=== PATIENT | female | born 1950 | race Caucasian/White ===

== ENCOUNTER 2020-02-06 20:58 | Emergency (ER) | payer MEDICARE, OTHER ==
[~2020-02-06] VITALS: Ht 170.2 cm; Wt 113.6 kg
[~2020-02-06 20:58] MED LIST: ACET500T68 PO; ALPR0.5T6 PO; APIX2.5T PO; ATOR10TA60 PO; BACL10TA PO; CARB1TAB3 PO; DULO30CA2 PO; ENTA200T2 PO; FAMO20TA5 PO; FURO20TA3 PO; GUAI118L3 PO; HYDR28.423 TP; INSU100I27 SQ; INSU100V31 SQ; LEVO125T5 PO; LORA-169 PO; LORA10TA68 PO; MAG30ORA6 PO; MELO15TA23 PO; MENT118G TP; MULT-460 PO; ONDA-84 PO; POLY15DR20 EACHEYE; POLY17PO29 PO; POTA10TA6 PO; PREG50CA91 PO; ROPI0.5T4 PO; SITA100T PO; VENL150C6 PO; VENTOLIN HFA18 GM INH; ZINC220T3 PO; [UNRECOGNIZED DRUG - CODE] PO
--- NOTE | 2020-02-06 21:29 | PHYS DOC ---
Past Medical History Past Medical History: Depression, Diabetes-Type II, GERD, Other Additional Past Medical Histor: PARKINSONS Past Surgical History: Other Additional Past Surgical Histo: UNKNOWN Smoking Status: Never Smoker Alcohol Use: None Adult General HPI HPI Patient is a 70 year old female who presents via EMS for symptomatic COVID-19. [facility], was recently diagnosed with COVID-19 12 days ago and ever since has been on the Covid gallegos. She has been receiving supportive care but has continued to feel generalized malaise, muscle aches, and experienced increased short of breath. Patient had episode of hypoglycemia earlier this morning prompting EMS to come and administer x1 amp dextrose with improvement in patient's blood sugar and symptoms. Patient was subsequently kept at [facility] and monitored throughout the day. Nonetheless, given patient's ongoing shortness of breath with nonproductive cough, [facility] staff did not feel comfortable handling patient and sent her here for arrival. Review of Systems Review of Systems Fourteen body systems of review of systems have been reviewed. See HPI for pertinent positives and negative responses, other lemus all other systems are negative, non-pertinent or non-contributory Current Medications Current Medications Current Medications Medications (Trade) Dose Ordered Sig/Laureen Start Time Stop Time Status Last Admin Dose Admin Dexamethasone Sodium Phosphate (Decadron) 6 mg 1X ONCE 02/06/20 21:15 02/06/20 21:24 DC 02/06/20 21:39 6 MG Allergies Allergies Allergies Coded Allergies Type Severity Reaction Last Updated Verified Influenza Virus Vaccines Allergy Intermediate Unknown 01/31/20 Yes bacitracin Allergy Intermediate Rash 01/31/20 Yes Physical Exam Physical Exam Constitutional: Pt is oriented to person, place, and time. Pt appears well-developed but is unkept with poor hygiene HEENT: Head: Normocephalic and atraumatic. External ears unremarkable, no gatica sign Conjunctivae and EOM are normal. Pupils are equal, round, and reactive to light. Oropharynx is clear and dry No hematomas or lacerations or abrasions to face or scalp OP clear, no blood, no malocclusion, dentition intact Nares clear, no nasal septal hematoma Midface stable Neck: C-spine midline nontender, no step-offs Cardiovascular: Normal rate, regular rhythm and normal heart sounds. Pulmonary/Chest: No overt respiratory distress, wheezing present with auscultation bilaterally, accessory muscle use of abdomen with respirations Abdominal: Soft. Bowel sounds are normal. Pt exhibits no distension. There is no tend erness. Musculoskeletal: No bony tenderness to extremities, no deformities, full ROM extremities Chest wall stable Pelvis stable and non-tender No vertebral TTP and spine without stepoffs Neurological: Pt is alert and oriented to person, place, and time. Moving all extremities willfully, able to wiggle all fingers and toes Alert and oriented x 3 Sensation grossly intact Skin: Skin is warm and dry. No abrasions, no lacerations Psychiatric: Behavior is appropriate for situation Current Patient Data Vital Signs Vital Signs Date Time Temp Pulse Resp B/P (MAP) Pulse Ox O2 Delivery O2 Flow Rate FiO2 02/06/20 21:40 96 22 138/40 (72) 90 Nasal Cannula 2.0 02/06/20 21:05 98.9 98.9 Lab Values Laboratory Tests Test 02/06/20 21:20 White Blood Count 15.1 x10^3/uL (4.0-11.0) H Red Blood Count 5.29 x10^6/uL (3.50-5.40) Hemoglobin 13.3 g/dL (12.0-15.5) Hematocrit 42.5 % (36.0-47.0) Mean Corpuscular Volume 81 fL (79-100) Mean Corpuscular Hemoglobin 25 pg (25-35) Mean Corpuscular Hemoglobin Concent 31 g/dL (31-37) Red Cell Distribution Width 17.6 % (11.5-14.5) H Platelet Count 232 x10^3/uL (140-400) Neutrophils (%) (Auto) 92 % (31-73) H Lymphocytes (%) (Auto) 3 % (24-48) L Monocytes (%) (Auto) 5 % (0-9) Eosinophils (%) (Auto) 0 % (0-3) Basophils (%) (Auto) 1 % (0-3) Neutrophils # (Auto) 13.9 x10^3/uL (1.8-7.7) H Lymphocytes # (Auto) 0.4 x10^3/uL (1.0-4.8) L Monocytes # (Auto) 0.8 x10^3/uL (0.0-1.1) Eosinophils # (Auto) 0.0 x10^3/uL (0.0-0.7) Basophils # (Auto) 0.1 x10^3/uL (0.0-0.2) Segmented Neutrophils % 68 % (35-66) H Band Neutrophils % 22 % (0-9) H Lymphocytes % 4 % (24-48) L Monocytes % 5 % (0-10) Metamyelocytes % 1 % (0-0) H Platelet Estimate Adequate (ADEQUATE) Large Platelets Few Giant Platelets Occ Prothrombin Time 14.0 SEC (11.7-14.0) Prothrombin Time INR 1.1 (0.8-1.1) Activated Partial Thromboplast Time 30 SEC (24-38) D-Dimer (Allyson) 0.63 ug/mlFEU (0.00-0.50) H Sodium Level 143 mmol/L (136-145) Potassium Level 4.0 mmol/L (3.5-5.1) Chloride Level 106 mmol/L (98-107) Carbon Dioxide Level 28 mmol/L (21-32) Anion Gap 9 (6-14) Blood Urea Nitrogen 20 mg/dL (7-20) Creatinine 0.9 mg/dL (0.6-1.0) Estimated GFR (Cockcroft-Gault) 61.5 BUN/Creatinine Ratio 22 (6-20) H Glucose Level 172 mg/dL (70-99) H Lactic Acid Level 1.9 mmol/L (0.4-2.0) Calcium Level 8.3 mg/dL (8.5-10.1) L Total Bilirubin 0.3 mg/dL (0.2-1.0) Aspartate Amino Transferase (AST) 22 U/L (15-37) Alanine Aminotransferase (ALT) 9 U/L (14-59) L Alkaline Phosphatase 100 U/L (46-116) Creatine Kinase 31 U/L (26-192) Troponin I Quantitative < 0.017 ng/mL (0.000-0.055) C-Reactive Protein, Quantitative 40.2 mg/L (0-3.3) H IK-Zjo-U-Type Natriuretic Peptide 276 pg/mL (0-124) H Total Protein 5.9 g/dL (6.4-8.2) L Albumin 2.4 g/dL (3.4-5.0) L Albumin/Globulin Ratio 0.7 (1.0-1.7) L Laboratory Tests 02/06/20 21:20 Laboratory Tests 02/06/20 21:20 EKG EKG EKG ordered and interpreted by myself at 2127 hrs. as sinus rhythm at 97 bpm, unremarkable intervals, no axis deviation, no acute ischemic findings, no STEMI Radiology/Procedures Radiology/Procedures Exam: Chest one view INDICATION: Shortness of breath TECHNIQUE: Frontal view which Comparisons: 01/31/2020 FINDINGS: The cardiomediastinal silhouette and pulmonary vessels are within normal limits. Patchy airspace disease at the lung bases bilaterally. No pleural effusion. IMPRESSION: Patchy bibasilar airspace disease, may relate to edema or atypical infectious process. Electronically signed by: Wendy Mills MD (02/06/2020 10:05 PM) [facility] Course & Med Decision Making Course & Med Decision Making Pertinent Labs and Imaging studies reviewed. (See chart for details) Discussed most likely diagnosis of acute respiratory failure secondary to COVID- 19. Patient hypoxic on room air with readings ranging from 87% to 90%. These improved with supplemental oxygen via nasal cannula at 2 L Dexamethasone administered given recent COVID-19 diagnosis. It is unknown whether she has been taking this or not. Patient reports improvement in her wheezing after administration of this Ultimately patient reassessed numerous times throughout ER visit and stable. I discussed role of admission versus discharge back to [facility]. [facility] which can provide same level of care that we would provide if she were to be admitted such as supplemental oxygen therapy, dexamethasone as indicated in addition to zinc and azithromycin. I have not started these as I am unsure if patient has recently been treated with these. I discussed need to discuss this with her [facility] physician tomorrow after discharge to determine if these medications would benefit her or not. senior care contacted and case discussed, they were amenable for transport back to their facility with ongoing supportive care. Nurse reports they will discuss case with [facility] physician tomorrow and will evaluate need for ongoing zinc, dexamethasone and azithromycin use. I educated patient extensively on strict return precautions at should prompt immediate medical attention and specifically what should prompt her to come back to our ER for intervention All questions and concerns addressed prior to ER departure via EMS back to [facility] in stable condition Dragfritz Disclaimer Dragon Disclaimer This electronic medical record was generated, in whole or in part, using a voice recognition dictation system. Departure Departure Impression: Primary Impression: COVID-19 Additional Impression: Acute respiratory failure due to COVID-19 Disposition: 01 DC HOME SELF CARE/HOMELESS (Back to [facility]) Condition: STABLE Referrals: XAVI ATKINSON MD (PCP) Additional Instructions: As discussed prior to ER departure, please discuss with your [facility] physician role of zinc, dexamethasone, and azithromycin for your recently diagnosed COVID-19 infection As advised there are no emergent and/or surgical findings today. I believe you are continuing to feel symptoms from COVID-19 infection. I feel you are safe to return back to your [facility] as they are able to provide all care that we would provide in a hospitalized setting in your current state such as supplemental oxygen via nasal cannula and treatment methods above. I am unsure if you received any of these treatment methods which is why I am deferring the decision to start these or not to your [facility] physician who knows all about your care. Nonetheless, please return to the Emergency Department if you experience worsening cough, fever, shortness of breath, recurrent vomiting, lethargy, or any other concerning symptoms. Thank you for choosing us for your care. Below you can read more information regarding your diagnosis of COVID-19, alessio atment options and FAQs Home Care Instructions for Patients with Mild Respiratory Infection Most people with respiratory infections like colds, the flu, and Coronavirus Disease (COVID-19) will have mild illness and can get better with appropriate home care and without the need to see a provider. People who are elderly, , or have a weak immune system, or other medical problem are at higher risk of more serious illness or complications. It is recommended that they carefully monitor their symptoms closely and seek medical care early if their symptoms get worse. Treatment There is no specific treatment for most viruses including those that that cause the common cold and those that cause COVID-19. Sometimes there is treatment for the viruses that cause influenza if given early. Antibiotics treat infections caused by bacteria, but they do not work against viruses.Most people recover on their own from these viruses, including COVID-19. Here are steps that you can take to help you get better: Rest Drink plenty of fluids Take ziyq-pec-vainneq cold and flu medications to reduce fever and pain. Follow the instructions on the package, unless your doctor gave you instructions. Note that these medicines do not ``cure the illness and therefore do not stop you from spreading germs. Children should not be given medication that contains aspirin (acetylsalicylic acid) because it can cause a rare but serious illness called Camron syndrome. Medicines without aspirin include acetaminophen (Tylenol) and ibuprofen (Advi l, Motrin). Children younger than age 2 should not be given any dsli-qas-chblxea cold medications without first speaking with a doctor.Seeking Medical Care You should seek medical care if you are not getting better within a week, or if your symptoms get worse. If you are elderly, , have a weak immune system, or other medical problems, call your doctor right away. It is best to call ahead of time to discuss your symptoms, if possible. This may allow you to receive the advice you need by phone. By avoiding a visit to a healthcare facility, you protect yourself from getting a new infection and protect others from catching an infection from you. If you do visit a healthcare facility, put on a mask to protect other patients and staff. It is recommended that you seek medical care for serious symptoms, such as: People with potentially life-threatening symptoms should call 911. If possible, put on a facemask before emergency medical services arrive. PROTECTING OTHERS Follow the steps below to help prevent the disease from spreading to people in your home and community.Stay home when you are sick Stay home - do not go to work, school, or public areas. Stay home for at least 24 hours after your symptoms have gone away without the use of fever-reducing medicines. If you must leave home while you are sick, try to avoid using public transportation, ride-shares, and taxis. Wear a mask if possible. Separate yourself from other people and animals in your home Stay in a specific room and away from other people in your home as much as possible. Use a separate bathroom, if available. Try to stay at least 6 feet from others. Do not handle pets or other animals while you are sick. Cover your coughs and sneezes Cover your mouth and nose with a tissue when you cough or sneeze. Throw used tissues in a lined trash can; immediately wash your hands. Avoid sharing personal household items Do not share dishes, drinking glasses, cups, eating utensils, towels, or bedd ing with other people or pets in your home. Wash them thoroughly with soap and water after use. Clean your hands often Wash your hands often with soap and water for at least 20 seconds. If soap and water are not available, clean your hands with an alcohol-based hand e commerce solution architect that contains at least 60% alcohol, covering all surfaces of your hands and rubbing them together until they feel dry. Use soap and water if your hands are visibly dirty. Clean all ``high-touch surfaces every day High touch surfaces include counters, tabletops, doorknobs, bathroom fixtures, toilets, phones, keyboards, tablets, and bedside tables. Also, clean any surfaces that may have body fluids on them. Use a household cleaning spray or wipe, according to the product label instructions. COVID-19 (Novel Coronavirus) FAQs for Inquiring Patients What do you do if you are worried that you have been exposed to COVID-19 but are without any symptoms? If you develop symptoms that may indicate an infection, contact your physician. These include fever, cough, and shortness of breath. Testing is not available for asymptomatic individuals, regardless of travel history. To reduce the chance of getting sick use general infection prevention measures such as hand washing, covering your mouth and nose when you cough or sneeze and discarding any tissues carefully, and staying home when you are sick.Can exceptions be made for patients who are really worried and want to be tested? Presently testing is available through all local Department of Public Health and Centers for Disease Control and Prevention in addition to numerous Urgent Care facilities and Pharmacies. Only patients who meet the updated COVID-19 PUI definition may be tested. We do not control or set the PUI definition or evaluation criteria. We are unable to provide testing to patients who do not meet the strict criteria. Should patients cancel or postpone an upcoming trip? The decision about travel is personal and should be made in the context of a persons underlying health conditions, reason for travel and necessity of travel. Travel insurance generally does not cover cancellations due to concerns of infectious disease outbreaks. The Center for Disease Control has a section on travel notices. Situations are changing frequently and you should monitor the site for updates. Should situations change rapidly in a foreign country while they are traveling, you could be subject to quarantine or restrictions upon return to the [place]. It is best to have a plan on how to return urgently if needed during a trip abroad. Because of how air circulates and is filtered on airplanes, most viruses do not spread easily on airplanes. CDC does not recommend use of facemasks during air travel.What other general precautions are advised? Patients should be instructed to: Avoid close contact with people who are sick. Avoid touching your eyes, nose and mouth. Stay home from work or school when they are sick. If you have a fever, you should remain home until 24 hours after fever resolves. Clean and disinfect frequently touched objects and surfaces using a regular household cleaning spray or wipe. Sneeze/cough into their elbow, not your hand. Practice frequent hand hygiene with soap and water (at least 20 seconds) or alcohol-based hand rub. Consider avoiding crowded places or mass gatherings, especially if you are immunocompromised or have chronic lung disease. There is no evidence to support transmission of COVID-19 from goods imported from [place]. Are there any special precautions that are recommended if I am ? There is not yet any information available about the susceptibility of women to COVID-19. As a general rule, women may be more susceptible to viral respiratory infections and at risk for more severe illness. The CDC guidance for COVID-19 and has answers to questions about transmission during delivery, as well as other situations. Should food, water, or medications be stockpiled? Should people telecommute? The CDC has excellent information on this. Please visit the CDCs guidance for getting your household ready for COVID-19. What should I do if I start feeling sick at work? And what should the workplace do for anyone exposed? Anyone who is sick with a fever and cough should stay home from work until at least 24 hours after resolution of fever, regardless of concerns for COVID-19. It is still influenza (flu) season and influenza remains far more common. Problem Qualifiers CORNELL BRIZUELA DO Feb 06, 2020 21:28
[2020-02-06 21:36] LABS: BASO # 0.1 x10^3/uL (0.0-0.2); BASO % 1 % (0-3); EOS % 0 % (0-3); HEMATOCRIT 42.5 % (36.0-47.0); HEMOGLOBIN 13.3 g/dL (12.0-15.5); LYMPH # 0.4 x10^3/uL (1.0-4.8); LYMPH % 3 % (24-48); MEAN CORPUSCULAR HEMOGLOBIN 25 pg (25-35); MEAN CORPUSCULAR HGB CONC 31 g/dL (31-37); MEAN CORPUSCULAR VOLUME 81 fL (79-100); MONO # 0.8 x10^3/uL (0.0-1.1); MONO % 5 % (0-9); NEUT # 13.9 x10^3/uL (1.8-7.7); NEUT % 92 % (31-73); PLATELET COUNT 232 x10^3/uL (140-400); RED BLOOD COUNT 5.29 x10^6/uL (3.50-5.40); RED CELL DISTRIBUTION WIDTH 17.6 % (11.5-14.5); WHITE BLOOD COUNT 15.1 x10^3/uL (4.0-11.0)
[2020-02-06] MEDS: DEXAMETHASONE SOD PHOS 4 MG/ML VIAL IVP ONE (21:39)
[2020-02-06 21:54] LABS: CALCIUM 8.3 mg/dL (8.5-10.1); CREATININE 0.9 mg/dL (0.6-1.0); GFR 61.5
[2020-02-06 21:56] LABS: D-DIMER 0.63 ug/mlFEU (0.00-0.50)
[2020-02-06 22:00] LABS: ALBUMIN 2.4 g/dL (3.4-5.0); ALBUMIN/GLOBULIN RATIO 0.7 (1.0-1.7); C-REACTIVE PROTEIN 40.2 mg/L (0-3.3); TOTAL BILIRUBIN 0.3 mg/dL (0.2-1.0); TOTAL PROTEIN 5.9 g/dL (6.4-8.2)
--- NOTE | 2020-02-06 22:08 | RAD ---
Exam: Chest one view INDICATION: Shortness of breath TECHNIQUE: Frontal view which Comparisons: 01/31/2020 FINDINGS: The cardiomediastinal silhouette and pulmonary vessels are within normal limits. Patchy airspace disease at the lung bases bilaterally. No pleural effusion. IMPRESSION: Patchy bibasilar airspace disease, may relate to edema or atypical infectious process. Electronically signed by: Wendy Mills MD (02/06/2020 10:05 PM) [facility]
[2020-02-06 22:14] LABS: % BANDS 22 % (0-9); % LYMPHS 4 % (24-48); % METAS 1 % (0-0); % MONOS 5 % (0-10); % SEGS 68 % (35-66); PLT ESTIMATE ADEQUATE (ADEQUATE)
[2020-02-07 00:36] VITALS: BP 161/85
--- NOTE | 2020-02-07 08:12 | EKG ---
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
== END 2020-02-07 00:50 | disposition home or self-care (01) ==
LOC: ER 20:58
DX: J96.00 Acute respiratory failure, unspecified whether with hypoxia or hypercapnia (principal); U07.1 COVID-19; R53.83 Other fatigue; F32.9 Major depressive disorder, single episode, unspecified; K21.9 Gastro-esophageal reflux disease without esophagitis; E11.649 Type 2 diabetes mellitus with hypoglycemia without coma; Z98.890 Other specified postprocedural states; Z88.7 Allergy status to serum and vaccine; Z88.1 Allergy status to other antibiotic agents
CPT/HCPCS: 36415; 71045; 80053; 82550; 83605; 83880; 84484; 85007; 85025; 85379; 85610; 85730; 86140; 87040; 93005; 96374; 99291; J1100

== ENCOUNTER 2020-02-20 09:36 | Emergency (ER) | payer MEDICARE, OTHER ==
[~2020-02-20] VITALS: Ht 170.2 cm; Wt 113.6 kg
--- NOTE | 2020-02-20 10:13 | EKG ---
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
--- NOTE | 2020-02-20 10:17 | ED.ADGEN ---
Past Medical History Past Medical History: COPD, Depression, Diabetes-Type II, GERD, Other Additional Past Medical Histor: PARKINSONS Past Surgical History: Other Additional Past Surgical Histo: UNKNOWN Smoking Status: Never Smoker Alcohol Use: None General Adult EDM: Chief Complaint: WEAKNESS/GENERALIZED HPI: HPI: Patient is a 70 year old female brought in from nursing facility. Per EMS as staff reports she was acting "altered" this morning and tired. Patient states s he has no complaints, and is complaining about not getting sleep secondary to her roommate waking up in middle the night. Patient states she does not have any shortness of breath, has an occasional lingering cough. Patient was diagnosed with Covid 1 month ago and has since recovered and been out of quarantine and back to general population. Review of Systems: Review of Systems: Constitutional: Denies fever or chills. [] Eyes: Denies change in visual acuity. [] HENT: Denies nasal congestion or sore throat. [] Respiratory: Denies cough or shortness of breath. [] Cardiovascular: Denies chest pain or edema. [] GI: Denies abdominal pain, nausea, vomiting, bloody stools or diarrhea. [] : Denies dysuria. [] Musculoskeletal: Denies back pain or joint pain. [] Integument: Denies rash. [] Neurologic: Denies headache, focal weakness or sensory changes. [] Endocrine: Denies polyuria or polydipsia. [] Lymphatic: Denies swollen glands. [] Psychiatric: Denies depression or anxiety. [] Current Medications: Current Medications Medications (Trade) Dose Ordered Sig/Laureen Start Time Stop Time Status Last Admin Dose Admin Cephalexin HCl (Keflex) 500 mg 1X STAT 02/20/20 12:24 02/20/20 12:26 DC Sodium Chloride 1,000 ml @ 1,000 mls/hr 1X ONCE 02/20/20 11:45 02/20/20 12:44 DC 02/20/20 11:54 1,000 MLS/HR Allergies: Allergies: Allergies Coded Allergies Type Severity Reaction Last Updated Verified Influenza Virus Vaccines Allergy Intermediate Unknown 01/31/20 Yes bacitracin Allergy Intermediate Rash 01/31/20 Yes Physical Exam: PE: Constitutional: Well developed, well nourished, no acute distress, non-toxic appearance. [] HENT: Normocephalic, atraumatic, bilateral external ears normal, oropharynx moist, no oral exudates, nose normal. [] Eyes: PERRLA, EOMI, conjunctiva normal, no discharge. [] Neck: Normal range of motion, no tenderness, supple, no stridor. [] Cardiovascular:Heart rate regular rhythm, no murmur [] Lungs & Thorax: Bilateral breath sounds clear to auscultation [] Abdomen: Bowel sounds normal, soft, no tenderness, no masses, no pulsatile masses. [] Skin: Warm, dry, no erythema, no rash. [] Back: No tenderness, no CVA tenderness. [] Extremities: No tenderness, no cyanosis, no clubbing, ROM intact, no edema. [] Neurologic: Alert and oriented X 3, normal motor function, normal sensory function, no focal deficits noted. [] Psychologic: Affect normal, judgement normal, mood normal. [] Current Patient Data: Labs: Laboratory Tests Test 02/20/20 09:58 02/20/20 10:20 02/20/20 11:10 Glucose (Fingerstick) 114 mg/dL (70-99) H White Blood Count 7.5 x10^3/uL (4.0-11.0) Red Blood Count 4.29 x10^6/uL (3.50-5.40) Hemoglobin 11.2 g/dL (12.0-15.5) L Hematocrit 35.1 % (36.0-47.0) L Mean Corpuscular Volume 82 fL (79-100) Mean Corpuscular Hemoglobin 26 pg (25-35) Mean Corpuscular Hemoglobin Concent 32 g/dL (31-37) Red Cell Distribution Width 18.2 % (11.5-14.5) H Platelet Count 147 x10^3/uL (140-400) Neutrophils (%) (Auto) 82 % (31-73) H Lymphocytes (%) (Auto) 12 % (24-48) L Monocytes (%) (Auto) 5 % (0-9) Eosinophils (%) (Auto) 1 % (0-3) Basophils (%) (Auto) 1 % (0-3) Neutrophils # (Auto) 6.1 x10^3/uL (1.8-7.7) Lymphocytes # (Auto) 0.9 x10^3/uL (1.0-4.8) L Monocytes # (Auto) 0.4 x10^3/uL (0.0-1.1) Eosinophils # (Auto) 0.0 x10^3/uL (0.0-0.7) Basophils # (Auto) 0.0 x10^3/uL (0.0-0.2) Sodium Level 148 mmol/L (136-145) H Potassium Level 3.3 mmol/L (3.5-5.1) L Chloride Level 108 mmol/L (98-107) H Carbon Dioxide Level 32 mmol/L (21-32) Anion Gap 8 (6-14) Blood Urea Nitrogen 19 mg/dL (7-20) Creatinine 1.2 mg/dL (0.6-1.0) H Estimated GFR (Cockcroft-Gault) 44.2 BUN/Creatinine Ratio 16 (6-20) Glucose Level 95 mg/dL (70-99) Calcium Level 8.7 mg/dL (8.5-10.1) Total Bilirubin 0.2 mg/dL (0.2-1.0) Aspartate Amino Transferase (AST) 37 U/L (15-37) Alanine Aminotransferase (ALT) 46 U/L (14-59) Alkaline Phosphatase 103 U/L (46-116) Troponin I Quantitative < 0.017 ng/mL (0.000-0.055) PR-Xgs-Q-Type Natriuretic Peptide 47 pg/mL (0-124) Total Protein 6.3 g/dL (6.4-8.2) L Albumin 2.6 g/dL (3.4-5.0) L Albumin/Globulin Ratio 0.7 (1.0-1.7) L Urine Collection Type U cath Urine Color Yellow Urine Clarity Cloudy Urine pH 5.5 (<5.0-8.0) Urine Specific [place] >=1.030 (1.000-1.030) Urine Protein 30 mg/dL (NEG-TRACE) Urine Glucose (UA) Negative mg/dL (NEG) Urine Ketones (Stick) Negative mg/dL (NEG) Urine Blood Small (NEG) Urine Nitrite Negative (NEG) Urine Bilirubin Small (NEG) Urine Urobilinogen Dipstick 0.2 mg/dL (0.2 mg/dL) Urine Leukocyte Esterase Small (NEG) Urine RBC 6-10 /HPF (0-2) Urine WBC 11-20 /HPF (0-4) Urine Squamous Epithelial Cells Many /LPF Urine Transitional Epithelial Cells Few /LPF Urine Renal Epithelial Cells Few /LPF Urine Bacteria Moderate /HPF (0-FEW) Urine Hyaline Casts Few /HPF Urine Mucus Marked /LPF Laboratory Tests 02/20/20 10:20 Laboratory Tests 02/20/20 10:20 Vital Signs: Vital Signs Date Time Temp Pulse Resp B/P (MAP) Pulse Ox O2 Delivery O2 Flow Rate FiO2 02/20/20 12:10 72 26 122/63 (82) 100 Nasal Cannula 2.0 02/20/20 09:36 96.7 96.7 EKG: EKG: Sinus rhythm, heart rate 83, normal axis, no ectopy, no ST elevation or depression. Normal intervals [] Heart Score: Risk Factors: Risk Factors: DM, Current or recent (<one month) smoker, HTN, HLP, family history of CAD, obesity. Risk Scores: Score 0 - 3: 2.5% MACE over next 6 weeks - Discharge Home Score 4 - 6: 20.3% MACE over next 6 weeks - Admit for Clinical Observation Score 7 - 10: 72.7% MACE over next 6 weeks - Early Invasive Strategies Radiology/Procedures: Radiology/Procedures: XR CHEST 1V 02/20/2020 10:48 AM INDICATION: Dyspnea COMPARISON: 02/06/2020 TECHNIQUE: Portable frontal view of the chest is provided. FINDINGS: The cardiomediastinal silhouette is enlarged, stable. There is a catheter projecting along the right chest consistent the prior examination. Coarse interstitial airspace disease identified in perihilar distribution, not significant changed. Trace right pleural effusion with adjacent compressive atelectasis versus infiltrate. Moderate pulmonary vascular congestion. No pneumothorax. No suspicious osseous abnormality. IMPRESSION: Constellation of findings may be associated with congestive heart failure. Interstitial pneumonitis could have similar appearance. Findings are not significantly changed since the prior examination. [] Course & Med Decision Making: Course & Med Decision Making Pertinent Labs and Imaging studies reviewed. (See chart for details) Patient well-appearing and states she is feeling okay. Does endorse some urinary frequency recently. Labs consistent mild dehydration, given some fluids and antibiotics for urinary tract infection. [] Dragon Disclaimer: Dragon Disclaimer: This electronic medical record was generated, in whole or in part, using a voice recognition dictation system. Departure Departure Impression: Primary Impression: Urinary tract infection Additional Impression: Mild dehydration Disposition: 09 ADMITTED INPT THIS HOSP Condition: STABLE Referrals: XAVI ATKINSON MD (PCP) Patient Instructions: Urinary Tract Infection Scripts Cephalexin (CEPHALEXIN) 500 Mg Capsule 1 CAP PO BID for antiobiotic for 5 Days, #10 CAP Prov: KATHIE HODGE MD 02/20/20 Problem Qualifiers KATHIE HODGE MD Feb 20, 2020 10:17
[2020-02-20 10:42] LABS: BASO % 1 % (0-3); EOS % 1 % (0-3); HEMATOCRIT 35.1 % (36.0-47.0); HEMOGLOBIN 11.2 g/dL (12.0-15.5); LYMPH # 0.9 x10^3/uL (1.0-4.8); LYMPH % 12 % (24-48); MEAN CORPUSCULAR HEMOGLOBIN 26 pg (25-35); MEAN CORPUSCULAR HGB CONC 32 g/dL (31-37); MEAN CORPUSCULAR VOLUME 82 fL (79-100); MONO # 0.4 x10^3/uL (0.0-1.1); MONO % 5 % (0-9); NEUT # 6.1 x10^3/uL (1.8-7.7); NEUT % 82 % (31-73); PLATELET COUNT 147 x10^3/uL (140-400); RED BLOOD COUNT 4.29 x10^6/uL (3.50-5.40); RED CELL DISTRIBUTION WIDTH 18.2 % (11.5-14.5); WHITE BLOOD COUNT 7.5 x10^3/uL (4.0-11.0)
[2020-02-20 10:49] LABS: CALCIUM 8.7 mg/dL (8.5-10.1); CREATININE 1.2 mg/dL (0.6-1.0); GFR 44.2; POTASSIUM 3.3 mmol/L (3.5-5.1)
--- NOTE | 2020-02-20 10:54 | RAD ---
XR CHEST 1V 02/20/2020 10:48 AM INDICATION: Dyspnea COMPARISON: 02/06/2020 TECHNIQUE: Portable frontal view of the chest is provided. FINDINGS: The cardiomediastinal silhouette is enlarged, stable. There is a catheter projecting along the right chest consistent the prior examination. Coarse interstitial airspace disease identified in perihilar distribution, not significant changed. Trace right pleural effusion with adjacent compressive atelectasis versus infiltrate. Moderate pulmon susan vascular congestion. No pneumothorax. No suspicious osseous abnormality. IMPRESSION: Constellation of findings may be associated with congestive heart failure. Interstitial pneumonitis c ould have similar appearance. Findings are not significantly changed since the prior examination. Electronically signed by: Rebeca Emerson MD (02/20/2020 10:52 AM) PREM
[2020-02-20 10:56] LABS: ALBUMIN 2.6 g/dL (3.4-5.0); ALBUMIN/GLOBULIN RATIO 0.7 (1.0-1.7); TOTAL BILIRUBIN 0.2 mg/dL (0.2-1.0); TOTAL PROTEIN 6.3 g/dL (6.4-8.2)
[2020-02-20 11:24] LABS: BILIRUBIN,URINE SMALL (NEG); CLARITY,URINE CLOUDY; NITRITE,URINE NEGATIVE (NEG); PH,URINE 5.5 (<5.0-8.0); PROTEIN,URINE 30 mg/dL (NEG-TRACE); UROBILINOGEN,URINE 0.2 mg/dL (0.2 mg/dL)
[2020-02-20 11:42] LABS: COLOR,URINE YELLOW
[2020-02-20 11:44] LABS: HYALINE CASTS, URINE FEW /HPF
[2020-02-20] MEDS ORDERED: IV NORMAL SALINE 1000ML BAG 1,000 ML IV ONE (11:45)
[2020-02-20 11:47] LABS: BACTERIA,URINE MODERATE /HPF (0-FEW)
[2020-02-20] MEDS ORDERED: CEPHALEXIN 250 MG CAPSULE. PO STA (12:24)
[2020-02-20] MEDS ORDERED: CEPH500C PO (12:47)
[2020-02-20] MEDS ORDERED: ACETAMINOPHEN 500 MG TABLET PO ONE (13:45)
[2020-02-20 15:40] VITALS: BP 122/64
== END 2020-02-20 16:05 | disposition home or self-care (01) ==
LOC: ER 09:36
DX: N39.0 Urinary tract infection, site not specified (principal); E86.0 Dehydration; J44.9 Chronic obstructive pulmonary disease, unspecified; F32.9 Major depressive disorder, single episode, unspecified; E11.9 Type 2 diabetes mellitus without complications; K21.9 Gastro-esophageal reflux disease without esophagitis; Z98.890 Other specified postprocedural states; Z88.1 Allergy status to other antibiotic agents; Z88.8 Allergy status to other drugs, medicaments and biological substances
CPT/HCPCS: 36415; 71045; 80053; 81001; 82962; 83880; 84484; 85025; 87086; 93005; 96360; 96361; 99285; J7030; P9612

== ENCOUNTER 2020-03-30 14:50 | Inpatient (IN) | payer MEDICARE, OTHER ==
[~2020-03-30] VITALS: Ht 167.6 cm; Wt 120.6 kg
[~2020-03-30 14:50] MED LIST changes: +CEPH500C PO
--- NOTE | 2020-03-30 15:20 | PHYS DOC ---
Past Medical History Past Medical History: Anxiety, COPD, Depression, Diabetes-Type II, GERD, Other Additional Past Medical Histor: PARKINSONS Past Surgical History: Other Additional Past Surgical Histo: SHUNT IN BRAIN Smoking Status: Never Smoker Alcohol Use: None General Adult EDM: Chief Complaint: MECHANICAL FALL HPI: HPI: Patient is a 70 year old female with history of diabetes type 2, depression, anxiety, coming from a [facility] for left ankle fracture. Patient states sometime today she was trying to sit on her wheelchair, she states she missed the wheelchair landed on the floor. She states her doctor was in the room during the fall. Patient states they did an outpatient x-ray and she was told she has ankle fracture. Patient states she is primarily wheelchair-bound Review of Systems: Review of Systems: Constitutional: Denies fever or chills. [] Eyes: Denies change in visual acuity. [] HENT: Denies nasal congestion or sore throat. [] Respiratory: Denies cough or shortness of breath. [] Cardiovascular: Denies chest pain or edema. [] GI: Denies abdominal pain, nausea, vomiting, bloody stools or diarrhea. [] : Denies dysuria. [] Musculoskeletal: Reports left ankle pain, denies low back pain Integument: Denies rash. [] Neurologic: Denies headache, focal weakness or sensory changes. [] Psychiatric: Denies depression or anxiety. [] Heart Score: Risk Factors: Risk Factors: DM, Current or recent (<one month) smoker, HTN, HLP, family history of CAD, obesity. Risk Scores: Score 0 - 3: 2.5% MACE over next 6 weeks - Discharge Home Score 4 - 6: 20.3% MACE over next 6 weeks - Admit for Clinical Observation Score 7 - 10: 72.7% MACE over next 6 weeks - Early Invasive Strategies Allergies: Allergies: Allergies Coded Allergies Type Severity Reaction Last Updated Verified Influenza Virus Vaccines Allergy Intermediate Unknown 01/31/20 Yes bacitracin Allergy Intermediate Rash 01/31/20 Yes Physical Exam: PE: Constitutional: Well developed, well nourished, no acute distress, non-toxic appearance. [] HENT: Normocephalic, atraumatic, bilateral external ears normal, oropharynx moist, no oral exudates, nose normal. [] Eyes: PERRLA, EOMI, conjunctiva normal, no discharge. [] Neck: Normal range of motion, no tenderness, supple, no stridor. [] Cardiovascular:Heart rate regular rhythm, no murmur [] Lungs & Thorax: Bilateral breath sounds clear to auscultation [] Abdomen: Bowel sounds normal, soft, no tenderness, no masses, no pulsatile masses. [] Skin: Warm, dry, no erythema, no rash. [] Back: No tenderness, no CVA tenderness. [] Extremities: Left ankle with +2 soft tissue swelling diffusely. Slight bruising noted on the left medial ankle. Tenderness on palpation of the left medial as well as lateral ankle. Limited range of motion to the left ankle. +2 left pedal pulse. Cap refill less than 2 seconds to left toes. Neurologic: Alert and oriented X 3, normal motor function, normal sensory function, no focal deficits noted. [] Psychologic: Affect normal, judgement normal, mood normal. [] Current Patient Data: Vital Signs: Vital Signs Date Time Temp Pulse Resp B/P (MAP) Pulse Ox O2 Delivery O2 Flow Rate FiO2 03/30/20 15:02 98.3 88 20 142/74 (96) 100 Room Air 98.3 EKG: EKG: [] Radiology/Procedures: Radiology/Procedures: []PROCEDURE: TIBIA FIBULA LEFT Exam: Left tibia and fibula 2 views INDICATION: Left ankle pain TECHNIQUE: Frontal and lateral views left tibia and fibula Comparisons: Ankle radiographs same day FINDINGS: Known ankle fracture to better evaluated on contemporary ankle radiographs. No new fractures are seen. Soft tissues are unremarkable. Bone mineralization is normal. Joint spaces are well-maintained. IMPRESSION: No other fracture identified at the left tibia or fibula. Ankle fractures better described on ankle radiographs. Electronically signed by: Wendy Busby MD (03/30/2020 5:04 PM) [facility] DICTATED and SIGNED BY: WENDY BUSBY MD DATE: 03/30/20 [id number] PROCEDURE: ANKLE LEFT 3V EXAM: AP, oblique and lateral views left ankle DATE: 03/30/2020 3:04 PM INDICATION: Reason: fall pain,pt states she fell / Spl. Instructions: / History: COMPARISON: No Prior FINDINGS/ IMPRESSION: 1. Transverse fracture base of medial malleolus with oblique fracture of the distal fibular diametaphysis. Equivocal offset at the posterior malleolus suspicious for nondisplaced fracture. 2. Marked soft tissue swelling about the left ankle 3. Atherosclerotic vascular calcifications are seen. 4. Small plantar calcaneal enthesophyte. Electronically signed by: Shoaib Tolentino MD (03/30/2020 3:49 PM) [id number] DICTATED and SIGNED BY: SHOAIB TOLENTINO MD DATE: 03/30/20 [id number] 0 Course & Med Decision Making: Course & Med Decision Making Pertinent Labs and Imaging studies reviewed. (See chart for details) This is a 70-year-old female patient presented to the ED today complaining of left ankle fracture. Patient states she fell down injuring her left ankle today. She had outpatient x-rays done at the [facility] unfortunately we are not able to download the xrays because she brought a paper copy. X-rays were done in the ED again. Left ankle x-rays interpreted by radiologist noted for -Transverse fracture base of medial malleolus with oblique fracture of the distal fibular diametaphysis. Equivocal offset at the posterior malleolus suspicious for nondisplaced fracture. Marked soft tissue swelling about the left ankle. Atherosclerotic vascular calcifications are seen. Small plantar calcaneal enthesophyte. Spoke with Dr. Jones orthopedic doctor who came to the ED who initially stated patient is a surgical candidate, needs to be admitted under the hospitalist. Spoke to Dr. Alfredo who accepted patient for admission Dr. Jones came back to the ED and realized patient is on Eliquis and has significant swelling to the left lower extremity. He decided to splint patient. Neurovascular exam done by him post splinting is normal. Post plating x-rays were ordered by him and read by him. He requested we discharge patient back to the [facility]. Unfortunately patient had already been transferred to the floor. I spoke to Dr. Alfredo who will work on patient's discharge Dragon Disclaimer: Dragon Disclaimer: This electronic medical record was generated, in whole or in part, using a voice recognition dictation system. Departure Departure Impression: Primary Impression: Trimalleolar fracture of left ankle Qualified Codes: S82.852A - Displaced trimalleolar fracture of left lower leg, initial encounter for closed fracture Disposition: ADMITTED INPT THIS HOSP Condition: STABLE Referrals: XAVI ATKINSON MD (PCP) ELISA GALICIA II, MD Follow-up in 1 week Patient Instructions: Ankle Fracture with [facility] Additional Instructions: You were evaluated in the emergency room and have a trimalleolar fracture to the left ankle. Orthopedic doctor recommended you ensure you elevate your left lower extremity on 5 pillows/above your heart. Recommended you contact the provided orthopedic doctor tomorrow and set up an outpatient follow-up MARZENA PENA APRN Mar 30, 2020 15:20
--- NOTE | 2020-03-30 15:52 | RAD ---
EXAM: AP, oblique and lateral views left ankle DATE: 03/30/2020 3:04 PM INDICATION: Reason: fall pain,pt states she fell / Spl. Instructions: / History: COMPARISON: No Prior FINDINGS/ IMPRESSION: 1. Transverse fracture base of medial malleolus with oblique fracture of the distal fibular diametap hysis. Equivocal offset at the posterior malleolus suspicious for nondisplaced fracture. 2. Marked soft tissue swelling about the left ankle 3. Atherosclerotic vascular calcifications are seen. 4. Small plantar calcaneal enthesophyte. Electronically signed by: Shoaib Dobbs MD (03/30/2020 3:49 PM) [id number]
--- NOTE | 2020-03-30 17:06 | RAD ---
Exam: Left tibia and fibula 2 views INDICATION: Left ankle pain TECHNIQUE: Frontal and lateral views left tibia and fibula Comparisons: Ankle radiographs same day FINDINGS: Known ankle fracture to better evaluated on contemporary ankle radiographs. No new fractures are seen. Soft tissues are unremarkable. Bone mineralization is normal. Joint spaces are well-maintained. IMPRESSION: No other fracture identified at the left tibia or fibula. Ankle fractures better described on ankle r adiographs. Electronically signed by: Wendy Mills MD (03/30/2020 5:04 PM) SOL
--- NOTE | 2020-03-30 17:44 | PDOC2 ---
CONSULT Date of Consult Date of Consult DATE: 03/30/20 TIME: 17:25 Source Source: Chart review, Patient (Poor historian) History of Present Illness Reason for Visit: 70 YOF DM, Parkinson's, wheelchair transfer ambulator who is on anticoagulation for stroke/AFIB who lives in a long-term. She is a poor historian and has not ambulated for at least a year, maybe longer, per her report. She had a physician witnessed fall today when attempting to transfer from the bed to the wheelchair. She was brought to the ED for evaluation after an outside XR showed an ankle fracture. Past Medical History Past Medical History DM, Anxiety, Parkinson's, COPD, GERD, TIA/Stroke, AFIB Past Surgical History Past Surgical History Stent in brain Social History Social History: Other (Wheelchair transfer ambulator only. No ambulation for at least last 1 year. Lives in long-term.) Current Medications Current Medications Active Scripts Active Cephalexin 500 Mg Capsule 1 Cap PO BID 5 Days Reported Zinc Sulfate 220 Mg Tablet 220 Mg PO DAILY Ventolin Hfa Inhaler (Albuterol Sulfate) 18 Gm Hfa.aer.ad 2 Puff INH Q4HRS Venlafaxine Hcl Er (Venlafaxine Hcl) 150 Mg Cap.er.24h 225 Mg PO DAILY Sinemet 25-250 Mg Tablet (Carbidopa/Levodopa) 1 Each Tablet 1 Tab PO QID Ropinirole Hcl 0.5 Mg Tablet 0.5 Mg PO TID Robitussin Cough-Cold Cf Liq (Guaifenesin/D-Methorphan Hb/Pe) 118 Ml Liquid 10 Ml PO PRN Q4HRS PRN Lyrica (Pregabalin) 50 Mg Capsule 50 Mg PO TID Klor-Con 10 (Potassium Chloride) 10 Meq Tablet.er 1 Tab PO DAILY 30 Days Ondansetron Hcl 4 Mg Tablet 1 Tab PO PRN Q8HRS PRN Novolog (Insulin Aspart) 100 Unit/1 Ml Vial 18 Unit SQ TIDAC Multiple Vitamin (Multivitamin With Minerals) 1 Each Tablet 1 Each PO BID Mucinex Fast-Max Dm Max Liquid (Guaifenesin/Dextromethorphan) 180 Ml Liquid 10 Ml PO PRN Q4HRS PRN Miralax (Polyethylene Glycol 3350) 17 Gm Powd.pack 1 Pkt PO PRN Q24HRS PRN Mag-Al Hydrox-Simeth Max Susp (Mag Hydrox/Aluminum Hyd/Simeth) 30 Ml Oral.susp 15 Ml PO PRN Q4HRS PRN Meloxicam 15 Mg Tablet 15 Mg PO DAILY Loratadine 10 Mg Tab.rapdis 1 Tab PO DAILY 30 Days Levothyroxine Sodium 125 Mcg Tablet 250 Mcg PO DAILYAC Levemir Flextouch (Insulin Detemir) 100 Unit/1 Ml Insuln.pen 35 Unit SQ BID Januvia (Sitagliptin Phosphate) 100 Mg Tablet 1 Tab PO DAILY Hydrocortisone Plus 1% Cream (Hydrocortisone/Aloe Vera) 28.4 Gm Cream..g. 28.4 Gm TP PRN Q8HRS PRN Furosemide 20 Mg Tablet 60 Mg PO DAILY Famotidine 20 Mg Tablet 20 Mg PO HS Entacapone 200 Mg Tablet 200 Mg PO DAILY Eliquis (Apixaban) 2.5 Mg Tablet 2.5 Mg PO BID Cymbalta (Duloxetine Hcl) 30 Mg Capsule.dr 90 Mg PO DAILY Claritin (Loratadine) 10 Mg Tablet 1 Tab PO DAILY 30 Days Biofreeze (Menthol) 118 Ml Gel..ml. 1 Blayne TP PRN Q6HRS PRN 7 Days Baclofen 10 Mg Tablet 10 Mg PO BID Atorvastatin Calcium 10 Mg Tablet 10 Mg PO HS Polyvinyl Alcohol 15 Ml Drops 1 Drop EACHEYE TID 30 Days Polyvinyl Alcohol 15 Ml Drops 1 Drop EACHEYE PRN Q4HRS PRN 30 Days Alprazolam 0.5 Mg Tablet 1 Tab PO HS Acetaminophen 500 Mg Tablet 1 Tab PO PRN Q4HRS PRN 15 Days Allergies Allergies: Coded Allergies: Influenza Virus Vaccines (Verified Allergy, Intermediate, Unknown, 01/31/20) bacitracin (Verified Allergy, Intermediate, Rash, 01/31/20) ROS Review of System 10 pt ROS neg unless otherwise stated in HPI General: YES: Appetite (last meal this am) PSYCHOLOGICAL ROS: YES: Concentration difficultie, Memory difficulties Physical Exam General: Alert, Cooperative, No acute distress HEENT: Atraumatic, EOMI, Mucous membr. moist/pink Lungs: Normal air movement Heart: Regular rate Abdomen: Soft, No tenderness Extremities: Other (Pain with L ankle motion) Skin: Other (moderate swelling about the L ankle compared to Right) Neuro: Sensation intact, Cranial nerves 3-12 NL Psych/Mental Status: Other (some confusion) MUSCULOSKELETAL: Abnormal exam of left (L ankle sensation grossly intact about the foot to light touch. Pain with motion. No eccymoses. Moderate swelling about the ankle. Cap refill <2sec. Wiggles toes.) Vitals VITALS Vital Signs Date Time Temp Pulse Resp B/P (MAP) Pulse Ox O2 Delivery O2 Flow Rate FiO2 03/30/20 16:57 90 22 03/30/20 16:27 92 03/30/20 15:02 98.3 142/74 (96) Room Air 98.3 Images Images L ankle 3 view IMPRESSION: 1. Transverse fracture base of medial malleolus with oblique fracture of the distal fibular diametaphysis. Equivocal offset at the posterior malleolus suspicious for nondisplaced fracture. 2. Marked soft tissue swelling about the left ankle 3. Atherosclerotic vascular calcifications are seen. 4. Small plantar calcaneal enthesophyte. L tib/fib IMPRESSION: No other fracture identified at the left tibia or fibula. Ankle fractures better described on ankle radiographs. Assessment/Plan Assessment/Plan Left closed trimal ankle fracture with no posterior lip displacement in a 70 yo DM with parkinson's and on anticoagulation for strokes/AFIB Plan: Too swollen to operate on tonight as well as in the coming days. May consider treating nonop as she is a transfer only wheelchair ambulator. L&U splint by ED with confirmatory XR after application. Recommend aggressive elevation and allow soft tissue swelling to decrease. Recommend follow up in 7-10 days with [facility]. Discussed with ED. ACTE SORIA MD Mar 30, 2020 17:44
[2020-03-30 18:08] VITALS: BP 118/77
[2020-03-30 19:00] VITALS: BP 110/61
[2020-03-30] MEDS ORDERED: ONDANSETRON PF 4 MG/2 ML VIAL. IVP PRN (19:00)
[2020-03-30] MEDS ORDERED: MAG HYDROX/ALUMINUM HYD/SIMETH 30 ML ORAL.SUSP PO PRN (19:00)
[2020-03-30] MEDS ORDERED: MAGNESIUM HYDROXIDE 2,400 MG/30 ML ORAL.SUSP. PO PRN (19:00)
[2020-03-30] MEDS ORDERED: BISACODYL 10 MG SUPP.RECT. PR PRN (19:00)
[2020-03-30] MEDS ORDERED: POLYETHYLENE GLYCOL 3350 17 GM PACKET. PO PRN (19:00)
[2020-03-30] MEDS ORDERED: CALCIUM CARBONATE 500 MG TAB.CHEW PO PRN (19:00)
[2020-03-30] MEDS ORDERED: oxyCODONE/APAP 5/325 1 TAB TABLET PO PRN ×2 (19:00)
[2020-03-30] MEDS ORDERED: ZOLPIDEM 5 MG TABLET. PO PRN (19:00)
[2020-03-30] MEDS ORDERED: ACETAMINOPHEN 325 MG TABLET. PO PRN (19:00)
[2020-03-30] MEDS ORDERED: HYDROcodone/APAP 5/325MG 1 TAB TABLET PO PRN (19:00)
[2020-03-30] MEDS: HYDROcodone/APAP 5/325MG 1 TAB TABLET PO PRN (19:10)
--- NOTE | 2020-03-30 19:14 | PDOC1 ---
History and Physical Date of Admission Date of Admission DATE: 03/30/20 TIME: 19:02 Identification/Chief Complaint Chief Complaint Left ankle fracture Source Source: Patient History of Present Illness History of Present Illness Patient 70-year-old female past medical history DM2 who presents for evaluation after a fall at her [facility] today. She is largely wheelchair-bound and was participating in physical therapy at her fci when apparently she missed her wheelchair landing on the floor. X-ray obtained upon admission showed left ankle fracture. Orthopedic surgery was consulted by ER, however due to largely swollen ankle, her history of blood thinners, and diabetes, she was recommended nonweightbearing, ankle cast, and follow-up in 7 to 10 days. Unfortunately patient was erroneously admitted to the medical floors instead of being discharged to a nursing facility. After discussion with nursing show design supervisor I was informed that from fci will not accept the patient back without a negative COVID-19 test. Will admit patient for further medical management. Past Medical History Past Medical History Anxiety, COPD, depression, DM2, GERD, Parkinson's Past Surgical History Past Surgical History Surgical shunt in her brain Family History Family History Unknown Family History: Other (Wheelchair transfer ambulator only. No ambulation for at least last 1 year. Lives in fci.) Social History Smoke: No ALCOHOL: none Drugs: None Current Problem List Problem List Problems Medical Problems: (1) Trimalleolar fracture of left ankle Status: Acute Current Medications Current Medications Current Medications Ondansetron HCl (Zofran) 4 mg PRN Q6HRS PRN IVP NAUSEA/VOMITING; Start 03/30/20 at 19:00 Al Hydroxide/Mg Hydroxide (Mylanta Plus Xs) 30 ml PRN Q3HRS PRN PO HEARTBURN / GAS; Start 03/30/20 at 19:00 Calcium Carbonate/ Glycine (Tums) 500 mg PRN Q3HRS PRN PO UPSET STOMACH; Start 03/30/20 at 19:00 Zolpidem Tartrate (Ambien) 5 mg PRN QHS PRN PO INSOMNIA, MAY REPEAT IN 1HR; Start 03/30/20 at 19:00 Acetaminophen/ Hydrocodone Bitart (Lortab 5/325) 1 tab PRN Q4HRS PRN PO MILD PAIN 1-3; Start 03/30/20 at 19:00 Acetaminophen/ Hydrocodone Bitart (Lortab 5/325) 2 tab PRN Q4HRS PRN PO MODERATE PAIN, SEVERE PAIN; Start 03/30/20 at 19:00 Oxycodone/ Acetaminophen (Percocet 5/325) 1 tab PRN Q4HRS PRN PO MILD PAIN, 2ND CHOICE; Start 03/30/20 at 19:00 Oxycodone/ Acetaminophen (Percocet 5/325) 2 tab PRN Q4HRS PRN PO MODERATE PAIN, SEVERE PAIN; Start 03/30/20 at 19:00 Acetaminophen (Tylenol) 650 mg PRN Q6HRS PRN PO Headaches, Temp > 101.5F; Start 03/30/20 at 19:00 Senna/Docusate Sodium (Senna Plus) 1 tab BID PO ; Start 03/30/20 at 21:00 Magnesium Hydroxide (Milk Of Magnesia) 2,400 mg PRN Q12HR PRN PO CONSTIPATION; Start 03/30/20 at 19:00 Bisacodyl (Dulcolax Supp) 10 mg PRN DAILY PRN [place] CONSTIPATION; Start 03/30/20 at 19:00 Active Scripts Active Cephalexin 500 Mg Capsule 1 Cap PO BID 5 Days Reported Zinc Sulfate 220 Mg Tablet 220 Mg PO DAILY Ventolin Hfa Inhaler (Albuterol Sulfate) 18 Gm Hfa.aer.ad 2 Puff INH Q4HRS Venlafaxine Hcl Er (Venlafaxine Hcl) 150 Mg Cap.er.24h 225 Mg PO DAILY Sinemet 25-250 Mg Tablet (Carbidopa/Levodopa) 1 Each Tablet 1 Tab PO QID Ropinirole Hcl 0.5 Mg Tablet 0.5 Mg PO TID Robitussin Cough-Cold Cf Liq (Guaifenesin/D-Methorphan Hb/Pe) 118 Ml Liquid 10 Ml PO PRN Q4HRS PRN Lyrica (Pregabalin) 50 Mg Capsule 50 Mg PO TID Klor-Con 10 (Potassium Chloride) 10 Meq Tablet.er 1 Tab PO DAILY 30 Days Ondansetron Hcl 4 Mg Tablet 1 Tab PO PRN Q8HRS PRN Novolog (Insulin Aspart) 100 Unit/1 Ml Vial 18 Unit SQ TIDAC Multiple Vitamin (Multivitamin With Minerals) 1 Each Tablet 1 Each PO BID Mucinex Fast-Max Dm Max Liquid (Guaifenesin/Dextromethorphan) 180 Ml Liquid 10 Ml PO PRN Q4HRS PRN Miralax (Polyethylene Glycol 3350) 17 Gm Powd.pack 1 Pkt PO PRN Q24HRS PRN Mag-Al Hydrox-Simeth Max Susp (Mag Hydrox/Aluminum Hyd/Simeth) 30 Ml Oral.susp 15 Ml PO PRN Q4HRS PRN Meloxicam 15 Mg Tablet 15 Mg PO DAILY Loratadine 10 Mg Tab.rapdis 1 Tab PO DAILY 30 Days Levothyroxine Sodium 125 Mcg Tablet 250 Mcg PO DAILYAC Levemir Flextouch (Insulin Detemir) 100 Unit/1 Ml Insuln.pen 35 Unit SQ BID Januvia (Sitagliptin Phosphate) 100 Mg Tablet 1 Tab PO DAILY Hydrocortisone Plus 1% Cream (Hydrocortisone/Aloe Vera) 28.4 Gm Cream..g. 28.4 Gm TP PRN Q8HRS PRN Furosemide 20 Mg Tablet 60 Mg PO DAILY Famotidine 20 Mg Tablet 20 Mg PO HS Entacapone 200 Mg Tablet 200 Mg PO DAILY Eliquis (Apixaban) 2.5 Mg Tablet 2.5 Mg PO BID Cymbalta (Duloxetine Hcl) 30 Mg Capsule.dr 90 Mg PO DAILY Claritin (Loratadine) 10 Mg Tablet 1 Tab PO DAILY 30 Days Biofreeze (Menthol) 118 Ml Gel..ml. 1 Blayne TP PRN Q6HRS PRN 7 Days Baclofen 10 Mg Tablet 10 Mg PO BID Atorvastatin Calcium 10 Mg Tablet 10 Mg PO HS Polyvinyl Alcohol 15 Ml Drops 1 Drop EACHEYE TID 30 Days Polyvinyl Alcohol 15 Ml Drops 1 Drop EACHEYE PRN Q4HRS PRN 30 Days Alprazolam 0.5 Mg Tablet 1 Tab PO HS Acetaminophen 500 Mg Tablet 1 Tab PO PRN Q4HRS PRN 15 Days Allergies Allergies: Coded Allergies: Influenza Virus Vaccines (Verified Allergy, Intermediate, Unknown, 01/31/20) bacitracin (Verified Allergy, Intermediate, Rash, 01/31/20) ROS Review of System GENERAL: No history of weight change, weakness or fevers. SKIN: No bruising, hair changes or rashes. EYES: No blurred, double or loss of vision. NOSE AND THROAT: No history of nosebleeds, hoarseness or sore throat. HEART: Denies chest pain, denies palpitations. LUNGS: Denies cough, hemoptysis, wheezing or shortness of breath. GASTROINTESTINAL: Denies nausea, vomiting, abdominal pain. GENITOURINARY: Denies dysuria, frequency, urgency, hematuria. NEUROLOGIC: Denies history of numbness, tingling, tremor or weakness. PSYCHIATRIC: Denies anxiety, denies depression. ENDOCRINE: No history of heat or cold intolerance, polyuria or polydipsia. EXTREMITIES: Left ankle pain and swelling. Physical Exam Physical Exam General: Alert, Oriented X3, Cooperative, No acute distress HEENT: PERRLA, EOMI Lungs: Clear to auscultation, Normal air movement Heart: RRR, no murmurs Cardiovascular: S1, S2 Abdomen: Normal bowel sounds, Soft, No tenderness Extremities: Left ankle tenderness with bruising and edema. No clubbing, No cyanosis Skin: No rashes, No significant lesion Neuro: Normal speech, Normal tone, Sensation intact Psych/Mental Status: Mental status NL, Mood NL Vitals Vitals Vital Signs Date Time Temp Pulse Resp B/P (MAP) Pulse Ox O2 Delivery O2 Flow Rate FiO2 03/30/20 18:08 98.3 76 18 118/77 (91) 90 98.3 03/30/20 15:02 Room Air Images Images EXAM: AP, oblique and lateral views left ankle DATE: 03/30/2020 3:04 PM INDICATION: Reason: fall pain,pt states she fell / Spl. Instructions: / History: COMPARISON: No Prior FINDINGS/ IMPRESSION: 1. Transverse fracture base of medial malleolus with oblique fracture of the distal fibular diametaphysis. Equivocal offset at the posterior malleolus suspicious for nondisplaced fracture. 2. Marked soft tissue swelling about the left ankle 3. Atherosclerotic vascular calcifications are seen. 4. Small plantar calcaneal enthesophyte. VTE Prophylaxis Ordered VTE Prophylaxis Devices: No VTE Pharmacological Prophylaxi: Yes Assessment/Plan Assessment/Plan Left trimalleolar fracture DM2 Plan: Discussed with orthopedic surgery and ER provider, no plans for surgical intervention then patient should discharge back to nursing facility to follow-up within 7 to 10 days. Patient somehow erroneously got transferred to the floor from the ER instead of discharging back to her nursing facility After discussion with our nursing show design supervisor, her fci require a negative COVID-19 test prior to excepting patient back Resume home medications; I discussion with RN at [facility], and apparently patient takes Eliquis for history of atherosclerotic heart disease. I asked [facility] to fax over a list of her active diagnoses and medications. COVID-19 pending; Hemoglobin A1c pending FEN - Cardiac diet PPX - Eliquis FULL CODE Dispo - inpatient for above Justifications for Admission Other Justification Trimalleolar fracture SSUAN MCCANN MD Mar 30, 2020 19:14
[2020-03-30] MEDS ORDERED: DEXTROSE 50% 25 GM / 50ML DISP.SYRIN. IV PRN (19:15)
[2020-03-30] MEDS: INSULIN LISPRO 300 UNITS/3 ML VIAL. SQ SCH (19:30)
[2020-03-30] MEDS ORDERED: ATORVASTATIN CALCIUM 10 MG TABLET. PO SCH (21:00)
[2020-03-30] MEDS ORDERED: ALPRAZolam 0.5 MG TABLET PO SCH (21:00)
[2020-03-30] MEDS ORDERED: FAMOTIDINE 20 MG TABLET. PO SCH (21:00)
[2020-03-30] MEDS: BACLOFEN 10 MG TABLET. PO SCH (21:04)
[2020-03-30] MEDS: PREGABALIN 50 MG CAPSULE PO SCH (21:04)
[2020-03-30] MEDS: APIXABAN 2.5 MG TABLET. PO SCH (21:05)
[2020-03-30] MEDS: CARBIDOPA PO SCH (21:05)
[2020-03-30] MEDS: LEVODOPA PO SCH (21:05)
[2020-03-30] MEDS: SENNOSIDES/DOCUSATE 8.6/50MG TABLET. PO SCH (21:05)
[2020-03-30] MEDS: INSULIN GLARGINE SYRINGE. SQ SCH (21:20)
[2020-03-30 23:20] VITALS: BP 107/61
--- NOTE | 2020-03-31 00:26 | RAD ---
Left tibia AP lateral x-rays. Left ankle x-rays 3 views. HISTORY: Post splint placement. Tibia fibula findings: The lower left tibia fibula at the ankle are not included on these x-rays. The upper tibia and fibula from the tibial plateaus to the proximal metaphysis and shaft of the tibia fi bula demonstrate no fracture or dislocation. There is calf soft tissue edema. Ankle findings: Acute traumatic fracture of the medial malleolus. Acute traumatic spiral fracture of the distal fibula metadiaphysis and lateral malleolus. The degree of distraction of the fibula fractu re fragments is stable. There is some reduction of the alignment of the tibial medial malleolus fract ure since the prior study. Ankle soft tissue edema and swelling. Unusual densities associated with th e casting project across the metatarsals of the foot limiting assessment. IMPRESSION: Fractures of the distal tibia and fibula at the ankle as described above. Electronically signed by: Alirio Eisenberg MD (03/31/2020 12:24 AM) IVELISSE
[2020-03-31 03:00] VITALS: BP 132/68
[2020-03-31] MEDS: HYDROcodone/APAP 5/325MG 1 TAB TABLET PO PRN (05:39)
[2020-03-31 07:00] VITALS: BP 132/68
--- NOTE | 2020-03-31 07:06 | PDOC ---
[employer] PROGRESS NOTE Date of Service DOS: DATE: 03/31/20 TIME: 06:53 Chief Complaint Chief Complaint Assessment/Plan Left trimalleolar fracture DM2 Plan: Discussed with orthopedic surgery and ER provider, no plans for surgical intervention then patient should discharge back to nursing facility to follow-up within 7 to 10 days. Patient somehow erroneously got transferred to the floor from the ER instead of discharging back to her nursing facility After discussion with our nursing shore working supervisor, her long-term require a negative COVID-19 test prior to excepting patient back Resume home medications; I discussion with RN at [facility], and apparently patient takes Eliquis for history of atherosclerotic heart disease. I asked [facility] to fax over a list of her active diagnoses and medications. COVID-19 pending; Hemoglobin A1c pending FEN - Cardiac diet PPX - Eliquis FULL CODE Dispo - inpatient for above History of Present Illness History of Present Illness Patient 70-year-old female past medical history DM2 who presents for evaluation after a fall at her long-term today. She is largely wheelchair-bound and was participating in physical therapy at her long-term when apparently she missed her wheelchair landing on the floor. X-ray obtained upon admission showed left ankle fracture. Orthopedic surgery was consulted by ER, however due to largely swollen ankle, her history of blood thinners, and diabetes, she was recommended nonweightbearing, ankle cast, and follow-up in 7 to 10 days. Unfortunately patient was erroneously admitted to the medical floors instead of being discharged to a nursing facility. After discussion with nursing shore working supervisor I was informed that from long-term will not accept the patient back without a negative COVID-19 test. Will admit patient for further medical management. 03/31: Patient seen and evaluated. Still complains of left ankle pain, controlled with medication. Rapid COVID-19 test was negative. Apparently her nursing facility will accept her with negative rapid test. >30 minutes spent managing discharge this patient. Vitals/I&O Vitals/I&O: Vital Signs Date Time Temp Pulse Resp B/P (MAP) Pulse Ox O2 Delivery O2 Flow Rate FiO2 03/31/20 06:42 Nasal Cannula 2.0 03/31/20 03:00 98.9 84 18 132/68 (89) 96 98.9 I & O 03/30/20 03/30/20 03/31/20 15:00 23:00 07:00 Intake Total 800 ml 350 ml Output Total 0 ml Balance 800 ml 350 ml Physical Exam General: Alert, Cooperative, No acute distress Heart: Regular rate Lungs: Other (Decreased breath sounds) Abdomen: Soft, No tenderness Extremities: No clubbing, No cyanosis, Other (Pain with L ankle motion) Skin: No rashes, No breakdown, Other (Left ankle swelling and bruising) Labs Labs: Laboratory Tests Test 03/30/20 19:35 03/30/20 20:34 SARS-CoV-2 Antigen (Rapid) Negative (NEGATIVE) Glucose (Fingerstick) 124 mg/dL (70-99) Assessment and Plan Assessmemt and Plan Problems Medical Problems: (1) Trimalleolar fracture of left ankle Status: Acute Comment Review of Relevant I have reviewed the following items black (where applicable) has been applied. Medications: Current Medications Medications (Trade) Dose Ordered Sig/Laureen Route PRN Reason Start Time Stop Time Status Last Admin Dose Admin Acetaminophen/ Hydrocodone Bitart (Lortab 5/325) 2 tab PRN Q4HRS PRN PO MODERATE PAIN, SEVERE PAIN 03/30/20 19:00 03/31/20 05:39 Senna/Docusate Sodium (Senna Plus) 1 tab BID PO 03/30/20 21:00 03/30/20 21:05 Alprazolam (Xanax) 0.5 mg HS PO 03/30/20 21:00 03/30/20 21:05 Apixaban (Eliquis) 2.5 mg BID PO 03/30/20 21:00 03/30/20 21:05 Atorvastatin Calcium (Lipitor) 10 mg HS PO 03/30/20 21:00 03/30/20 21:05 Baclofen (Lioresal) 10 mg BID PO 03/30/20 21:00 03/30/20 21:04 Carbidopa/Levodopa (Sinemet 25/250) 1 tab QID PO 03/30/20 21:00 03/30/20 21:05 Famotidine (Pepcid) 20 mg HS PO 03/30/20 21:00 03/30/20 21:05 Levothyroxine Sodium (Synthroid) 250 mcg DAILYAC PO 03/31/20 07:30 03/31/20 05:37 Pregabalin (Lyrica) 50 mg TID PO 03/30/20 21:00 03/30/20 21:04 Insulin Glargine (Lantus Syringe) 35 unit BID SQ 03/30/20 21:00 03/30/20 21:20 Justifications for Admission Other Justification Trimalleolar fracture SUSAN MCCANN MD Mar 31, 2020 07:06
[2020-03-31] MEDS ORDERED: LEVOTHYROXINE 125 MCG TABLET PO SCH (07:30)
[2020-03-31] MEDS: INSULIN LISPRO 300 UNITS/3 ML VIAL. SQ SCH ×4 (08:00→12:49)
[2020-03-31 08:47] LABS: BASO % 1 % (0-3); EOS # 0.2 x10^3/uL (0.0-0.7); EOS % 2 % (0-3); HEMATOCRIT 32.3 % (36.0-47.0); HEMOGLOBIN 10.5 g/dL (12.0-15.5); LYMPH % 15 % (24-48); MEAN CORPUSCULAR HEMOGLOBIN 27 pg (25-35); MEAN CORPUSCULAR HGB CONC 32 g/dL (31-37); MEAN CORPUSCULAR VOLUME 82 fL (79-100); MONO # 0.5 x10^3/uL (0.0-1.1); MONO % 7 % (0-9); NEUT # 5.1 x10^3/uL (1.8-7.7); NEUT % 75 % (31-73); PLATELET COUNT 184 x10^3/uL (140-400); RED BLOOD COUNT 3.95 x10^6/uL (3.50-5.40); WHITE BLOOD COUNT 6.9 x10^3/uL (4.0-11.0)
[2020-03-31] MEDS ORDERED: ENTACAPONE 200 MG TABLET PO SCH (09:00)
[2020-03-31] MEDS ORDERED: DULoxetine HCL 30 MG CAPSULE.DR PO SCH (09:00)
[2020-03-31 09:01] LABS: CALCIUM 8.6 mg/dL (8.5-10.1); CREATININE 1.2 mg/dL (0.6-1.0); GFR 44.2
[2020-03-31 09:08] LABS: POTASSIUM 2.9 mmol/L (3.5-5.1)
[2020-03-31] MEDS ORDERED: POTASSIUM CHLORIDE 20 MEQ TABLET.ER. PO ONE (09:15)
[2020-03-31] MEDS: SENNOSIDES/DOCUSATE 8.6/50MG TABLET. PO SCH (09:21)
[2020-03-31] MEDS: APIXABAN 2.5 MG TABLET. PO SCH (09:22)
[2020-03-31] MEDS: CARBIDOPA PO SCH ×2 (09:22→12:46)
[2020-03-31] MEDS: LEVODOPA PO SCH ×2 (09:22→12:46)
[2020-03-31] MEDS: BACLOFEN 10 MG TABLET. PO SCH (09:22)
[2020-03-31] MEDS: PREGABALIN 50 MG CAPSULE PO SCH ×2 (09:22→13:49)
[2020-03-31] MEDS: INSULIN GLARGINE SYRINGE. SQ SCH (09:26)
[2020-03-31 11:00] VITALS: BP 128/66
--- NOTE | 2020-03-31 11:35 | SNU/HH DC ---
DISCHARGE ORDERS DISCHARGE INFORMATION: DISCHARGE DATE: Mar 31, 2020 FINAL DIAGNOSIS Problems Medical Problems: (1) Trimalleolar fracture of left ankle Status: Acute CONDITION ON DISCHARGE: Stable CODE STATUS: Code Status: Full SENIOR LIVING: SNF STAY <30 DAYS: Yes POST DISCHARGE ORDERS: ACTIVITY ORDERS: Activity as tolerated WEIGHT BEARING STATUS: Non weight bearing (Left ankle) DIET AFTER DISCHARGE: Cardiac WOUND/INCISION CARE: No wound care needed CHECKS AFTER DISCHARGE: CHECKS AFTER DISCHARGE: Check blood press - daily, Check blood sugar, ac/hs TREATMENT/EQUIPMENT ORDERS: ADAPTIVE EQUIPMENT NEEDED: None DISCHARGE MEDICATIONS: Home Meds Active Scripts Cephalexin (CEPHALEXIN) 500 Mg Capsule, 1 CAP PO BID for antiobiotic for 5 Days, #10 CAP Prov:KATHIE HODGE MD 02/20/20 Reported Medications Zinc Sulfate (ZINC SULFATE) 220 Mg Tablet, 220 MG PO DAILY for zinc deficiency, TAB 02/01/20 Albuterol Sulfate (VENTOLIN HFA INHALER) 18 Gm Hfa.aer.ad, 2 PUFF INH Q4HRS for FOR ASTHMA, INHALER 0 Refills 02/01/20 Venlafaxine Hcl (VENLAFAXINE HCL ER) 150 Mg Cap.er.24h, 225 MG PO DAILY for depression, CAP.SR 02/01/20 Carbidopa/Levodopa (SINEMET 25-250 MG TABLET) 1 Each Tablet, 1 TAB PO QID for parkinsons, TAB 02/01/20 Ropinirole Hcl (ROPINIROLE HCL) 0.5 Mg Tablet, 0.5 MG PO TID for restless legs, TAB 02/01/20 Guaifenesin/D-Methorphan Hb/Pe (ROBITUSSIN COUGH-COLD CF LIQ) 118 Ml Liquid, 10 ML PO PRN Q4HRS PRN for cough and congestion, LIQUID 02/01/20 Pregabalin (LYRICA) 50 Mg Capsule, 50 MG PO TID for gammaherpes viral mononucleosi, CAP 02/01/20 Potassium Chloride (Klor-Con 10) 10 Meq Tablet.er, 1 TAB PO DAILY for hypokalemia for 30 Days, #30 TAB 0 Refills 02/01/20 Ondansetron Hcl (ONDANSETRON HCL) 4 Mg Tablet, 1 TAB PO PRN Q8HRS PRN for NAUSEA, #10 TAB 1 Refill 12/5/20 Insulin Aspart (NOVOLOG) 100 Unit/1 Ml Vial, 18 UNIT SQ TIDAC for diabetes, VIAL 02/01/20 Multivitamin With Minerals (MULTIPLE VITAMIN) 1 Each Tablet, 1 EACH PO BID for dyspepsia, TAB 02/01/20 Guaifenesin/Dextromethorphan (Mucinex Fast-Max Dm Max Liquid) 180 Ml Liquid, 10 ML PO PRN Q4HRS PRN for nasal congestion, ML 0 Refills 02/01/20 Polyethylene Glycol 3350 (MIRALAX) 17 Gm Powd.pack, 1 PKT PO PRN Q24HRS PRN for CONSTIPATION, PKT 02/01/20 Mag Hydrox/Aluminum Hyd/Simeth (Mag-Al Hydrox-Simeth Max Susp) 30 Ml Oral.susp, 15 ML PO PRN Q4HRS PRN for DYSPEPSIA, MISC 02/01/20 Meloxicam (MELOXICAM) 15 Mg Tablet, 15 MG PO DAILY for pain, TAB 02/01/20 Loratadine (LORATADINE) 10 Mg Tab.rapdis, 1 TAB PO DAILY for allergy symptoms for 30 Days, #30 TAB 0 Refills 02/01/20 Levothyroxine Sodium (LEVOTHYROXINE SODIUM) 125 Mcg Tablet, 250 MCG PO DAILYAC for THYROID SUPPLEMENT, #30 TAB 0 Refills 02/01/20 Insulin Detemir (Levemir Flextouch) 100 Unit/1 Ml Insuln.pen, 35 UNIT SQ BID for diabetes, SYR 02/01/20 Sitagliptin Phosphate (JANUVIA) 100 Mg Tablet, 1 TAB PO DAILY for diabetes, #30 TAB 5 Refills 02/01/20 Hydrocortisone/Aloe Vera (HYDROCORTISONE PLUS 1% CREAM) 28.4 Gm Cream..g., 28.4 GM TP PRN Q8HRS PRN for ITCHING, EACH 02/01/20 Furosemide (FUROSEMIDE) 20 Mg Tablet, 60 MG PO DAILY for acute pulmonary edema, TAB 02/01/20 Famotidine (FAMOTIDINE) 20 Mg Tablet, 20 MG PO HS for GERD, TAB 02/01/20 Entacapone (ENTACAPONE) 200 Mg Tablet, 200 MG PO DAILY for parkinsons, TAB 02/01/20 Apixaban (ELIQUIS) 2.5 Mg Tablet, 2.5 MG PO BID for heart disease, TAB 02/01/20 Duloxetine Hcl (CYMBALTA) 30 Mg Capsule.dr, 90 MG PO DAILY for major depressive disorder, CAP 02/01/20 Loratadine (CLARITIN) 10 Mg Tablet, 1 TAB PO DAILY for allergy symptoms for 30 Days, #30 TAB 0 Refills 02/01/20 Menthol (BIOFREEZE) 118 Ml Gel..ml., 1 SHIRLEY TP PRN Q6HRS PRN for PAIN for 7 Days, #118 ML 0 Refills 02/01/20 Baclofen (BACLOFEN) 10 Mg Tablet, 10 MG PO BID for MUSCLE RELAXER, #30 TAB 0 Refills 02/01/20 Atorvastatin Calcium (ATORVASTATIN CALCIUM) 10 Mg Tablet, 10 MG PO HS for FOR CHOLESTEROL, #30 TAB 0 Refills 02/01/20 Polyvinyl Alcohol (POLYVINYL ALCOHOL) 15 Ml Drops, 1 DROP EACHEYE TID for dry eye for 30 Days, #15 ML 0 Refills 02/01/20 Polyvinyl Alcohol (POLYVINYL ALCOHOL) 15 Ml Drops, 1 DROP EACHEYE PRN Q4HRS PRN for DRY EYE for 30 Days, #15 ML 0 Refills 02/01/20 Alprazolam (ALPRAZOLAM) 0.5 Mg Tablet, 1 TAB PO HS for anxiety, #30 TAB 02/01/20 Acetaminophen (ACETAMINOPHEN) 500 Mg Tablet, 1 TAB PO PRN Q4HRS PRN for pain or fever for 15 Days, #60 TAB 0 Refills 02/01/20 SUSAN MCCANN MD Mar 31, 2020 11:35
--- NOTE | 2020-03-31 12:03 | PDOC3 ---
Discharge Summary Visit Information Date of Admission: Mar 30, 2020 Date of Discharge: Mar 31, 2020 Final Diagnosis Problems Medical Problems: (1) Trimalleolar fracture of left ankle Status: Acute Brief Hospital Course Allergies Allergies Coded Allergies Type Severity Reaction Last Updated Verified Influenza Virus Vaccines Allergy Intermediate 03/31/20 Yes bacitracin Allergy Intermediate Rash 01/31/20 Yes Vital Signs Vital Signs Date Time Temp Pulse Resp B/P (MAP) Pulse Ox O2 Delivery O2 Flow Rate FiO2 03/31/20 11:00 97.9 90 18 128/66 (86) 94 Nasal Cannula 2.0 97.9 Lab Results Laboratory Tests Test 03/30/20 19:35 03/30/20 20:34 03/31/20 07:25 03/31/20 07:29 SARS-CoV-2 Antigen (Rapid) Negative (NEGATIVE) Glucose (Fingerstick) 124 mg/dL (70-99) 191 mg/dL (70-99) White Blood Count 6.9 x10^3/uL (4.0-11.0) Red Blood Count 3.95 x10^6/uL (3.50-5.40) Hemoglobin 10.5 g/dL (12.0-15.5) Hematocrit 32.3 % (36.0-47.0) Mean Corpuscular Volume 82 fL (79-100) Mean Corpuscular Hemoglobin 27 pg (25-35) Mean Corpuscular Hemoglobin Concent 32 g/dL (31-37) Red Cell Distribution Width 18.0 % (11.5-14.5) Platelet Count 184 x10^3/uL (140-400) Neutrophils (%) (Auto) 75 % (31-73) Lymphocytes (%) (Auto) 15 % (24-48) Monocytes (%) (Auto) 7 % (0-9) Eosinophils (%) (Auto) 2 % (0-3) Basophils (%) (Auto) 1 % (0-3) Neutrophils # (Auto) 5.1 x10^3/uL (1.8-7.7) Lymphocytes # (Auto) 1.0 x10^3/uL (1.0-4.8) Monocytes # (Auto) 0.5 x10^3/uL (0.0-1.1) Eosinophils # (Auto) 0.2 x10^3/uL (0.0-0.7) Basophils # (Auto) 0.0 x10^3/uL (0.0-0.2) Sodium Level 142 mmol/L (136-145) Potassium Level 2.9 mmol/L (3.5-5.1) Chloride Level 100 mmol/L (98-107) Carbon Dioxide Level 34 mmol/L (21-32) Anion Gap 8 (6-14) Blood Urea Nitrogen 17 mg/dL (7-20) Creatinine 1.2 mg/dL (0.6-1.0) Estimated GFR (Cockcroft-Gault) 44.2 Glucose Level 171 mg/dL (70-99) Calcium Level 8.6 mg/dL (8.5-10.1) Laboratory Tests Test 03/30/20 19:35 03/30/20 20:34 03/31/20 07:25 03/31/20 07:29 SARS-CoV-2 Antigen (Rapid) Negative (NEGATIVE) Glucose (Fingerstick) 124 mg/dL (70-99) 191 mg/dL (70-99) White Blood Count 6.9 x10^3/uL (4.0-11.0) Red Blood Count 3.95 x10^6/uL (3.50-5.40) Hemoglobin 10.5 g/dL (12.0-15.5) Hematocrit 32.3 % (36.0-47.0) Mean Corpuscular Volume 82 fL (79-100) Mean Corpuscular Hemoglobin 27 pg (25-35) Mean Corpuscular Hemoglobin Concent 32 g/dL (31-37) Red Cell Distribution Width 18.0 % (11.5-14.5) Platelet Count 184 x10^3/uL (140-400) Neutrophils (%) (Auto) 75 % (31-73) Lymphocytes (%) (Auto) 15 % (24-48) Monocytes (%) (Auto) 7 % (0-9) Eosinophils (%) (Auto) 2 % (0-3) Basophils (%) (Auto) 1 % (0-3) Neutrophils # (Auto) 5.1 x10^3/uL (1.8-7.7) Lymphocytes # (Auto) 1.0 x10^3/uL (1.0-4.8) Monocytes # (Auto) 0.5 x10^3/uL (0.0-1.1) Eosinophils # (Auto) 0.2 x10^3/uL (0.0-0.7) Basophils # (Auto) 0.0 x10^3/uL (0.0-0.2) Sodium Level 142 mmol/L (136-145) Potassium Level 2.9 mmol/L (3.5-5.1) Chloride Level 100 mmol/L (98-107) Carbon Dioxide Level 34 mmol/L (21-32) Anion Gap 8 (6-14) Blood Urea Nitrogen 17 mg/dL (7-20) Creatinine 1.2 mg/dL (0.6-1.0) Estimated GFR (Cockcroft-Gault) 44.2 Glucose Level 171 mg/dL (70-99) Calcium Level 8.6 mg/dL (8.5-10.1) Brief Hospital Course Ms. Velazquez is a 70 old female who presented with left closed trimalleolar fracture. Consultations placed to orthopedic surgery. It was deemed that her left ankle was too swollen for operation currently, especially considering she is on Eliquis. She was recommended L&U splint, which was placed in the ED, and follow-up in 7-10 days with [facility] [facility]. Unfortunately around the time this disposition was made by myself and orthopedic surgery patient was already admitted to the medical floors, and her usp would not accept her back until she had a negative COVID-19 test. She was discharged the next day with short course of pain medication and orthopedic surgery follow-up. Discharge Information Condition at Discharge: Stable Follow Up: Weeks Disposition/Orders: D/C to Another Facility Scheduled Albuterol Sulfate (Ventolin Hfa Inhaler) 18 Gm Hfa.aer.ad, 2 PUFF INH Q4HRS for FOR ASTHMA, Ref 0 (Reported) Entered as Reported by: SANTA LUGO on 02/01/20820 Last Action: HELD on 03/30/201900 by SUSAN MCCANN MD Alprazolam (Alprazolam) 0.5 Mg Tablet, 1 TAB PO HS for anxiety, #30 (Reported) Entered as Reported by: SANTA LUGO on 02/01/20 0738 Last Action: Continued on 03/30/201900 by SUSAN MCCANN MD Apixaban (Eliquis) 2.5 Mg Tablet, 2.5 MG PO BID for heart disease, (Reported) Entered as Reported by: SANTA LUGO on 02/01/20750 Last Action: Continued on 03/30/201900 by SUSAN MCCANN MD Atorvastatin Calcium (Atorvastatin Calcium) 10 Mg Tablet, 10 MG PO HS for FOR CHOLESTEROL, #30 Ref 0 (Reported) Entered as Reported by: SANTA LUGO on 02/01/20744 Last Action: Continued on 03/30/201900 by SUSAN MCCANN MD Carbidopa/Levodopa (Sinemet 25-250 Mg Tablet) 1 Each Tablet, 1 TAB PO QID for parkinsons, (Reported) Entered as Reported by: SANTA LUGO on 02/01/20817 Last Action: Continued on 03/30/201900 by SUSAN MCCANN MD Duloxetine Hcl (Cymbalta) 30 Mg Capsule.dr, 90 MG PO DAILY for major depressive disorder, (Reported) Entered as Reported by: SANTA LUGO on 02/01/20744 Last Action: Continued on 03/30/201900 by SUSAN MCCANN MD Entacapone (Entacapone) 200 Mg Tablet, 200 MG PO DAILY for parkinsons, (Reported) Entered as Reported by: SANTA LUGO on 02/01/20750 Last Action: Continued on 03/30/201900 by SUSAN MCCANN MD Famotidine (Famotidine) 20 Mg Tablet, 20 MG PO HS for GERD, (Reported) Entered as Reported by: SANTA LUGO on 02/01/20750 Last Action: Continued on 03/30/201900 by SUSAN MCCANN MD Insulin Aspart (Novolog) 100 Unit/1 Ml Vial, 18 UNIT SQ TIDAC for diabetes, (Reported) Entered as Reported by: SANTA LUGO on 02/01/20817 Last Action: Converted on 03/30/201900 by SUSAN MCCANN MD Insulin Detemir (Levemir Flextouch) 100 Unit/1 Ml Insuln.pen, 35 UNIT SQ BID for diabetes, (Reported) Entered as Reported by: SANTA LUGO on 02/01/20806 Last Action: Converted on 03/30/201900 by SUSAN MCCANN MD Levothyroxine Sodium (Levothyroxine Sodium) 125 Mcg Tablet, 250 MCG PO DAILYAC for THYROID SUPPLEMENT, #30 Ref 0 (Reported) Entered as Reported by: SANTA LUGO on 02/01/20806 Last Action: Continued on 03/30/201900 by SUSAN MCCANN MD Multivitamin With Minerals (Multiple Vitamin) 1 Each Tablet, 1 EACH PO BID for dyspepsia, (Reported) Entered as Reported by: SANTA LUGO on 02/01/20806 Last Action: HELD on 03/30/201900 by SUSAN MCCANN MD Pregabalin (Lyrica) 50 Mg Capsule, 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, (Reported) Entered as Reported by: SANTA LUGO on 02/01/20817 Last Action: Continued on 03/30/201900 by USSAN MCCANN MD Ropinirole Hcl (Ropinirole Hcl) 0.5 Mg Tablet, 0.5 MG PO TID for restless legs, (Reported) Entered as Reported by: SANTA LUGO on 02/01/20817 Last Action: HELD on 03/30/201900 by SUSAN MCCANN MD Sitagliptin Phosphate (Januvia) 100 Mg Tablet, 1 TAB PO DAILY for diabetes, #30 Ref 5 (Reported) Entered as Reported by: SANTA LUGO on 02/01/20806 Last Action: HELD on 03/30/201900 by SUSAN MCCANN MD Scheduled PRN Guaifenesin/Dextromethorphan (Mucinex Fast-Max Dm Max Liquid) 180 Ml Liquid, 10 ML PO PRN Q4HRS PRN for nasal congestion, Ref 0 (Reported) Entered as Reported by: SANTA LUGO on 02/01/20806 Last Action: HELD on 03/30/201900 by SUSAN MCCANN MD Hydrocortisone/Aloe Vera (Hydrocortisone Plus 1% Cream) 28.4 Gm Cream..g., 28.4 GM TP PRN Q8HRS PRN for ITCHING, (Reported) Entered as Reported by: SANTA LUGO on 02/01/20806 Last Action: HELD on 03/30/201900 by SUSAN MCCANN MD Mag Hydrox/Aluminum Hyd/Simeth (Mag-Al Hydrox-Simeth Max Susp) 30 Ml Oral.susp, 15 ML PO PRN Q4HRS PRN for DYSPEPSIA, (Reported) Entered as Reported by: SANTA LUGO on 02/01/20806 Last Action: HELD on 03/30/201900 by SUSAN MCCANN MD Menthol (Biofreeze) 118 Ml Gel..ml., 1 SHIRLEY TP PRN Q6HRS PRN for PAIN for 7 Days, #118 Ref 0 (Reported) Entered as Reported by: SANTA LUGO on 02/01/20744 Last Action: HELD on 03/30/201900 by SUSAN MCCANN MD Ondansetron Hcl (Ondansetron Hcl) 4 Mg Tablet, 1 TAB PO PRN Q8HRS PRN for NAUSEA, #10 Ref 1 (Reported) Entered as Reported by: SANTA LUGO on 02/01/20817 Last Action: HELD on 03/30/201900 by SUSAN MCCANN MD Polyethylene Glycol 3350 (Miralax) 17 Gm Powd.pack, 1 PKT PO PRN Q24HRS PRN for CONSTIPATION, (Reported) Entered as Reported by: SANTA LUGO on 02/01/20806 Last Action: Continued on 03/30/201900 by SUSAN MCCANN MD Polyvinyl Alcohol (Polyvinyl Alcohol) 15 Ml Drops, 1 DROP EACHEYE PRN Q4HRS PRN for DRY EYE for 30 Days, #15 Ref 0 (Reported) Entered as Reported by: SANTA LUGO on 02/01/20737 Last Action: HELD on 03/30/201900 by SUSAN MCCANN MD Discontinued Medications Acetaminophen (Acetaminophen) 500 Mg Tablet, 1 TAB PO PRN Q4HRS PRN for pain or fever for 15 Days, #60 Ref 0 (Reported) Entered as Reported by: SANTA LUGO on 02/01/20737 Last Action: HELD on 03/30/201900 by SUSAN MCCANN MD Baclofen (Baclofen) 10 Mg Tablet, 10 MG PO BID for MUSCLE RELAXER, #30 Ref 0 (Reported) Entered as Reported by: SANTA LUGO on 02/01/20744 Last Action: Continued on 03/30/201900 by SUSAN MCCANN MD Cephalexin (Cephalexin) 500 Mg Capsule, 1 CAP PO BID for antiobiotic for 5 Days, #10 Prescribed by: KATHIE HODGE MD on 02/20/20 1247 Last Action: HELD on 03/30/201900 by SUSAN MCCANN MD Furosemide (Furosemide) 20 Mg Tablet, 60 MG PO DAILY for acute pulmonary edema, (Reported) Entered as Reported by: SANTA LUGO on 02/01/20 0751 Last Action: HELD on 03/30/201900 by SUSAN MCCANN MD Guaifenesin/D-Methorphan Hb/Pe (Robitussin Cough-Cold Cf Liq) 118 Ml Liquid, 10 ML PO PRN Q4HRS PRN for cough and congestion, (Reported) Entered as Reported by: SANTA LUGO on 02/01/2018 Last Action: HELD on 03/30/201900 by SUSAN MCCANN MD Loratadine (Claritin) 10 Mg Tablet, 1 TAB PO DAILY for allergy symptoms for 30 Days, #30 Ref 0 (Reported) Entered as Reported by: SANTA LUGO on 02/01/20 0745 Last Action: HELD on 03/30/201900 by SUSAN MCCANN MD Loratadine (Loratadine) 10 Mg Tab.rapdis, 1 TAB PO DAILY for allergy symptoms for 30 Days, #30 Ref 0 (Reported) Entered as Reported by: SANTA LUGO on 02/01/20806 Last Action: HELD on 03/30/201900 by SUSAN MCCANN MD Meloxicam (Meloxicam) 15 Mg Tablet, 15 MG PO DAILY for pain, (Reported) Entered as Reported by: SANTA LUGO on 02/01/20 08 Last Action: HELD on 03/30/201900 by SUSAN MCCANN MD Polyvinyl Alcohol (Polyvinyl Alcohol) 15 Ml Drops, 1 DROP EACHEYE TID for dry eye for 30 Days, #15 Ref 0 (Reported) Entered as Reported by: SANTA LUGO on 02/01/20 0738 Last Action: HELD on 03/30/201900 by SUSAN MCCANN MD Potassium Chloride (Klor-Con 10) 10 Meq Tablet.er, 1 TAB PO DAILY for hypokalemia for 30 Days, #30 Ref 0 (Reported) Entered as Reported by: SANTA LUGO on 02/01/2018 Last Action: HELD on 03/30/201900 by SUSAN MCCANN MD Venlafaxine Hcl (Venlafaxine Hcl Er) 150 Mg Cap.er.24h, 225 MG PO DAILY for depression, (Reported) Entered as Reported by: SANTA LUGO on 02/01/20820 Last Action: HELD on 03/30/201900 by SUSAN MCCANN MD Zinc Sulfate (Zinc Sulfate) 220 Mg Tablet, 220 MG PO DAILY for zinc deficiency, (Reported) Entered as Reported by: SANTA LUGO on 02/01/20820 Last Action: HELD on 03/30/201900 by SUSAN MCCANN MD Justicifation of Admission Dx: Justifications for Admission: Justification of Admission Dx: Yes (Left trimalleolar fracture) SUSAN MCCANN MD Mar 31, 2020 12:03
--- NOTE | 2020-03-31 13:15 | NUR ---
Report given to nurse Conway at 1315.
--- NOTE | 2020-03-31 13:55 | NUR ---
Patient discharged back to [facility]. Patient transported via transportation. IV discontinued.
[2020-04-01 02:08] LABS: HEMOGLOBIN A1C 7.3 % (4.8-5.6)
== END 2020-03-31 14:01 | DRG 563 ==
LOC: ER 14:50 → 4 NORTH 16:42
PROVIDERS: ADMIT Family Medicine; ATTEND Family Medicine
PROC: 2W3RX1Z Immobilization of Left Lower Leg using Splint (ICD-10-PCS; principal; 2020-03-30)
DX: S82.852A Displaced trimalleolar fracture of left lower leg, initial encounter for closed fracture (principal); E11.9 Type 2 diabetes mellitus without complications; G20 Parkinson's disease; I48.91 Unspecified atrial fibrillation; J44.9 Chronic obstructive pulmonary disease, unspecified; F32.9 Major depressive disorder, single episode, unspecified; F41.9 Anxiety disorder, unspecified; K21.9 Gastro-esophageal reflux disease without esophagitis; W01.0XXA Fall on same level from slipping, tripping and stumbling without subsequent striking against object, initial encounter; Y93.89 Activity, other specified; Y92.89 Other specified places as the place of occurrence of the external cause; Y99.8 Other external cause status; Z20.822 Contact with and (suspected) exposure to COVID-19; Z79.01 Long term (current) use of anticoagulants; Z86.73 Personal history of transient ischemic attack (TIA), and cerebral infarction without residual deficits; Z99.3 Dependence on wheelchair; Z88.7 Allergy status to serum and vaccine; Z88.8 Allergy status to other drugs, medicaments and biological substances
CPT/HCPCS: 36415; 73590; 73610; 80048; 82962; 83036; 85025; 87426; J1815; U0003; 99285-25; G0378

== ENCOUNTER → 2020-06-30 | Outpatient (CLI) | payer MEDICARE, OTHER ==
--- NOTE | 2020-06-30 15:54 | KCIC ---
Bilateral digital screening mammograms with 3-D tomosynthesis: Reason for examination: Routine screening. No previous exams available for comparison. Bilateral mammograms in CC and oblique projections were obtained with 2-D imaging and 3-D tomosynthes is imaging on a Siemens Inspiration unit and reviewed on the workstation. Interpretation was made wit h the benefit of CAD. The skin and nipples show no abnormalities. No abnormal axillary lymph nodes are seen. The breast par enchyma is heterogeneously dense. (Breast density: Category C.) There are multiple small scattered no dular asymmetries bilaterally. Further evaluation with bilateral breast ultrasound is recommended. Th ere are scattered and clustered calcifications bilaterally. These are probably benign but close follo w-up is recommended. Impression: Small nodular densities bilaterally. Recommend bilateral breast ultrasound. Scattered and clustered calcifications seen bilaterally which are probably benign but recommend 6 mon th follow-up since no previous exams are available for comparison. Your patient's mammogram demonstrates that she has dense breast tissue (breast density category C or D), which could hide abnormalities, and if she has other risk factors for breast cancer that have bee n identified, she might benefit from supplemental screening tests that may be suggested by you as her ordering physician. Dense breast tissue, in and of itself, is a relatively common condition. Therefo re, this information is not provided to cause undue concern, but rather to raise your awareness and t o promote discussion with your patient regarding the presence of other risk factors, in addition to d ense breast tissue. Your patient's mammography results will be sent to her. BI-RAD Category 0: Incomplete. Needs additional imaging evaluation. "Our facility is accredited by the [employer] Mammography Program." This patient's information has been entered into a reminder system for the patient to be notified wit h the results of her examination and a target date for the next mammogram. Electronically signed by: Emelia Bowser MD (06/30/2020 3:51 PM) [email or web address]
== END ==
LOC: KCIC MAMMO 14:15
PROVIDERS: ATTEND Internal Medicine
DX: Z12.31 Encounter for screening mammogram for malignant neoplasm of breast (principal)
CPT/HCPCS: 77067

== ENCOUNTER → 2020-08-05 | Outpatient (CLI) | payer MEDICARE, OTHER ==
--- NOTE | 2020-08-05 15:54 | KCIC ---
Bilateral breast ultrasound: Reason for examination: Small nodular densities seen on mammographic exam. Comparison is made to mammographic exam dated 06/30/2020. Ultrasound examination was performed bilaterally of the breasts and axilla. The examination was perfo rmed with the patient sitting upright in her wheelchair which limits optimal evaluation. In the right breast at the 12:00 position 5.5 cm from the nipple, there appears to be a small 3.4 mm cystic-appearing lesion. No other cystic or solid nodules are seen. No abnormal appearing lymph nodes are seen in the right axilla. In the left breast, there is a 1.1 cm hypoechoic circumscribed lesion with calcification or clip at t he 1:00 position 11 cm from the nipple. Probably represents a small fibroadenoma. At the 1:00 positio n 3 cm from the nipple, there is a 7 mm hypoechoic circumscribed lesion with a fibrocystic/fibroadeno matous appearance. At the retroareolar 3:00 position, there is a circumscribed hypoechoic 5.7 mm nodu le with calcification and lying in parallel orientation which may represent a small degenerating fibr oadenoma. No suspicious-appearing nodules are seen. No abnormal appearing lymph nodes are seen in the axilla. IMPRESSION: Small benign-appearing nodular densities bilaterally. Recommend 6 month follow-up with ultrasound. Fo llow-up mammographic exam in 6 months for the calcification seen bilaterally is also recommended. BI-RADS Category 3: Probably Benign. "Our facility is accredited by the [employer] Mammography Program." This patient's information has been entered into a reminder system for the patient to be notified wit h the results of her examination and a target date for the next mammogram. Electronically signed by: Emelia Bowser MD (08/05/2020 3:52 PM) [email or web address]
== END ==
LOC: KCIC US 13:02
PROVIDERS: ATTEND Internal Medicine
DX: N63.20 Unspecified lump in the left breast, unspecified quadrant (principal); N63.10 Unspecified lump in the right breast, unspecified quadrant
CPT/HCPCS: 76641

== ENCOUNTER 2020-11-29 09:14 | Emergency (ER) | payer MEDICARE, OTHER ==
[~2020-11-29] VITALS: Ht 167.6 cm; Wt 122.7 kg
[2020-11-29] MEDS ORDERED: IPRATRPIUM/ALBUTEROL 0.5/2.5MG 3 ML NEBU. NEB ONE (09:30)
[2020-11-29] MEDS ORDERED: ALBUTEROL SULFATE 2.5 MG/3 ML NEBU. CONT NEB ONE (09:30)
--- NOTE | 2020-11-29 09:31 | ED.ADGEN ---
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 On arrival she is receiving a breathing treatment, had a end-tidal CO2 of 41. Patient says she has been having worsening shortness of breath over the past 3 days and normally wears her oxygen only at night but is not bradycardic during the day. Denies any fever or GI complaints. Patient has had both of her Covid vaccines. She has no change in her baseline cough which is occasionally productive. Review of Systems: Review of Systems: All other systems within normal limits except for as noted in the HPI Current Medications: Current Medications Medications (Trade) Dose Ordered Sig/Laureen Start Time Stop Time Status Last Admin Dose Admin Albuterol Sulfate (Ventolin Neb Soln) 10 mg 1X ONCE 11/29/20 09:30 11/29/20 09:31 DC 11/29/20 10:14 10 MG Albuterol/ Ipratropium (Duoneb) 3 ml 1X ONCE 11/29/20 09:30 11/29/20 09:31 DC 11/29/20 10:15 3 ML Methylprednisolone Sodium Succinate (SOLU-Medrol 125MG VIAL) 125 mg STK-MED ONCE 11/29/20 09:40 11/29/20 09:40 DC Allergies: Allergies: Allergies Coded Allergies Type Severity Reaction Last Updated Verified Influenza Virus Vaccines Allergy Intermediate 03/31/20 Yes bacitracin Allergy Intermediate Rash 01/31/20 Yes Physical Exam: PE: Constitutional: Well developed, well nourished, no acute distress, non-toxic appearance. [] HENT: Normocephalic, atraumatic, bilateral external ears normal, nose normal. [] Eyes: PERRLA, conjunctiva normal, no discharge. [] Neck: No rigidity, supple, no stridor. [] Cardiovascular: Regular rate and rhythm, brisk cap refill [] Lungs & Thorax: Non labored symmetric respirations, no tachypnea or respiratory distress. Bilateral decreased breath sounds, no wheezing [] Abdomen: Soft, nondistended. Skin: Warm, dry, no erythema, no rash. [] Back: Unremarkable Extremities: No deformities, range of motion grossly intact, no lower extremity edema [] Neurologic: Alert and oriented X 3, no focal deficits noted. [] Psychologic: Affect normal, judgement normal, mood normal. [] Current Patient Data: Labs: Laboratory Tests Test 11/29/20 09:30 11/29/20 09:45 11/29/20 11:07 White Blood Count 12.5 x10^3/uL (4.0-11.0) H Red Blood Count 4.52 x10^6/uL (3.50-5.40) Hemoglobin 10.3 g/dL (12.0-15.5) L Hematocrit 33.2 % (36.0-47.0) L Mean Corpuscular Volume 74 fL (79-100) L Mean Corpuscular Hemoglobin 23 pg (25-35) L Mean Corpuscular Hemoglobin Concent 31 g/dL (31-37) Red Cell Distribution Width 16.7 % (11.5-14.5) H Platelet Count 256 x10^3/uL (140-400) Neutrophils (%) (Auto) 86 % (31-73) H Lymphocytes (%) (Auto) 8 % (24-48) L Monocytes (%) (Auto) 5 % (0-9) Eosinophils (%) (Auto) 1 % (0-3) Basophils (%) (Auto) 1 % (0-3) Neutrophils # (Auto) 10.7 x10^3/uL (1.8-7.7) H Lymphocytes # (Auto) 1.0 x10^3/uL (1.0-4.8) Monocytes # (Auto) 0.6 x10^3/uL (0.0-1.1) Eosinophils # (Auto) 0.1 x10^3/uL (0.0-0.7) Basophils # (Auto) 0.1 x10^3/uL (0.0-0.2) Platelet Estimate Adequate (ADEQUATE) Large Platelets Few Giant Platelets Occ Hypochromasia Mod Basophilic Stippling Present Anisocytosis Present Microcytosis Slight Sodium Level 139 mmol/L (136-145) Potassium Level 3.5 mmol/L (3.5-5.1) Chloride Level 102 mmol/L (98-107) Carbon Dioxide Level 29 mmol/L (21-32) Anion Gap 8 (6-14) Blood Urea Nitrogen 13 mg/dL (7-20) Creatinine 1.2 mg/dL (0.6-1.0) H Estimated GFR (Cockcroft-Gault) 44.2 BUN/Creatinine Ratio 11 (6-20) Glucose Level 242 mg/dL (70-99) H Lactic Acid Level 2.3 mmol/L (0.4-2.0) H Calcium Level 8.4 mg/dL (8.5-10.1) L Magnesium Level 2.2 mg/dL (1.8-2.4) Total Bilirubin 0.2 mg/dL (0.2-1.0) Aspartate Amino Transferase (AST) 25 U/L (15-37) Alanine Aminotransferase (ALT) 50 U/L (14-59) Alkaline Phosphatase 155 U/L (46-116) H Troponin I Quantitative < 0.017 ng/mL (0.000-0.055) KI-Jpe-J-Type Natriuretic Peptide 385 pg/mL (0-124) H Total Protein 7.5 g/dL (6.4-8.2) Albumin 2.6 g/dL (3.4-5.0) L Albumin/Globulin Ratio 0.5 (1.0-1.7) L SARS-CoV-2 Antigen (Rapid) Negative (NEGATIVE) Influenza Type A Antigen Negative (NEGATIVE) Influenza Type B Antigen Negative (NEGATIVE) Laboratory Tests 11/29/20 09:30 Laboratory Tests 11/29/20 09:30 Vital Signs: Vital Signs Date Time Temp Pulse Resp B/P (MAP) Pulse Ox O2 Delivery O2 Flow Rate FiO2 11/29/20 10:45 90 19 142/90 (107) 100 Room Air 11/29/20 09:15 97.9 97.9 EKG: EKG: Sinus rhythm, heart rate 90 bpm, normal axis, no ST elevation or depression [] Heart Score: C/O Chest Pain: No Risk Factors: Risk Factors: DM, Current or recent (<one month) smoker, HTN, HLP, family history of CAD, obesity. Risk Scores: Score 0 - 3: 2.5% MACE over next 6 weeks - Discharge Home Score 4 - 6: 20.3% MACE over next 6 weeks - Admit for Clinical Observation Score 7 - 10: 72.7% MACE over next 6 weeks - Early Invasive Strategies Radiology/Procedures: Radiology/Procedures: [facility] [address] [place], [place] [id number] IMAGING REPORT Signed PATIENT: SHAWN OROZCO ACCOUNT: [id number] : 1950 LOCATION: ER AGE: 70 SEX: F EXAM STATUS: REG ER ORD. PHYSICIAN: KATHIE HODGE MD REASON: copd PROCEDURE: CHEST AP ONLY Study: XR CHEST 1V Indication: COPD. Comparison: 02/20/2020 Findings: Redemonstration of a ventriculoperitoneal shunt catheter. Lucency along the tubing just above the right eighth rib appears artifactual. The cardiomediastinal silhouette is again noted to be prominent in size. Similar configuration of the gosia. Generalized increased lung markings but slightly less pronounced from the comparison. Similar configuration of the right costophrenic angle prior. No pneumothorax. Impression: Redemonstrated enlargement of the cardiomediastinal silhouette. The right costophrenic angle is blunted but similar to the prior which could be related to pleural thickening though a small pleural effusion remains possible. Increased lung markings less pronounced from the prior either chronic, interstitial edema or even an atypical infectious process in the appropriate clinical setting. Correlate with patient symptoms to help differentiate. Electronically signed by: MARTHA MORALES MD (11/29/2020 10:02 AM) [facility] DICTATED and SIGNED BY: MARTHA MORALES MD DATE: 11/29/20 [id number] 0 [] Course & Med Decision Making: Course & Med Decision Making Pertinent Labs and Imaging studies reviewed. (See chart for details) Patient says she is feeling significantly better after hour-long continuous nebulizer treatment and steroids. Discussed how she is feeling and if she feels well enough to return to her facility and offered inpatient observation. Patient states she is feeling much better over the like to go back to her facility. [] Dragon Disclaimer: Dragon Disclaimer: This electronic medical record was generated, in whole or in part, using a voice recognition dictation system. Departure Departure Impression: Primary Impression: COPD exacerbation Disposition: HOME / SELF CARE / HOMELESS Condition: STABLE Referrals: XAVI ATKINSON MD (PCP) Patient Instructions: Chronic Obstructive Pulmonary Disease Scripts Prednisone (PREDNISONE) 50 Mg Tablet 1 TAB PO DAILY for steroid, #5 TAB Prov: KATHIE HODGE MD 11/29/20 Levofloxacin (LEVOFLOXACIN) 750 Mg Tablet 1 TAB PO DAILY for antibiotic for 5 Days, #5 TAB Prov: KATHIE HODGE MD 11/29/20 KATHIE HODGE MD Nov 29, 2020 09:31
[2020-11-29] MEDS ORDERED: methylPREDNISolone SOD SUCC PF 125 MG/2 ML VIAL. ONE (09:40)
[2020-11-29] MEDS ORDERED: methylPREDNISolone SOD SUCC PF 125 MG/2 ML VIAL. IV ONE (09:45)
[2020-11-29 09:48] LABS: BASO # 0.1 x10^3/uL (0.0-0.2); BASO % 1 % (0-3); EOS # 0.1 x10^3/uL (0.0-0.7); EOS % 1 % (0-3); HEMATOCRIT 33.2 % (36.0-47.0); HEMOGLOBIN 10.3 g/dL (12.0-15.5); LYMPH % 8 % (24-48); MEAN CORPUSCULAR HEMOGLOBIN 23 pg (25-35); MEAN CORPUSCULAR HGB CONC 31 g/dL (31-37); MEAN CORPUSCULAR VOLUME 74 fL (79-100); MONO # 0.6 x10^3/uL (0.0-1.1); MONO % 5 % (0-9); NEUT # 10.7 x10^3/uL (1.8-7.7); NEUT % 86 % (31-73); PLATELET COUNT 256 x10^3/uL (140-400); RED BLOOD COUNT 4.52 x10^6/uL (3.50-5.40); RED CELL DISTRIBUTION WIDTH 16.7 % (11.5-14.5); WHITE BLOOD COUNT 12.5 x10^3/uL (4.0-11.0)
--- NOTE | 2020-11-29 10:04 | RAD ---
Study: XR CHEST 1V Indication: COPD. Comparison: 02/20/2020 Findings: Redemonstration of a ventriculoperitoneal shunt catheter. Lucency along the tubing just above the rig ht eighth rib appears artifactual. The cardiomediastinal silhouette is again noted to be prominent in size. Similar configuration of the gosia. Generalized increased lung markings but slightly less pronounced from the comparison. Similar configuration of the right costophrenic angle prior. No pneumothorax. Impression: Redemonstrated enlargement of the cardiomediastinal silhouette. The right costophrenic angle is blunt ed but similar to the prior which could be related to pleural thickening though a small pleural effus ion remains possible. Increased lung markings less pronounced from the prior either chronic, intersti tial edema or even an atypical infectious process in the appropriate clinical setting. Correlate with patient symptoms to help differentiate. Electronically signed by: MARTHA MORALES MD (11/29/2020 10:02 AM) [facility]
[2020-11-29 10:08] LABS: CALCIUM 8.4 mg/dL (8.5-10.1); CREATININE 1.2 mg/dL (0.6-1.0); GFR 44.2; POTASSIUM 3.5 mmol/L (3.5-5.1)
[2020-11-29 10:14] LABS: ALBUMIN 2.6 g/dL (3.4-5.0); ALBUMIN/GLOBULIN RATIO 0.5 (1.0-1.7); MAGNESIUM 2.2 mg/dL (1.8-2.4); TOTAL BILIRUBIN 0.2 mg/dL (0.2-1.0); TOTAL PROTEIN 7.5 g/dL (6.4-8.2)
[2020-11-29 11:25] LABS: PLT ESTIMATE ADEQUATE (ADEQUATE)
[2020-11-29 11:26] LABS: ANISOCYTOSIS PRESENT; HYPOCHROMIA MOD; MICROCYTOSIS SLIGHT
[2020-11-29 11:33] LABS: PROTHROMBIN TIME PATIENT 15.2 SEC (11.7-14.0)
[2020-11-29 11:36] LABS: INFLUENZA A PATIENT NEGATIVE (NEGATIVE); INFLUENZA B PATIENT NEGATIVE (NEGATIVE)
[2020-11-29] MEDS ORDERED: PRED50TA PO (11:46)
[2020-11-29] MEDS ORDERED: LEVO750T5 PO (11:46)
[2020-11-29 12:15] VITALS: BP 147/74
--- NOTE | 2020-11-29 15:08 | EKG ---
[facility] [address] [place] [address] Test Date: 2020-11-29 Test Time: 09:23:03 Pat Name: SHAWN OROZCO Department: Room: Gender: F Dna Analyst: : 1950 Requested By: KATHIE HODGE Order Number: [id number] Reading MD: Jonathan Mata Measurements Intervals [place] Rate: 92 P: 56 MT: 134 QRS: 13 QRSD: 82 T: 122 QT: 388 QTc: 485 Interpretive Statements SINUS RHYTHM ATRIAL PREMATURE COMPLEX(ES) QRS(T) CONTOUR ABNORMALITY CONSISTENT WITH INFERIOR INFARCT PROBABLY OLD T ABNORMALITY IN ANTEROSEPTAL LEADS HIGH LATERAL LEADS ABNORMAL ECG Electronically Signed On 12-01-2020 17:13:49 CDT by Jonathan Mata
--- NOTE | 2020-11-30 15:35 | NUR ---
IP: Patient's negative COVID19 test result was called to GERMAN Ventura at [facility].
== END 2020-11-29 13:30 | disposition home or self-care (01) ==
LOC: ER 09:14
DX: J44.1 Chronic obstructive pulmonary disease with (acute) exacerbation (principal); E11.9 Type 2 diabetes mellitus without complications; K21.9 Gastro-esophageal reflux disease without esophagitis; G20 Parkinson's disease; Z88.1 Allergy status to other antibiotic agents; Z88.8 Allergy status to other drugs, medicaments and biological substances
CPT/HCPCS: 36415; 71045; 80053; 83605; 83735; 83880; 84484; 85025; 85610; 87040; 87426; 87804; 93005; 94640; 94644; 96374; 99285; J2930; J7613; U0003; U0005

== ENCOUNTER 2020-12-27 12:08 | Inpatient (IN) | payer MEDICARE, OTHER ==
[~2020-12-27] VITALS: Ht 172.7 cm; Wt 114.9 kg
[~2020-12-27 12:08] MED LIST changes: +LEVO750T5 PO; +POTA-112 PO; -POTA10TA6 PO; +PRED50TA PO
--- NOTE | 2020-12-27 12:22 | PHYS DOC ---
Past Medical History Past Medical History: Anxiety, COPD, Depression, Diabetes-Type II, GERD, Other Additional Past Medical Histor: Parkinson's, RLS, Morbid obesity Past Surgical History: Other Additional Past Surgical Histo: SHUNT IN BRAIN Smoking Status: Never Smoker Alcohol Use: None General Adult HPI: HPI: 70-year-old female past medical history Anxiety, COPD on 2L, Depression, Diabetes-Type II, hypothyroidism, and GERD, presents the ED brought in by EMS from [facility], concern for fever 100.4 today and altered mental status. History was obtained from EMS and shelter paperwork. Review of systems a history not obtained from patient due to mental status. Pt at baseline is A&Ox3, fully ambulatory ([facility] papers reports " cognitive communication deficit"). [facility] papers reviewed-covid vaccine 02/14/20, has not received her booster vaccine.. EMS reports patient is normally on 2 L but was requiring 5 L nasal cannula. Review of Systems: Review of Systems: ROS unobtainable due to mental status Heart Score: C/O Chest Pain: N/A Risk Factors: Risk Factors: DM, Current or recent (<one month) smoker, HTN, HLP, family history of CAD, obesity. Risk Scores: Score 0 - 3: 2.5% MACE over next 6 weeks - Discharge Home Score 4 - 6: 20.3% MACE over next 6 weeks - Admit for Clinical Observation Score 7 - 10: 72.7% MACE over next 6 weeks - Early Invasive Strategies Allergies: Allergies: Allergies Coded Allergies Type Severity Reaction Last Updated Verified Influenza Virus Vaccines Allergy Intermediate 03/31/20 Yes bacitracin Allergy Intermediate Rash 01/31/20 Yes Physical Exam: PE: Constitutional: Unkept appearing, febrile. HENT: Normocephalic, atraumatic, dry mucous membranes Eyes: conjunctiva normal, no discharge. Neck: Normal range of motion, supple, Cardiovascular: S1/2 present, tachycardic Lungs & Thorax: bilateral equal chest rise, no tachypnea or increased work of breathing Abdomen: soft, cannot appreciate any focal tenderness, obese, distended abdomen Skin: Warm, dry Extremities: No tenderness, no cyanosis, Neurologic: moans to pain, incomprehensible speech, no focal deficits noted. [] Psychologic: calm, no agitation EKG: EKG: Irregular rhythm, suspect sinus rhythm 109 bpm, no axis deviation with PACs, QTC 468, no obvious T wave inversions, ST elevations or ST depressions, patient with no active chest pain Radiology/Procedures: Radiology/Procedures: IMAGING REPORT Signed PATIENT: SHAWN OROZCO ACCOUNT: [id number] : 1950 LOCATION: ER AGE: 70 SEX: F EXAM STATUS: PRE ER ORD. PHYSICIAN: REJI SMART DO REASON: ams, fever PROCEDURE: PORTABLE CHEST 1V Exam Date: 12/27/2020 12:54 PM XR CHEST 1V Indication: Reason: ams, fever / Spl. Instructions: / History: . Comparison: November 29, 2020 FINDINGS/ IMPRESSION: Right ventriculoperitoneal shunt catheter is again seen. The cardiac silhouette is enlarged without congestion. Right basilar infiltrate is more prominent compared to the prior exam. Small right pleural effusion is not excluded. Mild left basilar atelectasis and or infiltrate is noted. No pneumothorax. Electronically signed by: Elisa Porras MD (12/27/2020 1:06 PM) [id number] DICTATED and SIGNED BY: ELISA PORRAS MD DATE: 12/27/20 [id number] IMAGING REPORT Signed PATIENT: SHAWN OROZCO ACCOUNT: [id number] : 1950 LOCATION: ER AGE: 70 SEX: F EXAM STATUS: PRE ER ORD. PHYSICIAN: REJI SMART DO REASON: ams, fever PROCEDURE: CT HEAD WO CONTRAST CT head without contrast dated 12/27/2020 1:01 PM Comparison: 07/21/2018. CLINICAL INDICATION: Fever. Altered mental status TECHNIQUE: Contiguous axial imaging of the head was performed from skull base to vertex. One or more of the following individualized dose reduction techniques were utilized for this examination: 1. Automated exposure control 2. Adjustment of the mA and/or kV according to patient size 3. Use of iterative reconstruction technique. FINDINGS: Lateral ventricles and third ventricle are moderately dilated. The fourth ventricle is more normal in caliber. No midline shift or mass effect. Right frontal ventricular catheter in place with tip to the frontal horn of the right lateral ventricle. Mild patchy low density in the deep/subcortical periventricular white matter. No hemorrhage or extra axial collection. Posterior fossa and brainstem unremarkable. Visualized paranasal sinuses and mastoid air cells are clear. No apparent calvarial abnormality. IMPRESSION: 1. No evidence of acute intracranial hemorrhage or mass. 2. Moderately dilated ventricular system with right frontal ventricular catheter in place, stable from prior study. 3. Mild chronic small vessel ischemic changes and atrophy. Electronically signed by: Gerry Greenwood MD (12/27/2020 1:06 PM) [id number] DICTATED and SIGNED BY: GERRY GREENWOOD MD DATE: 12/27/20 [id number] 0 IMAGING REPORT Signed PATIENT: SHAWN OROZCO ACCOUNT: [id number] : 1950 LOCATION: ER AGE: 70 SEX: F EXAM STATUS: REG ER ORD. PHYSICIAN: REJI SMART DO REASON: shunt series PROCEDURE: SKULL 2V EXAM: Shunt series. HISTORY: Shunt assessment. COMPARISON: None. FINDINGS: 2 views of the skull, a frontal view of the chest and frontal view of the abdomen are obtained. There is a right parietal ventricular shunt terminating to the right of midline. The catheter is contiguous throughout its visualized extent. The catheter terminates within the and right pelvis, excluded from the xbbkj-vi-qswe. There are portions of the catheter overlying the right lateral abdomen which are excluded from the pglon-ot-czoj. There is gas and stool within the colon. There is mild gaseous distention of the stomach. There is a compression fracture with vertebroplasty changes at the thoracolumbar junction. There are cholecystectomy clips. There is diffuse interstitial infiltrate. There is masslike consolidation of the right lower lobe. There is cardiomegaly. There are left breast calcifications. There are clips overlying the right base of the neck. IMPRESSION: 1. Right ventriculoperitoneal catheter. The visualized portions of the catheter are contiguous. The catheter is partially excluded from the caemf-wc-fazl on the abdomen radiograph. 2. Diffuse interstitial infiltrate with partial right lower lobe consolidation. 3. Cardiomegaly. 4. Nonobstructive bowel gas pattern. Electronically signed by: Emily De Leon MD (12/27/2020 4:39 PM) [id number] DICTATED and SIGNED BY: EMILY DE LEON MD DATE: 12/27/20 [id number] 0 Course & Med Decision Making: Course & Med Decision Making Pertinent Labs and Imaging studies reviewed. (See chart for details) Concern for altered mental status in the setting of sepsis secondary to pneumonia with bandemia and renal insufficiency, requiring oxygen. CT of the head was stable hydrocephaly-shunt series shows no obvious obstruction. Patient started on broad-spectrum antibiotics and antipyretic. Will admit for further medical management. Patient stable at time of admission. Dragon Disclaimer: DragGlass Disclaimer: This electronic medical record was generated, in whole or in part, using a voice recognition dictation system. Departure Departure Impression: Primary Impression: Sepsis Additional Impressions: Pneumonia Altered mental status Hypoxia Disposition: ADMITTED INPATIENT Admitting Physician: ERICA (Dr. Ramirez) Condition: STABLE Referrals: XAVI ATKINSON MD (PCP) REJI SMART DO Dec 27, 2020 12:22
[2020-12-27] MEDS ORDERED: ACETAMINOPHEN 325 MG TABLET. PO ONE (13:00)
--- NOTE | 2020-12-27 13:08 | RAD ---
Exam Date: 12/27/2020 12:54 PM XR CHEST 1V Indication: Reason: ams, fever / Spl. Instructions: / History: . Comparison: November 29, 2020 FINDINGS/ IMPRESSION: Right ventriculoperitoneal shunt catheter is again seen. The cardiac silhouette is enlarged without congestion. Right basilar infiltrate is more prominent co mpared to the prior exam. Small right pleural effusion is not excluded. Mild left basilar atelectas is and or infiltrate is noted. No pneumothorax. Electronically signed by: Taye Porras MD (12/27/2020 1:06 PM) [id number]
--- NOTE | 2020-12-27 13:08 | RAD ---
CT head without contrast dated 12/27/2020 1:01 PM Comparison: 07/21/2018. CLINICAL INDICATION: Fever. Altered mental status TECHNIQUE: Contiguous axial imaging of the head was performed from skull base to vertex. One or more of the following individualized dose reduction techniques were utilized for this examinat ion: 1. Automated exposure control 2. Adjustment of the mA and/or kV according to patient size 3. Use of iterative reconstruction technique. FINDINGS: Lateral ventricles and third ventricle are moderately dilated. The fourth ventricle is more normal in caliber. No midline shift or mass effect. Right frontal ventricular catheter in place with tip to th e frontal horn of the right lateral ventricle. Mild patchy low density in the deep/subcortical perive ntricular white matter. No hemorrhage or extra axial collection. Posterior fossa and brainstem unrema rkable. Visualized paranasal sinuses and mastoid air cells are clear. No apparent calvarial abnormality. IMPRESSION: 1. No evidence of acute intracranial hemorrhage or mass. 2. Moderately dilated ventricular system with right frontal ventricular catheter in place, stable fro m prior study. 3. Mild chronic small vessel ischemic changes and atrophy. Electronically signed by: Gerry Greenwood MD (12/27/2020 1:06 PM) [id number]
[2020-12-27 13:48] LABS: BASO % 0 % (0-3); EOS % 0 % (0-3); HEMOGLOBIN 10.7 g/dL (12.0-15.5); LYMPH # 0.8 x10^3/uL (1.0-4.8); LYMPH % 3 % (24-48); MEAN CORPUSCULAR HEMOGLOBIN 22 pg (25-35); MEAN CORPUSCULAR HGB CONC 30 g/dL (31-37); MEAN CORPUSCULAR VOLUME 74 fL (79-100); MONO # 1.3 x10^3/uL (0.0-1.1); MONO % 4 % (0-9); NEUT # 30.9 x10^3/uL (1.8-7.7); NEUT % 93 % (31-73); PLATELET COUNT 254 x10^3/uL (140-400); RED BLOOD COUNT 4.75 x10^6/uL (3.50-5.40); RED CELL DISTRIBUTION WIDTH 17.4 % (11.5-14.5)
[2020-12-27 13:58] LABS: PROTHROMBIN TIME PATIENT 15.4 SEC (11.7-14.0)
[2020-12-27 14:02] LABS: CALCIUM 8.5 mg/dL (8.5-10.1); CREATININE 1.2 mg/dL (0.6-1.0); GFR 44.2; POTASSIUM 3.9 mmol/L (3.5-5.1)
[2020-12-27 14:13] LABS: ALBUMIN 2.5 g/dL (3.4-5.0); ALBUMIN/GLOBULIN RATIO 0.5 (1.0-1.7); MAGNESIUM 2.1 mg/dL (1.8-2.4); TOTAL BILIRUBIN 0.3 mg/dL (0.2-1.0); TOTAL PROTEIN 7.1 g/dL (6.4-8.2)
[2020-12-27] MEDS ORDERED: PIPERACILLIN/TAZOBACTAM 4.5 GM in IV NORMAL SALINE 100ML 100 ML IV ONE (14:30)
[2020-12-27] MEDS ORDERED: IV NORMAL SALINE 1000ML BAG 1,000 ML IV ONE ×3 (14:30→17:00)
[2020-12-27] MEDS ORDERED: VANCOMYCIN PER PHARMACY MC PRN (14:30)
[2020-12-27 14:36] LABS: BILIRUBIN,URINE SMALL (NEG); CLARITY,URINE CLEAR; COLOR,URINE AMBER; NITRITE,URINE NEGATIVE (NEG); PROTEIN,URINE 100 mg/dL (NEG-TRACE); UROBILINOGEN,URINE 0.2 mg/dL (0.2 mg/dL)
[2020-12-27 14:44] LABS: BARBITURATES NEG (NEG); BENZODIAZEPINES POS (NEG); CANNABINOIDS NEG (NEG); COCAINE NEG (NEG); METHADONE NEG (NEG); OPIATES NEG (NEG); PHENCYCLIDINE NEG (NEG)
[2020-12-27 14:44] LABS: % BANDS 17 % (0-9); % LYMPHS 4 % (24-48); % MONOS 5 % (0-10); % SEGS 74 % (35-66); PLT ESTIMATE ADEQUATE (ADEQUATE)
[2020-12-27 14:45] LABS: ANISOCYTOSIS SLIGHT; HYPOCHROMIA SLIGHT; MICROCYTOSIS SLIGHT; POLYCHROMASIA SLIGHT; TOXIC GRANULATION SLIGHT
[2020-12-27 14:45] LABS: AMPHETAMINE/METHAMPHETAMINE NEG (NEG)
[2020-12-27 14:47] LABS: BACTERIA,URINE 0 /HPF (0-FEW); RBC,URINE 0 /HPF (0-2)
[2020-12-27] MEDS ORDERED: VANCOMYCIN 2 GM in IV NORMAL SALINE 500ML BAG 500 ML IV ONE (15:00)
--- NOTE | 2020-12-27 15:01 | EKG ---
[facility] [address] [place] [address] Test Date: 2020-12-27 Test Time: 13:34:09 Pat Name: SHAWN OROZCO Department: Room: Gender: F Growth Hacker: : 1950 Requested By: REJI SMART Order Number: [id number] Reading MD: Jonathan Mata Measurements Intervals [place] Rate: 109 P: MD: QRS: 24 QRSD: 80 T: 137 QT: 346 QTc: 468 Interpretive Statements ATRIAL FIBRILLATION T ABNORMALITY IN HIGH LATERAL LEADS ABNORMAL ECG Electronically Signed On 12-27-2020 20:53:54 CDT by Jonathan Mata
[2020-12-27] MEDS ORDERED: IOHEXOL 300 MG/ML 100ML VIAL. IV ONE (15:30)
[2020-12-27] MEDS ORDERED: CONTRAST GIVEN. MC PRN (15:45)
--- NOTE | 2020-12-27 16:29 | RAD ---
CT OF THE ABDOMEN AND PELVIS WITH IV CONTRAST. History: Abdominal distention Comparison:None. Procedure: Contiguous axial images of the abdomen and pelvis were performed after the administration of 60 cc o f Omni 300 IV contrast. Oral contrast: No. Findings: There is dense patchy opacity in the right lower lobe. There is dense calcification seen in the left breast which is also described in the patient's June terry mogram. There is an old L1 vertebral body compression fracture and vertebroplasty. There is a catheter in the abdomen and pelvis on the right which is likely a ventricular peroneal nick nt. There has been prior cholecystectomy. The appendix is not well seen. Liver: Unremarkable Spleen: Unremarkable Pancreas: Unremarkable Adrenal Glands: 1 9.6 mm adenoma arising from the lateral limb of the left adrenal is incidental. Kidneys: Small calcifications within the kidneys bilaterally are likely nonobstructive stones. There is perinephric stranding which is likely chronic. There is no mass or lymphadenopathy. There is no free air. There is no free fluid. The urinary bladder appears normal. Impression: 1. Right right lower lobe infiltrate likely pneumonia. 2. No acute intra-abdominal or pelvic process identified. End Impression PQRS Compliance Statement: One or more of the following individualized dose reduction techniques were utilized for this examinat ion: 1. Automated exposure control 2. Adjustment of the mA and/or kV according to patient size 3. Use of iterative reconstruction technique Electronically signed by: Allan Aponte III, MD (12/27/2020 4:27 PM) [facility]
--- NOTE | 2020-12-27 16:42 | RAD ---
EXAM: Shunt series. HISTORY: Shunt assessment. COMPARISON: None. FINDINGS: 2 views of the skull, a frontal view of the chest and frontal view of the abdomen are obtai misael. There is a right parietal ventricular shunt terminating to the right of midline. The catheter is contiguous throughout its visualized extent. The catheter terminates within the and right pelvis, ex cluded from the ascbj-lb-smny. There are portions of the catheter overlying the right lateral abdomen which are excluded from the ikmlg-yj-tlwj. There is gas and stool within the colon. There is mild ga seous distention of the stomach. There is a compression fracture with vertebroplasty changes at the t horacolumbar junction. There are cholecystectomy clips. There is diffuse interstitial infiltrate. The re is masslike consolidation of the right lower lobe. There is cardiomegaly. There are left breast ca lcifications. There are clips overlying the right base of the neck. IMPRESSION: 1. Right ventriculoperitoneal catheter. The visualized portions of the catheter are contiguous. The c atheter is partially excluded from the xzucw-ke-rwkf on the abdomen radiograph. 2. Diffuse interstitial infiltrate with partial right lower lobe consolidation. 3. Cardiomegaly. 4. Nonobstructive bowel gas pattern. Electronically signed by: Emily Pena MD (12/27/2020 4:39 PM) SANA
--- NOTE | 2020-12-27 16:42 | RAD ---
EXAM: Shunt series. HISTORY: Shunt assessment. COMPARISON: None. FINDINGS: 2 views of the skull, a frontal view of the chest and frontal view of the abdomen are obtai misael. There is a right parietal ventricular shunt terminating to the right of midline. The catheter is contiguous throughout its visualized extent. The catheter terminates within the and right pelvis, ex cluded from the wwmds-ki-oair. There are portions of the catheter overlying the right lateral abdomen which are excluded from the wwkog-jr-crip. There is gas and stool within the colon. There is mild ga seous distention of the stomach. There is a compression fracture with vertebroplasty changes at the t horacolumbar junction. There are cholecystectomy clips. There is diffuse interstitial infiltrate. The re is masslike consolidation of the right lower lobe. There is cardiomegaly. There are left breast ca lcifications. There are clips overlying the right base of the neck. IMPRESSION: 1. Right ventriculoperitoneal catheter. The visualized portions of the catheter are contiguous. The c atheter is partially excluded from the kavdt-us-bvqt on the abdomen radiograph. 2. Diffuse interstitial infiltrate with partial right lower lobe consolidation. 3. Cardiomegaly. 4. Nonobstructive bowel gas pattern. Electronically signed by: Emily Pena MD (12/27/2020 4:39 PM) SANA
--- NOTE | 2020-12-27 16:42 | RAD ---
EXAM: Shunt series. HISTORY: Shunt assessment. COMPARISON: None. FINDINGS: 2 views of the skull, a frontal view of the chest and frontal view of the abdomen are obtai misael. There is a right parietal ventricular shunt terminating to the right of midline. The catheter is contiguous throughout its visualized extent. The catheter terminates within the and right pelvis, ex cluded from the ejpwm-el-kwvv. There are portions of the catheter overlying the right lateral abdomen which are excluded from the krnvc-wu-geww. There is gas and stool within the colon. There is mild ga seous distention of the stomach. There is a compression fracture with vertebroplasty changes at the t horacolumbar junction. There are cholecystectomy clips. There is diffuse interstitial infiltrate. The re is masslike consolidation of the right lower lobe. There is cardiomegaly. There are left breast ca lcifications. There are clips overlying the right base of the neck. IMPRESSION: 1. Right ventriculoperitoneal catheter. The visualized portions of the catheter are contiguous. The c atheter is partially excluded from the oqccz-tw-hxpi on the abdomen radiograph. 2. Diffuse interstitial infiltrate with partial right lower lobe consolidation. 3. Cardiomegaly. 4. Nonobstructive bowel gas pattern. Electronically signed by: Emily Pena MD (12/27/2020 4:39 PM) SANA
--- NOTE | 2020-12-27 16:57 | PDOC1 ---
History and Physical Date of Admission Date of Admission DATE: 12/27/20 TIME: 16:57 Identification/Chief Complaint Chief Complaint Shortness of breath, fever Source Source: Caregiver, Chart review History of Present Illness History of Present Illness Ms Velazquez is a 70-year-old female with PMHx Anxiety with depression, COPD on 2L NCO2, DM2, hypothyroidism, Parkinson's, RLS, Morbid obesity, s/p REVERSE UNIT OPERATOR shunt, and GERD who comes to the ED brought in by EMS from [facility] due to fever and altered mental status. History obtained from EMS and SNF. Patient is moaning, opens eyes to voice and stimuli. Requiring 5 L nasal cannula. Previously hospitalized for COVID 19 01/31/2020 and now s/p covid vaccine 02/14/20 Labs with WBC 33, Hb 10.7, platelets 254, INR 1.2, NA 143, K3.9, BUN 15, CR 1.2, glucose 181, albumin 2.5, NT proBNP 737, high-sensitivity troponin 7, lactate 3.1, UDS positive for benzos, UA bland. CT head with no acute findings referral ventricular catheter in place, shunt ser ies with no occlusion REVERSE UNIT OPERATOR shunt. CT abdomen reveals right lower lobe consolidation consistent with pneumonia. EKG with afib aroudn 109bpm, No ST segment elevations or TWI Admitted for further care Past Medical History Pulmonary: COPD CENTRAL NERVOUS SYSTEM: Dementia, Other (Parkinsons, NPH) GI: GERD Endocrine: Diabetes, Hypothyroidism Past Surgical History Past Surgical History: Other (REVERSE UNIT OPERATOR shunt) Family History Family History reviewed Family History: Family History Unknown Family History: Other Social History Smoke: No ALCOHOL: none Drugs: None Current Problem List Problem List Problems Medical Problems: (1) Altered mental status Status: Acute (2) Pneumonia Status: Acute (3) Sepsis Status: Acute Current Medications Current Medications Current Medications Acetaminophen (Tylenol) 650 mg 1X ONCE PO ; Start 12/27/20 at 13:00; Stop 12/27/20 at 13:01; Status DC Sodium Chloride 1,000 ml @ 1,000 mls/hr 1X ONCE IV Last administered on 12/27/20at 15:08; Start 12/27/20 at 14:30; Stop 12/27/20 at 15:29; Status DC Sodium Chloride 1,000 ml @ 1,000 mls/hr 1X ONCE IV ; Start 12/27/20 at 14:30; Stop 12/27/20 at 15:29; Status DC Vancomycin HCl (Vanco Per Pharmacy) 1 each PRN DAILY PRN MC SEE COMMENTS; Start 12/27/20 at 14:30; Status UNV Piperacillin Sod/ Tazobactam Sod 4.5 gm/Sodium Chloride 100 ml @ 200 mls/hr 1X ONCE IV Last administered on 12/27/20at 15:09; Start 12/27/20 at 14:30; Stop 12/27/20 at 14:59; Status DC Vancomycin HCl 2 gm/Sodium Chloride 500 ml @ 250 mls/hr 1X ONCE IV Last administered on 12/27/20at 16:31; Start 12/27/20 at 15:00; Stop 12/27/20 at 16:59 Iohexol (Omnipaque 300 Mg/ml) 60 ml 1X ONCE IV Last administered on 12/27/20at 16:00; Start 12/27/20 at 15:30; Stop 12/27/20 at 15:31; Status DC Info (CONTRAST GIVEN -- Rx MONITORING) 1 each PRN DAILY PRN MC SEE COMMENTS; Start 12/27/20 at 15:45; Stop 12/29/20 at 15:44 Active Scripts Active Prednisone 50 Mg Tablet 1 Tab PO DAILY Levofloxacin 750 Mg Tablet 1 Tab PO DAILY 5 Days Reported Ventolin Hfa Inhaler (Albuterol Sulfate) 18 Gm Hfa.aer.ad 2 Puff INH Q4HRS Sinemet 25-250 Mg Tablet (Carbidopa/Levodopa) 1 Each Tablet 1 Tab PO QID Ropinirole Hcl 0.5 Mg Tablet 0.5 Mg PO TID Lyrica (Pregabalin) 50 Mg Capsule 50 Mg PO TID Ondansetron Hcl 4 Mg Tablet 1 Tab PO PRN Q8HRS PRN Novolog (Insulin Aspart) 100 Unit/1 Ml Vial 18 Unit SQ TIDAC Multiple Vitamin (Multivitamin With Minerals) 1 Each Tablet 1 Each PO BID Mucinex Fast-Max Dm Max Liquid (Guaifenesin/Dextromethorphan) 180 Ml Liquid 10 Ml PO PRN Q4HRS PRN Miralax (Polyethylene Glycol 3350) 17 Gm Powd.pack 1 Pkt PO PRN Q24HRS PRN Mag-Al Hydrox-Simeth Max Susp (Mag Hydrox/Aluminum Hyd/Simeth) 30 Ml Oral.susp 15 Ml PO PRN Q4HRS PRN Levothyroxine Sodium 125 Mcg Tablet 250 Mcg PO DAILYAC Levemir Flextouch (Insulin Detemir) 100 Unit/1 Ml Insuln.pen 35 Unit SQ BID Januvia (Sitagliptin Phosphate) 100 Mg Tablet 1 Tab PO DAILY Hydrocortisone Plus 1% Cream (Hydrocortisone/Aloe Vera) 28.4 Gm Cream..g. 28.4 Gm TP PRN Q8HRS PRN Famotidine 20 Mg Tablet 20 Mg PO HS Entacapone 200 Mg Tablet 200 Mg PO DAILY Eliquis (Apixaban) 2.5 Mg Tablet 2.5 Mg PO BID Cymbalta (Duloxetine Hcl) 30 Mg Capsule.dr 90 Mg PO DAILY Biofreeze (Menthol) 118 Ml Gel..ml. 1 Blayne TP PRN Q6HRS PRN 7 Days Atorvastatin Calcium 10 Mg Tablet 10 Mg PO HS Polyvinyl Alcohol 15 Ml Drops 1 Drop EACHEYE PRN Q4HRS PRN 30 Days Alprazolam 0.5 Mg Tablet 1 Tab PO HS Allergies Allergies: Coded Allergies: Influenza Virus Vaccines (Verified Allergy, Intermediate, 03/31/20) bacitracin (Verified Allergy, Intermediate, Rash, 01/31/20) ROS Review of System 11 point ROS attempted, unable to complete due to confusion Physical Exam General: Cooperative, moderate distress HEENT: Atraumatic, PERRLA, EOMI, Mucous membr. moist/pink Lungs: Other (Right sided rhonchi) Heart: irregularly irregular Abdomen: Normal bowel sounds, Soft, No tenderness, No hepatosplenomegaly, No masses Extremities: No clubbing, No cyanosis, No edema, Normal pulses, No tenderness/swelling Skin: No rashes, No breakdown, No significant lesion Neuro: Cranial nerves 3-12 NL, Reflexes 2+ Psych/Mental Status: Other (Obtunded) Vitals Vitals Vital Signs Date Time Temp Pulse Resp B/P (MAP) Pulse Ox O2 Delivery O2 Flow Rate FiO2 12/27/20 15:09 101.0 108 26 126/60 (82) 95 Nasal Cannula 5.0 101.0 Labs Labs Laboratory Tests Test 12/27/20 13:30 12/27/20 14:26 White Blood Count 33.0 x10^3/uL (4.0-11.0) Red Blood Count 4.75 x10^6/uL (3.50-5.40) Hemoglobin 10.7 g/dL (12.0-15.5) Hematocrit 35.0 % (36.0-47.0) Mean Corpuscular Volume 74 fL (79-100) Mean Corpuscular Hemoglobin 22 pg (25-35) Mean Corpuscular Hemoglobin Concent 30 g/dL (31-37) Red Cell Distribution Width 17.4 % (11.5-14.5) Platelet Count 254 x10^3/uL (140-400) Neutrophils (%) (Auto) 93 % (31-73) Lymphocytes (%) (Auto) 3 % (24-48) Monocytes (%) (Auto) 4 % (0-9) Eosinophils (%) (Auto) 0 % (0-3) Basophils (%) (Auto) 0 % (0-3) Neutrophils # (Auto) 30.9 x10^3/uL (1.8-7.7) Lymphocytes # (Auto) 0.8 x10^3/uL (1.0-4.8) Monocytes # (Auto) 1.3 x10^3/uL (0.0-1.1) Eosinophils # (Auto) 0.0 x10^3/uL (0.0-0.7) Basophils # (Auto) 0.0 x10^3/uL (0.0-0.2) Segmented Neutrophils % 74 % (35-66) Band Neutrophils % 17 % (0-9) Lymphocytes % 4 % (24-48) Monocytes % 5 % (0-10) Toxic Granulation Slight Platelet Estimate Adequate (ADEQUATE) Polychromasia Slight Hypochromasia Slight Anisocytosis Slight Microcytosis Slight Prothrombin Time 15.4 SEC (11.7-14.0) Prothromb Time International Ratio 1.2 (0.8-1.1) Activated Partial Thromboplast Time 34 SEC (24-38) Sodium Level 143 mmol/L (136-145) Potassium Level 3.9 mmol/L (3.5-5.1) Chloride Level 105 mmol/L (98-107) Carbon Dioxide Level 31 mmol/L (21-32) Anion Gap 7 (6-14) Blood Urea Nitrogen 15 mg/dL (7-20) Creatinine 1.2 mg/dL (0.6-1.0) Estimated GFR (Cockcroft-Gault) 44.2 BUN/Creatinine Ratio 13 (6-20) Glucose Level 181 mg/dL (70-99) Lactic Acid Level 3.1 mmol/L (0.4-2.0) Calcium Level 8.5 mg/dL (8.5-10.1) Magnesium Level 2.1 mg/dL (1.8-2.4) Total Bilirubin 0.3 mg/dL (0.2-1.0) Aspartate Amino Transf (AST/SGOT) 20 U/L (15-37) Alanine Aminotransferase (ALT/SGPT) 27 U/L (14-59) Alkaline Phosphatase 143 U/L (46-116) Creatine Kinase 177 U/L (26-192) Troponin I High Sensitivity 7 ng/L (4-50) MG-Cla-V-Type Natriuretic Peptide 737 pg/mL (0-124) Total Protein 7.1 g/dL (6.4-8.2) Albumin 2.5 g/dL (3.4-5.0) Albumin/Globulin Ratio 0.5 (1.0-1.7) Urine Collection Type U cath Urine Color Mary Carmen Urine Clarity Clear Urine pH 6.0 (<5.0-8.0) Urine Specific [place] 1.025 (1.000-1.030) Urine Protein 100 mg/dL (NEG-TRACE) Urine Glucose (UA) Negative mg/dL (NEG) Urine Ketones (Stick) Trace mg/dL (NEG) Urine Blood Negative (NEG) Urine Nitrite Negative (NEG) Urine Bilirubin Small (NEG) Urine Urobilinogen Dipstick 0.2 mg/dL (0.2 mg/dL) Urine Leukocyte Esterase Negative (NEG) Urine RBC 0 /HPF (0-2) Urine WBC 1-4 /HPF (0-4) Urine Squamous Epithelial Cells Occ /LPF Urine Bacteria 0 /HPF (0-FEW) Urine Mucus Slight /LPF Urine Opiates Screen Neg (NEG) Urine Methadone Screen Neg (NEG) Urine Barbiturates Neg (NEG) Urine Phencyclidine Screen Neg (NEG) Urine Amphetamine/Methamphetamine Neg (NEG) Urine Benzodiazepines Screen Pos (NEG) Urine Cocaine Screen Neg (NEG) Urine Cannabinoids Screen Neg (NEG) Urine Ethyl Alcohol Neg (NEG) Laboratory Tests Test 12/27/20 13:30 12/27/20 14:26 White Blood Count 33.0 x10^3/uL (4.0-11.0) Red Blood Count 4.75 x10^6/uL (3.50-5.40) Hemoglobin 10.7 g/dL (12.0-15.5) Hematocrit 35.0 % (36.0-47.0) Mean Corpuscular Volume 74 fL (79-100) Mean Corpuscular Hemoglobin 22 pg (25-35) Mean Corpuscular Hemoglobin Concent 30 g/dL (31-37) Red Cell Distribution Width 17.4 % (11.5-14.5) Platelet Count 254 x10^3/uL (140-400) Neutrophils (%) (Auto) 93 % (31-73) Lymphocytes (%) (Auto) 3 % (24-48) Monocytes (%) (Auto) 4 % (0-9) Eosinophils (%) (Auto) 0 % (0-3) Basophils (%) (Auto) 0 % (0-3) Neutrophils # (Auto) 30.9 x10^3/uL (1.8-7.7) Lymphocytes # (Auto) 0.8 x10^3/uL (1.0-4.8) Monocytes # (Auto) 1.3 x10^3/uL (0.0-1.1) Eosinophils # (Auto) 0.0 x10^3/uL (0.0-0.7) Basophils # (Auto) 0.0 x10^3/uL (0.0-0.2) Segmented Neutrophils % 74 % (35-66) Band Neutrophils % 17 % (0-9) Lymphocytes % 4 % (24-48) Monocytes % 5 % (0-10) Toxic Granulation Slight Platelet Estimate Adequate (ADEQUATE) Polychromasia Slight Hypochromasia Slight Anisocytosis Slight Microcytosis Slight Prothrombin Time 15.4 SEC (11.7-14.0) Prothromb Time International Ratio 1.2 (0.8-1.1) Activated Partial Thromboplast Time 34 SEC (24-38) Sodium Level 143 mmol/L (136-145) Potassium Level 3.9 mmol/L (3.5-5.1) Chloride Level 105 mmol/L (98-107) Carbon Dioxide Level 31 mmol/L (21-32) Anion Gap 7 (6-14) Blood Urea Nitrogen 15 mg/dL (7-20) Creatinine 1.2 mg/dL (0.6-1.0) Estimated GFR (Cockcroft-Gault) 44.2 BUN/Creatinine Ratio 13 (6-20) Glucose Level 181 mg/dL (70-99) Lactic Acid Level 3.1 mmol/L (0.4-2.0) Calcium Level 8.5 mg/dL (8.5-10.1) Magnesium Level 2.1 mg/dL (1.8-2.4) Total Bilirubin 0.3 mg/dL (0.2-1.0) Aspartate Amino Transf (AST/SGOT) 20 U/L (15-37) Alanine Aminotransferase (ALT/SGPT) 27 U/L (14-59) Alkaline Phosphatase 143 U/L (46-116) Creatine Kinase 177 U/L (26-192) Troponin I High Sensitivity 7 ng/L (4-50) GX-Wxd-U-Type Natriuretic Peptide 737 pg/mL (0-124) Total Protein 7.1 g/dL (6.4-8.2) Albumin 2.5 g/dL (3.4-5.0) Albumin/Globulin Ratio 0.5 (1.0-1.7) Urine Collection Type U cath Urine Color Mary Carmen Urine Clarity Clear Urine pH 6.0 (<5.0-8.0) Urine Specific [place] 1.025 (1.000-1.030) Urine Protein 100 mg/dL (NEG-TRACE) Urine Glucose (UA) Negative mg/dL (NEG) Urine Ketones (Stick) Trace mg/dL (NEG) Urine Blood Negative (NEG) Urine Nitrite Negative (NEG) Urine Bilirubin Small (NEG) Urine Urobilinogen Dipstick 0.2 mg/dL (0.2 mg/dL) Urine Leukocyte Esterase Negative (NEG) Urine RBC 0 /HPF (0-2) Urine WBC 1-4 /HPF (0-4) Urine Squamous Epithelial Cells Occ /LPF Urine Bacteria 0 /HPF (0-FEW) Urine Mucus Slight /LPF Urine Opiates Screen Neg (NEG) Urine Methadone Screen Neg (NEG) Urine Barbiturates Neg (NEG) Urine Phencyclidine Screen Neg (NEG) Urine Amphetamine/Methamphetamine Neg (NEG) Urine Benzodiazepines Screen Pos (NEG) Urine Cocaine Screen Neg (NEG) Urine Cannabinoids Screen Neg (NEG) Urine Ethyl Alcohol Neg (NEG) Images Images XR CHEST 1V Right ventriculoperitoneal shunt catheter is again seen. The cardiac silhouette is enlarged without congestion. Right basilar infiltrate is more prominent compared to the prior exam. Small right pleural effusion is not excluded. Mild left basilar atelectasis and or infiltrate is noted. No pneumothorax. CT head without contrast dated 12/27/2020 1:01 PM Lateral ventricles and third ventricle are moderately dilated. The fourth ventricle is more normal in caliber. No midline shift or mass effect. Right frontal ventricular catheter in place with tip to the frontal horn of the right lateral ventricle. Mild patchy low density in the deep/subcortical periventricular white matter. No hemorrhage or extra axial collection. Posterior fossa and brainstem unremarkable. Visualized paranasal sinuses and mastoid air cells are clear. No apparent calvarial abnormality. IMPRESSION: 1. No evidence of acute intracranial hemorrhage or mass. 2. Moderately dilated ventricular system with right frontal ventricular catheter in place, stable from prior study. 3. Mild chronic small vessel ischemic changes and atrophy. Electronically signed by: Gerry Greenwood MD (12/27/2020 1:06 PM) [id number] DICTATED and SIGNED BY: GERRY GREENWOOD MD DATE: 12/27/20 [id number] IMAGING REPORT Signed PATIENT: SHAWN VELAZQUEZ ACCOUNT: [id number] : 1950 LOCATION: ER AGE: 70 SEX: F EXAM STATUS: REG ER ORD. PHYSICIAN: REJI SMART DO REASON: shunt series PROCEDURE: SKULL 2V EXAM: Shunt series. HISTORY: Shunt assessment. COMPARISON: None. FINDINGS: 2 views of the skull, a frontal view of the chest and frontal view of the abdomen are obtained. There is a right parietal ventricular shunt terminating to the right of midline. The catheter is contiguous throughout its visualized extent. The catheter terminates within the and right pelvis, excluded from the [id number]. There are portions of the catheter overlying the right lateral abdomen which are excluded from the [id number]. There is gas and st ool within the colon. There is mild gaseous distention of the stomach. There is a compression fracture with vertebroplasty changes at the thoracolumbar junction. There are cholecystectomy clips. There is diffuse interstitial infiltrate. There is masslike consolidation of the right lower lobe. There is cardiomegaly. There are left breast calcifications. There are clips overlying the right base of the neck. IMPRESSION: 1. Right ventriculoperitoneal catheter. The visualized portions of the catheter are contiguous. The catheter is partially excluded from the [id number] on the abdomen radiograph. 2. Diffuse interstitial infiltrate with partial right lower lobe consolidation. 3. Cardiomegaly. 4. Nonobstructive bowel gas pattern. VTE Prophylaxis Ordered VTE Prophylaxis Devices: Yes VTE Pharmacological Prophylaxi: Yes Assessment/Plan Assessment/Plan A/P: RLL pneumonia - likely gram negative given her comorbidities, underlying COPD. Zosyn and vancomycin Sepsis - due to pneumonia, fluids and antibiotics empirically Afib - not previously noted, metoprolol for rate control. Given frequent fall history may be relatively high risk for anticoagulation. will continue eliquis Acute encephalopathy - likely sepsis related, will hold sedating meds. monitor neuro status Acute on chronic hypoxic respiratory failure - likely related to pneumonia, will wean O2 as tolerated. Consult pulmonology Severe protein calorie malnutrition - with possible aspiration will given IV nutrition, consult dealer relationship manager and DIE ASSEMBLER Anxiety with depression - will cont home meds when taking PO COPD on 2L NCO2 - will give nebs. consult pulm DM2 - sliding scale, cut basal insulin in half for tonight given lack of PO intake Hypothyroidism - will check TSH, cont levothyroxine Parkinson's - on entacapone, will verify meds RLS - on requip Morbid obesity s/p REVERSE UNIT OPERATOR shunt GERD FEN - NPO pending DIE ASSEMBLER eval PPX - eliquis FULL CODE Dispo - inpatient Brother is surrogate decision maker Justifications for Admission Other Justification Trimalleolar fracture SIMON HYATT MD Dec 27, 2020 16:57
[2020-12-27] MEDS ORDERED: PIP/TAZO PER PHARMACY MC PRN (17:00)
[2020-12-27] MEDS ORDERED: ONDANSETRON PF 4 MG/2 ML VIAL. IVP PRN (17:00)
[2020-12-27] MEDS ORDERED: guaiFENesin DM 200MG/20MG 10 ML SYRUP PO PRN (17:00)
[2020-12-27] MEDS ORDERED: traMADol 50 MG TABLET PO PRN (17:00)
[2020-12-27] MEDS ORDERED: ACETAMINOPHEN 325 MG TABLET. PO PRN (17:00)
[2020-12-27] MEDS ORDERED: fentaNYL PF VIAL 100 MCG/2 ML VIAL IVP PRN (17:00)
[2020-12-27] MEDS: VANCOMYCIN PER PHARMACY MC PRN (19:41)
--- NOTE | 2020-12-27 19:44 | NUR ---
Pharmacy Vancomycin Dosing Note S: Consulted to monitor and dose vancomycin started 12/27/20. O: SHAWN OROZCO is a 70 year old F with Sepsis,Pneumonia,Empiric treatment. Other Antibiotics: ZOSYN LABS: Last BUN: 15 Last Creatinine: 1.2 Creatinine Clearance: 57 mL/min Last WBC: 33.0 Vancomycin Dosing: Dosing Weight: Actual Target Trough: 10-20 A: Based on: VANCO dosing guidelines P: 1. Begin Vancomycin 2000mg LOAD dose, then 1750 mg IV q12h 2. Follow up Trough level on 12/29/20 at 0530 3. Pharmacy will continue to monitor, follow and adjust therapy as needed. EZE PRINCE [facility], 12/27/20 [id number]
[2020-12-27 20:24] VITALS: BP 131/63
[2020-12-27] MEDS: PSYLLIUM HUSK (SUGAR FREE) 1 PKT PACKET PO SCH (21:00)
[2020-12-27] MEDS ORDERED: NYST1POW5 MC (21:44)
[2020-12-27] MEDS ORDERED: POTA10TA12 PO (21:44)
[2020-12-27] MEDS ORDERED: ACET500T68 PO (21:44)
[2020-12-27] MEDS ORDERED: MENT118G TP (21:44)
[2020-12-27] MEDS ORDERED: FURO20TA3 PO (21:44)
[2020-12-27] MEDS ORDERED: GUAI237L83 PO (21:44)
[2020-12-27] MEDS ORDERED: BACL10TA PO (21:44)
[2020-12-27] MEDS ORDERED: LORA10TA3 PO (21:44)
[2020-12-27] MEDS ORDERED: ARIP2TAB3 PO (21:44)
[2020-12-27] MEDS ORDERED: HYDR-2761 PO (21:44)
[2020-12-27] MEDS ORDERED: MELO15TA23 PO (21:44)
[2020-12-27] MEDS ORDERED: ZINC50TA39 PO (21:44)
[2020-12-27] MEDS ORDERED: PEG15DRO4 OD (21:44)
[2020-12-27] MEDS ORDERED: BUPR150T15 PO (21:44)
[2020-12-27] MEDS ORDERED: DEXTROSE 50% 25 GM / 50ML DISP.SYRIN. IV PRN (22:45)
[2020-12-27 23:00] VITALS: BP 144/63
[2020-12-27] MEDS ORDERED: INSULIN GLARGINE SYRINGE. SQ ONE (23:00)
[2020-12-27] MEDS ORDERED: METOPROLOL IV PUSH 5 MG/5 ML VIAL. IVP PRN (23:15)
[2020-12-27] MEDS ORDERED: POLYETHYLENE GLYCOL 3350 17 GM PACKET. PO PRN (23:15)
[2020-12-27] MEDS: AA 4.25 %/CALCIUM/LYTES/D5W 1,000 ML IV SCH (23:30)
[2020-12-27] MEDS ORDERED: ALBUTEROL SULFATE 2.5 MG/3 ML NEBU. NEB PRN (23:30)
[2020-12-27] MEDS: PIPERACILLIN/TAZOBACTAM 3.375 GM in IV NORMAL SALINE 50ML 50 ML IV SCH (23:58)
[2020-12-28] VITALS (7 sets, daily range): BP systolic 121–172; BP diastolic 66–109
[2020-12-28 04:03] LABS: BASO % 0 % (0-3); EOS % 0 % (0-3); HEMATOCRIT 31.3 % (36.0-47.0); HEMOGLOBIN 9.4 g/dL (12.0-15.5); LYMPH # 1.1 x10^3/uL (1.0-4.8); LYMPH % 4 % (24-48); MEAN CORPUSCULAR HEMOGLOBIN 22 pg (25-35); MEAN CORPUSCULAR HGB CONC 30 g/dL (31-37); MEAN CORPUSCULAR VOLUME 73 fL (79-100); MONO % 3 % (0-9); NEUT # 28.3 x10^3/uL (1.8-7.7); NEUT % 93 % (31-73); PLATELET COUNT 243 x10^3/uL (140-400); RED BLOOD COUNT 4.26 x10^6/uL (3.50-5.40); RED CELL DISTRIBUTION WIDTH 17.3 % (11.5-14.5); WHITE BLOOD COUNT 30.4 x10^3/uL (4.0-11.0)
[2020-12-28 04:23] LABS: CALCIUM 7.8 mg/dL (8.5-10.1); CREATININE 1.2 mg/dL (0.6-1.0); GFR 44.2; POTASSIUM 3.7 mmol/L (3.5-5.1)
[2020-12-28] MEDS: PIPERACILLIN/TAZOBACTAM 3.375 GM in IV NORMAL SALINE 50ML 50 ML IV SCH ×3 (05:06→17:39)
--- NOTE | 2020-12-28 05:35 | NUR ---
Patient admitted from ER 12/27 @ 2030. At that time she was lethargic but would respond to her name. She was confused and mumbled when trying to answer questions. This am, at 5:00, she was yelling out for help. When entering the room, she was alert and responding to questions, although somewhat slow to respond. She is now alert and oriented x3.
[2020-12-28] MEDS: VANCOMYCIN 1.75 GM in IV NORMAL SALINE 500ML BAG 500 ML IV SCH ×2 (05:54→18:29)
[2020-12-28] MEDS: LEVOTHYROXINE 125 MCG TABLET PO SCH (07:30)
--- NOTE | 2020-12-28 08:48 | PDOC ---
PULMONARY PROGRESS NOTES DATE: 12/28/20 TIME: 08:48 Vitals Vital Signs Date Time Temp Pulse Resp B/P (MAP) Pulse Ox O2 Delivery O2 Flow Rate FiO2 12/28/20 03:00 98.2 91 18 121/68 (85) 96 Nasal Cannula 5.0 98.2 Lungs: Other Labs Laboratory Tests Test 12/27/20 13:30 12/27/20 14:26 12/27/20 16:54 12/27/20 23:49 White Blood Count 33.0 x10^3/uL (4.0-11.0) Red Blood Count 4.75 x10^6/uL (3.50-5.40) Hemoglobin 10.7 g/dL (12.0-15.5) Hematocrit 35.0 % (36.0-47.0) Mean Corpuscular Volume 74 fL (79-100) Mean Corpuscular Hemoglobin 22 pg (25-35) Mean Corpuscular Hemoglobin Concent 30 g/dL (31-37) Red Cell Distribution Width 17.4 % (11.5-14.5) Platelet Count 254 x10^3/uL (140-400) Neutrophils (%) (Auto) 93 % (31-73) Lymphocytes (%) (Auto) 3 % (24-48) Monocytes (%) (Auto) 4 % (0-9) Eosinophils (%) (Auto) 0 % (0-3) Basophils (%) (Auto) 0 % (0-3) Neutrophils # (Auto) 30.9 x10^3/uL (1.8-7.7) Lymphocytes # (Auto) 0.8 x10^3/uL (1.0-4.8) Monocytes # (Auto) 1.3 x10^3/uL (0.0-1.1) Eosinophils # (Auto) 0.0 x10^3/uL (0.0-0.7) Basophils # (Auto) 0.0 x10^3/uL (0.0-0.2) Segmented Neutrophils % 74 % (35-66) Band Neutrophils % 17 % (0-9) Lymphocytes % 4 % (24-48) Monocytes % 5 % (0-10) Toxic Granulation Slight Platelet Estimate Adequate (ADEQUATE) Polychromasia Slight Hypochromasia Slight Anisocytosis Slight Microcytosis Slight Prothrombin Time 15.4 SEC (11.7-14.0) Prothromb Time International Ratio 1.2 (0.8-1.1) Activated Partial Thromboplast Time 34 SEC (24-38) Sodium Level 143 mmol/L (136-145) Potassium Level 3.9 mmol/L (3.5-5.1) Chloride Level 105 mmol/L (98-107) Carbon Dioxide Level 31 mmol/L (21-32) Anion Gap 7 (6-14) Blood Urea Nitrogen 15 mg/dL (7-20) Creatinine 1.2 mg/dL (0.6-1.0) Estimated GFR (Cockcroft-Gault) 44.2 BUN/Creatinine Ratio 13 (6-20) Glucose Level 181 mg/dL (70-99) Lactic Acid Level 3.1 mmol/L (0.4-2.0) 2.8 mmol/L (0.4-2.0) Calcium Level 8.5 mg/dL (8.5-10.1) Magnesium Level 2.1 mg/dL (1.8-2.4) Total Bilirubin 0.3 mg/dL (0.2-1.0) Aspartate Amino Transf (AST/SGOT) 20 U/L (15-37) Alanine Aminotransferase (ALT/SGPT) 27 U/L (14-59) Alkaline Phosphatase 143 U/L (46-116) Creatine Kinase 177 U/L (26-192) Troponin I High Sensitivity 7 ng/L (4-50) LR-Fdw-J-Type Natriuretic Peptide 737 pg/mL (0-124) Total Protein 7.1 g/dL (6.4-8.2) Albumin 2.5 g/dL (3.4-5.0) Albumin/Globulin Ratio 0.5 (1.0-1.7) Urine Collection Type U cath Urine Color Mary Carmen Urine Clarity Clear Urine pH 6.0 (<5.0-8.0) Urine Specific [place] 1.025 (1.000-1.030) Urine Protein 100 mg/dL (NEG-TRACE) Urine Glucose (UA) Negative mg/dL (NEG) Urine Ketones (Stick) Trace mg/dL (NEG) Urine Blood Negative (NEG) Urine Nitrite Negative (NEG) Urine Bilirubin Small (NEG) Urine Urobilinogen Dipstick 0.2 mg/dL (0.2 mg/dL) Urine Leukocyte Esterase Negative (NEG) Urine RBC 0 /HPF (0-2) Urine WBC 1-4 /HPF (0-4) Urine Squamous Epithelial Cells Occ /LPF Urine Bacteria 0 /HPF (0-FEW) Urine Mucus Slight /LPF Urine Opiates Screen Neg (NEG) Urine Methadone Screen Neg (NEG) Urine Barbiturates Neg (NEG) Urine Phencyclidine Screen Neg (NEG) Urine Amphetamine/Methamphetamine Neg (NEG) Urine Benzodiazepines Screen Pos (NEG) Urine Cocaine Screen Neg (NEG) Urine Cannabinoids Screen Neg (NEG) Urine Ethyl Alcohol Neg (NEG) Glucose (Fingerstick) 210 mg/dL (70-99) Test 12/28/20 03:30 12/28/20 08:38 White Blood Count 30.4 x10^3/uL (4.0-11.0) Red Blood Count 4.26 x10^6/uL (3.50-5.40) Hemoglobin 9.4 g/dL (12.0-15.5) Hematocrit 31.3 % (36.0-47.0) Mean Corpuscular Volume 73 fL (79-100) Mean Corpuscular Hemoglobin 22 pg (25-35) Mean Corpuscular Hemoglobin Concent 30 g/dL (31-37) Red Cell Distribution Width 17.3 % (11.5-14.5) Platelet Count 243 x10^3/uL (140-400) Neutrophils (%) (Auto) 93 % (31-73) Lymphocytes (%) (Auto) 4 % (24-48) Monocytes (%) (Auto) 3 % (0-9) Eosinophils (%) (Auto) 0 % (0-3) Basophils (%) (Auto) 0 % (0-3) Neutrophils # (Auto) 28.3 x10^3/uL (1.8-7.7) Lymphocytes # (Auto) 1.1 x10^3/uL (1.0-4.8) Monocytes # (Auto) 1.0 x10^3/uL (0.0-1.1) Eosinophils # (Auto) 0.0 x10^3/uL (0.0-0.7) Basophils # (Auto) 0.0 x10^3/uL (0.0-0.2) Sodium Level 145 mmol/L (136-145) Potassium Level 3.7 mmol/L (3.5-5.1) Chloride Level 108 mmol/L (98-107) Carbon Dioxide Level 29 mmol/L (21-32) Anion Gap 8 (6-14) Blood Urea Nitrogen 19 mg/dL (7-20) Creatinine 1.2 mg/dL (0.6-1.0) Estimated GFR (Cockcroft-Gault) 44.2 Glucose Level 227 mg/dL (70-99) Calcium Level 7.8 mg/dL (8.5-10.1) Procalcitonin 78.71 ng/mL (0.00-0.10) Thyroid Stimulating Hormone (TSH) 1.329 uIU/mL (0.358-3.74) Glucose (Fingerstick) 259 mg/dL (70-99) Laboratory Tests Test 12/27/20 13:30 12/27/20 14:26 12/27/20 16:54 12/27/20 23:49 White Blood Count 33.0 x10^3/uL (4.0-11.0) Red Blood Count 4.75 x10^6/uL (3.50-5.40) Hemoglobin 10.7 g/dL (12.0-15.5) Hematocrit 35.0 % (36.0-47.0) Mean Corpuscular Volume 74 fL (79-100) Mean Corpuscular Hemoglobin 22 pg (25-35) Mean Corpuscular Hemoglobin Concent 30 g/dL (31-37) Red Cell Distribution Width 17.4 % (11.5-14.5) Platelet Count 254 x10^3/uL (140-400) Neutrophils (%) (Auto) 93 % (31-73) Lymphocytes (%) (Auto) 3 % (24-48) Monocytes (%) (Auto) 4 % (0-9) Eosinophils (%) (Auto) 0 % (0-3) Basophils (%) (Auto) 0 % (0-3) Neutrophils # (Auto) 30.9 x10^3/uL (1.8-7.7) Lymphocytes # (Auto) 0.8 x10^3/uL (1.0-4.8) Monocytes # (Auto) 1.3 x10^3/uL (0.0-1.1) Eosinophils # (Auto) 0.0 x10^3/uL (0.0-0.7) Basophils # (Auto) 0.0 x10^3/uL (0.0-0.2) Segmented Neutrophils % 74 % (35-66) Band Neutrophils % 17 % (0-9) Lymphocytes % 4 % (24-48) Monocytes % 5 % (0-10) Toxic Granulation Slight Platelet Estimate Adequate (ADEQUATE) Polychromasia Slight Hypochromasia Slight Anisocytosis Slight Microcytosis Slight Prothrombin Time 15.4 SEC (11.7-14.0) Prothromb Time International Ratio 1.2 (0.8-1.1) Activated Partial Thromboplast Time 34 SEC (24-38) Sodium Level 143 mmol/L (136-145) Potassium Level 3.9 mmol/L (3.5-5.1) Chloride Level 105 mmol/L (98-107) Carbon Dioxide Level 31 mmol/L (21-32) Anion Gap 7 (6-14) Blood Urea Nitrogen 15 mg/dL (7-20) Creatinine 1.2 mg/dL (0.6-1.0) Estimated GFR (Cockcroft-Gault) 44.2 BUN/Creatinine Ratio 13 (6-20) Glucose Level 181 mg/dL (70-99) Lactic Acid Level 3.1 mmol/L (0.4-2.0) 2.8 mmol/L (0.4-2.0) Calcium Level 8.5 mg/dL (8.5-10.1) Magnesium Level 2.1 mg/dL (1.8-2.4) Total Bilirubin 0.3 mg/dL (0.2-1.0) Aspartate Amino Transf (AST/SGOT) 20 U/L (15-37) Alanine Aminotransferase (ALT/SGPT) 27 U/L (14-59) Alkaline Phosphatase 143 U/L (46-116) Creatine Kinase 177 U/L (26-192) Troponin I High Sensitivity 7 ng/L (4-50) FX-Cup-L-Type Natriuretic Peptide 737 pg/mL (0-124) Total Protein 7.1 g/dL (6.4-8.2) Albumin 2.5 g/dL (3.4-5.0) Albumin/Globulin Ratio 0.5 (1.0-1.7) Urine Collection Type U cath Urine Color Mary Carmen Urine Clarity Clear Urine pH 6.0 (<5.0-8.0) Urine Specific [place] 1.025 (1.000-1.030) Urine Protein 100 mg/dL (NEG-TRACE) Urine Glucose (UA) Negative mg/dL (NEG) Urine Ketones (Stick) Trace mg/dL (NEG) Urine Blood Negative (NEG) Urine Nitrite Negative (NEG) Urine Bilirubin Small (NEG) Urine Urobilinogen Dipstick 0.2 mg/dL (0.2 mg/dL) Urine Leukocyte Esterase Negative (NEG) Urine RBC 0 /HPF (0-2) Urine WBC 1-4 /HPF (0-4) Urine Squamous Epithelial Cells Occ /LPF Urine Bacteria 0 /HPF (0-FEW) Urine Mucus Slight /LPF Urine Opiates Screen Neg (NEG) Urine Methadone Screen Neg (NEG) Urine Barbiturates Neg (NEG) Urine Phencyclidine Screen Neg (NEG) Urine Amphetamine/Methamphetamine Neg (NEG) Urine Benzodiazepines Screen Pos (NEG) Urine Cocaine Screen Neg (NEG) Urine Cannabinoids Screen Neg (NEG) Urine Ethyl Alcohol Neg (NEG) Glucose (Fingerstick) 210 mg/dL (70-99) Test 12/28/20 03:30 12/28/20 08:38 White Blood Count 30.4 x10^3/uL (4.0-11.0) Red Blood Count 4.26 x10^6/uL (3.50-5.40) Hemoglobin 9.4 g/dL (12.0-15.5) Hematocrit 31.3 % (36.0-47.0) Mean Corpuscular Volume 73 fL (79-100) Mean Corpuscular Hemoglobin 22 pg (25-35) Mean Corpuscular Hemoglobin Concent 30 g/dL (31-37) Red Cell Distribution Width 17.3 % (11.5-14.5) Platelet Count 243 x10^3/uL (140-400) Neutrophils (%) (Auto) 93 % (31-73) Lymphocytes (%) (Auto) 4 % (24-48) Monocytes (%) (Auto) 3 % (0-9) Eosinophils (%) (Auto) 0 % (0-3) Basophils (%) (Auto) 0 % (0-3) Neutrophils # (Auto) 28.3 x10^3/uL (1.8-7.7) Lymphocytes # (Auto) 1.1 x10^3/uL (1.0-4.8) Monocytes # (Auto) 1.0 x10^3/uL (0.0-1.1) Eosinophils # (Auto) 0.0 x10^3/uL (0.0-0.7) Basophils # (Auto) 0.0 x10^3/uL (0.0-0.2) Sodium Level 145 mmol/L (136-145) Potassium Level 3.7 mmol/L (3.5-5.1) Chloride Level 108 mmol/L (98-107) Carbon Dioxide Level 29 mmol/L (21-32) Anion Gap 8 (6-14) Blood Urea Nitrogen 19 mg/dL (7-20) Creatinine 1.2 mg/dL (0.6-1.0) Estimated GFR (Cockcroft-Gault) 44.2 Glucose Level 227 mg/dL (70-99) Calcium Level 7.8 mg/dL (8.5-10.1) Procalcitonin 78.71 ng/mL (0.00-0.10) Thyroid Stimulating Hormone (TSH) 1.329 uIU/mL (0.358-3.74) Glucose (Fingerstick) 259 mg/dL (70-99) Medications Active Scripts Medications Dose Route/Sig Max Daily Dose Days Date Category Zinc 50 Mg Tablet 1 Tab PO DAILY 30 12/27/20 Reported Wellbutrin Xl (Bupropion Hcl) 150 Mg Tab.er.24h 1 Tab PO [id number] 12/27/20 Reported Robitussin Cough-Chest Dm Liq (Guaifenesin/Dextromethorphan) 237 Ml Liquid 237 Ml PO PRN Q6HRS PRN 12/27/20 Reported Potassium Chloride (Potassium Chloride) 10 Meq Tab.sr.24h 10 Meq PO DAILY 12/27/20 Reported Nystatin 1 Each Powder.ea. 1 Each MC BID 12/27/20 Reported Meloxicam 15 Mg Tablet 15 Mg PO DAILY 12/27/20 Reported Hydrocodone-Apap 5-325 (Hydrocodone Bit/Acetaminophen) 1 Tab Tablet 2 Tab PO PRN Q6HRS PRN 12/27/20 Reported Loratadine 10 Mg Tablet 10 Mg PO DAILY 12/27/20 Reported Furosemide 20 Mg Tablet 60 Mg PO DAILY 12/27/20 Reported Biofreeze (Menthol) 118 Ml Gel..ml. 1 Blayne TP PRN PRN 7 12/27/20 Reported Baclofen 10 Mg Tablet 10 Mg PO BID 12/27/20 Reported Artificial Tears Drops (Peg 400/Hypromellose/Glycerin) 15 Ml Drops 1 Drop OD BID 30 12/27/20 Reported Acetaminophen 500 Mg Tablet 500 Mg PO PRN Q4HRS PRN 12/27/20 Reported Abilify (Aripiprazole) 2 Mg Tablet 2 Mg PO DAILY 12/27/20 Reported Ventolin Hfa Inhaler (Albuterol Sulfate) 18 Gm Hfa.aer.ad 2 Puff INH Q4HRS 02/01/20 Reported Ropinirole Hcl 0.5 Mg Tablet 0.5 Mg PO TID 02/01/20 Reported Lyrica (Pregabalin) 50 Mg Capsule 50 Mg PO TID 02/01/20 Reported Ondansetron Hcl 4 Mg Tablet 1 Tab PO PRN Q8HRS PRN 02/01/20 Reported Novolog (Insulin Aspart) 100 Unit/1 Ml Vial 18 Unit SQ TIDAC 02/01/20 Reported Multiple Vitamin (Multivitamin With Minerals) 1 Each Tablet 1 Each PO BID 02/01/20 Reported Mucinex Fast-Max Dm Max Liquid (Guaifenesin/Dextromethorphan) 180 Ml Liquid 10 Ml PO PRN Q4HRS PRN 02/01/20 Reported Miralax (Polyethylene Glycol 3350) 17 Gm Powd.pack 1 Pkt PO PRN Q24HRS PRN 02/01/20 Reported Mag-Al Hydrox-Simeth Max Susp (Mag Hydrox/Aluminum Hyd/Simeth) 30 Ml Oral.susp 15 Ml PO PRN Q4HRS PRN 02/01/20 Reported Levothyroxine Sodium 125 Mcg Tablet 250 Mcg PO DAILYAC 02/01/20 Reported Levemir Flextouch (Insulin Detemir) 100 Unit/1 Ml Insuln.pen 35 Unit SQ BID 02/01/20 Reported Januvia (Sitagliptin Phosphate) 100 Mg Tablet 1 Tab PO DAILY 02/01/20 Reported Hydrocortisone Plus 1% Cream (Hydrocortisone/Aloe Vera) 28.4 Gm Cream..g. 28.4 Gm TP PRN Q8HRS PRN 02/01/20 Reported Famotidine 20 Mg Tablet 20 Mg PO HS 12/5/20 Reported Entacapone 200 Mg Tablet 200 Mg PO DAILY 02/01/20 Reported Eliquis (Apixaban) 2.5 Mg Tablet 2.5 Mg PO BID 02/01/20 Reported Cymbalta (Duloxetine Hcl) 30 Mg Capsule.dr 60 Mg PO BID 02/01/20 Reported Biofreeze (Menthol) 118 Ml Gel..ml. 1 Blayne TP PRN Q6HRS PRN 7 02/01/20 Reported Atorvastatin Calcium 10 Mg Tablet 10 Mg PO HS 02/01/20 Reported Polyvinyl Alcohol 15 Ml Drops 1 Drop EACHEYE PRN Q4HRS PRN 30 02/01/20 Reported Alprazolam 0.5 Mg Tablet 1 Tab PO HS 02/01/20 Reported Impression . Full consult dictated Continue current support We will follow MARINO WISEMAN MD Dec 28, 2020 08:48
[2020-12-28] MEDS: LINAGLIPTIN 5 MG TABLET PO SCH (09:00)
[2020-12-28] MEDS: APIXABAN 2.5 MG TABLET. PO SCH ×2 (09:00→21:00)
[2020-12-28] MEDS: ENTACAPONE 200 MG TABLET PO SCH (09:00)
[2020-12-28] MEDS: INSULIN LISPRO 300 UNITS/3 ML VIAL. SQ SCH ×3 (09:16→17:44)
--- NOTE | 2020-12-28 10:20 | PDOC2 ---
MARIKA CURRAN MANAGEMENT ASSISTANT 12/28/20 1020: CARDIAC CONSULT DATE OF CONSULT Date of Consult DATE: 12/28/20 TIME: 10:14 REASON FOR CONSULT Reason for Consult: AFIB REFERRING PHYSICIAN Referring Physician: Dr. Ramirez SOURCE Source: Chart review HISTORY OF PRESENT ILLNESS HISTORY OF PRESENT ILLNESS This is a 70 yo female who presented from nursing facility secondary to altered mental status and fevers. Was noted with AFIB, which prompted this consult. Patient reports history of AFIB s/p previous ablation therapy. Previously seen by cardiology team at [facility] in [place], [place], although has not been in many years. CXR with evidence of pneumonia. Labs notable for leukocytosis, lactic acidosis. Is also febrile. She denies any chest pain, palpitations, dizziness, diaphoresis. Does reports shortness of breath and cough. 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.) FAMILY HISTORY Family History: Family History Unknown SOCIAL HISTORY ALCOHOL: none Drugs: None Lives: Group Home CURRENT MEDICATIONS CURRENT MEDICATIONS Current Medications Medications (Trade) Dose Ordered Sig/Laureen Route PRN Reason Start Time Stop Time Status Last Admin Dose Admin Sodium Chloride 1,000 ml @ 1,000 mls/hr 1X ONCE IV 12/27/20 14:30 12/27/20 15:29 DC 12/27/20 15:08 Sodium Chloride 1,000 ml @ 1,000 mls/hr 1X ONCE IV 12/27/20 14:30 12/27/20 15:29 DC 12/27/20 14:30 Piperacillin Sod/ Tazobactam Sod 4.5 gm/Sodium Chloride 100 ml @ 200 mls/hr 1X ONCE IV 12/27/20 14:30 12/27/20 14:59 DC 12/27/20 15:09 Vancomycin HCl 2 gm/Sodium Chloride 500 ml @ 250 mls/hr 1X ONCE IV 12/27/20 15:00 12/27/20 16:59 DC 12/27/20 16:31 Iohexol (Omnipaque 300 Mg/ml) 60 ml 1X ONCE IV 12/27/20 15:30 12/27/20 15:31 DC 12/27/20 16:00 Sodium Chloride 1,000 ml @ 1,000 mls/hr 1X ONCE IV 12/27/20 17:00 12/27/20 17:59 DC 12/27/20 20:00 Vancomycin HCl (Vanco Per Pharmacy) 1 each PRN DAILY PRN MC SEE COMMENTS 12/27/20 17:00 12/27/20 19:41 Piperacillin Sod/ Tazobactam Sod 3.375 gm/Sodium Chloride 50 ml @ 100 mls/hr Q6HRS IV 12/28/20 00:00 12/28/20 05:06 Vancomycin HCl 1.75 gm/Sodium Chloride 500 ml @ 250 mls/hr Q12H IV 12/28/20 06:00 12/28/20 05:54 Insulin Glargine (Lantus Syringe) 15 unit 1X ONCE SQ 12/27/20 23:00 12/27/20 23:01 DC 12/28/20 00:09 Insulin Human Lispro (HumaLOG) 0-9 UNITS TIDWMEALS SQ 12/28/20 08:00 12/28/20 09:16 Amino Acids/ Electrolytes/ Dextrose 1,000 ml @ 80 mls/hr [id number] IV 12/27/20 23:30 12/27/20 23:30 ALLERGIES ALLERGIES: Coded Allergies: Influenza Virus Vaccines (Verified Allergy, Intermediate, 03/31/20) bacitracin (Verified Allergy, Intermediate, Rash, 01/31/20) ROS Review of System 14 point ROS conducted with pertinent positives noted above in HPI PHYSICAL EXAM General: Alert, Cooperative, No acute distress HEENT: Atraumatic, Mucous membr. moist/pink Lungs: Other (crackles ) Heart: Other (IRRR; tele AFIB ) Abdomen: Soft Extremities: No edema, Other Skin: No significant lesion Neuro: Sensation intact Psych/Mental Status: Mood NL MUSCULOSKELETAL: Osteoarthritic changes both hands VITALS/I&O VITALS/I&O: Vital Signs Date Time Temp Pulse Resp B/P (MAP) Pulse Ox O2 Delivery O2 Flow Rate FiO2 12/28/20 08:00 Nasal Cannula 5.0 12/28/20 07:00 98.5 86 24 135/68 (90) 97 98.5 I & O 12/27/20 12/27/20 12/28/20 15:00 23:00 07:00 Intake Total 3600 ml 0 ml Balance 3600 ml 0 ml LABS Lab: Laboratory Tests Test 12/27/20 13:30 12/27/20 14:26 12/27/20 16:54 12/27/20 23:49 White Blood Count 33.0 x10^3/uL (4.0-11.0) H Red Blood Count 4.75 x10^6/uL (3.50-5.40) Hemoglobin 10.7 g/dL (12.0-15.5) L Hematocrit 35.0 % (36.0-47.0) L Mean Corpuscular Volume 74 fL (79-100) L Mean Corpuscular Hemoglobin 22 pg (25-35) L Mean Corpuscular Hemoglobin Concent 30 g/dL (31-37) L Red Cell Distribution Width 17.4 % (11.5-14.5) H Platelet Count 254 x10^3/uL (140-400) Neutrophils (%) (Auto) 93 % (31-73) H Lymphocytes (%) (Auto) 3 % (24-48) L Monocytes (%) (Auto) 4 % (0-9) Eosinophils (%) (Auto) 0 % (0-3) Basophils (%) (Auto) 0 % (0-3) Neutrophils # (Auto) 30.9 x10^3/uL (1.8-7.7) H Lymphocytes # (Auto) 0.8 x10^3/uL (1.0-4.8) L Monocytes # (Auto) 1.3 x10^3/uL (0.0-1.1) H Eosinophils # (Auto) 0.0 x10^3/uL (0.0-0.7) Basophils # (Auto) 0.0 x10^3/uL (0.0-0.2) Segmented Neutrophils % 74 % (35-66) H Band Neutrophils % 17 % (0-9) H Lymphocytes % 4 % (24-48) L Monocytes % 5 % (0-10) Toxic Granulation Slight Platelet Estimate Adequate (ADEQUATE) Polychromasia Slight Hypochromasia Slight Anisocytosis Slight Microcytosis Slight Prothrombin Time 15.4 SEC (11.7-14.0) H Prothrombin Time INR 1.2 (0.8-1.1) H Activated Partial Thromboplast Time 34 SEC (24-38) Sodium Level 143 mmol/L (136-145) Potassium Level 3.9 mmol/L (3.5-5.1) Chloride Level 105 mmol/L (98-107) Carbon Dioxide Level 31 mmol/L (21-32) Anion Gap 7 (6-14) Blood Urea Nitrogen 15 mg/dL (7-20) Creatinine 1.2 mg/dL (0.6-1.0) H Estimated GFR (Cockcroft-Gault) 44.2 BUN/Creatinine Ratio 13 (6-20) Glucose Level 181 mg/dL (70-99) H Lactic Acid Level 3.1 mmol/L (0.4-2.0) H 2.8 mmol/L (0.4-2.0) H Calcium Level 8.5 mg/dL (8.5-10.1) Magnesium Level 2.1 mg/dL (1.8-2.4) Total Bilirubin 0.3 mg/dL (0.2-1.0) Aspartate Amino Transferase (AST) 20 U/L (15-37) Alanine Aminotransferase (ALT) 27 U/L (14-59) Alkaline Phosphatase 143 U/L (46-116) H Creatine Kinase 177 U/L (26-192) Troponin I High Sensitivity 7 ng/L (4-50) UH-Onf-K-Type Natriuretic Peptide 737 pg/mL (0-124) H Total Protein 7.1 g/dL (6.4-8.2) Albumin 2.5 g/dL (3.4-5.0) L Albumin/Globulin Ratio 0.5 (1.0-1.7) L Urine Collection Type U cath Urine Color Mary Carmen Urine Clarity Clear Urine pH 6.0 (<5.0-8.0) Urine Specific [place] 1.025 (1.000-1.030) Urine Protein 100 mg/dL (NEG-TRACE) Urine Glucose (UA) Negative mg/dL (NEG) Urine Ketones (Stick) Trace mg/dL (NEG) Urine Blood Negative (NEG) Urine Nitrite Negative (NEG) Urine Bilirubin Small (NEG) Urine Urobilinogen Dipstick 0.2 mg/dL (0.2 mg/dL) Urine Leukocyte Esterase Negative (NEG) Urine RBC 0 /HPF (0-2) Urine WBC 1-4 /HPF (0-4) Urine Squamous Epithelial Cells Occ /LPF Urine Bacteria 0 /HPF (0-FEW) Urine Mucus Slight /LPF Urine Opiates Screen Neg (NEG) Urine Methadone Screen Neg (NEG) Urine Barbiturates Neg (NEG) Urine Phencyclidine Screen Neg (NEG) Urine Amphetamine/Methamphetamine Neg (NEG) Urine Benzodiazepines Screen Pos (NEG) Urine Cocaine Screen Neg (NEG) Urine Cannabinoids Screen Neg (NEG) Urine Ethyl Alcohol Neg (NEG) Glucose (Fingerstick) 210 mg/dL (70-99) H Test 12/28/20 03:30 12/28/20 08:38 White Blood Count 30.4 x10^3/uL (4.0-11.0) H Red Blood Count 4.26 x10^6/uL (3.50-5.40) Hemoglobin 9.4 g/dL (12.0-15.5) L Hematocrit 31.3 % (36.0-47.0) L Mean Corpuscular Volume 73 fL (79-100) L Mean Corpuscular Hemoglobin 22 pg (25-35) L Mean Corpuscular Hemoglobin Concent 30 g/dL (31-37) L Red Cell Distribution Width 17.3 % (11.5-14.5) H Platelet Count 243 x10^3/uL (140-400) Neutrophils (%) (Auto) 93 % (31-73) H Lymphocytes (%) (Auto) 4 % (24-48) L Monocytes (%) (Auto) 3 % (0-9) Eosinophils (%) (Auto) 0 % (0-3) Basophils (%) (Auto) 0 % (0-3) Neutrophils # (Auto) 28.3 x10^3/uL (1.8-7.7) H Lymphocytes # (Auto) 1.1 x10^3/uL (1.0-4.8) Monocytes # (Auto) 1.0 x10^3/uL (0.0-1.1) Eosinophils # (Auto) 0.0 x10^3/uL (0.0-0.7) Basophils # (Auto) 0.0 x10^3/uL (0.0-0.2) Sodium Level 145 mmol/L (136-145) Potassium Level 3.7 mmol/L (3.5-5.1) Chloride Level 108 mmol/L (98-107) H Carbon Dioxide Level 29 mmol/L (21-32) Anion Gap 8 (6-14) Blood Urea Nitrogen 19 mg/dL (7-20) Creatinine 1.2 mg/dL (0.6-1.0) H Estimated GFR (Cockcroft-Gault) 44.2 Glucose Level 227 mg/dL (70-99) H Calcium Level 7.8 mg/dL (8.5-10.1) L Procalcitonin 78.71 ng/mL (0.00-0.10) H Thyroid Stimulating Hormone (TSH) 1.329 uIU/mL (0.358-3.74) Glucose (Fingerstick) 259 mg/dL (70-99) H Laboratory Tests 12/27/20 13:30 12/28/20 03:30 Laboratory Tests 12/27/20 13:30 12/28/20 03:30 ASSESSMENT/PLAN ASSESSMENT/PLAN 1. Acute on chronic respiratory failure secondary to PNA, ? aspiration 2. PAFIB; s/p remote [facility]. [facility]. on Low-dose Eliquis at home 3. Leukocytosis, lactic acidosis, fevers, sepsis 4. Hypertension; controlled 5. Hyperlipidemia; statin 6. Diabetes, II 7. Hypothyroidism 8. Parkinson's 9. 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 Agree with above nurse practitioner note. Continue metoprolol and Eliquis. She is critically ill. Needs speech-language pathology. Supportive care. We will follow along closely. MARIKA CURRAN APRN Dec 28, 2020 10:20 PHOENIX WALLS MD Dec 29, 2020 11:15
--- NOTE | 2020-12-28 12:50 | NUR ---
SS following for discharge planning. SS reviewed pt chart and discussed with pt RN. Pt is [facility] resident from [facility], ; fax [phone]. Pt is currently requiring oxygen at five liters nasal canula. COVID19 test pending. Pt on IV Vancomycin and IV Zosyn. ST following. Pt NPO and on Clinimix. PT/OT ordered. COVID19 test pending. SS will continue to follow for discharge planning.
--- NOTE | 2020-12-28 13:34 | PDOC ---
[employer] PROGRESS NOTE Date of Service DOS: DATE: 12/28/20 TIME: 13:31 Chief Complaint Chief Complaint Assessment/Plan RLL pneumonia - likely gram negative given her comorbidities, underlying COPD. Zosyn and vancomycin Sepsis - due to pneumonia, fluids and antibiotics empirically Afib - not previously noted, metoprolol for rate control. Given frequent fall history may be relatively high risk for anticoagulation. will continue eliquis Acute encephalopathy - likely sepsis related, will hold sedating meds. monitor neuro status Acute on chronic hypoxic respiratory failure - likely related to pneumonia, will wean O2 as tolerated. Consult pulmonology Severe protein calorie malnutrition - with possible aspiration will given IV nutrition, consult manager review and [employer] Anxiety with depression - will cont home meds when taking PO COPD on 2L NCO2 - will give nebs. 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 History obtained from EMS and SNF. Patient is moaning, opens eyes to voice and stimuli. Requiring 5 L nasal cannula. Previously hospitalized for COVID 19 01/31/2020 and now s/p covid vaccine 02/14/20 Labs with WBC 33, Hb 10.7, platelets 254, INR 1.2, NA 143, K3.9, BUN 15, CR 1.2, glucose 181, albumin 2.5, NT proBNP 737, high-sensitivity troponin 7, lactate 3.1, UDS positive for benzos, UA bland. CT head with no acute findings referral ventricular catheter in place, shunt series with no occlusion HAND SHOE CUTTER shunt. CT abdomen reveals right lower lobe consolidation consistent with pneumonia. EKG with afib aroudn 109bpm, No ST segment elevations or TWI Admitted for further care 12/28/2020 Patient seen and examined bedside. Pleasantly confused. Patient unable to tell me where she is coming from her where she lives. Patient is from [facility]. We will continue with Zosyn and vancomycin for empiric coverage for her pneumonia. Currently on Clinimix and pending speech evaluation. Patient's chart, labs, images were reviewed and discussed with RN. Vitals/I&O Vitals/I&O: Vital Signs Date Time Temp Pulse Resp B/P (MAP) Pulse Ox O2 Delivery O2 Flow Rate FiO2 12/28/20 11:00 98.7 85 24 151/66 (94) 100 Nasal Cannula 5.0 98.7 I & O 12/27/20 12/27/20 12/28/20 15:00 23:00 07:00 Intake Total 3600 ml 0 ml Balance 3600 ml 0 ml Physical Exam General: Alert, Cooperative, moderate distress Heart: Regular rate Lungs: Clear, Other Abdomen: Normal bowel sounds, Soft, No tenderness, No hepatosplenomegaly, No masses Extremities: No clubbing, No cyanosis, No edema, Normal pulses, No te nderness/swelling Skin: No rashes, No breakdown, No significant lesion Labs Labs: Laboratory Tests Test 12/27/20 14:26 12/27/20 16:54 12/27/20 23:49 12/28/20 03:30 Urine Collection Type U cath Urine Color Mary Carmen Urine Clarity Clear Urine pH 6.0 (<5.0-8.0) Urine Specific [place] 1.025 (1.000-1.030) Urine Protein 100 mg/dL (NEG-TRACE) Urine Glucose (UA) Negative mg/dL (NEG) Urine Ketones (Stick) Trace mg/dL (NEG) Urine Blood Negative (NEG) Urine Nitrite Negative (NEG) Urine Bilirubin Small (NEG) Urine Urobilinogen Dipstick 0.2 mg/dL (0.2 mg/dL) Urine Leukocyte Esterase Negative (NEG) Urine RBC 0 /HPF (0-2) Urine WBC 1-4 /HPF (0-4) Urine Squamous Epithelial Cells Occ /LPF Urine Bacteria 0 /HPF (0-FEW) Urine Mucus Slight /LPF Urine Opiates Screen Neg (NEG) Urine Methadone Screen Neg (NEG) Urine Barbiturates Neg (NEG) Urine Phencyclidine Screen Neg (NEG) Urine Amphetamine/Methamphetamine Neg (NEG) Urine Benzodiazepines Screen Pos (NEG) Urine Cocaine Screen Neg (NEG) Urine Cannabinoids Screen Neg (NEG) Urine Ethyl Alcohol Neg (NEG) Lactic Acid Level 2.8 mmol/L (0.4-2.0) Glucose (Fingerstick) 210 mg/dL (70-99) White Blood Count 30.4 x10^3/uL (4.0-11.0) Red Blood Count 4.26 x10^6/uL (3.50-5.40) Hemoglobin 9.4 g/dL (12.0-15.5) Hematocrit 31.3 % (36.0-47.0) Mean Corpuscular Volume 73 fL (79-100) Mean Corpuscular Hemoglobin 22 pg (25-35) Mean Corpuscular Hemoglobin Concent 30 g/dL (31-37) Red Cell Distribution Width 17.3 % (11.5-14.5) Platelet Count 243 x10^3/uL (140-400) Neutrophils (%) (Auto) 93 % (31-73) Lymphocytes (%) (Auto) 4 % (24-48) Monocytes (%) (Auto) 3 % (0-9) Eosinophils (%) (Auto) 0 % (0-3) Basophils (%) (Auto) 0 % (0-3) Neutrophils # (Auto) 28.3 x10^3/uL (1.8-7.7) Lymphocytes # (Auto) 1.1 x10^3/uL (1.0-4.8) Monocytes # (Auto) 1.0 x10^3/uL (0.0-1.1) Eosinophils # (Auto) 0.0 x10^3/uL (0.0-0.7) Basophils # (Auto) 0.0 x10^3/uL (0.0-0.2) Sodium Level 145 mmol/L (136-145) Potassium Level 3.7 mmol/L (3.5-5.1) Chloride Level 108 mmol/L (98-107) Carbon Dioxide Level 29 mmol/L (21-32) Anion Gap 8 (6-14) Blood Urea Nitrogen 19 mg/dL (7-20) Creatinine 1.2 mg/dL (0.6-1.0) Estimated GFR (Cockcroft-Gault) 44.2 Glucose Level 227 mg/dL (70-99) Calcium Level 7.8 mg/dL (8.5-10.1) Procalcitonin 78.71 ng/mL (0.00-0.10) Thyroid Stimulating Hormone (TSH) 1.329 uIU/mL (0.358-3.74) Test 12/28/20 08:38 12/28/20 12:15 12/28/20 12:40 Glucose (Fingerstick) 259 mg/dL (70-99) 245 mg/dL (70-99) SARS-CoV-2 Antigen (Rapid) Negative (NEGATIVE) Assessment and Plan Assessmemt and Plan Problems Medical Problems: (1) Altered mental status Status: Acute (2) Hypoxia Status: Acute (3) Pneumonia Status: Acute (4) Sepsis Status: Acute Comment Review of Relevant I have reviewed the following items black (where applicable) has been applied. Medications: Current Medications Medications (Trade) Dose Ordered Sig/Laureen Route PRN Reason Start Time Stop Time Status Last Admin Dose Admin Sodium Chloride 1,000 ml @ 1,000 mls/hr 1X ONCE IV 12/27/20 14:30 12/27/20 15:29 DC 12/27/20 15:08 Sodium Chloride 1,000 ml @ 1,000 mls/hr 1X ONCE IV 12/27/20 14:30 12/27/20 15:29 DC 12/27/20 14:30 Piperacillin Sod/ Tazobactam Sod 4.5 gm/Sodium Chloride 100 ml @ 200 mls/hr 1X ONCE IV 12/27/20 14:30 12/27/20 14:59 DC 12/27/20 15:09 Vancomycin HCl 2 gm/Sodium Chloride 500 ml @ 250 mls/hr 1X ONCE IV 12/27/20 15:00 12/27/20 16:59 DC 12/27/20 16:31 Iohexol (Omnipaque 300 Mg/ml) 60 ml 1X ONCE IV 12/27/20 15:30 12/27/20 15:31 DC 12/27/20 16:00 Sodium Chloride 1,000 ml @ 1,000 mls/hr 1X ONCE IV 12/27/20 17:00 12/27/20 17:59 DC 12/27/20 20:00 Vancomycin HCl (Vanco Per Pharmacy) 1 each PRN DAILY PRN MC SEE COMMENTS 12/27/20 17:00 12/27/20 19:41 Piperacillin Sod/ Tazobactam Sod 3.375 gm/Sodium Chloride 50 ml @ 100 mls/hr Q6HRS IV 12/28/20 00:00 12/28/20 12:33 Vancomycin HCl 1.75 gm/Sodium Chloride 500 ml @ 250 mls/hr Q12H IV 12/28/20 06:00 12/28/20 05:54 Insulin Glargine (Lantus Syringe) 15 unit 1X ONCE SQ 12/27/20 23:00 12/27/20 23:01 DC 12/28/20 00:09 Insulin Human Lispro (HumaLOG) 0-9 UNITS TIDWMEALS SQ 12/28/20 08:00 12/28/20 12:43 Amino Acids/ Electrolytes/ Dextrose 1,000 ml @ 80 mls/hr [id number] IV 12/27/20 23:30 12/27/20 23:30 Justifications for Admission Other Justification Trimalleolar fracture MELODY SHIRLEY MD Dec 28, 2020 13:34
[2020-12-28] MEDS: AA 4.25 %/CALCIUM/LYTES/D5W 1,000 ML IV SCH (14:34)
[2020-12-28] MEDS: METOPROLOL IV PUSH 5 MG/5 ML VIAL. IVP SCH (16:35)
--- NOTE | 2020-12-28 20:03 | NUR ---
Around 1600 today patient went into afib rvr. Marce Schofield paged & notified. Orders received. Will continue to monitor.
[2020-12-28] MEDS: PSYLLIUM HUSK (SUGAR FREE) 1 PKT PACKET PO SCH (21:00)
[2020-12-28] MEDS: ATORVASTATIN CALCIUM 10 MG TABLET. PO SCH (21:00)
[2020-12-28] MEDS: METOPROLOL TART IMMED RELEASE 25 MG TABLET. PO SCH (21:00)
--- NOTE | 2020-12-28 23:57 | CONS ---
DATE OF CONSULTATION: 12/28/2020 ATTENDING PHYSICIAN: Dr. Ramirez. REASON FOR CONSULTATION: The patient is seen in pulmonary consultation at the request of Dr. Ramirez for abnormal x-ray, hypoxemia. HISTORY OF PRESENT ILLNESS: The patient is a 70-year-old that is a relatively good historian. She does have a questionable history of parkinsonism. She informed me that she has never smoked. She has been wearing oxygen on and off for approximately 2 years. She presented from a long-term facility with fever and altered mental status. She underwent a chest x-ray, which I personally reviewed. There is a right lower lobe infiltrate. There is cardiomegaly. There is some diffuse infiltrates and partially right lower lobe consolidation. The patient is currently n.p.o. She has been treated for pneumonia. She had a white count of 33,000 yesterday, she had a fever of 101. She now feels better. She wants to eat. I explained to her that she needs to be evaluated by speech prior to initiating oral intake. PAST MEDICAL HISTORY: Chronic hypoxemia of unknown etiology. The patient has never smoked. She may have underlying obstructive lung disease. There is a history of parkinsonism, previous history of gastroesophageal reflux, diabetes, hypothyroidism. The patient has a previous history of COVID-19, admitted back in 01/2020. She is now status post COVID vaccine vaccination. PAST SURGICAL HISTORY: She has had previous WEB ART DIRECTOR shunt. FAMILY HISTORY: Noncontributory. ALLERGIES: LISTED TO INFLUENZA VACCINE AND BACITRACIN. CURRENT MEDICATIONS: List was reviewed. REVIEW OF SYSTEMS: As indicated above, otherwise other systems were reviewed and negative. The 10-point system was reviewed and negative. PHYSICAL EXAMINATION: VITAL SIGNS: Noted. O2 saturation greater than 92%. She is currently afebrile. HEENT: Eyes, the sclerae were nonicteric. NECK: Jugular venous distention could not be assessed secondary to body habitus. CHEST: Full expansion. LUNGS: Adequate flow with diminished breath sounds in the right base. CARDIOVASCULAR: Regular rate and rhythm. Distant heart sounds. ABDOMEN: Obese. EXTREMITIES: Some edema noted. NEUROLOGIC: The patient was weak. She states that she is unable to walk from her bed to the bathroom. A detailed neuro exam was not performed. LABORATORY DATA: White count was elevated. Hemoglobin and hematocrit were noted. Electrolytes were noted. BUN was 19, creatinine was 1.2. Serology rapid test for SARS-CoV-2 was negative. DIAGNOSTIC DATA: Chest x-ray as indicated above. IMPRESSION: 1. Pxnwc-hn-lvzekmn hypoxemic respiratory failure, multifactorial. 2. Right lower lobe pneumonia, suspect gram-negative, possibly gram-positive. 3. Sepsis secondary to above. 4. Atrial fibrillation. 5. Swwds-on-qgrolwp encephalopathy related to sepsis. 6. Severe protein malnutrition. 7. Dysphagia. 8. Parkinsonism. PLAN: 1. Recommend continue current n.p.o. status. Consult speech. 2. Continue IV vancomycin and Zosyn. 3. Monitor response and make adjustments as necessary. 4. Deep vein thrombosis prophylaxis. I do appreciate the privilege in sharing in the patient's care. CAITLIN/NAUN/JUDI DR: Ximena TID: [id number]
[2020-12-29] MEDS: METOPROLOL IV PUSH 5 MG/5 ML VIAL. IVP SCH ×4 (00:28→18:00)
[2020-12-29] MEDS: PIPERACILLIN/TAZOBACTAM 3.375 GM in IV NORMAL SALINE 50ML 50 ML IV SCH ×4 (00:29→18:00)
[2020-12-29 03:50] VITALS: BP 138/87
[2020-12-29] MEDS: AA 4.25 %/CALCIUM/LYTES/D5W 1,000 ML IV SCH (05:14)
[2020-12-29] MEDS: VANCOMYCIN 1.75 GM in IV NORMAL SALINE 500ML BAG 500 ML IV SCH (06:00)
[2020-12-29 06:41] LABS: ANION GAP 5 (6-14); BLOOD UREA NITROGEN 20 mg/dL (7-20); CARBON DIOXIDE 29 mmol/L (21-32); CHLORIDE 109 mmol/L (98-107); CREATININE 0.8 mg/dL (0.6-1.0); GFR 70.5; GLUCOSE 251 mg/dL (70-99); POTASSIUM 3.7 mmol/L (3.5-5.1); SODIUM 143 mmol/L (136-145); VANC TR 27.8 mcg/mL (10.0-20.0)
[2020-12-29 06:54] LABS: BASO % 0 % (0-3); EOS # 0.1 x10^3/uL (0.0-0.7); EOS % 1 % (0-3); HEMATOCRIT 29.1 % (36.0-47.0); HEMOGLOBIN 8.6 g/dL (12.0-15.5); LYMPH % 6 % (24-48); MEAN CORPUSCULAR HEMOGLOBIN 22 pg (25-35); MEAN CORPUSCULAR HGB CONC 30 g/dL (31-37); MEAN CORPUSCULAR VOLUME 74 fL (79-100); MONO # 0.7 x10^3/uL (0.0-1.1); MONO % 4 % (0-9); NEUT # 14.1 x10^3/uL (1.8-7.7); NEUT % 89 % (31-73); PLATELET COUNT 199 x10^3/uL (140-400); RED BLOOD COUNT 3.94 x10^6/uL (3.50-5.40); RED CELL DISTRIBUTION WIDTH 17.6 % (11.5-14.5)
[2020-12-29 07:00] VITALS: BP 142/67
[2020-12-29] MEDS: LEVOTHYROXINE 125 MCG TABLET PO SCH (07:30)
[2020-12-29] MEDS: INSULIN LISPRO 300 UNITS/3 ML VIAL. SQ SCH ×3 (08:00→17:00)
[2020-12-29] MEDS: APIXABAN 2.5 MG TABLET. PO SCH (08:41)
[2020-12-29] MEDS: ENTACAPONE 200 MG TABLET PO SCH (08:41)
[2020-12-29] MEDS: LINAGLIPTIN 5 MG TABLET PO SCH (08:42)
[2020-12-29] MEDS: METOPROLOL TART IMMED RELEASE 25 MG TABLET. PO SCH ×2 (08:42→19:40)
--- NOTE | 2020-12-29 09:20 | PDOC ---
PULMONARY PROGRESS NOTES DATE: 12/29/20 TIME: 09:20 Subjective Patient currently n.p.o., once cleared, not more short of air, cough mostly nonproductive Vitals Vital Signs Date Time Temp Pulse Resp B/P (MAP) Pulse Ox O2 Delivery O2 Flow Rate FiO2 12/29/20 07:00 97.3 74 24 142/67 (92) 100 Nasal Cannula 4.0 97.3 ROS: No Nausea, No Chest Pain, No Abdominal Pain, No Increase Cough General: Alert Lungs: Clear, Crackles Cardiovascular: S1, S2 Abdomen: Soft Neuro Exam: Alert Extremities: No Edema Skin: Warm Labs Laboratory Tests Test 12/27/20 13:30 12/27/20 14:26 12/27/20 16:54 12/27/20 23:49 White Blood Count 33.0 x10^3/uL (4.0-11.0) Red Blood Count 4.75 x10^6/uL (3.50-5.40) Hemoglobin 10.7 g/dL (12.0-15.5) Hematocrit 35.0 % (36.0-47.0) Mean Corpuscular Volume 74 fL (79-100) Mean Corpuscular Hemoglobin 22 pg (25-35) Mean Corpuscular Hemoglobin Concent 30 g/dL (31-37) Red Cell Distribution Width 17.4 % (11.5-14.5) Platelet Count 254 x10^3/uL (140-400) Neutrophils (%) (Auto) 93 % (31-73) Lymphocytes (%) (Auto) 3 % (24-48) Monocytes (%) (Auto) 4 % (0-9) Eosinophils (%) (Auto) 0 % (0-3) Basophils (%) (Auto) 0 % (0-3) Neutrophils # (Auto) 30.9 x10^3/uL (1.8-7.7) Lymphocytes # (Auto) 0.8 x10^3/uL (1.0-4.8) Monocytes # (Auto) 1.3 x10^3/uL (0.0-1.1) Eosinophils # (Auto) 0.0 x10^3/uL (0.0-0.7) Basophils # (Auto) 0.0 x10^3/uL (0.0-0.2) Segmented Neutrophils % 74 % (35-66) Band Neutrophils % 17 % (0-9) Lymphocytes % 4 % (24-48) Monocytes % 5 % (0-10) Toxic Granulation Slight Platelet Estimate Adequate (ADEQUATE) Polychromasia Slight Hypochromasia Slight Anisocytosis Slight Microcytosis Slight Prothrombin Time 15.4 SEC (11.7-14.0) Prothromb Time International Ratio 1.2 (0.8-1.1) Activated Partial Thromboplast Time 34 SEC (24-38) Sodium Level 143 mmol/L (136-145) Potassium Level 3.9 mmol/L (3.5-5.1) Chloride Level 105 mmol/L (98-107) Carbon Dioxide Level 31 mmol/L (21-32) Anion Gap 7 (6-14) Blood Urea Nitrogen 15 mg/dL (7-20) Creatinine 1.2 mg/dL (0.6-1.0) Estimated GFR (Cockcroft-Gault) 44.2 BUN/Creatinine Ratio 13 (6-20) Glucose Level 181 mg/dL (70-99) Lactic Acid Level 3.1 mmol/L (0.4-2.0) 2.8 mmol/L (0.4-2.0) Calcium Level 8.5 mg/dL (8.5-10.1) Magnesium Level 2.1 mg/dL (1.8-2.4) Total Bilirubin 0.3 mg/dL (0.2-1.0) Aspartate Amino Transf (AST/SGOT) 20 U/L (15-37) Alanine Aminotransferase (ALT/SGPT) 27 U/L (14-59) Alkaline Phosphatase 143 U/L (46-116) Creatine Kinase 177 U/L (26-192) Troponin I High Sensitivity 7 ng/L (4-50) MO-Ckh-Q-Type Natriuretic Peptide 737 pg/mL (0-124) Total Protein 7.1 g/dL (6.4-8.2) Albumin 2.5 g/dL (3.4-5.0) Albumin/Globulin Ratio 0.5 (1.0-1.7) Urine Collection Type U cath Urine Color Mary Carmen Urine Clarity Clear Urine pH 6.0 (<5.0-8.0) Urine Specific [place] 1.025 (1.000-1.030) Urine Protein 100 mg/dL (NEG-TRACE) Urine Glucose (UA) Negative mg/dL (NEG) Urine Ketones (Stick) Trace mg/dL (NEG) Urine Blood Negative (NEG) Urine Nitrite Negative (NEG) Urine Bilirubin Small (NEG) Urine Urobilinogen Dipstick 0.2 mg/dL (0.2 mg/dL) Urine Leukocyte Esterase Negative (NEG) Urine RBC 0 /HPF (0-2) Urine WBC 1-4 /HPF (0-4) Urine Squamous Epithelial Cells Occ /LPF Urine Bacteria 0 /HPF (0-FEW) Urine Mucus Slight /LPF Urine Opiates Screen Neg (NEG) Urine Methadone Screen Neg (NEG) Urine Barbiturates Neg (NEG) Urine Phencyclidine Screen Neg (NEG) Urine Amphetamine/Methamphetamine Neg (NEG) Urine Benzodiazepines Screen Pos (NEG) Urine Cocaine Screen Neg (NEG) Urine Cannabinoids Screen Neg (NEG) Urine Ethyl Alcohol Neg (NEG) Glucose (Fingerstick) 210 mg/dL (70-99) Test 12/28/20 03:30 12/28/20 08:38 12/28/20 12:15 12/28/20 12:40 White Blood Count 30.4 x10^3/uL (4.0-11.0) Red Blood Count 4.26 x10^6/uL (3.50-5.40) Hemoglobin 9.4 g/dL (12.0-15.5) Hematocrit 31.3 % (36.0-47.0) Mean Corpuscular Volume 73 fL (79-100) Mean Corpuscular Hemoglobin 22 pg (25-35) Mean Corpuscular Hemoglobin Concent 30 g/dL (31-37) Red Cell Distribution Width 17.3 % (11.5-14.5) Platelet Count 243 x10^3/uL (140-400) Neutrophils (%) (Auto) 93 % (31-73) Lymphocytes (%) (Auto) 4 % (24-48) Monocytes (%) (Auto) 3 % (0-9) Eosinophils (%) (Auto) 0 % (0-3) Basophils (%) (Auto) 0 % (0-3) Neutrophils # (Auto) 28.3 x10^3/uL (1.8-7.7) Lymphocytes # (Auto) 1.1 x10^3/uL (1.0-4.8) Monocytes # (Auto) 1.0 x10^3/uL (0.0-1.1) Eosinophils # (Auto) 0.0 x10^3/uL (0.0-0.7) Basophils # (Auto) 0.0 x10^3/uL (0.0-0.2) Sodium Level 145 mmol/L (136-145) Potassium Level 3.7 mmol/L (3.5-5.1) Chloride Level 108 mmol/L (98-107) Carbon Dioxide Level 29 mmol/L (21-32) Anion Gap 8 (6-14) Blood Urea Nitrogen 19 mg/dL (7-20) Creatinine 1.2 mg/dL (0.6-1.0) Estimated GFR (Cockcroft-Gault) 44.2 Glucose Level 227 mg/dL (70-99) Calcium Level 7.8 mg/dL (8.5-10.1) Procalcitonin 78.71 ng/mL (0.00-0.10) Thyroid Stimulating Hormone (TSH) 1.329 uIU/mL (0.358-3.74) Glucose (Fingerstick) 259 mg/dL (70-99) 245 mg/dL (70-99) SARS-CoV-2 Antigen (Rapid) Negative (NEGATIVE) Test 12/28/20 17:00 12/28/20 21:19 12/29/20 05:31 12/29/20 05:45 Glucose (Fingerstick) 227 mg/dL (70-99) 253 mg/dL (70-99) Sodium Level 143 mmol/L (136-145) Potassium Level 3.7 mmol/L (3.5-5.1) Chloride Level 109 mmol/L (98-107) Carbon Dioxide Level 29 mmol/L (21-32) Anion Gap 5 (6-14) Blood Urea Nitrogen 20 mg/dL (7-20) Creatinine 0.8 mg/dL (0.6-1.0) Estimated GFR (Cockcroft-Gault) 70.5 Glucose Level 251 mg/dL (70-99) Calcium Level 8.0 mg/dL (8.5-10.1) Vancomycin Level Trough 27.8 mcg/mL (10.0-20.0) Vancomycin Last Dose Date 12/28/20 Vancomycin Last Dose Time 1800 White Blood Count 16.0 x10^3/uL (4.0-11.0) Red Blood Count 3.94 x10^6/uL (3.50-5.40) Hemoglobin 8.6 g/dL (12.0-15.5) Hematocrit 29.1 % (36.0-47.0) Mean Corpuscular Volume 74 fL (79-100) Mean Corpuscular Hemoglobin 22 pg (25-35) Mean Corpuscular Hemoglobin Concent 30 g/dL (31-37) Red Cell Distribution Width 17.6 % (11.5-14.5) Platelet Count 199 x10^3/uL (140-400) Neutrophils (%) (Auto) 89 % (31-73) Lymphocytes (%) (Auto) 6 % (24-48) Monocytes (%) (Auto) 4 % (0-9) Eosinophils (%) (Auto) 1 % (0-3) Basophils (%) (Auto) 0 % (0-3) Neutrophils # (Auto) 14.1 x10^3/uL (1.8-7.7) Lymphocytes # (Auto) 1.0 x10^3/uL (1.0-4.8) Monocytes # (Auto) 0.7 x10^3/uL (0.0-1.1) Eosinophils # (Auto) 0.1 x10^3/uL (0.0-0.7) Basophils # (Auto) 0.0 x10^3/uL (0.0-0.2) Test 12/29/20 08:42 Glucose (Fingerstick) 277 mg/dL (70-99) Laboratory Tests Test 12/28/20 12:15 12/28/20 12:40 12/28/20 17:00 12/28/20 21:19 Glucose (Fingerstick) 245 mg/dL (70-99) 227 mg/dL (70-99) 253 mg/dL (70-99) SARS-CoV-2 Antigen (Rapid) Negative (NEGATIVE) Test 12/29/20 05:31 12/29/20 05:45 12/29/20 08:42 Sodium Level 143 mmol/L (136-145) Potassium Level 3.7 mmol/L (3.5-5.1) Chloride Level 109 mmol/L (98-107) Carbon Dioxide Level 29 mmol/L (21-32) Anion Gap 5 (6-14) Blood Urea Nitrogen 20 mg/dL (7-20) Creatinine 0.8 mg/dL (0.6-1.0) Estimated GFR (Cockcroft-Gault) 70.5 Glucose Level 251 mg/dL (70-99) Calcium Level 8.0 mg/dL (8.5-10.1) Vancomycin Level Trough 27.8 mcg/mL (10.0-20.0) Vancomycin Last Dose Date 12/28/20 Vancomycin Last Dose Time 1800 White Blood Count 16.0 x10^3/uL (4.0-11.0) Red Blood Count 3.94 x10^6/uL (3.50-5.40) Hemoglobin 8.6 g/dL (12.0-15.5) Hematocrit 29.1 % (36.0-47.0) Mean Corpuscular Volume 74 fL (79-100) Mean Corpuscular Hemoglobin 22 pg (25-35) Mean Corpuscular Hemoglobin Concent 30 g/dL (31-37) Red Cell Distribution Width 17.6 % (11.5-14.5) Platelet Count 199 x10^3/uL (140-400) Neutrophils (%) (Auto) 89 % (31-73) Lymphocytes (%) (Auto) 6 % (24-48) Monocytes (%) (Auto) 4 % (0-9) Eosinophils (%) (Auto) 1 % (0-3) Basophils (%) (Auto) 0 % (0-3) Neutrophils # (Auto) 14.1 x10^3/uL (1.8-7.7) Lymphocytes # (Auto) 1.0 x10^3/uL (1.0-4.8) Monocytes # (Auto) 0.7 x10^3/uL (0.0-1.1) Eosinophils # (Auto) 0.1 x10^3/uL (0.0-0.7) Basophils # (Auto) 0.0 x10^3/uL (0.0-0.2) Glucose (Fingerstick) 277 mg/dL (70-99) Medications Active Scripts Medications Dose Route/Sig Max Daily Dose Days Date Category Zinc 50 Mg Tablet 1 Tab PO DAILY 30 12/27/20 Reported Wellbutrin Xl (Bupropion Hcl) 150 Mg Tab.er.24h 1 Tab PO [id number] 12/27/20 Reported Robitussin Cough-Chest Dm Liq (Guaifenesin/Dextromethorphan) 237 Ml Liquid 237 Ml PO PRN Q6HRS PRN 12/27/20 Reported Potassium Chloride (Potassium Chloride) 10 Meq Tab.sr.24h 10 Meq PO DAILY 12/27/20 Reported Nystatin 1 Each Powder.ea. 1 Each MC BID 12/27/20 Reported Meloxicam 15 Mg Tablet 15 Mg PO DAILY 12/27/20 Reported Hydrocodone-Apap 5-325 (Hydrocodone Bit/Acetaminophen) 1 Tab Tablet 2 Tab PO PRN Q6HRS PRN 12/27/20 Reported Loratadine 10 Mg Tablet 10 Mg PO DAILY 12/27/20 Reported Furosemide 20 Mg Tablet 60 Mg PO DAILY 12/27/20 Reported Biofreeze (Menthol) 118 Ml Gel..ml. 1 Blayne TP PRN PRN 7 12/27/20 Reported Baclofen 10 Mg Tablet 10 Mg PO BID 12/27/20 Reported Artificial Tears Drops (Peg 400/Hypromellose/Glycerin) 15 Ml Drops 1 Drop OD BID 30 12/27/20 Reported Acetaminophen 500 Mg Tablet 500 Mg PO PRN Q4HRS PRN 12/27/20 Reported Abilify (Aripiprazole) 2 Mg Tablet 2 Mg PO DAILY 12/27/20 Reported Ventolin Hfa Inhaler (Albuterol Sulfate) 18 Gm Hfa.aer.ad 2 Puff INH Q4HRS 02/01/20 Reported Ropinirole Hcl 0.5 Mg Tablet 0.5 Mg PO TID 02/01/20 Reported Lyrica (Pregabalin) 50 Mg Capsule 50 Mg PO TID 02/01/20 Reported Ondansetron Hcl 4 Mg Tablet 1 Tab PO PRN Q8HRS PRN 02/01/20 Reported Novolog (Insulin Aspart) 100 Unit/1 Ml Vial 18 Unit SQ TIDAC 02/01/20 Reported Multiple Vitamin (Multivitamin With Minerals) 1 Each Tablet 1 Each PO BID 02/01/20 Reported Mucinex Fast-Max Dm Max Liquid (Guaifenesin/Dextromethorphan) 180 Ml Liquid 10 Ml PO PRN Q4HRS PRN 02/01/20 Reported Miralax (Polyethylene Glycol 3350) 17 Gm Powd.pack 1 Pkt PO PRN Q24HRS PRN 02/01/20 Reported Mag-Al Hydrox-Simeth Max Susp (Mag Hydrox/Aluminum Hyd/Simeth) 30 Ml Oral.susp 15 Ml PO PRN Q4HRS PRN 02/01/20 Reported Levothyroxine Sodium 125 Mcg Tablet 250 Mcg PO DAILYAC 02/01/20 Reported Levemir Flextouch (Insulin Detemir) 100 Unit/1 Ml Insuln.pen 35 Unit SQ BID 02/01/20 Reported Januvia (Sitagliptin Phosphate) 100 Mg Tablet 1 Tab PO DAILY 02/01/20 Reported Hydrocortisone Plus 1% Cream (Hydrocortisone/Aloe Vera) 28.4 Gm Cream..g. 28.4 Gm TP PRN Q8HRS PRN 02/01/20 Reported Famotidine 20 Mg Tablet 20 Mg PO HS 02/01/20 Reported Entacapone 200 Mg Tablet 200 Mg PO DAILY 02/01/20 Reported Eliquis (Apixaban) 2.5 Mg Tablet 2.5 Mg PO BID 02/01/20 Reported Cymbalta (Duloxetine Hcl) 30 Mg Capsule.dr 60 Mg PO BID 02/01/20 Reported Biofreeze (Menthol) 118 Ml Gel..ml. 1 Blayne TP PRN Q6HRS PRN 7 02/01/20 Reported Atorvastatin Calcium 10 Mg Tablet 10 Mg PO HS 02/01/20 Reported Polyvinyl Alcohol 15 Ml Drops 1 Drop EACHEYE PRN Q4HRS PRN 30 02/01/20 Reported Alprazolam 0.5 Mg Tablet 1 Tab PO HS 02/01/20 Reported Impression . IMPRESSION: 1. Udmwz-je-wwvqkyn hypoxemic respiratory failure, multifactorial. 2. Right lower lobe pneumonia, suspect gram-negative, possibly gram-positive. 3. Sepsis secondary to above. 4. Atrial fibrillation. 5. Wyegg-fg-lnbytan encephalopathy related to sepsis. 6. Severe protein malnutrition. 7. Dysphagia. 8. Parkinsonism. Plan . Updated 12/29 Nasal mrsa n.p.o. Continue current antibiotics Speech eval DVT prophylaxis PLAN: 1. Recommend continue current n.p.o. status. Consult speech. 2. Continue IV vancomycin and Zosyn. 3. Monitor response and make adjustments as necessary. 4. Deep vein thrombosis prophylaxis. I do appreciate the privilege in sharing in the patient's care. MARINO WISEMAN MD Dec 29, 2020 09:20
[2020-12-29] MEDS: VANCOMYCIN PER PHARMACY MC PRN ×2 (10:27→10:40)
--- NOTE | 2020-12-29 10:38 | NUR ---
Pharmacy Vancomycin Dosing Note S:Consulted to monitor and dose vancomycin started 12/27/20. O:SHAWN OROZCO is a 70 year old F with Sepsis Pneumonia Empiric . Height: 5 feet, 8 inches Weight: 123.4 kg [place] Body Weight: 63.90 Adjusted Body Weight: 87.70 Dosing Weight: Actual Other Antibiotics: ZOSYN LABS: Last BUN: 20 Last Creatinine: 0.8 Creatinine Clearance: 70 mL/min Last WBC: 16.0 Last Procalcitonin: 78.71 Tmax (past 24 hours): 99.0 Microbiology: NGTD I/O: 3 voids Drug Levels: Last Trough level: 27.8 on 12/29/20 at 0531 Last dose given 12/27/20 at 1829 Vancomycin Dosing: Loading Dose: 2000 mg x1 Dosing Weight: Actual Target Trough: 10-20 A: Based on trough of 27.8: P: 1. Decrease Vancomycin to 1500 mg IV q18h. 2. Follow up Trough level on 12/31/20 at 0030. 3. Pharmacy will continue to monitor, follow and adjust therapy as needed. Mekhi Campos [facility], 12/29/20 1038
--- NOTE | 2020-12-29 10:44 | NUR ---
SS following up with discharge planning. SS reviewed pt chart and discussed with pt RN. Pt is currently requiring oxygen at four liters nasal canula. COVID19 negative. Pt on IV Metoprolol, IV Vancomycin, IV Zosyn, and Clinimix. Pt NPO. ST following. PT/OT ordered. Pt is [facility] resident from [facility], ; fax [phone]. Clinical updates phoned and faxed to [place]. SS will continue to follow for discharge planning.
[2020-12-29 11:00] VITALS: BP 151/70
--- NOTE | 2020-12-29 11:49 | PDOC ---
TERESA OSEGUERA SWEATBAND SEPARATOR 12/29/20 1149: CARDIO Progress Notes Date and Time Date of Service 12/29/2020 Time of Evaluation 1130 Subjective Subjective: No Chest Pain, No shortness of breath, No Palpitations Vitals Vitals Vital Signs Date Time Temp Pulse Resp B/P (MAP) Pulse Ox O2 Delivery O2 Flow Rate FiO2 12/29/20 08:00 Nasal Cannula 4.0 12/29/20 07:00 97.3 74 24 142/67 (92) 100 97.3 Weight Weight [ ] Input and Output Intake and Output Intake and Output 12/29/20 07:00 Intake Total 0 ml Output Total 1 ml Balance -1 ml Intake Oral 0 ml Output Urine Total 1 ml # Voids 3 # Bowel Movements 4 Laboratory Labs Laboratory Tests Test 12/28/20 12:15 12/28/20 12:40 12/28/20 17:00 12/28/20 21:19 Glucose (Fingerstick) 245 mg/dL (70-99) 227 mg/dL (70-99) 253 mg/dL (70-99) SARS-CoV-2 RNA (NORMAN) Negative (Negative) SARS-CoV-2 Antigen (Rapid) Negative (NEGATIVE) Test 12/29/20 05:31 12/29/20 05:45 12/29/20 08:42 Sodium Level 143 mmol/L (136-145) Potassium Level 3.7 mmol/L (3.5-5.1) Chloride Level 109 mmol/L (98-107) Carbon Dioxide Level 29 mmol/L (21-32) Anion Gap 5 (6-14) Blood Urea Nitrogen 20 mg/dL (7-20) Creatinine 0.8 mg/dL (0.6-1.0) Estimated GFR (Cockcroft-Gault) 70.5 Glucose Level 251 mg/dL (70-99) Calcium Level 8.0 mg/dL (8.5-10.1) Vancomycin Level Trough 27.8 mcg/mL (10.0-20.0) Vancomycin Last Dose Date 12/28/20 Vancomycin Last Dose Time 1800 White Blood Count 16.0 x10^3/uL (4.0-11.0) Red Blood Count 3.94 x10^6/uL (3.50-5.40) Hemoglobin 8.6 g/dL (12.0-15.5) Hematocrit 29.1 % (36.0-47.0) Mean Corpuscular Volume 74 fL (79-100) Mean Corpuscular Hemoglobin 22 pg (25-35) Mean Corpuscular Hemoglobin Concent 30 g/dL (31-37) Red Cell Distribution Width 17.6 % (11.5-14.5) Platelet Count 199 x10^3/uL (140-400) Neutrophils (%) (Auto) 89 % (31-73) Lymphocytes (%) (Auto) 6 % (24-48) Monocytes (%) (Auto) 4 % (0-9) Eosinophils (%) (Auto) 1 % (0-3) Basophils (%) (Auto) 0 % (0-3) Neutrophils # (Auto) 14.1 x10^3/uL (1.8-7.7) Lymphocytes # (Auto) 1.0 x10^3/uL (1.0-4.8) Monocytes # (Auto) 0.7 x10^3/uL (0.0-1.1) Eosinophils # (Auto) 0.1 x10^3/uL (0.0-0.7) Basophils # (Auto) 0.0 x10^3/uL (0.0-0.2) Glucose (Fingerstick) 277 mg/dL (70-99) Microbiology Micro Microbiology 12/27/20 Blood Culture - Preliminary, Resulted NO GROWTH AFTER 1 DAY Physical Exam HEENT: Neck Supple W Full Motion LUNGS: Other (diminished baes) Heart: irregularly irregular Abdomen: Soft N/T Extremities: No Calf Tenderness Neurology: alert, oriented, follow commands Assessment Assessment 1. Acute on chronic respiratory failure secondary to PNA, possible aspiration 2. PAFIB; s/p remote ablation. Previous followed with [facility] cardiology team through [facility]. on Low-dose Eliquis at home. AFIB rate controlled 3. Leukocytosis, lactic acidosis, fevers, sepsis 4. Hypertension; controlled 5. Hyperlipidemia; statin 6. Diabetes, II 7. Hypothyroidism: TSH on goal 8. Parkinson's 9. S/p INSTANT POWDER SUPERVISOR shunt Recommendations Continue metoprolol for rate control Eliquis for stroke prophylaxis Outpatient echo to assess LV systolic function Ongoing lung optimization, treatment of PNA Consider outpatient cardioversion supportive care Justicifation of Admission Dx: Justifications for Admission: Justification of Admission Dx: Yes PHOENIX WALLS MD 12/29/20 2150: CARDIO Progress Notes Plan Plan The patient was seen and interviewed as well as examined at the bedside. The chart was reviewed. The case was discussed. Agree with the plan of care. TERESA OSEGUERA APRN Dec 29, 2020 11:49 PHOENIX WALLS MD Dec 29, 2020 21:50
[2020-12-29] MEDS: VANCOMYCIN 1.5 GM in IV NORMAL SALINE 500ML BAG 500 ML IV SCH (12:32)
[2020-12-29] MEDS ORDERED: ANTI-COAG MONITOR BY PHARMACY. MC PRN (13:45)
--- NOTE | 2020-12-29 14:24 | PDOC ---
[employer] PROGRESS NOTE Date of Service DOS: DATE: 12/29/20 TIME: 14:19 Chief Complaint Chief Complaint Assessment/Plan RLL pneumonia - likely gram negative given her comorbidities, underlying COPD. Zosyn and vancomycin Sepsis - due to pneumonia, fluids and antibiotics empirically Afib - not previously noted, metoprolol for rate control. Given frequent fall history may be relatively high risk for anticoagulation. will continue eliquis Acute encephalopathy - likely sepsis related, will hold sedating meds. monitor neuro status Acute on chronic hypoxic respiratory failure - likely related to pneumonia, will wean O2 as tolerated. Consult pulmonology Severe protein calorie malnutrition - with possible aspiration will given IV nutrition, consult supervisor coremaker and ADMINISTRATIVE ASSISTANT Anxiety with depression - will cont home meds when taking PO COPD on 2L NCO2 - will give nebs. consult pulm DM2 - sliding scale, cut basal insulin in half for tonight given lack of PO intake Hypothyroidism - will check TSH, cont levothyroxine Parkinson's - on entacapone, will verify meds RLS - on requip Morbid obesity s/p TELEVISION ANNOUNCER shunt GERD FEN - NPO pending ADMINISTRATIVE ASSISTANT eval PPX - eliquis FULL CODE Dispo - inpatient Brother is surrogate decision maker History of Present Illness History of Present Illness 70-year-old female with PMHx Anxiety with depression, COPD on 2L NCO2, DM2, hypothyroidism, Parkinson's, RLS, Morbid obesity, s/p TELEVISION ANNOUNCER shunt, and GERD who c omes to the ED brought in by EMS [facility] due to fever and altered mental status. History obtained from EMS and SNF. Patient is moaning, opens eyes to voice and stimuli. Requiring 5 L nasal cannula. Previously hospitalized for COVID 19 01/31/2020 and now s/p covid vaccine 02/14/20 Labs with WBC 33, Hb 10.7, platelets 254, INR 1.2, NA 143, K3.9, BUN 15, CR 1.2, glucose 181, albumin 2.5, NT proBNP 737, high-sensitivity troponin 7, lactate 3.1, UDS positive for benzos, UA bland. CT head with no acute findings referral ventricular catheter in place, shunt series with no occlusion TELEVISION ANNOUNCER shunt. CT abdomen reveals right lower lobe consolidation consistent with pneumonia. EKG with afib aroudn 109bpm, No ST segment elevations or TWI Admitted for further care 12/28/2020 Patient seen and examined bedside. Pleasantly confused. Patient unable to tell me where she is coming from her where she lives. Patient is from [facility]. We will continue with Zosyn and vancomycin for empiric coverage for her pneumonia. Currently on Clinimix and pending speech evaluation. Patient's chart, labs, images were reviewed and discussed with RN. 12/29/2020 No acute events overnight. Patient seen and examined bedside. Patient did not pass swallow test with speech evaluation. Likely will need video swallow. We will continue with IV Clinimix. Patient is still unable to transition from n.p.o. to p.o., will likely discuss with DPOA PEG placement. Patient's chart, labs, images were reviewed and discussed with RN Vitals/I&O Vitals/I&O: Vital Signs Date Time Temp Pulse Resp B/P (MAP) Pulse Ox O2 Delivery O2 Flow Rate FiO2 12/29/20 11:42 78 151/70 12/29/20 11:00 98.7 23 95 Nasal Cannula 4.0 98.7 I & O 12/28/20 12/28/20 12/29/20 15:00 23:00 07:00 Intake Total 0 ml 0 ml Output Total 1 ml Balance 0 ml 0 ml -1 ml Physical Exam General: Alert, Cooperative, No acute distress Heart: Other (IRRR; tele AFIB ) Lungs: Clear, Other Abdomen: Soft Extremities: No edema, Other Skin: No significant lesion Labs Labs: Laboratory Tests Test 12/28/20 17:00 12/28/20 21:19 12/29/20 05:31 12/29/20 05:45 Glucose (Fingerstick) 227 mg/dL (70-99) 253 mg/dL (70-99) Sodium Level 143 mmol/L (136-145) Potassium Level 3.7 mmol/L (3.5-5.1) Chloride Level 109 mmol/L (98-107) Carbon Dioxide Level 29 mmol/L (21-32) Anion Gap 5 (6-14) Blood Urea Nitrogen 20 mg/dL (7-20) Creatinine 0.8 mg/dL (0.6-1.0) Estimated GFR (Cockcroft-Gault) 70.5 Glucose Level 251 mg/dL (70-99) Calcium Level 8.0 mg/dL (8.5-10.1) Vancomycin Level Trough 27.8 mcg/mL (10.0-20.0) Vancomycin Last Dose Date 12/28/20 Vancomycin Last Dose Time 1800 White Blood Count 16.0 x10^3/uL (4.0-11.0) Red Blood Count 3.94 x10^6/uL (3.50-5.40) Hemoglobin 8.6 g/dL (12.0-15.5) Hematocrit 29.1 % (36.0-47.0) Mean Corpuscular Volume 74 fL (79-100) Mean Corpuscular Hemoglobin 22 pg (25-35) Mean Corpuscular Hemoglobin Concent 30 g/dL (31-37) Red Cell Distribution Width 17.6 % (11.5-14.5) Platelet Count 199 x10^3/uL (140-400) Neutrophils (%) (Auto) 89 % (31-73) Lymphocytes (%) (Auto) 6 % (24-48) Monocytes (%) (Auto) 4 % (0-9) Eosinophils (%) (Auto) 1 % (0-3) Basophils (%) (Auto) 0 % (0-3) Neutrophils # (Auto) 14.1 x10^3/uL (1.8-7.7) Lymphocytes # (Auto) 1.0 x10^3/uL (1.0-4.8) Monocytes # (Auto) 0.7 x10^3/uL (0.0-1.1) Eosinophils # (Auto) 0.1 x10^3/uL (0.0-0.7) Basophils # (Auto) 0.0 x10^3/uL (0.0-0.2) Test 12/29/20 08:42 12/29/20 12:21 Glucose (Fingerstick) 277 mg/dL (70-99) 238 mg/dL (70-99) Assessment and Plan Assessmemt and Plan Problems Medical Problems: (1) Altered mental status Status: Acute (2) Hypoxia Status: Acute (3) Pneumonia Status: Acute (4) Sepsis Status: Acute Comment Review of Relevant I have reviewed the following items black (where applicable) has been applied. Medications: Current Medications Medications (Trade) Dose Ordered Sig/Laureen Route PRN Reason Start Time Stop Time Status Last Admin Dose Admin Vancomycin HCl (Vancomycin Trough Level) 1 each 1X ONCE MC 12/29/20 05:30 12/29/20 05:31 DC 12/29/20 05:30 Metoprolol Tartrate (Lopressor Vial) 5 mg Q6HRS IVP 12/28/20 17:00 12/29/20 11:42 Vancomycin HCl 1.5 gm/Sodium Chloride 500 ml @ 250 mls/hr Q18H IV 12/29/20 13:00 12/29/20 12:32 Justifications for Admission Other Justification Trimalleolar fracture MELODY SHIRLEY MD Dec 29, 2020 14:24
[2020-12-29 15:00] VITALS: BP 138/80
[2020-12-29 19:15] VITALS: BP 166/101
[2020-12-29] MEDS: ATORVASTATIN CALCIUM 10 MG TABLET. PO SCH (19:40)
[2020-12-29] MEDS: PSYLLIUM HUSK (SUGAR FREE) 1 PKT PACKET PO SCH (19:41)
[2020-12-29] MEDS: ENOXAPARIN 40 MG/0.4 ML SYRINGE. SQ SCH (19:53)
[2020-12-29 22:35] VITALS: BP 145/82
[2020-12-30] MEDS: PIPERACILLIN/TAZOBACTAM 3.375 GM in IV NORMAL SALINE 50ML 50 ML IV SCH ×5 (00:14→23:44)
[2020-12-30] MEDS: AA 4.25 %/CALCIUM/LYTES/D5W 1,000 ML IV SCH ×4 (00:14→22:11)
[2020-12-30] MEDS: METOPROLOL IV PUSH 5 MG/5 ML VIAL. IVP SCH ×5 (00:16→22:30)
[2020-12-30 02:20] VITALS: BP 138/85
[2020-12-30] MEDS: LEVOTHYROXINE 125 MCG TABLET PO SCH (05:11)
[2020-12-30] MEDS: VANCOMYCIN 1.5 GM in IV NORMAL SALINE 500ML BAG 500 ML IV SCH (05:55)
[2020-12-30 07:00] VITALS: BP 160/94
[2020-12-30] MEDS: INSULIN LISPRO 300 UNITS/3 ML VIAL. SQ SCH ×4 (07:25→20:59)
[2020-12-30] MEDS: METOPROLOL TART IMMED RELEASE 25 MG TABLET. PO SCH ×2 (08:20→20:38)
[2020-12-30] MEDS: LINAGLIPTIN 5 MG TABLET PO SCH (08:20)
[2020-12-30] MEDS: ENOXAPARIN 40 MG/0.4 ML SYRINGE. SQ SCH ×2 (08:21→20:38)
[2020-12-30 08:40] LABS: BASO % 0 % (0-3); EOS # 0.1 x10^3/uL (0.0-0.7); EOS % 1 % (0-3); HEMATOCRIT 32.3 % (36.0-47.0); HEMOGLOBIN 9.6 g/dL (12.0-15.5); LYMPH # 1.2 x10^3/uL (1.0-4.8); LYMPH % 9 % (24-48); MEAN CORPUSCULAR HEMOGLOBIN 22 pg (25-35); MEAN CORPUSCULAR HGB CONC 30 g/dL (31-37); MEAN CORPUSCULAR VOLUME 75 fL (79-100); MONO # 0.6 x10^3/uL (0.0-1.1); MONO % 4 % (0-9); NEUT # 11.3 x10^3/uL (1.8-7.7); NEUT % 86 % (31-73); PLATELET COUNT 241 x10^3/uL (140-400); RED CELL DISTRIBUTION WIDTH 17.7 % (11.5-14.5); WHITE BLOOD COUNT 13.1 x10^3/uL (4.0-11.0)
[2020-12-30 08:48] LABS: CALCIUM 8.7 mg/dL (8.5-10.1); CREATININE 0.9 mg/dL (0.6-1.0); GFR 61.5; POTASSIUM 4.1 mmol/L (3.5-5.1)
--- NOTE | 2020-12-30 09:18 | PDOC ---
PULMONARY PROGRESS NOTES DATE: 12/30/20 TIME: 09:18 Subjective Does not feel any better Patient currently n.p.o., once cleared, not more short of air, cough mostly nonproductive Vitals Vital Signs Date Time Temp Pulse Resp B/P (MAP) Pulse Ox O2 Delivery O2 Flow Rate FiO2 12/30/20 07:00 98.2 71 24 160/94 (116) 100 Nasal Cannula 2.0 98.2 ROS: No Nausea, No Chest Pain, No Abdominal Pain, No Increase Cough General: Alert Lungs: Clear, Crackles Cardiovascular: S1, S2 Abdomen: Soft Neuro Exam: Alert Extremities: No Edema Skin: Warm Labs Laboratory Tests Test 12/28/20 12:15 12/28/20 12:40 12/28/20 17:00 12/28/20 21:19 Glucose (Fingerstick) 245 mg/dL (70-99) 227 mg/dL (70-99) 253 mg/dL (70-99) SARS-CoV-2 RNA (NORMAN) Negative (Negative) SARS-CoV-2 Antigen (Rapid) Negative (NEGATIVE) Test 12/29/20 05:31 12/29/20 05:45 12/29/20 08:42 12/29/20 12:21 Sodium Level 143 mmol/L (136-145) Potassium Level 3.7 mmol/L (3.5-5.1) Chloride Level 109 mmol/L (98-107) Carbon Dioxide Level 29 mmol/L (21-32) Anion Gap 5 (6-14) Blood Urea Nitrogen 20 mg/dL (7-20) Creatinine 0.8 mg/dL (0.6-1.0) Estimated GFR (Cockcroft-Gault) 70.5 Glucose Level 251 mg/dL (70-99) Calcium Level 8.0 mg/dL (8.5-10.1) Vancomycin Level Trough 27.8 mcg/mL (10.0-20.0) Vancomycin Last Dose Date 12/28/20 Vancomycin Last Dose Time 1800 White Blood Count 16.0 x10^3/uL (4.0-11.0) Red Blood Count 3.94 x10^6/uL (3.50-5.40) Hemoglobin 8.6 g/dL (12.0-15.5) Hematocrit 29.1 % (36.0-47.0) Mean Corpuscular Volume 74 fL (79-100) Mean Corpuscular Hemoglobin 22 pg (25-35) Mean Corpuscular Hemoglobin Concent 30 g/dL (31-37) Red Cell Distribution Width 17.6 % (11.5-14.5) Platelet Count 199 x10^3/uL (140-400) Neutrophils (%) (Auto) 89 % (31-73) Lymphocytes (%) (Auto) 6 % (24-48) Monocytes (%) (Auto) 4 % (0-9) Eosinophils (%) (Auto) 1 % (0-3) Basophils (%) (Auto) 0 % (0-3) Neutrophils # (Auto) 14.1 x10^3/uL (1.8-7.7) Lymphocytes # (Auto) 1.0 x10^3/uL (1.0-4.8) Monocytes # (Auto) 0.7 x10^3/uL (0.0-1.1) Eosinophils # (Auto) 0.1 x10^3/uL (0.0-0.7) Basophils # (Auto) 0.0 x10^3/uL (0.0-0.2) Glucose (Fingerstick) 277 mg/dL (70-99) 238 mg/dL (70-99) Test 12/29/20 17:14 12/29/20 20:55 12/30/20 07:19 12/30/20 07:30 Glucose (Fingerstick) 165 mg/dL (70-99) 205 mg/dL (70-99) 234 mg/dL (70-99) White Blood Count 13.1 x10^3/uL (4.0-11.0) Red Blood Count 4.30 x10^6/uL (3.50-5.40) Hemoglobin 9.6 g/dL (12.0-15.5) Hematocrit 32.3 % (36.0-47.0) Mean Corpuscular Volume 75 fL (79-100) Mean Corpuscular Hemoglobin 22 pg (25-35) Mean Corpuscular Hemoglobin Concent 30 g/dL (31-37) Red Cell Distribution Width 17.7 % (11.5-14.5) Platelet Count 241 x10^3/uL (140-400) Neutrophils (%) (Auto) 86 % (31-73) Lymphocytes (%) (Auto) 9 % (24-48) Monocytes (%) (Auto) 4 % (0-9) Eosinophils (%) (Auto) 1 % (0-3) Basophils (%) (Auto) 0 % (0-3) Neutrophils # (Auto) 11.3 x10^3/uL (1.8-7.7) Lymphocytes # (Auto) 1.2 x10^3/uL (1.0-4.8) Monocytes # (Auto) 0.6 x10^3/uL (0.0-1.1) Eosinophils # (Auto) 0.1 x10^3/uL (0.0-0.7) Basophils # (Auto) 0.0 x10^3/uL (0.0-0.2) Sodium Level 144 mmol/L (136-145) Potassium Level 4.1 mmol/L (3.5-5.1) Chloride Level 107 mmol/L (98-107) Carbon Dioxide Level 27 mmol/L (21-32) Anion Gap 10 (6-14) Blood Urea Nitrogen 19 mg/dL (7-20) Creatinine 0.9 mg/dL (0.6-1.0) Estimated GFR (Cockcroft-Gault) 61.5 Glucose Level 267 mg/dL (70-99) Calcium Level 8.7 mg/dL (8.5-10.1) Laboratory Tests Test 12/29/20 12:21 12/29/20 17:14 12/29/20 20:55 12/30/20 07:19 Glucose (Fingerstick) 238 mg/dL (70-99) 165 mg/dL (70-99) 205 mg/dL (70-99) 234 mg/dL (70-99) Test 12/30/20 07:30 White Blood Count 13.1 x10^3/uL (4.0-11.0) Red Blood Count 4.30 x10^6/uL (3.50-5.40) Hemoglobin 9.6 g/dL (12.0-15.5) Hematocrit 32.3 % (36.0-47.0) Mean Corpuscular Volume 75 fL (79-100) Mean Corpuscular Hemoglobin 22 pg (25-35) Mean Corpuscular Hemoglobin Concent 30 g/dL (31-37) Red Cell Distribution Width 17.7 % (11.5-14.5) Platelet Count 241 x10^3/uL (140-400) Neutrophils (%) (Auto) 86 % (31-73) Lymphocytes (%) (Auto) 9 % (24-48) Monocytes (%) (Auto) 4 % (0-9) Eosinophils (%) (Auto) 1 % (0-3) Basophils (%) (Auto) 0 % (0-3) Neutrophils # (Auto) 11.3 x10^3/uL (1.8-7.7) Lymphocytes # (Auto) 1.2 x10^3/uL (1.0-4.8) Monocytes # (Auto) 0.6 x10^3/uL (0.0-1.1) Eosinophils # (Auto) 0.1 x10^3/uL (0.0-0.7) Basophils # (Auto) 0.0 x10^3/uL (0.0-0.2) Sodium Level 144 mmol/L (136-145) Potassium Level 4.1 mmol/L (3.5-5.1) Chloride Level 107 mmol/L (98-107) Carbon Dioxide Level 27 mmol/L (21-32) Anion Gap 10 (6-14) Blood Urea Nitrogen 19 mg/dL (7-20) Creatinine 0.9 mg/dL (0.6-1.0) Estimated GFR (Cockcroft-Gault) 61.5 Glucose Level 267 mg/dL (70-99) Calcium Level 8.7 mg/dL (8.5-10.1) Medications Active Scripts Medications Dose Route/Sig Max Daily Dose Days Date Category Zinc 50 Mg Tablet 1 Tab PO DAILY 30 12/27/20 Reported Wellbutrin Xl (Bupropion Hcl) 150 Mg Tab.er.24h 1 Tab PO DAILYWBKFT 12/27/20 Reported Robitussin Cough-Chest Dm Liq (Guaifenesin/Dextromethorphan) 237 Ml Liquid 237 Ml PO PRN Q6HRS PRN 12/27/20 Reported Potassium Chloride (Potassium Chloride) 10 Meq Tab.sr.24h 10 Meq PO DAILY 12/27/20 Reported Nystatin 1 Each Powder.ea. 1 Each MC BID 12/27/20 Reported Meloxicam 15 Mg Tablet 15 Mg PO DAILY 12/27/20 Reported Hydrocodone-Apap 5-325 (Hydrocodone Bit/Acetaminophen) 1 Tab Tablet 2 Tab PO PRN Q6HRS PRN 12/27/20 Reported Loratadine 10 Mg Tablet 10 Mg PO DAILY 12/27/20 Reported Furosemide 20 Mg Tablet 60 Mg PO DAILY 12/27/20 Reported Biofreeze (Menthol) 118 Ml Gel..ml. 1 Blayne TP PRN PRN 7 12/27/20 Reported Baclofen 10 Mg Tablet 10 Mg PO BID 12/27/20 Reported Artificial Tears Drops (Peg 400/Hypromellose/Glycerin) 15 Ml Drops 1 Drop OD BID 30 12/27/20 Reported Acetaminophen 500 Mg Tablet 500 Mg PO PRN Q4HRS PRN 12/27/20 Reported Abilify (Aripiprazole) 2 Mg Tablet 2 Mg PO DAILY 12/27/20 Reported Ventolin Hfa Inhaler (Albuterol Sulfate) 18 Gm Hfa.aer.ad 2 Puff INH Q4HRS 02/01/20 Reported Ropinirole Hcl 0.5 Mg Tablet 0.5 Mg PO TID 02/01/20 Reported Lyrica (Pregabalin) 50 Mg Capsule 50 Mg PO TID 02/01/20 Reported Ondansetron Hcl 4 Mg Tablet 1 Tab PO PRN Q8HRS PRN 02/01/20 Reported Novolog (Insulin Aspart) 100 Unit/1 Ml Vial 18 Unit SQ TIDAC 02/01/20 Reported Multiple Vitamin (Multivitamin With Minerals) 1 Each Tablet 1 Each PO BID 02/01/20 Reported Mucinex Fast-Max Dm Max Liquid (Guaifenesin/Dextromethorphan) 180 Ml Liquid 10 Ml PO PRN Q4HRS PRN 02/01/20 Reported Miralax (Polyethylene Glycol 3350) 17 Gm Powd.pack 1 Pkt PO PRN Q24HRS PRN 02/01/20 Reported Mag-Al Hydrox-Simeth Max Susp (Mag Hydrox/Aluminum Hyd/Simeth) 30 Ml Oral.susp 15 Ml PO PRN Q4HRS PRN 02/01/20 Reported Levothyroxine Sodium 125 Mcg Tablet 250 Mcg PO DAILYAC 02/01/20 Reported Levemir Flextouch (Insulin Detemir) 100 Unit/1 Ml Insuln.pen 35 Unit SQ BID 02/01/20 Reported Januvia (Sitagliptin Phosphate) 100 Mg Tablet 1 Tab PO DAILY 02/01/20 Reported Hydrocortisone Plus 1% Cream (Hydrocortisone/Aloe Vera) 28.4 Gm Cream..g. 28.4 Gm TP PRN Q8HRS PRN 02/01/20 Reported Famotidine 20 Mg Tablet 20 Mg PO HS 02/01/20 Reported Entacapone 200 Mg Tablet 200 Mg PO DAILY 02/01/20 Reported Eliquis (Apixaban) 2.5 Mg Tablet 2.5 Mg PO BID 02/01/20 Reported Cymbalta (Duloxetine Hcl) 30 Mg Capsule.dr 60 Mg PO BID 02/01/20 Reported Biofreeze (Menthol) 118 Ml Gel..ml. 1 Blayne TP PRN Q6HRS PRN 7 02/01/20 Reported Atorvastatin Calcium 10 Mg Tablet 10 Mg PO HS 02/01/20 Reported Polyvinyl Alcohol 15 Ml Drops 1 Drop EACHEYE PRN Q4HRS PRN 30 02/01/20 Reported Alprazolam 0.5 Mg Tablet 1 Tab PO HS 02/01/20 Reported Impression . IMPRESSION: 1. Tkpdx-qc-[id number] hypoxemic respiratory failure, multifactorial. 2. Right lower lobe pneumonia, suspect gram-negative, possibly gram-positive. 3. Sepsis secondary to above. 4. Atrial fibrillation. 5. Nydaa-uh-ufzwwqs encephalopathy related to sepsis. 6. Severe protein malnutrition. 7. Dysphagia. 8. Parkinsonism. Plan . Continue n.p.o. Continue antibiotics Long-term prognosis poor MRSA nasal PCR pending Updated 12/29 Nasal mrsa n.p.o. Continue current antibiotics Speech eval DVT prophylaxis MARINO WISEMAN MD Dec 30, 2020 09:18
--- NOTE | 2020-12-30 09:32 | PDOC ---
TERESA OSEGUERA SQUAD SERGEANT 12/30/20 0932: CARDIO Progress Notes Date and Time Date of Service 12/30/2020 Time of Evaluation 1020 Subjective Subjective: No Chest Pain, No shortness of breath, No Palpitations Vitals Vitals Vital Signs Date Time Temp Pulse Resp B/P (MAP) Pulse Ox O2 Delivery O2 Flow Rate FiO2 12/30/20 07:00 98.2 71 24 160/94 (116) 100 Nasal Cannula 2.0 98.2 Weight Weight [ ] Input and Output Intake and Output Intake and Output 12/30/20 07:00 Intake Total 1000 ml Output Total 401 ml Balance 599 ml Intake Oral 0 ml Blood Product IV Normal Saline Flush 1000 ml Output Urine Total 400 ml Stool Total 1 ml # Voids 3 # Bowel Movements 2 Laboratory Labs Laboratory Tests Test 12/29/20 12:21 12/29/20 17:14 12/29/20 20:55 12/30/20 07:19 Glucose (Fingerstick) 238 mg/dL (70-99) 165 mg/dL (70-99) 205 mg/dL (70-99) 234 mg/dL (70-99) Test 12/30/20 07:30 White Blood Count 13.1 x10^3/uL (4.0-11.0) Red Blood Count 4.30 x10^6/uL (3.50-5.40) Hemoglobin 9.6 g/dL (12.0-15.5) Hematocrit 32.3 % (36.0-47.0) Mean Corpuscular Volume 75 fL (79-100) Mean Corpuscular Hemoglobin 22 pg (25-35) Mean Corpuscular Hemoglobin Concent 30 g/dL (31-37) Red Cell Distribution Width 17.7 % (11.5-14.5) Platelet Count 241 x10^3/uL (140-400) Neutrophils (%) (Auto) 86 % (31-73) Lymphocytes (%) (Auto) 9 % (24-48) Monocytes (%) (Auto) 4 % (0-9) Eosinophils (%) (Auto) 1 % (0-3) Basophils (%) (Auto) 0 % (0-3) Neutrophils # (Auto) 11.3 x10^3/uL (1.8-7.7) Lymphocytes # (Auto) 1.2 x10^3/uL (1.0-4.8) Monocytes # (Auto) 0.6 x10^3/uL (0.0-1.1) Eosinophils # (Auto) 0.1 x10^3/uL (0.0-0.7) Basophils # (Auto) 0.0 x10^3/uL (0.0-0.2) Sodium Level 144 mmol/L (136-145) Potassium Level 4.1 mmol/L (3.5-5.1) Chloride Level 107 mmol/L (98-107) Carbon Dioxide Level 27 mmol/L (21-32) Anion Gap 10 (6-14) Blood Urea Nitrogen 19 mg/dL (7-20) Creatinine 0.9 mg/dL (0.6-1.0) Estimated GFR (Cockcroft-Gault) 61.5 Glucose Level 267 mg/dL (70-99) Calcium Level 8.7 mg/dL (8.5-10.1) Microbiology Micro Microbiology 12/27/20 Blood Culture - Preliminary, Resulted NO GROWTH AFTER 2 DAYS Physical Exam HEENT: Neck Supple W Full Motion Chest: Symmetric LUNGS: Other (diminished baes) Heart: RRR (SR) Abdomen: Soft N/T Extremities: No Calf Tenderness Neurology: alert, oriented, follow commands Assessment Assessment 1. Acute on chronic respiratory failure secondary to PNA, possible aspiration 2. PAFIB; s/p remote ablation. [facility]. on Low-dose Eliquis at home. Now SR 3. Leukocytosis, lactic acidosis, fevers, sepsis 4. Hypertension; controlled 5. Hyperlipidemia; statin 6. Diabetes, II 7. Hypothyroidism: TSH on goal 8. Parkinson's 9. S/p DENTURE PROCESSOR shunt Recommendations Videoswallow today. If able to take PO then continue po metoprolol for rate control and Eliquis for stroke prophylaxis Outpatient echo to assess LV systolic function Ongoing lung optimization, treatment of PNA supportive care Justicifation of Admission Dx: Justifications for Admission: Justification of Admission Dx: Yes PHOENIX WALLS MD 12/31/20 1433: CARDIO Progress Notes Plan Plan Late entry for 12/30/20 The patient was seen and interviewed as well as examined at the bedside. The chart was reviewed. The case was discussed. Agree with the plan of care. TERESA OSEGUERA APRN Dec 30, 2020 09:32 PHOENIX WALLS MD Dec 31, 2020 14:33
[2020-12-30] MEDS ORDERED: BARIUM SULFATE 40% (APPLE) 148 GM PWD. PO ONE (10:45)
[2020-12-30 11:00] VITALS: BP 158/86
[2020-12-30] MEDS ORDERED: METOPROLOL IV PUSH 5 MG/5 ML VIAL. IVP ONE (11:30)
--- NOTE | 2020-12-30 12:41 | PDOC ---
[employer] PROGRESS NOTE Date of Service DOS: DATE: 12/30/20 TIME: 12:35 Chief Complaint Chief Complaint Assessment/Plan RLL pneumonia - likely gram negative given her comorbidities, underlying COPD. Zosyn and vancomycin Sepsis - due to pneumonia, fluids and antibiotics empirically Afib - not previously noted, metoprolol for rate control. Given frequent fall history may be relatively high risk for anticoagulation. will continue eliquis Acute encephalopathy - likely sepsis related, will hold sedating meds. monitor neuro status Acute on chronic hypoxic respiratory failure - likely related to pneumonia, will wean O2 as tolerated. 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 History obtained from EMS and SNF. Patient is moaning, opens eyes to voice and stimuli. Requiring 5 L nasal cannula. Previously hospitalized for COVID 19 01/31/2020 and now s/p covid vaccine 02/14/20 Labs with WBC 33, Hb 10.7, platelets 254, INR 1.2, NA 143, K3.9, BUN 15, CR 1.2, glucose 181, albumin 2.5, NT proBNP 737, high-sensitivity troponin 7, lactate 3.1, UDS positive for benzos, UA bland. CT head with no acute findings referral ventricular catheter in place, shunt series with no occlusion HEAD WAITER shunt. CT abdomen reveals right lower lobe consolidation consistent with pneumonia. EKG with afib aroudn 109bpm, No ST segment elevations or TWI Admitted for further care 12/28/2020 Patient seen and examined bedside. Pleasantly confused. Patient unable to tell me where she is coming from her where she lives. Patient is from [employer]. We will continue with Zosyn and vancomycin for empiric coverage for her pneumonia. Currently on Clinimix and pending speech evaluation. Patient's chart, labs, images were reviewed and discussed with RN. 12/29/2020 No acute events overnight. Patient seen and examined bedside. Patient did not pass swallow test with speech evaluation. Likely will need video swallow. We will continue with IV Clinimix. Patient is still unable to transition from n.p.o. to p.o., will likely discuss with DPOA PEG placement. Patient's chart, labs, images were reviewed and discussed with RN 12/30/2020 No acute events overnight. Patient seen and examined bedside. It appears that her status has improved. She does remember location and her birthday. Patient failed swallow study bedside again and will go down for video swallow today. Discussed in depth with Lalito patient's brother about patient's goals of care especially that she may need a PEG tube. At this point, the brother does not make decisions for because he says that patient is able to have capacity to make decisions on her own. I will attempt to have this discussion about her goals of care tomorrow morning. Patient's chart, labs, images were reviewed and discussed with RN In addition to my E/M visit, advance care planning done with A total time of 20 minutes was spent from 800 to 820 face to face in discussion regarding the patient's goals of care, CODE STATUS. Vitals/I&O Vitals/I&O: Vital Signs Date Time Temp Pulse Resp B/P (MAP) Pulse Ox O2 Delivery O2 Flow Rate FiO2 12/30/20 12:34 71 166/88 12/30/20 11:00 98.4 22 92 Nasal Cannula 2.0 98.4 I & O 12/29/20 12/29/20 12/30/20 15:00 23:00 07:00 Intake Total 1000 ml 0 ml Output Total 1 ml 400 ml Balance 999 ml -400 ml Physical Exam General: Alert, Cooperative, No acute distress Heart: Other (IRRR; tele AFIB ) Lungs: Clear, Crackles Abdomen: Soft Extremities: No edema, Other Skin: No significant lesion Labs Labs: Laboratory Tests Test 12/29/20 17:14 12/29/20 20:55 12/30/20 07:19 12/30/20 07:30 Glucose (Fingerstick) 165 mg/dL (70-99) 205 mg/dL (70-99) 234 mg/dL (70-99) White Blood Count 13.1 x10^3/uL (4.0-11.0) Red Blood Count 4.30 x10^6/uL (3.50-5.40) Hemoglobin 9.6 g/dL (12.0-15.5) Hematocrit 32.3 % (36.0-47.0) Mean Corpuscular Volume 75 fL (79-100) Mean Corpuscular Hemoglobin 22 pg (25-35) Mean Corpuscular Hemoglobin Concent 30 g/dL (31-37) Red Cell Distribution Width 17.7 % (11.5-14.5) Platelet Count 241 x10^3/uL (140-400) Neutrophils (%) (Auto) 86 % (31-73) Lymphocytes (%) (Auto) 9 % (24-48) Monocytes (%) (Auto) 4 % (0-9) Eosinophils (%) (Auto) 1 % (0-3) Basophils (%) (Auto) 0 % (0-3) Neutrophils # (Auto) 11.3 x10^3/uL (1.8-7.7) Lymphocytes # (Auto) 1.2 x10^3/uL (1.0-4.8) Monocytes # (Auto) 0.6 x10^3/uL (0.0-1.1) Eosinophils # (Auto) 0.1 x10^3/uL (0.0-0.7) Basophils # (Auto) 0.0 x10^3/uL (0.0-0.2) Sodium Level 144 mmol/L (136-145) Potassium Level 4.1 mmol/L (3.5-5.1) Chloride Level 107 mmol/L (98-107) Carbon Dioxide Level 27 mmol/L (21-32) Anion Gap 10 (6-14) Blood Urea Nitrogen 19 mg/dL (7-20) Creatinine 0.9 mg/dL (0.6-1.0) Estimated GFR (Cockcroft-Gault) 61.5 Glucose Level 267 mg/dL (70-99) Calcium Level 8.7 mg/dL (8.5-10.1) Assessment and Plan Assessmemt and Plan Problems Medical Problems: (1) Altered mental status Status: Acute (2) Hypoxia Status: Acute (3) Pneumonia Status: Acute (4) Sepsis Status: Acute Comment Review of Relevant I have reviewed the following items black (where applicable) has been applied. Medications: Current Medications Medications (Trade) Dose Ordered Sig/Laureen Route PRN Reason Start Time Stop Time Status Last Admin Dose Admin Vancomycin HCl 1.5 gm/Sodium Chloride 500 ml @ 250 mls/hr Q18H IV 12/29/20 13:00 12/30/20 05:55 Enoxaparin Sodium (Lovenox 40mg Syringe) 40 mg Q12HR SQ 12/29/20 21:00 12/30/20 08:21 Barium Sulfate (Varibar Thin Liquid Apple) 148 gm 1X ONCE PO 12/30/20 10:45 12/30/20 10:46 DC 12/30/20 10:45 Metoprolol Tartrate (Lopressor Vial) 5 mg 1X ONCE IVP 12/30/20 11:30 12/30/20 11:36 DC 12/30/20 12:34 Justifications for Admission Other Justification Trimalleolar fracture MELODY SHIRLEY MD Dec 30, 2020 12:41
[2020-12-30] MEDS: VANCOMYCIN PER PHARMACY MC PRN (12:59)
[2020-12-30] MEDS ORDERED: LIDOCAINE WITH 8.4% SOD BICARB 3 ML DISP.SYRIN. ONE (14:44)
[2020-12-30 15:00] VITALS: BP 177/97
[2020-12-30] MEDS ORDERED: LIDOCAINE WITH 8.4% SOD BICARB 3 ML DISP.SYRIN. INJ ONE (15:00)
--- NOTE | 2020-12-30 15:17 | RAD ---
EXAMINATION: DG VIDEO SWALLOW STUDY 12/30/2020 11:45 AM HISTORY: Pneumonia, dysphasia COMPARISON: None TECHNIQUE: The patient was observed swallowing various consistencies of barium under intermittent flu oroscopy. FINDINGS: There was aspiration with thin liquid from a straw and nectar thick liquid from a straw. There was pe netration seen with other consistencies. Total fluoroscopic time:3.5 minute. IMPRESSION: Aspiration with thin liquid from a straw and nectar thick liquid from a straw. Please see the speech pathologist's report for details. Electronically signed by: Linda Hatfield MD (12/30/2020 3:14 PM) [id number]
[2020-12-30 18:22] VITALS: BP 175/84
[2020-12-30] MEDS: PSYLLIUM HUSK (SUGAR FREE) 1 PKT PACKET PO SCH (20:35)
[2020-12-30] MEDS: ATORVASTATIN CALCIUM 10 MG TABLET. PO SCH (20:38)
[2020-12-30] MEDS: LACTOBACILLUS RHAMNOSUS GG 1 CAPSULE. PO SCH (20:38)
[2020-12-30 22:17] VITALS: BP 185/79
[2020-12-31] VITALS (8 sets, daily range): BP systolic 141–195; BP diastolic 74–103
[2020-12-31] MEDS: VANCOMYCIN 1.5 GM in IV NORMAL SALINE 500ML BAG 500 ML IV SCH (01:03)
--- NOTE | 2020-12-31 01:38 | NUR ---
Oxygen saturation at 88-89% on 2 L. Patient encouraged to cough and clear lungs. Head of bed elevated and oxygen increased to 2.5 L. Saturations 91-92%.
[2020-12-31] MEDS: VANCOMYCIN PER PHARMACY MC PRN ×2 (02:00→08:44)
--- NOTE | 2020-12-31 02:00 | NUR ---
Pharmacy Vancomycin Dosing Note S:Consulted to monitor and dose vancomycin started 12/27/20. O:SHAWN OROZCO is a 70 year old F with Sepsis Pneumonia Empiric . Height: 5 feet, 8 inches Weight: 123.6 kg Holcomb Body Weight: 63.90 Adjusted Body Weight: 87.78 Dosing Weight: Actual Other Antibiotics: ZOSYN LABS: Last BUN: 19 Last Creatinine: 0.9 Creatinine Clearance: 70 mL/min Last WBC: 13.1 Last Procalcitonin: 78.71 Tmax (past 24 hours): 99.0 Microbiology: NGTD I/O: 1000/401 Drug Levels: Last Trough level: 18 on 12/31/20 at 0030 Last dose given 12/27/20 at 1829 Vancomycin Dosing: Loading Dose: 2000 mg x1 Dosing Weight: Actual Target Trough: 10-20 A: Based on: TROUGH P: 1. Continue Vancomycin 1500 mg IV q18h 2. Follow up Trough level IF NEEDED 3. Pharmacy will continue to monitor, follow and adjust therapy as needed. ALEXANDRA LARKIN RPH, 12/31/20 0200 Signed: 12/31/20 at 0200 by ALEXANDRA LARKIN RPH PHA
[2020-12-31] MEDS ORDERED: LABETALOL 20 MG/4 ML DISP.SYRIN. IVP PRN (03:45)
[2020-12-31] MEDS: PIPERACILLIN/TAZOBACTAM 3.375 GM in IV NORMAL SALINE 50ML 50 ML IV SCH ×3 (06:00→17:39)
[2020-12-31] MEDS: METOPROLOL IV PUSH 5 MG/5 ML VIAL. IVP SCH (06:05)
[2020-12-31 06:28] LABS: BASO % 0 % (0-3); EOS % 0 % (0-3); HEMATOCRIT 30.6 % (36.0-47.0); HEMOGLOBIN 8.7 g/dL (12.0-15.5); LYMPH % 8 % (24-48); MEAN CORPUSCULAR HEMOGLOBIN 22 pg (25-35); MEAN CORPUSCULAR HGB CONC 29 g/dL (31-37); MEAN CORPUSCULAR VOLUME 76 fL (79-100); MONO # 0.7 x10^3/uL (0.0-1.1); MONO % 6 % (0-9); NEUT # 10.5 x10^3/uL (1.8-7.7); NEUT % 86 % (31-73); PLATELET COUNT 220 x10^3/uL (140-400); RED BLOOD COUNT 4.01 x10^6/uL (3.50-5.40); RED CELL DISTRIBUTION WIDTH 17.9 % (11.5-14.5); WHITE BLOOD COUNT 12.2 x10^3/uL (4.0-11.0)
[2020-12-31 06:40] LABS: CALCIUM 8.4 mg/dL (8.5-10.1); CREATININE 0.9 mg/dL (0.6-1.0); GFR 61.5; POTASSIUM 5.3 mmol/L (3.5-5.1)
[2020-12-31] MEDS: ENOXAPARIN 40 MG/0.4 ML SYRINGE. SQ SCH (08:30)
[2020-12-31] MEDS: LINAGLIPTIN 5 MG TABLET PO SCH (08:30)
[2020-12-31] MEDS: LACTOBACILLUS RHAMNOSUS GG 1 CAPSULE. PO SCH ×2 (08:30→20:35)
[2020-12-31] MEDS: METOPROLOL TART IMMED RELEASE 25 MG TABLET. PO SCH ×2 (08:32→20:37)
[2020-12-31] MEDS: INSULIN LISPRO 300 UNITS/3 ML VIAL. SQ SCH ×4 (08:43→20:47)
--- NOTE | 2020-12-31 09:18 | PDOC ---
PULMONARY PROGRESS NOTES DATE: 12/31/20 TIME: 09:18 Subjective Patient currently eating the dysphagia diet Continues to be weak and short of breath Vitals Vital Signs Date Time Temp Pulse Resp B/P (MAP) Pulse Ox O2 Delivery O2 Flow Rate FiO2 12/31/20 08:32 64 159/86 12/31/20 07:00 98.7 19 98 Nasal Cannula 2.0 98.7 ROS: No Nausea, No Chest Pain, No Abdominal Pain, No Increase Cough General: Alert Lungs: Clear, Crackles Cardiovascular: S1, S2 Abdomen: Soft Neuro Exam: Alert Extremities: No Edema Skin: Warm Labs Laboratory Tests Test 12/29/20 12:21 12/29/20 17:14 12/29/20 18:25 12/29/20 20:55 Glucose (Fingerstick) 238 mg/dL (70-99) 165 mg/dL (70-99) 205 mg/dL (70-99) Nasal Screen MRSA (PCR) Negative (NEGATIVE) Test 12/30/20 07:19 12/30/20 07:30 12/30/20 12:40 12/30/20 16:58 Glucose (Fingerstick) 234 mg/dL (70-99) 259 mg/dL (70-99) 265 mg/dL (70-99) White Blood Count 13.1 x10^3/uL (4.0-11.0) Red Blood Count 4.30 x10^6/uL (3.50-5.40) Hemoglobin 9.6 g/dL (12.0-15.5) Hematocrit 32.3 % (36.0-47.0) Mean Corpuscular Volume 75 fL (79-100) Mean Corpuscular Hemoglobin 22 pg (25-35) Mean Corpuscular Hemoglobin Concent 30 g/dL (31-37) Red Cell Distribution Width 17.7 % (11.5-14.5) Platelet Count 241 x10^3/uL (140-400) Neutrophils (%) (Auto) 86 % (31-73) Lymphocytes (%) (Auto) 9 % (24-48) Monocytes (%) (Auto) 4 % (0-9) Eosinophils (%) (Auto) 1 % (0-3) Basophils (%) (Auto) 0 % (0-3) Neutrophils # (Auto) 11.3 x10^3/uL (1.8-7.7) Lymphocytes # (Auto) 1.2 x10^3/uL (1.0-4.8) Monocytes # (Auto) 0.6 x10^3/uL (0.0-1.1) Eosinophils # (Auto) 0.1 x10^3/uL (0.0-0.7) Basophils # (Auto) 0.0 x10^3/uL (0.0-0.2) Sodium Level 144 mmol/L (136-145) Potassium Level 4.1 mmol/L (3.5-5.1) Chloride Level 107 mmol/L (98-107) Carbon Dioxide Level 27 mmol/L (21-32) Anion Gap 10 (6-14) Blood Urea Nitrogen 19 mg/dL (7-20) Creatinine 0.9 mg/dL (0.6-1.0) Estimated GFR (Cockcroft-Gault) 61.5 Glucose Level 267 mg/dL (70-99) Calcium Level 8.7 mg/dL (8.5-10.1) Test 12/30/20 19:49 12/30/20 23:42 12/31/20 06:00 12/31/20 07:50 Glucose (Fingerstick) 289 mg/dL (70-99) 284 mg/dL (70-99) Vancomycin Level Trough 18.0 mcg/mL (10.0-20.0) Vancomycin Last Dose Date Unk Vancomycin Last Dose Time Unk White Blood Count 12.2 x10^3/uL (4.0-11.0) Red Blood Count 4.01 x10^6/uL (3.50-5.40) Hemoglobin 8.7 g/dL (12.0-15.5) Hematocrit 30.6 % (36.0-47.0) Mean Corpuscular Volume 76 fL (79-100) Mean Corpuscular Hemoglobin 22 pg (25-35) Mean Corpuscular Hemoglobin Concent 29 g/dL (31-37) Red Cell Distribution Width 17.9 % (11.5-14.5) Platelet Count 220 x10^3/uL (140-400) Neutrophils (%) (Auto) 86 % (31-73) Lymphocytes (%) (Auto) 8 % (24-48) Monocytes (%) (Auto) 6 % (0-9) Eosinophils (%) (Auto) 0 % (0-3) Basophils (%) (Auto) 0 % (0-3) Neutrophils # (Auto) 10.5 x10^3/uL (1.8-7.7) Lymphocytes # (Auto) 1.0 x10^3/uL (1.0-4.8) Monocytes # (Auto) 0.7 x10^3/uL (0.0-1.1) Eosinophils # (Auto) 0.0 x10^3/uL (0.0-0.7) Basophils # (Auto) 0.0 x10^3/uL (0.0-0.2) Sodium Level 136 mmol/L (136-145) Potassium Level 5.3 mmol/L (3.5-5.1) Chloride Level 104 mmol/L (98-107) Carbon Dioxide Level 29 mmol/L (21-32) Anion Gap 3 (6-14) Blood Urea Nitrogen 19 mg/dL (7-20) Creatinine 0.9 mg/dL (0.6-1.0) Estimated GFR (Cockcroft-Gault) 61.5 Glucose Level 482 mg/dL (70-99) Calcium Level 8.4 mg/dL (8.5-10.1) Laboratory Tests Test 12/30/20 12:40 12/30/20 16:58 12/30/20 19:49 12/30/20 23:42 Glucose (Fingerstick) 259 mg/dL (70-99) 265 mg/dL (70-99) 289 mg/dL (70-99) Vancomycin Level Trough 18.0 mcg/mL (10.0-20.0) Vancomycin Last Dose Date Unk Vancomycin Last Dose Time Unk Test 12/31/20 06:00 12/31/20 07:50 White Blood Count 12.2 x10^3/uL (4.0-11.0) Red Blood Count 4.01 x10^6/uL (3.50-5.40) Hemoglobin 8.7 g/dL (12.0-15.5) Hematocrit 30.6 % (36.0-47.0) Mean Corpuscular Volume 76 fL (79-100) Mean Corpuscular Hemoglobin 22 pg (25-35) Mean Corpuscular Hemoglobin Concent 29 g/dL (31-37) Red Cell Distribution Width 17.9 % (11.5-14.5) Platelet Count 220 x10^3/uL (140-400) Neutrophils (%) (Auto) 86 % (31-73) Lymphocytes (%) (Auto) 8 % (24-48) Monocytes (%) (Auto) 6 % (0-9) Eosinophils (%) (Auto) 0 % (0-3) Basophils (%) (Auto) 0 % (0-3) Neutrophils # (Auto) 10.5 x10^3/uL (1.8-7.7) Lymphocytes # (Auto) 1.0 x10^3/uL (1.0-4.8) Monocytes # (Auto) 0.7 x10^3/uL (0.0-1.1) Eosinophils # (Auto) 0.0 x10^3/uL (0.0-0.7) Basophils # (Auto) 0.0 x10^3/uL (0.0-0.2) Sodium Level 136 mmol/L (136-145) Potassium Level 5.3 mmol/L (3.5-5.1) Chloride Level 104 mmol/L (98-107) Carbon Dioxide Level 29 mmol/L (21-32) Anion Gap 3 (6-14) Blood Urea Nitrogen 19 mg/dL (7-20) Creatinine 0.9 mg/dL (0.6-1.0) Estimated GFR (Cockcroft-Gault) 61.5 Glucose Level 482 mg/dL (70-99) Calcium Level 8.4 mg/dL (8.5-10.1) Glucose (Fingerstick) 284 mg/dL (70-99) Medications Active Scripts Medications Dose Route/Sig Max Daily Dose Days Date Category Zinc 50 Mg Tablet 1 Tab PO DAILY 30 12/27/20 Reported Wellbutrin Xl (Bupropion Hcl) 150 Mg Tab.er.24h 1 Tab PO DAILYWBKFT 12/27/20 Reported Robitussin Cough-Chest Dm Liq (Guaifenesin/Dextromethorphan) 237 Ml Liquid 237 Ml PO PRN Q6HRS PRN 12/27/20 Reported Potassium Chloride (Potassium Chloride) 10 Meq Tab.sr.24h 10 Meq PO DAILY 12/27/20 Reported Nystatin 1 Each Powder.ea. 1 Each MC BID 12/27/20 Reported Meloxicam 15 Mg Tablet 15 Mg PO DAILY 12/27/20 Reported Hydrocodone-Apap 5-325 (Hydrocodone Bit/Acetaminophen) 1 Tab Tablet 2 Tab PO PRN Q6HRS PRN 12/27/20 Reported Loratadine 10 Mg Tablet 10 Mg PO DAILY 12/27/20 Reported Furosemide 20 Mg Tablet 60 Mg PO DAILY 12/27/20 Reported Biofreeze (Menthol) 118 Ml Gel..ml. 1 Blayne TP PRN PRN 7 12/27/20 Reported Baclofen 10 Mg Tablet 10 Mg PO BID 12/27/20 Reported Artificial Tears Drops (Peg 400/Hypromellose/Glycerin) 15 Ml Drops 1 Drop OD BID 30 12/27/20 Reported Acetaminophen 500 Mg Tablet 500 Mg PO PRN Q4HRS PRN 12/27/20 Reported Abilify (Aripiprazole) 2 Mg Tablet 2 Mg PO DAILY 12/27/20 Reported Ventolin Hfa Inhaler (Albuterol Sulfate) 18 Gm Hfa.aer.ad 2 Puff INH Q4HRS 02/01/20 Reported Ropinirole Hcl 0.5 Mg Tablet 0.5 Mg PO TID 02/01/20 Reported Lyrica (Pregabalin) 50 Mg Capsule 50 Mg PO TID 02/01/20 Reported Ondansetron Hcl 4 Mg Tablet 1 Tab PO PRN Q8HRS PRN 02/01/20 Reported Novolog (Insulin Aspart) 100 Unit/1 Ml Vial 18 Unit SQ TIDAC 02/01/20 Reported Multiple Vitamin (Multivitamin With Minerals) 1 Each Tablet 1 Each PO BID 02/01/20 Reported Mucinex Fast-Max Dm Max Liquid (Guaifenesin/Dextromethorphan) 180 Ml Liquid 10 Ml PO PRN Q4HRS PRN 02/01/20 Reported Miralax (Polyethylene Glycol 3350) 17 Gm Powd.pack 1 Pkt PO PRN Q24HRS PRN 02/01/20 Reported Mag-Al Hydrox-Simeth Max Susp (Mag Hydrox/Aluminum Hyd/Simeth) 30 Ml Oral.susp 15 Ml PO PRN Q4HRS PRN 02/01/20 Reported Levothyroxine Sodium 125 Mcg Tablet 250 Mcg PO DAILYAC 02/01/20 Reported Levemir Flextouch (Insulin Detemir) 100 Unit/1 Ml Insuln.pen 35 Unit SQ BID 02/01/20 Reported Januvia (Sitagliptin Phosphate) 100 Mg Tablet 1 Tab PO DAILY 02/01/20 Reported Hydrocortisone Plus 1% Cream (Hydrocortisone/Aloe Vera) 28.4 Gm Cream..g. 28.4 Gm TP PRN Q8HRS PRN 02/01/20 Reported Famotidine 20 Mg Tablet 20 Mg PO HS 02/01/20 Reported Entacapone 200 Mg Tablet 200 Mg PO DAILY 02/01/20 Reported Eliquis (Apixaban) 2.5 Mg Tablet 2.5 Mg PO BID 02/01/20 Reported Cymbalta (Duloxetine Hcl) 30 Mg Capsule.dr 60 Mg PO BID 02/01/20 Reported Biofreeze (Menthol) 118 Ml Gel..ml. 1 Blayne TP PRN Q6HRS PRN 7 02/01/20 Reported Atorvastatin Calcium 10 Mg Tablet 10 Mg PO HS 02/01/20 Reported Polyvinyl Alcohol 15 Ml Drops 1 Drop EACHEYE PRN Q4HRS PRN 30 02/01/20 Reported Alprazolam 0.5 Mg Tablet 1 Tab PO HS 02/01/20 Reported Impression . IMPRESSION: 1. Spwqr-nk-xejaeim hypoxemic respiratory failure, multifactorial. 2. Right lower lobe pneumonia, suspect gram-negative, possibly gram-positive. 3. Sepsis secondary to above. 4. Atrial fibrillation. 5. Dtpri-fm-wubnajv encephalopathy related to sepsis. 6. Severe protein malnutrition. 7. Dysphagia. 8. Parkinsonism. Plan . Updated 12/31 Continue antibiotics Dysphagia diet Nasal PCR MRSA negative discontinue Vanco Continue n.p.o. Continue antibiotics Long-term prognosis poor MRSA nasal PCR pending Updated 12/29 Nasal mrsa n.p.o. Continue current antibiotics Speech eval DVT prophylaxis MARINO WISEMAN MD Dec 31, 2020 09:18
[2020-12-31] MEDS: LEVOTHYROXINE 125 MCG TABLET PO SCH (10:26)
--- NOTE | 2020-12-31 10:39 | PDOC ---
TERESA OSEGUERA NEON TECHNICIAN 12/31/20 1039: CARDIO Progress Notes Date and Time Date of Service 12/31/2020 Time of Evaluation 1020 Subjective Subjective: No Chest Pain, No shortness of breath, No Palpitations Vitals Vitals Vital Signs Date Time Temp Pulse Resp B/P (MAP) Pulse Ox O2 Delivery O2 Flow Rate FiO2 12/31/20 08:32 64 159/86 12/31/20 07:00 98.7 19 98 Nasal Cannula 2.0 98.7 Weight Weight [ ] Input and Output Intake and Output Intake and Output 12/31/20 07:00 Intake Total 614 ml Output Total 800 ml Balance -186 ml Intake Oral 614 ml Output Urine Total 800 ml # Voids 2 # Bowel Movements 1 Laboratory Labs Laboratory Tests Test 12/30/20 12:40 12/30/20 16:58 12/30/20 19:49 12/30/20 23:42 Glucose (Fingerstick) 259 mg/dL (70-99) 265 mg/dL (70-99) 289 mg/dL (70-99) Vancomycin Level Trough 18.0 mcg/mL (10.0-20.0) Vancomycin Last Dose Date Unk Vancomycin Last Dose Time Unk Test 12/31/20 06:00 12/31/20 07:50 White Blood Count 12.2 x10^3/uL (4.0-11.0) Red Blood Count 4.01 x10^6/uL (3.50-5.40) Hemoglobin 8.7 g/dL (12.0-15.5) Hematocrit 30.6 % (36.0-47.0) Mean Corpuscular Volume 76 fL (79-100) Mean Corpuscular Hemoglobin 22 pg (25-35) Mean Corpuscular Hemoglobin Concent 29 g/dL (31-37) Red Cell Distribution Width 17.9 % (11.5-14.5) Platelet Count 220 x10^3/uL (140-400) Neutrophils (%) (Auto) 86 % (31-73) Lymphocytes (%) (Auto) 8 % (24-48) Monocytes (%) (Auto) 6 % (0-9) Eosinophils (%) (Auto) 0 % (0-3) Basophils (%) (Auto) 0 % (0-3) Neutrophils # (Auto) 10.5 x10^3/uL (1.8-7.7) Lymphocytes # (Auto) 1.0 x10^3/uL (1.0-4.8) Monocytes # (Auto) 0.7 x10^3/uL (0.0-1.1) Eosinophils # (Auto) 0.0 x10^3/uL (0.0-0.7) Basophils # (Auto) 0.0 x10^3/uL (0.0-0.2) Sodium Level 136 mmol/L (136-145) Potassium Level 5.3 mmol/L (3.5-5.1) Chloride Level 104 mmol/L (98-107) Carbon Dioxide Level 29 mmol/L (21-32) Anion Gap 3 (6-14) Blood Urea Nitrogen 19 mg/dL (7-20) Creatinine 0.9 mg/dL (0.6-1.0) Estimated GFR (Cockcroft-Gault) 61.5 Glucose Level 482 mg/dL (70-99) Calcium Level 8.4 mg/dL (8.5-10.1) Glucose (Fingerstick) 284 mg/dL (70-99) Microbiology Micro Microbiology 12/27/20 Blood Culture - Preliminary, Resulted NO GROWTH AFTER 3 DAYS Physical Exam HEENT: Neck Supple W Full Motion Chest: Symmetric LUNGS: Other (diminished baes) Heart: RRR (SR) Abdomen: Soft N/T Extremities: No Calf Tenderness Neurology: alert, oriented, follow commands Assessment Assessment 1. Acute on chronic respiratory failure secondary to PNA, possible aspiration 2. PAFIB; s/p remote ablation. Previous followed with [facility] cardiology team through [facility]. on Low-dose Eliquis at home. Maintaining SR 3. Leukocytosis, lactic acidosis, fevers, sepsis 4. Hypertension; labile episodes 5. Hyperlipidemia; statin 6. Diabetes, II 7. Hypothyroidism: TSH on goal 8. Parkinson's 9. S/p NOTE TELLER shunt Recommendations Continue po metoprolol for rate control. DC lovenox. Restart low dose eliquis for stroke prevention. Monitor Hgb trend. Outpatient echo to assess LV systolic function Ongoing lung optimization, treatment of PNA supportive care Add norvasc Justicifation of Admission Dx: Justifications for Admission: Justification of Admission Dx: Yes PHOENIX WALLS MD 12/31/20 1436: CARDIO Progress Notes Plan Plan Pt. seen and examined. AGree with above HOT WORT SETTLER note. Supportive care. TERESA OSEGUERA APRN Dec 31, 2020 10:39 PHOENIX WALLS MD Dec 31, 2020 14:36
--- NOTE | 2020-12-31 11:20 | RAD ---
Procedure: Upper extremity PICC line placement Clinical Indication: Adult female requiring central venous access Sedation: Local anesthesia only was provided Antibiotics: None Exposure: Kerma-Area Product: 5 mGycm2 Contrast: The procedure was explained in its entirety to the patient or the patients designated repre sentative by a member of the treatment team, including a discussion of the risks, benefits and common ly accepted alternatives to the procedure, as well as the expected consequences of not performing the procedure. Discussion of the risks included, but was not limited to, those that are most frequent a nd those that are rare but possibly severe or life-threatening, as well as the possibility of unfores een complications. Sterility: All elements of maximal sterile barrier technique including the use of a cap, mask, steril e gown, sterile gloves, large sterile sheet, appropriate hand hygiene, and 2% chlorhexidine for cutan eous antisepsis (or acceptable alternative antiseptic per current guidelines) were followed for this procedure. Consent: The procedure was explained in its entirety to the patient or the patients designated repres entative by a member of the treatment team, including a discussion of the risks, benefits and commonl y accepted alternatives to the procedure, as well as the expected consequences of no therapy whatsoev er. Discussion of the risks included, but was not limited to, those that are most frequent and thos e that are rare but possibly severe or life-threatening, as well as the possibility of unforeseen com plications. Technique and Findings: Following informed consent, the patient was prepped and draped in the usual s terile fashion. Ultrasound interrogation of the right arm revealed patency and compressibility of th e right basilic vein. A hard copy ultrasound image was recorded. 1% Lidocaine was used to achieve l ocal anesthesia and a 21-gauge micropuncture needle was used to gain access to the targeted vein. Th e needle was exchanged over wire for a 5 [place] peel-away sheath which was used to deploy a PICC line under fluoroscopic guidance such that the distal tip resided at the cavoatrial junction. The cathet er flushed and aspirated with ease and was sutured to the skin. Complications: No immediate Impression: 1. Ultrasound guided PICC line placement as described. Electronically signed by: Tl Fregoso MD (12/31/2020 11:18 AM) [id number]
--- NOTE | 2020-12-31 11:57 | PDOC ---
[employer] PROGRESS NOTE Date of Service DOS: DATE: 12/31/20 TIME: 11:49 Chief Complaint Chief Complaint Assessment/Plan RLL pneumonia - likely gram negative given her comorbidities, underlying COPD. Zosyn and vancomycin Sepsis - due to pneumonia, fluids and antibiotics empirically Afib - not previously noted, metoprolol for rate control. Given frequent fall history may be relatively high risk for anticoagulation. will continue eliquis Acute encephalopathy - likely sepsis related, will hold sedating meds. monitor neuro status Acute on chronic hypoxic respiratory failure - likely related to pneumonia, will wean O2 as tolerated. Consult pulmonology Severe protein calorie malnutrition - with possible aspiration will given IV nutrition, consult still operator whiskey and PIPE BENDER Anxiety with depression - will cont home meds when taking PO COPD on 2L NCO2 - will give nebs. consult pulm DM2 - sliding scale, cut basal insulin in half for tonight given lack of PO intake Hypothyroidism - will check TSH, cont levothyroxine Parkinson's - on entacapone, will verify meds RLS - on requip Morbid obesity s/p CITIZENSHIP INSTRUCTOR shunt GERD FEN - NPO pending PIPE BENDER eval PPX - eliquis FULL CODE Dispo - inpatient Brother is surrogate decision maker History of Present Illness History of Present Illness 70-year-old female with PMHx Anxiety with depression, COPD on 2L NCO2, DM2, hypothyroidism, Parkinson's, RLS, Morbid obesity, s/p CITIZENSHIP INSTRUCTOR shunt, and GERD who c omes to the ED brought in by EMS from [facility] due to fever and altered mental status. History obtained from EMS and SNF. Patient is moaning, opens eyes to voice and stimuli. Requiring 5 L nasal cannula. Previously hospitalized for COVID 19 01/31/2020 and now s/p covid vaccine 02/14/20 Labs with WBC 33, Hb 10.7, platelets 254, INR 1.2, NA 143, K3.9, BUN 15, CR 1.2, glucose 181, albumin 2.5, NT proBNP 737, high-sensitivity troponin 7, lactate 3.1, UDS positive for benzos, UA bland. CT head with no acute findings referral ventricular catheter in place, shunt series with no occlusion CITIZENSHIP INSTRUCTOR shunt. CT abdomen reveals right lower lobe consolidation consistent with pneumonia. EKG with afib aroudn 109bpm, No ST segment elevations or TWI Admitted for further care 12/28/2020 Patient seen and examined bedside. Pleasantly confused. Patient unable to tell me where she is coming from her where she lives. Patient is from [facility]. We will continue with Zosyn and vancomycin for empiric coverage for her pneumonia. Currently on Clinimix and pending speech evaluation. Patient's chart, labs, images were reviewed and discussed with RN. 12/29/2020 No acute events overnight. Patient seen and examined bedside. Patient did not pass swallow test with speech evaluation. Likely will need video swallow. We will continue with IV Clinimix. Patient is still unable to transition from n.p.o. to p.o., will likely discuss with DPOA PEG placement. Patient's chart, labs, images were reviewed and discussed with RN 12/30/2020 No acute events overnight. Patient seen and examined bedside. It appears that her status has improved. She does remember location and her birthday. Patient failed swallow study bedside again and will go down for video swallow today. Discussed in depth with Lalito patient's brother about patient's goals of care especially that she may need a PEG tube. At this point, the brother does not make decisions for because he says that patient is able to have capacity to make decisions on her own. I will attempt to have this discussion about her goals of care tomorrow morning. Patient's chart, labs, images were reviewed and discussed with RN In addition to my E/M visit, advance care planning done with A total time of 20 minutes was spent from 800 to 820 face to face in discussion regarding the patient's goals of care, CODE STATUS. 12/31/2020 No acute events overnight. Patient partially passed her video swallow study test and was placed on a dysphagia diet. Patient is tolerating roughly 50% of her breakfast this morning. Will attempt to see how she does with lunch before discontinuing TPN In addition to my E/M visit, advance care planning done with A total time of 20 minutes was spent from 930 to 950 face to face in discussion regarding the patient's goals of care, CODE STATUS. As of now patient wishes to be full code and she wants to discuss with her brother more before deciding how aggressive she wants her care to be if she had ever needed any procedures. Vitals/I&O Vitals/I&O: Vital Signs Date Time Temp Pulse Resp B/P (MAP) Pulse Ox O2 Delivery O2 Flow Rate FiO2 12/31/20 10:44 98.5 75 19 141/84 (103) 98 Nasal Cannula 2.0 98.5 I & O 12/30/20 12/30/20 12/31/20 15:00 23:00 07:00 Intake Total 0 ml 118 ml 496 ml Output Total 200 ml 600 ml Balance 0 ml -82 ml -104 ml Physical Exam General: Alert, Cooperative, No acute distress Heart: Other (IRRR; tele AFIB ) Lungs: Clear, Crackles Abdomen: Soft Extremities: No edema, Other Skin: No significant lesion Labs Labs: Laboratory Tests Test 12/30/20 12:40 12/30/20 16:58 12/30/20 19:49 12/30/20 23:42 Glucose (Fingerstick) 259 mg/dL (70-99) 265 mg/dL (70-99) 289 mg/dL (70-99) Vancomycin Level Trough 18.0 mcg/mL (10.0-20.0) Vancomycin Last Dose Date Unk Vancomycin Last Dose Time Unk Test 12/31/20 06:00 12/31/20 07:50 White Blood Count 12.2 x10^3/uL (4.0-11.0) Red Blood Count 4.01 x10^6/uL (3.50-5.40) Hemoglobin 8.7 g/dL (12.0-15.5) Hematocrit 30.6 % (36.0-47.0) Mean Corpuscular Volume 76 fL (79-100) Mean Corpuscular Hemoglobin 22 pg (25-35) Mean Corpuscular Hemoglobin Concent 29 g/dL (31-37) Red Cell Distribution Width 17.9 % (11.5-14.5) Platelet Count 220 x10^3/uL (140-400) Neutrophils (%) (Auto) 86 % (31-73) Lymphocytes (%) (Auto) 8 % (24-48) Monocytes (%) (Auto) 6 % (0-9) Eosinophils (%) (Auto) 0 % (0-3) Basophils (%) (Auto) 0 % (0-3) Neutrophils # (Auto) 10.5 x10^3/uL (1.8-7.7) Lymphocytes # (Auto) 1.0 x10^3/uL (1.0-4.8) Monocytes # (Auto) 0.7 x10^3/uL (0.0-1.1) Eosinophils # (Auto) 0.0 x10^3/uL (0.0-0.7) Basophils # (Auto) 0.0 x10^3/uL (0.0-0.2) Sodium Level 136 mmol/L (136-145) Potassium Level 5.3 mmol/L (3.5-5.1) Chloride Level 104 mmol/L (98-107) Carbon Dioxide Level 29 mmol/L (21-32) Anion Gap 3 (6-14) Blood Urea Nitrogen 19 mg/dL (7-20) Creatinine 0.9 mg/dL (0.6-1.0) Estimated GFR (Cockcroft-Gault) 61.5 Glucose Level 482 mg/dL (70-99) Calcium Level 8.4 mg/dL (8.5-10.1) Glucose (Fingerstick) 284 mg/dL (70-99) Assessment and Plan Assessmemt and Plan Problems Medical Problems: (1) Altered mental status Status: Acute (2) Hypoxia Status: Acute (3) Pneumonia Status: Acute (4) Sepsis Status: Acute Comment Review of Relevant I have reviewed the following items black (where applicable) has been applied. Medications: Current Medications Medications (Trade) Dose Ordered Sig/Laureen Route PRN Reason Start Time Stop Time Status Last Admin Dose Admin Vancomycin HCl (Vancomycin Trough Level) 1 each 1X ONCE MC 12/31/20 00:30 12/31/20 00:31 DC 12/30/20 23:44 Lactobacillus Rhamnosus (Culturelle) 1 cap BID PO 12/30/20 21:00 12/31/20 08:30 Lidocaine HCl (Buffered Lidocaine 1%) 6 ml 1X ONCE INJ 12/30/20 15:00 12/30/20 15:01 DC 12/30/20 15:07 Insulin Human Lispro (HumaLOG) 0-9 UNITS TIDWMEALHC SQ 12/30/20 21:00 12/31/20 08:43 Amlodipine Besylate (Norvasc) 5 mg 1X ONCE PO 12/31/20 04:00 12/31/20 04:01 DC 12/31/20 03:56 Labetalol HCl (Normodyne Iv Push) 10 mg PRN Q2HR PRN IVP HYPERTENSION, 2ND CHOICE 12/31/20 03:45 12/31/20 03:56 Justifications for Admission Other Justification Trimalleolar fracture MELODY SHIRLEY MD Dec 31, 2020 11:57
[2020-12-31] MEDS: APIXABAN 2.5 MG TABLET. PO SCH ×2 (12:17→20:35)
[2020-12-31] MEDS: AA 4.25 %/CALCIUM/LYTES/D5W 1,000 ML IV SCH (12:20)
[2020-12-31] MEDS: ATORVASTATIN CALCIUM 10 MG TABLET. PO SCH (20:35)
[2020-12-31] MEDS: PSYLLIUM HUSK (SUGAR FREE) 1 PKT PACKET PO SCH (20:36)
[2021-01-01] MEDS: PIPERACILLIN/TAZOBACTAM 3.375 GM in IV NORMAL SALINE 50ML 50 ML IV SCH ×4 (00:02→17:19)
[2021-01-01] MEDS: AA 4.25 %/CALCIUM/LYTES/D5W 1,000 ML IV SCH (02:07)
[2021-01-01 03:00] VITALS: BP 147/72
[2021-01-01 06:31] LABS: BASO % 0 % (0-3); EOS # 0.1 x10^3/uL (0.0-0.7); EOS % 1 % (0-3); HEMATOCRIT 31.4 % (36.0-47.0); HEMOGLOBIN 9.3 g/dL (12.0-15.5); LYMPH # 0.9 x10^3/uL (1.0-4.8); LYMPH % 7 % (24-48); MEAN CORPUSCULAR HEMOGLOBIN 22 pg (25-35); MEAN CORPUSCULAR HGB CONC 30 g/dL (31-37); MEAN CORPUSCULAR VOLUME 73 fL (79-100); MONO # 0.7 x10^3/uL (0.0-1.1); MONO % 6 % (0-9); NEUT # 11.1 x10^3/uL (1.8-7.7); NEUT % 86 % (31-73); PLATELET COUNT 223 x10^3/uL (140-400); RED BLOOD COUNT 4.29 x10^6/uL (3.50-5.40); RED CELL DISTRIBUTION WIDTH 17.4 % (11.5-14.5); WHITE BLOOD COUNT 12.9 x10^3/uL (4.0-11.0)
[2021-01-01 06:51] LABS: CALCIUM 8.3 mg/dL (8.5-10.1); CREATININE 0.8 mg/dL (0.6-1.0); GFR 70.5; POTASSIUM 3.7 mmol/L (3.5-5.1)
[2021-01-01 07:00] VITALS: BP 153/78
[2021-01-01] MEDS: LEVOTHYROXINE 125 MCG TABLET PO SCH (08:08)
[2021-01-01] MEDS: INSULIN LISPRO 300 UNITS/3 ML VIAL. SQ SCH ×4 (08:09→21:26)
--- NOTE | 2021-01-01 08:28 | PDOC ---
PULMONARY PROGRESS NOTES DATE: 01/01/21 TIME: 08:28 Subjective Patient currently eating the dysphagia diet Continues to be weak and short of breath Vitals Vital Signs Date Time Temp Pulse Resp B/P (MAP) Pulse Ox O2 Delivery O2 Flow Rate FiO2 01/01/21 03:00 97.5 74 20 147/72 (97) 98 Nasal Cannula 2.0 97.5 ROS: No Nausea, No Chest Pain, No Abdominal Pain, No Increase Cough General: Alert Lungs: Clear, Crackles Cardiovascular: S1, S2 Abdomen: Soft Neuro Exam: Alert Extremities: No Edema Skin: Warm Labs Laboratory Tests Test 12/30/20 12:40 12/30/20 16:58 12/30/20 19:49 12/30/20 23:42 Glucose (Fingerstick) 259 mg/dL (70-99) 265 mg/dL (70-99) 289 mg/dL (70-99) Vancomycin Level Trough 18.0 mcg/mL (10.0-20.0) Vancomycin Last Dose Date Unk Vancomycin Last Dose Time Unk Test 12/31/20 06:00 12/31/20 07:50 12/31/20 12:03 12/31/20 16:53 White Blood Count 12.2 x10^3/uL (4.0-11.0) Red Blood Count 4.01 x10^6/uL (3.50-5.40) Hemoglobin 8.7 g/dL (12.0-15.5) Hematocrit 30.6 % (36.0-47.0) Mean Corpuscular Volume 76 fL (79-100) Mean Corpuscular Hemoglobin 22 pg (25-35) Mean Corpuscular Hemoglobin Concent 29 g/dL (31-37) Red Cell Distribution Width 17.9 % (11.5-14.5) Platelet Count 220 x10^3/uL (140-400) Neutrophils (%) (Auto) 86 % (31-73) Lymphocytes (%) (Auto) 8 % (24-48) Monocytes (%) (Auto) 6 % (0-9) Eosinophils (%) (Auto) 0 % (0-3) Basophils (%) (Auto) 0 % (0-3) Neutrophils # (Auto) 10.5 x10^3/uL (1.8-7.7) Lymphocytes # (Auto) 1.0 x10^3/uL (1.0-4.8) Monocytes # (Auto) 0.7 x10^3/uL (0.0-1.1) Eosinophils # (Auto) 0.0 x10^3/uL (0.0-0.7) Basophils # (Auto) 0.0 x10^3/uL (0.0-0.2) Sodium Level 136 mmol/L (136-145) Potassium Level 5.3 mmol/L (3.5-5.1) Chloride Level 104 mmol/L (98-107) Carbon Dioxide Level 29 mmol/L (21-32) Anion Gap 3 (6-14) Blood Urea Nitrogen 19 mg/dL (7-20) Creatinine 0.9 mg/dL (0.6-1.0) Estimated GFR (Cockcroft-Gault) 61.5 Glucose Level 482 mg/dL (70-99) Calcium Level 8.4 mg/dL (8.5-10.1) Glucose (Fingerstick) 284 mg/dL (70-99) 249 mg/dL (70-99) 272 mg/dL (70-99) Test 12/31/20 20:09 01/01/21 06:15 01/01/21 07:28 Glucose (Fingerstick) 246 mg/dL (70-99) 264 mg/dL (70-99) White Blood Count 12.9 x10^3/uL (4.0-11.0) Red Blood Count 4.29 x10^6/uL (3.50-5.40) Hemoglobin 9.3 g/dL (12.0-15.5) Hematocrit 31.4 % (36.0-47.0) Mean Corpuscular Volume 73 fL (79-100) Mean Corpuscular Hemoglobin 22 pg (25-35) Mean Corpuscular Hemoglobin Concent 30 g/dL (31-37) Red Cell Distribution Width 17.4 % (11.5-14.5) Platelet Count 223 x10^3/uL (140-400) Neutrophils (%) (Auto) 86 % (31-73) Lymphocytes (%) (Auto) 7 % (24-48) Monocytes (%) (Auto) 6 % (0-9) Eosinophils (%) (Auto) 1 % (0-3) Basophils (%) (Auto) 0 % (0-3) Neutrophils # (Auto) 11.1 x10^3/uL (1.8-7.7) Lymphocytes # (Auto) 0.9 x10^3/uL (1.0-4.8) Monocytes # (Auto) 0.7 x10^3/uL (0.0-1.1) Eosinophils # (Auto) 0.1 x10^3/uL (0.0-0.7) Basophils # (Auto) 0.0 x10^3/uL (0.0-0.2) Sodium Level 142 mmol/L (136-145) Potassium Level 3.7 mmol/L (3.5-5.1) Chloride Level 106 mmol/L (98-107) Carbon Dioxide Level 29 mmol/L (21-32) Anion Gap 7 (6-14) Blood Urea Nitrogen 19 mg/dL (7-20) Creatinine 0.8 mg/dL (0.6-1.0) Estimated GFR (Cockcroft-Gault) 70.5 Glucose Level 284 mg/dL (70-99) Calcium Level 8.3 mg/dL (8.5-10.1) Laboratory Tests Test 12/31/20 12:03 12/31/20 16:53 12/31/20 20:09 01/01/21 06:15 Glucose (Fingerstick) 249 mg/dL (70-99) 272 mg/dL (70-99) 246 mg/dL (70-99) White Blood Count 12.9 x10^3/uL (4.0-11.0) Red Blood Count 4.29 x10^6/uL (3.50-5.40) Hemoglobin 9.3 g/dL (12.0-15.5) Hematocrit 31.4 % (36.0-47.0) Mean Corpuscular Volume 73 fL (79-100) Mean Corpuscular Hemoglobin 22 pg (25-35) Mean Corpuscular Hemoglobin Concent 30 g/dL (31-37) Red Cell Distribution Width 17.4 % (11.5-14.5) Platelet Count 223 x10^3/uL (140-400) Neutrophils (%) (Auto) 86 % (31-73) Lymphocytes (%) (Auto) 7 % (24-48) Monocytes (%) (Auto) 6 % (0-9) Eosinophils (%) (Auto) 1 % (0-3) Basophils (%) (Auto) 0 % (0-3) Neutrophils # (Auto) 11.1 x10^3/uL (1.8-7.7) Lymphocytes # (Auto) 0.9 x10^3/uL (1.0-4.8) Monocytes # (Auto) 0.7 x10^3/uL (0.0-1.1) Eosinophils # (Auto) 0.1 x10^3/uL (0.0-0.7) Basophils # (Auto) 0.0 x10^3/uL (0.0-0.2) Sodium Level 142 mmol/L (136-145) Potassium Level 3.7 mmol/L (3.5-5.1) Chloride Level 106 mmol/L (98-107) Carbon Dioxide Level 29 mmol/L (21-32) Anion Gap 7 (6-14) Blood Urea Nitrogen 19 mg/dL (7-20) Creatinine 0.8 mg/dL (0.6-1.0) Estimated GFR (Cockcroft-Gault) 70.5 Glucose Level 284 mg/dL (70-99) Calcium Level 8.3 mg/dL (8.5-10.1) Test 01/01/21 07:28 Glucose (Fingerstick) 264 mg/dL (70-99) Medications Active Scripts Medications Dose Route/Sig Max Daily Dose Days Date Category Zinc 50 Mg Tablet 1 Tab PO DAILY 30 12/27/20 Reported Wellbutrin Xl (Bupropion Hcl) 150 Mg Tab.er.24h 1 Tab PO DAILYWBKFT 12/27/20 Reported Robitussin Cough-Chest Dm Liq (Guaifenesin/Dextromethorphan) 237 Ml Liquid 237 Ml PO PRN Q6HRS PRN 12/27/20 Reported Potassium Chloride (Potassium Chloride) 10 Meq Tab.sr.24h 10 Meq PO DAILY 12/27/20 Reported Nystatin 1 Each Powder.ea. 1 Each MC BID 12/27/20 Reported Meloxicam 15 Mg Tablet 15 Mg PO DAILY 12/27/20 Reported Hydrocodone-Apap 5-325 (Hydrocodone Bit/Acetaminophen) 1 Tab Tablet 2 Tab PO PRN Q6HRS PRN 12/27/20 Reported Loratadine 10 Mg Tablet 10 Mg PO DAILY 12/27/20 Reported Furosemide 20 Mg Tablet 60 Mg PO DAILY 12/27/20 Reported Biofreeze (Menthol) 118 Ml Gel..ml. 1 Blayne TP PRN PRN 7 12/27/20 Reported Baclofen 10 Mg Tablet 10 Mg PO BID 12/27/20 Reported Artificial Tears Drops (Peg 400/Hypromellose/Glycerin) 15 Ml Drops 1 Drop OD BID 30 12/27/20 Reported Acetaminophen 500 Mg Tablet 500 Mg PO PRN Q4HRS PRN 12/27/20 Reported Abilify (Aripiprazole) 2 Mg Tablet 2 Mg PO DAILY 12/27/20 Reported Ventolin Hfa Inhaler (Albuterol Sulfate) 18 Gm Hfa.aer.ad 2 Puff INH Q4HRS 02/01/20 Reported Ropinirole Hcl 0.5 Mg Tablet 0.5 Mg PO TID 02/01/20 Reported Lyrica (Pregabalin) 50 Mg Capsule 50 Mg PO TID 02/01/20 Reported Ondansetron Hcl 4 Mg Tablet 1 Tab PO PRN Q8HRS PRN 02/01/20 Reported Novolog (Insulin Aspart) 100 Unit/1 Ml Vial 18 Unit SQ TIDAC 02/01/20 Reported Multiple Vitamin (Multivitamin With Minerals) 1 Each Tablet 1 Each PO BID 02/01/20 Reported Mucinex Fast-Max Dm Max Liquid (Guaifenesin/Dextromethorphan) 180 Ml Liquid 10 Ml PO PRN Q4HRS PRN 02/01/20 Reported Miralax (Polyethylene Glycol 3350) 17 Gm Powd.pack 1 Pkt PO PRN Q24HRS PRN 02/01/20 Reported Mag-Al Hydrox-Simeth Max Susp (Mag Hydrox/Aluminum Hyd/Simeth) 30 Ml Oral.susp 15 Ml PO PRN Q4HRS PRN 02/01/20 Reported Levothyroxine Sodium 125 Mcg Tablet 250 Mcg PO DAILYAC 02/01/20 Reported Levemir Flextouch (Insulin Detemir) 100 Unit/1 Ml Insuln.pen 35 Unit SQ BID 02/01/20 Reported Januvia (Sitagliptin Phosphate) 100 Mg Tablet 1 Tab PO DAILY 02/01/20 Reported Hydrocortisone Plus 1% Cream (Hydrocortisone/Aloe Vera) 28.4 Gm Cream..g. 28.4 Gm TP PRN Q8HRS PRN 02/01/20 Reported Famotidine 20 Mg Tablet 20 Mg PO HS 02/01/20 Reported Entacapone 200 Mg Tablet 200 Mg PO DAILY 02/01/20 Reported Eliquis (Apixaban) 2.5 Mg Tablet 2.5 Mg PO BID 02/01/20 Reported Cymbalta (Duloxetine Hcl) 30 Mg Capsule.dr 60 Mg PO BID 02/01/20 Reported Biofreeze (Menthol) 118 Ml Gel..ml. 1 Blayne TP PRN Q6HRS PRN 7 02/01/20 Reported Atorvastatin Calcium 10 Mg Tablet 10 Mg PO HS 02/01/20 Reported Polyvinyl Alcohol 15 Ml Drops 1 Drop EACHEYE PRN Q4HRS PRN 30 02/01/20 Reported Alprazolam 0.5 Mg Tablet 1 Tab PO HS 02/01/20 Reported Impression . IMPRESSION: 1. Bwgyo-[id number] hypoxemic respiratory failure, multifactorial. 2. Right lower lobe pneumonia, suspect gram-negative, possibly gram-positive. 3. Sepsis secondary to above. 4. Atrial fibrillation. 5. Vybme-gc-coquigj encephalopathy related to sepsis. 6. Severe protein malnutrition. 7. Dysphagia. 8. Parkinsonism. Plan . Updated 01/[address] Walls Discussed wit case management Possible discharge today h updated 12/31 Continue antibiotics Dysphagia diet Nasal PCR MRSA negative discontinue MARINO Rdz MD Jan 01, 2021 08:28
[2021-01-01] MEDS: APIXABAN 2.5 MG TABLET. PO SCH ×2 (08:36→21:25)
[2021-01-01] MEDS: LINAGLIPTIN 5 MG TABLET PO SCH (08:36)
[2021-01-01] MEDS: LACTOBACILLUS RHAMNOSUS GG 1 CAPSULE. PO SCH ×2 (08:36→21:24)
[2021-01-01] MEDS: METOPROLOL TART IMMED RELEASE 25 MG TABLET. PO SCH ×2 (08:37→21:25)
--- NOTE | 2021-01-01 09:51 | PDOC ---
TERESA OSEGUERA WIRE COINER 01/01/21 0951: CARDIO Progress Notes Date and Time Date of Service 01/01/2021 Time of Evaluation 0930 Subjective Subjective: No Chest Pain, No shortness of breath, No Palpitations Vitals Vitals Vital Signs Date Time Temp Pulse Resp B/P (MAP) Pulse Ox O2 Delivery O2 Flow Rate FiO2 01/01/21 08:42 76 153/78 01/01/21 08:00 Nasal Cannula 2.0 01/01/21 07:00 97.6 20 99 97.6 Weight Weight [ ] Input and Output Intake and Output Intake and Output 01/01/21 07:00 Intake Total 168 ml Output Total 300 ml Balance -132 ml Intake Oral 168 ml Output Urine Total 300 ml # Voids 1 Laboratory Labs Laboratory Tests Test 12/31/20 12:03 12/31/20 16:53 12/31/20 20:09 01/01/21 06:15 Glucose (Fingerstick) 249 mg/dL (70-99) 272 mg/dL (70-99) 246 mg/dL (70-99) White Blood Count 12.9 x10^3/uL (4.0-11.0) Red Blood Count 4.29 x10^6/uL (3.50-5.40) Hemoglobin 9.3 g/dL (12.0-15.5) Hematocrit 31.4 % (36.0-47.0) Mean Corpuscular Volume 73 fL (79-100) Mean Corpuscular Hemoglobin 22 pg (25-35) Mean Corpuscular Hemoglobin Concent 30 g/dL (31-37) Red Cell Distribution Width 17.4 % (11.5-14.5) Platelet Count 223 x10^3/uL (140-400) Neutrophils (%) (Auto) 86 % (31-73) Lymphocytes (%) (Auto) 7 % (24-48) Monocytes (%) (Auto) 6 % (0-9) Eosinophils (%) (Auto) 1 % (0-3) Basophils (%) (Auto) 0 % (0-3) Neutrophils # (Auto) 11.1 x10^3/uL (1.8-7.7) Lymphocytes # (Auto) 0.9 x10^3/uL (1.0-4.8) Monocytes # (Auto) 0.7 x10^3/uL (0.0-1.1) Eosinophils # (Auto) 0.1 x10^3/uL (0.0-0.7) Basophils # (Auto) 0.0 x10^3/uL (0.0-0.2) Sodium Level 142 mmol/L (136-145) Potassium Level 3.7 mmol/L (3.5-5.1) Chloride Level 106 mmol/L (98-107) Carbon Dioxide Level 29 mmol/L (21-32) Anion Gap 7 (6-14) Blood Urea Nitrogen 19 mg/dL (7-20) Creatinine 0.8 mg/dL (0.6-1.0) Estimated GFR (Cockcroft-Gault) 70.5 Glucose Level 284 mg/dL (70-99) Calcium Level 8.3 mg/dL (8.5-10.1) Test 01/01/21 07:28 Glucose (Fingerstick) 264 mg/dL (70-99) Microbiology Micro Microbiology 12/27/20 Blood Culture - Preliminary, Resulted NO GROWTH AFTER 4 DAYS Physical Exam HEENT: Neck Supple W Full Motion Chest: Symmetric LUNGS: Other (diminished baes) Heart: RRR (SR) Abdomen: Soft N/T Extremities: No Calf Tenderness Neurology: alert, oriented, follow commands Assessment Assessment 1. Acute on chronic respiratory failure secondary to PNA, possible aspiration 2. PAFIB; s/p remote ablation. [facility]. on Low-dose Eliquis at home. Maintaining SR 3. Leukocytosis, lactic acidosis, fevers, sepsis 4. Hypertension; controlled 5. Hyperlipidemia; statin 6. Diabetes, II 7. Hypothyroidism: TSH on goal 8. Parkinson's 9. S/p MONITORING TECH shunt Recommendations Continue po metoprolol for rate control. DC lovenox. Eliquis for stroke prevention. Monitor Hgb trend. Outpatient echo to assess LV systolic function Ongoing lung optimization, treatment of PNA supportive care Continue [facility] Justicifation of Admission Dx: Justifications for Admission: Justification of Admission Dx: Yes PHOENIX WALLS MD 01/01/211938: CARDIO Progress Notes Plan Plan Pt. seen and examined. Agree with above REGISTERED NURSE RENAL note. Supportive care. TERESA OSEGUERA WIRE COINER Jan 01, 2021 09:51 PHOENIX WALLS MD Jan 01, 2021 19:39
[2021-01-01 11:00] VITALS: BP 161/79
[2021-01-01] MEDS ORDERED: AMLO-187 PO (12:12)
[2021-01-01] MEDS ORDERED: AMOX1TAB58 PO (12:12)
[2021-01-01] MEDS ORDERED: METO25TA4 PO (12:12)
--- NOTE | 2021-01-01 12:13 | SNU/HH DC ---
DISCHARGE ORDERS DISCHARGE INFORMATION: DISCHARGE DATE: Jan 01, 2021 FINAL DIAGNOSIS Problems Medical Problems: (1) Altered mental status Status: Acute (2) Hypoxia Status: Acute (3) Pneumonia Status: Acute (4) Sepsis Status: Acute CONDITION ON DISCHARGE: Guarded CODE STATUS: Code Status: Full LONGTERM: SNF STAY <30 DAYS: Yes POST DISCHARGE ORDERS: ACTIVITY ORDERS: Activity as tolerated WEIGHT BEARING STATUS: As tolerated, Non weight bearing DIET AFTER DISCHARGE: Dysphagia diet WOUND/INCISION CARE: No wound care needed CHECKS AFTER DISCHARGE: CHECKS AFTER DISCHARGE: Check blood press - daily, Check blood sugar, ac/hs FOLLOW-UP: PHYSICIAN FOLLOW-UP: PCP within 2 weeks of discharge ADDITIONAL FOLLOW-UP: Neurology and cardiology as needed LAB ORDERS FOR FOLLOW-UP: CBC, CMP ANTICOAGULATION F/U NEEDED: Patient is on Eliquis TREATMENT/EQUIPMENT ORDERS: ADAPTIVE EQUIPMENT NEEDED: None Physical Therapy For: Evalulation/Treatment Occupational Therapy For: Evaluation/Treatment Speech Language Pathology For: Evaluation/Treatment DISCHARGE MEDICATIONS: Home Meds Active Scripts Amoxicillin/Potassium Clav (AUGMENTIN 500-125 TABLET) 1 Each Tablet, 1 TAB PO BID for pneumonia for 3 Days, #6 TAB 0 Refills Prov:MELODY SHIRLEY MD 01/01/21 Amlodipine Besylate (AMLODIPINE BESYLATE) 10 Mg Tablet, 10 MG PO DAILY for blood pressure for 30 Days, #30 TAB 2 Refills Prov:MELODY SHIRLEY MD 01/01/21 Metoprolol Tartrate (METOPROLOL TARTRATE) 25 Mg Tablet, 25 MG PO BID for blood pressure for 30 Days, #60 TAB 2 Refills Prov:MELODY SHIRLEY MD 01/01/21 Reported Medications Zinc (ZINC) 50 Mg Tablet, 1 TAB PO DAILY for vitamin deficiency for 30 Days, #30 TAB 0 Refills 12/27/20 Bupropion Hcl (WELLBUTRIN XL) 150 Mg Tab.er.24h, 1 TAB PO DAILYWBKFT for mdd, #30 TAB 2 Refills 12/27/20 Guaifenesin/Dextromethorphan (Robitussin Cough-Chest Dm Liq) 237 Ml Liquid, 237 ML PO PRN Q6HRS PRN for COUGH, LIQUID 12/27/20 Potassium Chloride (POTASSIUM CHLORIDE ) 10 Meq Tab.sr.24h, 10 MEQ PO DAILY for SUPPLEMENT, TAB.SR 12/27/20 Nystatin (NYSTATIN) 1 Each Powder.ea., 1 EACH MC BID for skin care , EACH 12/27/20 Meloxicam (MELOXICAM) 15 Mg Tablet, 15 MG PO DAILY for chronic pain , TAB 12/27/20 Hydrocodone Bit/Acetaminophen (HYDROCODONE-APAP 5-325 ) 1 Tab Tablet, 2 TAB PO PRN Q6HRS PRN for PAIN, TAB 0 Refills 12/27/20 Menthol (BIOFREEZE) 118 Ml Gel..ml., 1 SHILREY TP PRN PRN for PAIN for 7 Days, #118 ML 0 Refills 12/27/20 Baclofen (BACLOFEN) 10 Mg Tablet, 10 MG PO BID for MUSCLE RELAXER, #30 TAB 0 Refills 12/27/20 Peg 400/Hypromellose/Glycerin (ARTIFICIAL TEARS DROPS) 15 Ml Drops, 1 DROP OD BID for dry eyes for 30 Days, #15 ML 0 Refills 12/27/20 Acetaminophen (ACETAMINOPHEN) 500 Mg Tablet, 500 MG PO PRN Q4HRS PRN for PAIN, TAB 12/27/20 Aripiprazole (ABILIFY) 2 Mg Tablet, 2 MG PO DAILY for MDD, TAB 12/27/20 Albuterol Sulfate (VENTOLIN HFA INHALER) 18 Gm Hfa.aer.ad, 2 PUFF INH Q4HRS for FOR ASTHMA, INHALER 0 Refills 02/01/20 Ropinirole Hcl (ROPINIROLE HCL) 0.5 Mg Tablet, 0.5 MG PO TID for restless legs, TAB 02/01/20 Pregabalin (LYRICA) 50 Mg Capsule, 50 MG PO TID for gammaherpes viral mononucleosi, CAP 02/01/20 Ondansetron Hcl (ONDANSETRON HCL) 4 Mg Tablet, 1 TAB PO PRN Q8HRS PRN for NAUSEA, #10 TAB 1 Refill 02/01/20 Insulin Aspart (NOVOLOG) 100 Unit/1 Ml Vial, 18 UNIT SQ TIDAC for diabetes, VIAL 02/01/20 Multivitamin With Minerals (MULTIPLE VITAMIN) 1 Each Tablet, 1 EACH PO BID for dyspepsia, TAB 02/01/20 Guaifenesin/Dextromethorphan (Mucinex Fast-Max Dm Max Liquid) 180 Ml Liquid, 10 ML PO PRN Q4HRS PRN for nasal congestion, ML 0 Refills 02/01/20 Polyethylene Glycol 3350 (MIRALAX) 17 Gm Powd.pack, 1 PKT PO PRN Q24HRS PRN for CONSTIPATION, PKT 02/01/20 Mag Hydrox/Aluminum Hyd/Simeth (Mag-Al Hydrox-Simeth Max Susp) 30 Ml Oral.susp, 15 ML PO PRN Q4HRS PRN for DYSPEPSIA, MISC 02/01/20 Levothyroxine Sodium (LEVOTHYROXINE SODIUM) 125 Mcg Tablet, 250 MCG PO DAILYAC for THYROID SUPPLEMENT, #30 TAB 0 Refills 02/01/20 Insulin Detemir (Levemir Flextouch) 100 Unit/1 Ml Insuln.pen, 35 UNIT SQ BID for diabetes, SYR 02/01/20 Sitagliptin Phosphate (JANUVIA) 100 Mg Tablet, 1 TAB PO DAILY for diabetes, #30 TAB 5 Refills 02/01/20 Hydrocortisone/Aloe Vera (HYDROCORTISONE PLUS 1% CREAM) 28.4 Gm Cream..g., 28.4 GM TP PRN Q8HRS PRN for ITCHING, EACH 02/01/20 Famotidine (FAMOTIDINE) 20 Mg Tablet, 20 MG PO HS for GERD, TAB 02/01/20 Entacapone (ENTACAPONE) 200 Mg Tablet, 200 MG PO DAILY for parkinsons, TAB 02/01/20 Apixaban (ELIQUIS) 2.5 Mg Tablet, 2.5 MG PO BID for heart disease, TAB 02/01/20 Duloxetine Hcl (CYMBALTA) 30 Mg Capsule.dr, 60 MG PO BID for major depressive disorder, CAP 02/01/20 Menthol (BIOFREEZE) 118 Ml Gel..ml., 1 SHIRLEY TP PRN Q6HRS PRN for PAIN for 7 Days, #118 ML 0 Refills 02/01/20 Atorvastatin Calcium (ATORVASTATIN CALCIUM) 10 Mg Tablet, 10 MG PO HS for FOR CHOLESTEROL, #30 TAB 0 Refills 02/01/20 Polyvinyl Alcohol (POLYVINYL ALCOHOL) 15 Ml Drops, 1 DROP EACHEYE PRN Q4HRS PRN for DRY EYE for 30 Days, #15 ML 0 Refills 02/01/20 Discontinued Reported Medications Loratadine (LORATADINE) 10 Mg Tablet, 10 MG PO DAILY for allergies, TAB 12/27/20 Furosemide (FUROSEMIDE) 20 Mg Tablet, 60 MG PO DAILY for chf, TAB 12/27/20 Alprazolam (ALPRAZOLAM) 0.5 Mg Tablet, 1 TAB PO HS for anxiety, #30 TAB 02/01/20 MELODY SHIRLEY MD Jan 01, 2021 12:13
[2021-01-01 15:00] VITALS: BP 148/91
--- NOTE | 2021-01-01 15:04 | NUR ---
SS following up with discharge planning. SS reviewed pt chart and discussed with pt RN. Pt is LTC resident from [facility], ; fax [phone]. Pt is currently requiring oxygen at two liters nasal canula. PO diet. Pt on IV Zosyn. Pt is able to return to facility when medically ready for discharge. Packet on the chart. SS will continue to follow for discharge planning.
--- NOTE | 2021-01-01 16:45 | PDOC ---
[employer] PROGRESS NOTE Date of Service DOS: DATE: 01/01/21 TIME: 16:43 Chief Complaint Chief Complaint Assessment/Plan RLL pneumonia - likely gram negative given her comorbidities, underlying COPD. Zosyn and vancomycin Sepsis - due to pneumonia, fluids and antibiotics empirically Afib - not previously noted, metoprolol for rate control. Given frequent fall history may be relatively high risk for anticoagulation. will continue eliquis Acute encephalopathy - likely sepsis related, will hold sedating meds. monitor neuro status Acute on chronic hypoxic respiratory failure - likely related to pneumonia, will wean O2 as tolerated. Consult pulmonology Severe protein calorie malnutrition - with possible aspiration will given IV nutrition, consult steam hoist operator and TIRE REGROOVING MACHINE OPERATOR Anxiety with depression - will cont home meds when taking PO COPD on 2L NCO2 - will give nebs. consult pulm DM2 - sliding scale, cut basal insulin in half for tonight given lack of PO intake Hypothyroidism - will check TSH, cont levothyroxine Parkinson's - on entacapone, will verify meds RLS - on requip Morbid obesity s/p NURSE TRANSPLANT shunt GERD FEN - NPO pending TIRE REGROOVING MACHINE OPERATOR eval PPX - eliquis FULL CODE Dispo - inpatient Brother is surrogate decision maker History of Present Illness History of Present Illness 70-year-old female with PMHx Anxiety with depression, COPD on 2L NCO2, DM2, hypothyroidism, Parkinson's, RLS, Morbid obesity, s/p NURSE TRANSPLANT shunt, and GERD who c omes to the ED brought in by EMS from [facility] due to fever and altered mental status. History obtained from EMS and SNF. Patient is moaning, opens eyes to voice and stimuli. Requiring 5 L nasal cannula. Previously hospitalized for COVID 19 01/31/2020 and now s/p covid vaccine 02/14/20 Labs with WBC 33, Hb 10.7, platelets 254, INR 1.2, NA 143, K3.9, BUN 15, CR 1.2, glucose 181, albumin 2.5, NT proBNP 737, high-sensitivity troponin 7, lactate 3.1, UDS positive for benzos, UA bland. CT head with no acute findings referral ventricular catheter in place, shunt series with no occlusion NURSE TRANSPLANT shunt. CT abdomen reveals right lower lobe consolidation consistent with pneumonia. EKG with afib aroudn 109bpm, No ST segment elevations or TWI Admitted for further care 12/28/2020 Patient seen and examined bedside. Pleasantly confused. Patient unable to tell me where she is coming from her where she lives. Patient is from [facility]. We will continue with Zosyn and vancomycin for empiric coverage for her pneumonia. Currently on Clinimix and pending speech evaluation. Patient's chart, labs, images were reviewed and discussed with RN. 12/29/2020 No acute events overnight. Patient seen and examined bedside. Patient did not pass swallow test with speech evaluation. Likely will need video swallow. We will continue with IV Clinimix. Patient is still unable to transition from n.p.o. to p.o., will likely discuss with DPOA PEG placement. Patient's chart, labs, images were reviewed and discussed with RN 12/30/2020 No acute events overnight. Patient seen and examined bedside. It appears that her status has improved. She does remember location and her birthday. Patient failed swallow study bedside again and will go down for video swallow today. Discussed in depth with Lalito patient's brother about patient's goals of care especially that she may need a PEG tube. At this point, the brother does not make decisions for because he says that patient is able to have capacity to make decisions on her own. I will attempt to have this discussion about her goals of care tomorrow morning. Patient's chart, labs, images were reviewed and discussed with RN In addition to my E/M visit, advance care planning done with A total time of 20 minutes was spent from 800 to 820 face to face in discussion regarding the patient's goals of care, CODE STATUS. 12/31/2020 No acute events overnight. Patient partially passed her video swallow study test and was placed on a dysphagia diet. Patient is tolerating roughly 50% of her breakfast this morning. Will attempt to see how she does with lunch before discontinuing TPN In addition to my E/M visit, advance care planning done with A total time of 20 minutes was spent from 930 to 950 face to face in discussion regarding the patient's goals of care, CODE STATUS. As of now patient wishes to be full code and she wants to discuss with her brother more before deciding how aggressive she wants her care to be if she had ever needed any procedures. 01/01/2021 No acute events overnight. Patient seen and examined bedside. Afebrile the last 24 hours. Patient tolerating about 25 to 50% of her meals. Speech therapist reported to me that she was coughing with her meals. Pending chest x- ray to rule out worsening of aspiration pneumonia. Will finish off last bag of TPN and see how she does. Pending SNF placement back to [place]. Patient's chart, labs, images were reviewed and discussed with RN Vitals/I&O Vitals/I&O: Vital Signs Date Time Temp Pulse Resp B/P (MAP) Pulse Ox O2 Delivery O2 Flow Rate FiO2 01/01/21 15:00 97.6 81 20 148/91 (110) 96 Nasal Cannula 2.0 97.6 I & O 12/31/20 12/31/20 01/01/21 15:00 23:00 07:00 Intake Total 118 ml 0 ml 50 ml Output Total 300 ml Balance 118 ml 0 ml -250 ml Physical Exam General: Alert, Cooperative, No acute distress Heart: Other (IRRR; tele AFIB ) Lungs: Clear, Crackles Abdomen: Soft Extremities: No edema, Other Skin: No significant lesion Labs Labs: Laboratory Tests Test 12/31/20 16:53 12/31/20 20:09 01/01/21 06:15 01/01/21 07:28 Glucose (Fingerstick) 272 mg/dL (70-99) 246 mg/dL (70-99) 264 mg/dL (70-99) White Blood Count 12.9 x10^3/uL (4.0-11.0) Red Blood Count 4.29 x10^6/uL (3.50-5.40) Hemoglobin 9.3 g/dL (12.0-15.5) Hematocrit 31.4 % (36.0-47.0) Mean Corpuscular Volume 73 fL (79-100) Mean Corpuscular Hemoglobin 22 pg (25-35) Mean Corpuscular Hemoglobin Concent 30 g/dL (31-37) Red Cell Distribution Width 17.4 % (11.5-14.5) Platelet Count 223 x10^3/uL (140-400) Neutrophils (%) (Auto) 86 % (31-73) Lymphocytes (%) (Auto) 7 % (24-48) Monocytes (%) (Auto) 6 % (0-9) Eosinophils (%) (Auto) 1 % (0-3) Basophils (%) (Auto) 0 % (0-3) Neutrophils # (Auto) 11.1 x10^3/uL (1.8-7.7) Lymphocytes # (Auto) 0.9 x10^3/uL (1.0-4.8) Monocytes # (Auto) 0.7 x10^3/uL (0.0-1.1) Eosinophils # (Auto) 0.1 x10^3/uL (0.0-0.7) Basophils # (Auto) 0.0 x10^3/uL (0.0-0.2) Sodium Level 142 mmol/L (136-145) Potassium Level 3.7 mmol/L (3.5-5.1) Chloride Level 106 mmol/L (98-107) Carbon Dioxide Level 29 mmol/L (21-32) Anion Gap 7 (6-14) Blood Urea Nitrogen 19 mg/dL (7-20) Creatinine 0.8 mg/dL (0.6-1.0) Estimated GFR (Cockcroft-Gault) 70.5 Glucose Level 284 mg/dL (70-99) Calcium Level 8.3 mg/dL (8.5-10.1) Test 01/01/21 11:42 Glucose (Fingerstick) 352 mg/dL (70-99) Assessment and Plan Assessmemt and Plan Problems Medical Problems: (1) Altered mental status Status: Acute (2) Hypoxia Status: Acute (3) Pneumonia Status: Acute (4) Sepsis Status: Acute Comment Review of Relevant I have reviewed the following items black (where applicable) has been applied. Justifications for Admission Other Justification Trimalleolar fracture MELODY SHIRLEY MD Jan 01, 2021 16:44
--- NOTE | 2021-01-01 17:14 | RAD ---
XR CHEST 1V History: Coughing. Comparison: 12/27/2020 Technique: Portable AP chest radiograph. FINDINGS/ IMPRESSION: Tubes and lines: Right upper chest show a PICC tip projects in the region of the cavoatrial junction. Right chest MILK HANDLER shunt tubing. Lungs and pleura: Increasing right lower lobe consolidation, possible right lower lobar atelectasis. Patchy bilateral upper lobe airspace opacities unchanged. Cardiac silhouette and pulmonary vasculature: Enlarged, partially obscured cardiac silhouette. Osseous structures and other: No acute osseous abnormality. Electronically signed by: Oscar Humphries MD (01/01/2021 5:11 PM) [id number]
[2021-01-01 19:50] VITALS: BP 181/108
[2021-01-01] MEDS: PSYLLIUM HUSK (SUGAR FREE) 1 PKT PACKET PO SCH (21:24)
[2021-01-01] MEDS: ATORVASTATIN CALCIUM 10 MG TABLET. PO SCH (21:25)
[2021-01-01 23:13] VITALS: BP 201/88
[2021-01-02] MEDS: PIPERACILLIN/TAZOBACTAM 3.375 GM in IV NORMAL SALINE 50ML 50 ML IV SCH ×4 (01:27→17:55)
[2021-01-02 03:05] VITALS: BP 163/83
[2021-01-02] MEDS: LEVOTHYROXINE 125 MCG TABLET PO SCH (06:11)
[2021-01-02 07:00] VITALS: BP 168/84
[2021-01-02] MEDS: APIXABAN 2.5 MG TABLET. PO SCH ×2 (08:30→20:18)
[2021-01-02] MEDS: METOPROLOL TART IMMED RELEASE 25 MG TABLET. PO SCH ×2 (08:33→20:18)
[2021-01-02] MEDS: LACTOBACILLUS RHAMNOSUS GG 1 CAPSULE. PO SCH ×2 (08:33→20:18)
[2021-01-02] MEDS: LINAGLIPTIN 5 MG TABLET PO SCH (08:34)
[2021-01-02] MEDS: INSULIN LISPRO 300 UNITS/3 ML VIAL. SQ SCH ×4 (09:00→20:28)
[2021-01-02 10:03] LABS: BASO % 0 % (0-3); EOS # 0.1 x10^3/uL (0.0-0.7); EOS % 1 % (0-3); HEMATOCRIT 34.1 % (36.0-47.0); HEMOGLOBIN 10.2 g/dL (12.0-15.5); LYMPH # 1.1 x10^3/uL (1.0-4.8); LYMPH % 9 % (24-48); MEAN CORPUSCULAR HEMOGLOBIN 22 pg (25-35); MEAN CORPUSCULAR HGB CONC 30 g/dL (31-37); MEAN CORPUSCULAR VOLUME 73 fL (79-100); MONO # 0.5 x10^3/uL (0.0-1.1); MONO % 4 % (0-9); NEUT # 10.6 x10^3/uL (1.8-7.7); NEUT % 86 % (31-73); PLATELET COUNT 270 x10^3/uL (140-400); RED BLOOD COUNT 4.66 x10^6/uL (3.50-5.40); RED CELL DISTRIBUTION WIDTH 17.8 % (11.5-14.5); WHITE BLOOD COUNT 12.3 x10^3/uL (4.0-11.0)
[2021-01-02 10:19] LABS: CALCIUM 8.6 mg/dL (8.5-10.1); GFR 54.5; MAGNESIUM 2.1 mg/dL (1.8-2.4); POTASSIUM 3.3 mmol/L (3.5-5.1)
[2021-01-02 10:48] VITALS: BP 164/100
--- NOTE | 2021-01-02 11:04 | PDOC ---
[employer] PROGRESS NOTE Date of Service DOS: DATE: 01/02/21 TIME: 11:03 Chief Complaint Chief Complaint Assessment/Plan RLL pneumonia - likely gram negative given her comorbidities, underlying COPD. Zosyn and vancomycin Sepsis - due to pneumonia, fluids and antibiotics empirically Afib - not previously noted, metoprolol for rate control. Given frequent fall history may be relatively high risk for anticoagulation. will continue eliquis Acute encephalopathy - likely sepsis related, will hold sedating meds. monitor neuro status Acute on chronic hypoxic respiratory failure - likely related to pneumonia, will wean O2 as tolerated. Consult pulmonology Severe protein calorie malnutrition - with possible aspiration will given IV nutrition, consult shift superintendent and JAIL MANAGER Anxiety with depression - will cont home meds when taking PO COPD on 2L NCO2 - will give nebs. consult pulm DM2 - sliding scale, cut basal insulin in half for tonight given lack of PO intake Hypothyroidism - will check TSH, cont levothyroxine Parkinson's - on entacapone, will verify meds RLS - on requip Morbid obesity s/p VP CARDIOVASCULAR SERVICE LINE shunt GERD FEN - NPO pending JAIL MANAGER eval PPX - eliquis FULL CODE Dispo - inpatient Brother is surrogate decision maker History of Present Illness History of Present Illness 70-year-old female with PMHx Anxiety with depression, COPD on 2L NCO2, DM2, hypothyroidism, Parkinson's, RLS, Morbid obesity, s/p VP CARDIOVASCULAR SERVICE LINE shunt, and GERD who c omes to the ED brought in by EMS from [facility] due to fever and altered mental status. History obtained from EMS and SNF. Patient is moaning, opens eyes to voice and stimuli. Requiring 5 L nasal cannula. Previously hospitalized for COVID 19 01/31/2020 and now s/p covid vaccine 02/14/20 Labs with WBC 33, Hb 10.7, platelets 254, INR 1.2, NA 143, K3.9, BUN 15, CR 1.2, glucose 181, albumin 2.5, NT proBNP 737, high-sensitivity troponin 7, lactate 3.1, UDS positive for benzos, UA bland. CT head with no acute findings referral ventricular catheter in place, shunt series with no occlusion VP CARDIOVASCULAR SERVICE LINE shunt. CT abdomen reveals right lower lobe consolidation consistent with pneumonia. EKG with afib aroudn 109bpm, No ST segment elevations or TWI Admitted for further care 12/28/2020 Patient seen and examined bedside. Pleasantly confused. Patient unable to tell me where she is coming from her where she lives. Patient is from [facility]. We will continue with Zosyn and vancomycin for empiric coverage for her pneumonia. Currently on Clinimix and pending speech evaluation. Patient's chart, labs, images were reviewed and discussed with RN. 12/29/2020 No acute events overnight. Patient seen and examined bedside. Patient did not pass swallow test with speech evaluation. Likely will need video swallow. We will continue with IV Clinimix. Patient is still unable to transition from n.p.o. to p.o., will likely discuss with DPOA PEG placement. Patient's chart, labs, images were reviewed and discussed with RN 12/30/2020 No acute events overnight. Patient seen and examined bedside. It appears that her status has improved. She does remember location and her birthday. Patient failed swallow study bedside again and will go down for video swallow today. Discussed in depth with Lalito patient's brother about patient's goals of care especially that she may need a PEG tube. At this point, the brother does not make decisions for because he says that patient is able to have capacity to make decisions on her own. I will attempt to have this discussion about her goals of care tomorrow morning. Patient's chart, labs, images were reviewed and discussed with RN In addition to my E/M visit, advance care planning done with A total time of 20 minutes was spent from 800 to 820 face to face in discussion regarding the patient's goals of care, CODE STATUS. 12/31/2020 No acute events overnight. Patient partially passed her video swallow study test and was placed on a dysphagia diet. Patient is tolerating roughly 50% of her breakfast this morning. Will attempt to see how she does with lunch before discontinuing TPN In addition to my E/M visit, advance care planning done with A total time of 20 minutes was spent from 930 to 950 face to face in discussion regarding the patient's goals of care, CODE STATUS. As of now patient wishes to be full code and she wants to discuss with her brother more before deciding how aggressive she wants her care to be if she had ever needed any procedures. 01/01/2021 No acute events overnight. Patient seen and examined bedside. Afebrile the last 24 hours. Patient tolerating about 25 to 50% of her meals. Speech therapist reported to me that she was coughing with her meals. Pending chest x- ray to rule out worsening of aspiration pneumonia. Will finish off last bag of TPN and see how she does. Pending SNF placement back to [place]. Patient's chart, labs, images were reviewed and discussed with RN 01/02/2021 No acute events overnight. Afebrile. Patient seen and examined bedside. Patient continues to do well with meals and able to eat 50% of her dinner. Unfortunately, she continues to have cough with her meals even with fetuses. Chest x-ray done yesterday showing increasing consolidation but her labs and clinically she looks well. We will continue with IV antibiotics and aspiration precautions for now. We will repeat chest x-ray tomorrow morning if there is resolution or improvement I will consider discharge to [facility] tomorrow. Patient's chart, labs, images were reviewed and discussed with RN Vitals/I&O Vitals/I&O: Vital Signs Date Time Temp Pulse Resp B/P (MAP) Pulse Ox O2 Delivery O2 Flow Rate FiO2 01/02/21 10:48 98.1 75 24 164/100 (121) 94 Nasal Cannula 2.0 98.1 I & O 01/01/21 01/01/21 01/02/21 15:00 23:00 07:00 Intake Total 220 ml 100 ml 60 ml Output Total 1100 ml 400 ml Balance -880 ml 100 ml -340 ml Physical Exam General: Alert, Cooperative, No acute distress Heart: Other (IRRR; tele AFIB ) Lungs: Clear, Crackles Abdomen: Soft Extremities: No edema, Other Skin: No significant lesion Labs Labs: Laboratory Tests Test 01/01/21 11:42 01/01/21 17:05 01/01/21 20:47 01/02/21 07:16 Glucose (Fingerstick) 352 mg/dL (70-99) 264 mg/dL (70-99) 205 mg/dL (70-99) 237 mg/dL (70-99) Test 01/02/21 09:50 White Blood Count 12.3 x10^3/uL (4.0-11.0) Red Blood Count 4.66 x10^6/uL (3.50-5.40) Hemoglobin 10.2 g/dL (12.0-15.5) Hematocrit 34.1 % (36.0-47.0) Mean Corpuscular Volume 73 fL (79-100) Mean Corpuscular Hemoglobin 22 pg (25-35) Mean Corpuscular Hemoglobin Concent 30 g/dL (31-37) Red Cell Distribution Width 17.8 % (11.5-14.5) Platelet Count 270 x10^3/uL (140-400) Neutrophils (%) (Auto) 86 % (31-73) Lymphocytes (%) (Auto) 9 % (24-48) Monocytes (%) (Auto) 4 % (0-9) Eosinophils (%) (Auto) 1 % (0-3) Basophils (%) (Auto) 0 % (0-3) Neutrophils # (Auto) 10.6 x10^3/uL (1.8-7.7) Lymphocytes # (Auto) 1.1 x10^3/uL (1.0-4.8) Monocytes # (Auto) 0.5 x10^3/uL (0.0-1.1) Eosinophils # (Auto) 0.1 x10^3/uL (0.0-0.7) Basophils # (Auto) 0.0 x10^3/uL (0.0-0.2) Sodium Level 142 mmol/L (136-145) Potassium Level 3.3 mmol/L (3.5-5.1) Chloride Level 104 mmol/L (98-107) Carbon Dioxide Level 30 mmol/L (21-32) Anion Gap 8 (6-14) Blood Urea Nitrogen 14 mg/dL (7-20) Creatinine 1.0 mg/dL (0.6-1.0) Estimated GFR (Cockcroft-Gault) 54.5 Glucose Level 252 mg/dL (70-99) Calcium Level 8.6 mg/dL (8.5-10.1) Magnesium Level 2.1 mg/dL (1.8-2.4) Assessment and Plan Assessmemt and Plan Problems Medical Problems: (1) Altered mental status Status: Acute (2) Hypoxia Status: Acute (3) Pneumonia Status: Acute (4) Sepsis Status: Acute Comment Review of Relevant I have reviewed the following items black (where applicable) has been applied. Medications: Current Medications Medications (Trade) Dose Ordered Sig/Laureen Route PRN Reason Start Time Stop Time Status Last Admin Dose Admin Levothyroxine Sodium (Synthroid) 250 mcg DAILY06 PO 01/02/21 06:00 01/02/21 06:11 Amlodipine Besylate (Norvasc) 10 mg DAILY PO 01/02/21 09:00 01/02/21 08:31 Justifications for Admission Other Justification Trimalleolar fracture MELODY SHIRLEY MD Jan 02, 2021 11:04
[2021-01-02] MEDS ORDERED: POTASSIUM CHLORIDE 20 MEQ TABLET.ER. PO ONE (11:30)
--- NOTE | 2021-01-02 12:26 | PDOC ---
PROGRESS NOTES Date of Service: DATE: 01/02/21 TIME: 12:26 Subjective Subjective No new complaints Objective Objective Vital Signs Date Time Temp Pulse Resp B/P (MAP) Pulse Ox O2 Delivery O2 Flow Rate FiO2 01/02/21 10:48 98.1 75 24 164/100 (121) 94 Nasal Cannula 2.0 98.1 Intake and Output 01/02/21 06:59 Intake Total 380 ml Output Total 1500 ml Balance -1120 ml Intake Oral 380 ml Output Urine Total 1500 ml # Voids 2 # Bowel Movements 1 Physical Exam Abdomen: Soft Heart: Other (IRRR; tele AFIB ) Extremities: No edema, Other General: Alert, Cooperative, No acute distress HEENT: Atraumatic, Mucous membr. moist/pink Lungs: Other (crackles ) MUSCULOSKELETAL: Osteoarthritic changes both hands Neuro: Sensation intact Psych/Mental Status: Mood NL Skin: No significant lesion Assessment Assessment 1. Acute on chronic respiratory failure secondary to PNA, possible aspiration 2. PAFIB; s/p remote ablation. [facility] on Low-dose Eliquis at home. Maintaining SR 3. Leukocytosis, lactic acidosis, fevers, sepsis 4. Hypertension; blood pressure elevated 5. Hyperlipidemia; statin 6. Diabetes, II 7. Hypothyroidism: TSH on goal 8. Parkinson's 9. S/p BEEF TRIMMER shunt Recommendations Increase metoprolol dose for better blood pressure control. Eliquis for stroke prevention. Monitor Hgb trend. Outpatient echo to assess LV systolic function Ongoing lung optimization, treatment of PNA supportive care Plan Plan of Care Problems Medical Problems: (1) Altered mental status Status: Acute (2) Hypoxia Status: Acute (3) Pneumonia Status: Acute (4) Sepsis Status: Acute Comment Review of Relevant I have reviewed the following items black (where applicable) has been applied. Labs Laboratory Tests Test 01/01/21 17:05 01/01/21 20:47 01/02/21 07:16 01/02/21 09:50 Glucose (Fingerstick) 264 mg/dL (70-99) 205 mg/dL (70-99) 237 mg/dL (70-99) White Blood Count 12.3 x10^3/uL (4.0-11.0) Red Blood Count 4.66 x10^6/uL (3.50-5.40) Hemoglobin 10.2 g/dL (12.0-15.5) Hematocrit 34.1 % (36.0-47.0) Mean Corpuscular Volume 73 fL (79-100) Mean Corpuscular Hemoglobin 22 pg (25-35) Mean Corpuscular Hemoglobin Concent 30 g/dL (31-37) Red Cell Distribution Width 17.8 % (11.5-14.5) Platelet Count 270 x10^3/uL (140-400) Neutrophils (%) (Auto) 86 % (31-73) Lymphocytes (%) (Auto) 9 % (24-48) Monocytes (%) (Auto) 4 % (0-9) Eosinophils (%) (Auto) 1 % (0-3) Basophils (%) (Auto) 0 % (0-3) Neutrophils # (Auto) 10.6 x10^3/uL (1.8-7.7) Lymphocytes # (Auto) 1.1 x10^3/uL (1.0-4.8) Monocytes # (Auto) 0.5 x10^3/uL (0.0-1.1) Eosinophils # (Auto) 0.1 x10^3/uL (0.0-0.7) Basophils # (Auto) 0.0 x10^3/uL (0.0-0.2) Sodium Level 142 mmol/L (136-145) Potassium Level 3.3 mmol/L (3.5-5.1) Chloride Level 104 mmol/L (98-107) Carbon Dioxide Level 30 mmol/L (21-32) Anion Gap 8 (6-14) Blood Urea Nitrogen 14 mg/dL (7-20) Creatinine 1.0 mg/dL (0.6-1.0) Estimated GFR (Cockcroft-Gault) 54.5 Glucose Level 252 mg/dL (70-99) Calcium Level 8.6 mg/dL (8.5-10.1) Magnesium Level 2.1 mg/dL (1.8-2.4) Test 01/02/21 11:39 Glucose (Fingerstick) 222 mg/dL (70-99) Microbiology 12/27/20 Blood Culture - Final, Complete NO GROWTH AFTER 5 DAYS Medications Current Medications Amlodipine Besylate (Norvasc) 10 mg DAILY PO Last administered on 01/02/21at 08:31; Start 11/6/21 at 09:00 Levothyroxine Sodium (Synthroid) 250 mcg DAILY06 PO Last administered on 01/02/21at 06:11; Start 01/02/21 at 06:00 Potassium Chloride (Klor-Con) 40 meq 1X ONCE PO Last administered on 01/02/21at 11:39; Start 01/02/21 at 11:30; Stop 01/02/21 at 11:31; Status DC Vitals/I & O Vital Sign - Last 24 Hours 01/01/21 01/01/21 01/01/21 01/01/21 15:00 19:29 19:50 21:24 Temp 97.6 97.8 97.6 97.8 Pulse 81 81 Resp 20 23 B/P (MAP) 148/91 (110) 181/108 (132) Pulse Ox 96 98 98 O2 Delivery Nasal Cannula Nasal Cannula Nasal Cannula Nasal Cannula O2 Flow Rate 2.0 2.0 2.0 2.0 01/01/21 01/01/21 01/01/21 01/02/21 21:25 21:54 23:13 03:05 Temp 97.6 97.5 97.6 97.5 Pulse 81 80 69 Resp 24 24 B/P (MAP) 181/108 201/88 (125) 163/83 (109) Pulse Ox 98 98 97 O2 Delivery Nasal Cannula Nasal Cannula Nasal Cannula O2 Flow Rate 2.0 2.0 2.0 01/02/21 01/02/21 01/02/21 01/02/21 07:00 08:00 08:31 08:33 Temp 98.0 98.0 Pulse 75 75 75 Resp 24 B/P (MAP) 168/84 (112) 168/84 168/84 Pulse Ox 100 O2 Delivery Nasal Cannula Room Air O2 Flow Rate 2.0 01/02/21 01/02/21 09:22 10:48 Temp 98.1 98.1 Pulse 75 Resp 24 B/P (MAP) 164/100 (121) Pulse Ox 94 O2 Delivery Room Air Nasal Cannula O2 Flow Rate 2.0 Intake and Output 01/01/21 01/01/21 01/02/21 14:59 22:59 06:59 Intake Total 220 ml 100 ml 60 ml Output Total 1100 ml 400 ml Balance -880 ml 100 ml -340 ml BOBBY WOORDUFF MD 6, 2021 12:26
[2021-01-02 12:59] LABS: % BANDS 1 % (0-9); % EOS 1 % (0-5); % LYMPHS 8 % (24-48); % MONOS 5 % (0-10); % SEGS 85 % (35-66); ANISOCYTOSIS PRESENT; HYPOCHROMIA MOD; MICROCYTOSIS PRESENT; PLT ESTIMATE ADEQUATE (ADEQUATE)
[2021-01-02 15:05] VITALS: BP 151/70
[2021-01-02 19:43] VITALS: BP 154/80
[2021-01-02] MEDS: ATORVASTATIN CALCIUM 10 MG TABLET. PO SCH (20:18)
[2021-01-02] MEDS: PSYLLIUM HUSK (SUGAR FREE) 1 PKT PACKET PO SCH (20:19)
[2021-01-02 23:34] VITALS: BP 155/91
[2021-01-03] MEDS: PIPERACILLIN/TAZOBACTAM 3.375 GM in IV NORMAL SALINE 50ML 50 ML IV SCH ×4 (00:12→16:59)
[2021-01-03 05:00] VITALS: BP 142/71
[2021-01-03] MEDS: LEVOTHYROXINE 125 MCG TABLET PO SCH (05:32)
[2021-01-03 07:42] VITALS: BP 170/82
[2021-01-03] MEDS: INSULIN LISPRO 300 UNITS/3 ML VIAL. SQ SCH ×3 (08:00→17:12)
[2021-01-03] MEDS: LACTOBACILLUS RHAMNOSUS GG 1 CAPSULE. PO SCH ×2 (08:38→20:32)
[2021-01-03] MEDS: LINAGLIPTIN 5 MG TABLET PO SCH (08:39)
[2021-01-03] MEDS: APIXABAN 2.5 MG TABLET. PO SCH ×2 (08:39→20:32)
[2021-01-03] MEDS: METOPROLOL TART IMMED RELEASE 25 MG TABLET. PO SCH ×2 (08:39→20:32)
[2021-01-03 09:25] LABS: BASO # 0.1 x10^3/uL (0.0-0.2); BASO % 1 % (0-3); EOS % 0 % (0-3); HEMATOCRIT 35.2 % (36.0-47.0); HEMOGLOBIN 10.9 g/dL (12.0-15.5); LYMPH # 1.2 x10^3/uL (1.0-4.8); LYMPH % 9 % (24-48); MEAN CORPUSCULAR HEMOGLOBIN 23 pg (25-35); MEAN CORPUSCULAR HGB CONC 31 g/dL (31-37); MEAN CORPUSCULAR VOLUME 73 fL (79-100); MONO # 0.6 x10^3/uL (0.0-1.1); MONO % 5 % (0-9); NEUT # 10.4 x10^3/uL (1.8-7.7); NEUT % 85 % (31-73); PLATELET COUNT 292 x10^3/uL (140-400); RED BLOOD COUNT 4.83 x10^6/uL (3.50-5.40); RED CELL DISTRIBUTION WIDTH 17.4 % (11.5-14.5); WHITE BLOOD COUNT 12.2 x10^3/uL (4.0-11.0)
--- NOTE | 2021-01-03 09:33 | PDOC ---
PROGRESS NOTES Date of Service: DATE: 01/03/21 TIME: 09:33 Subjective Subjective c/o cough with meals Objective Objective Vital Signs Date Time Temp Pulse Resp B/P (MAP) Pulse Ox O2 Delivery O2 Flow Rate FiO2 01/03/21 09:06 97 Nasal Cannula 1.0 01/03/21 08:39 86 170/82 01/03/21 07:42 98.1 19 98.1 Intake and Output 01/03/21 07:00 Intake Total 150 ml Output Total 3850 ml Balance -3700 ml Intake Oral 100 ml Tube Feeding 50 ml Output Urine Total 3850 ml # Bowel Movements 3 Physical Exam Abdomen: Soft Heart: Other (IRRR; tele AFIB ) Extremities: No edema, Other General: Alert, Cooperative, No acute distress HEENT: Atraumatic, Mucous membr. moist/pink Lungs: Other (crackles ) MUSCULOSKELETAL: Osteoarthritic changes both hands Neuro: Sensation intact Psych/Mental Status: Mood NL Skin: No significant lesion Assessment Assessment 1. Acute on chronic respiratory failure secondary to PNA, possible aspiration 2. PAFIB; s/p remote ablation. Previous followed with [facility] team through [facility]. on Low-dose Eliquis at home. Maintaining SR 3. Leukocytosis, lactic acidosis, fevers, sepsis 4. Hypertension; blood pressure elevated 5. Hyperlipidemia; statin 6. Diabetes, II 7. Hypothyroidism: TSH on goal 8. Parkinson's 9. S/p ASSEMBLER METAL FURNITURE shunt Recommendations Increase metoprolol dose for better blood pressure control. Eliquis for stroke prevention. Monitor Hgb trend. Outpatient echo to assess LV systolic function Ongoing lung optimization, treatment of PNA supportive care Plan Plan of Care Problems Medical Problems: (1) Altered mental status Status: Acute (2) Hypoxia Status: Acute (3) Pneumonia Status: Acute (4) Sepsis Status: Acute Comment Review of Relevant I have reviewed the following items black (where applicable) has been applied. Labs Laboratory Tests Test 01/02/21 09:50 01/02/21 11:39 01/02/21 16:39 01/02/21 20:26 White Blood Count 12.3 x10^3/uL (4.0-11.0) Red Blood Count 4.66 x10^6/uL (3.50-5.40) Hemoglobin 10.2 g/dL (12.0-15.5) Hematocrit 34.1 % (36.0-47.0) Mean Corpuscular Volume 73 fL (79-100) Mean Corpuscular Hemoglobin 22 pg (25-35) Mean Corpuscular Hemoglobin Concent 30 g/dL (31-37) Red Cell Distribution Width 17.8 % (11.5-14.5) Platelet Count 270 x10^3/uL (140-400) Neutrophils (%) (Auto) 86 % (31-73) Lymphocytes (%) (Auto) 9 % (24-48) Monocytes (%) (Auto) 4 % (0-9) Eosinophils (%) (Auto) 1 % (0-3) Basophils (%) (Auto) 0 % (0-3) Neutrophils # (Auto) 10.6 x10^3/uL (1.8-7.7) Lymphocytes # (Auto) 1.1 x10^3/uL (1.0-4.8) Monocytes # (Auto) 0.5 x10^3/uL (0.0-1.1) Eosinophils # (Auto) 0.1 x10^3/uL (0.0-0.7) Basophils # (Auto) 0.0 x10^3/uL (0.0-0.2) Segmented Neutrophils % 85 % (35-66) Band Neutrophils % 1 % (0-9) Lymphocytes % 8 % (24-48) Monocytes % 5 % (0-10) Eosinophils % 1 % (0-5) Platelet Estimate Adequate (ADEQUATE) Large Platelets Few Hypochromasia Mod Anisocytosis Present Microcytosis Present Sodium Level 142 mmol/L (136-145) Potassium Level 3.3 mmol/L (3.5-5.1) Chloride Level 104 mmol/L (98-107) Carbon Dioxide Level 30 mmol/L (21-32) Anion Gap 8 (6-14) Blood Urea Nitrogen 14 mg/dL (7-20) Creatinine 1.0 mg/dL (0.6-1.0) Estimated GFR (Cockcroft-Gault) 54.5 Glucose Level 252 mg/dL (70-99) Calcium Level 8.6 mg/dL (8.5-10.1) Magnesium Level 2.1 mg/dL (1.8-2.4) Glucose (Fingerstick) 222 mg/dL (70-99) 175 mg/dL (70-99) 188 mg/dL (70-99) Test 01/03/21 07:02 01/03/21 09:10 Glucose (Fingerstick) 209 mg/dL (70-99) White Blood Count 12.2 x10^3/uL (4.0-11.0) Red Blood Count 4.83 x10^6/uL (3.50-5.40) Hemoglobin 10.9 g/dL (12.0-15.5) Hematocrit 35.2 % (36.0-47.0) Mean Corpuscular Volume 73 fL (79-100) Mean Corpuscular Hemoglobin 23 pg (25-35) Mean Corpuscular Hemoglobin Concent 31 g/dL (31-37) Red Cell Distribution Width 17.4 % (11.5-14.5) Platelet Count 292 x10^3/uL (140-400) Neutrophils (%) (Auto) 85 % (31-73) Lymphocytes (%) (Auto) 9 % (24-48) Monocytes (%) (Auto) 5 % (0-9) Eosinophils (%) (Auto) 0 % (0-3) Basophils (%) (Auto) 1 % (0-3) Neutrophils # (Auto) 10.4 x10^3/uL (1.8-7.7) Lymphocytes # (Auto) 1.2 x10^3/uL (1.0-4.8) Monocytes # (Auto) 0.6 x10^3/uL (0.0-1.1) Eosinophils # (Auto) 0.0 x10^3/uL (0.0-0.7) Basophils # (Auto) 0.1 x10^3/uL (0.0-0.2) Microbiology 12/27/20 Blood Culture - Final, Complete NO GROWTH AFTER 5 DAYS Medications Current Medications Metoprolol Tartrate (Lopressor) 50 mg BID PO Last administered on 01/03/21at 08:39; Start 01/02/21 at 21:00 Potassium Chloride (Klor-Con) 40 meq 1X ONCE PO Last administered on 01/02/21at 11:39; Start 01/02/21 at 11:30; Stop 01/02/21 at 11:31; Status DC Vitals/I & O Vital Sign - Last 24 Hours 01/02/21 01/02/21 01/02/21 01/02/21 10:48 15:05 19:43 20:00 Temp 98.1 98.4 97.5 98.1 98.4 97.5 Pulse 75 75 76 Resp 24 24 22 B/P (MAP) 164/100 (121) 151/70 (97) 154/80 (104) Pulse Ox 94 99 98 O2 Delivery Nasal Cannula Nasal Cannula Nasal Cannula Nasal Cannula O2 Flow Rate 2.0 1.0 1.0 2.0 01/02/21 01/02/21 01/03/21 01/03/21 20:18 23:34 03:00 05:00 Temp 97.5 97.5 97.5 97.5 Pulse 76 105 78 Resp 22 B/P (MAP) 154/80 155/91 (112) 142/71 (94) Pulse Ox 97 98 O2 Delivery Nasal Cannula Nasal Cannula Nasal Cannula O2 Flow Rate 1.0 1.0 01/03/21 01/03/21 01/03/21 01/03/21 07:42 08:39 08:39 09:06 Temp 98.1 98.1 Pulse 76 76 86 Resp 19 B/P (MAP) 170/82 (111) 170/82 170/82 Pulse Ox 97 97 O2 Delivery Nasal Cannula Nasal Cannula O2 Flow Rate 1.0 1.0 Intake and Output 01/02/21 01/02/21 01/03/21 15:00 23:00 07:00 Intake Total 150 ml Output Total 1100 ml 950 ml 1800 ml Balance -950 ml -950 ml -1800 ml BOBBY WOODRUFF MD Jan 03, 2021 09:33
[2021-01-03 09:43] LABS: CALCIUM 8.3 mg/dL (8.5-10.1); GFR 54.5; MAGNESIUM 2.1 mg/dL (1.8-2.4); POTASSIUM 3.3 mmol/L (3.5-5.1)
[2021-01-03 10:48] VITALS: BP 170/82
--- NOTE | 2021-01-03 11:16 | RAD ---
XR CHEST 1V INDICATION: concern for aspiration and PNA COMPARISON STUDY: 01/01/2021. FINDINGS: Life Support Devices: Stable right PICC. Partially visualized ventriculoperitoneal shunt tubing. Lungs: Low lung volume. Increasing right basilar opacity. Pleura: Small right pleural effusion. Heart and Mediastinum: Stable cardiomediastinal silhouette and great vessels. Bones and Soft Tissues: Stable regional skeleton and soft tissues. IMPRESSION: Increasing right basilar opacities. Small right pleural effusion. Electronically signed by: Km Mancia MD (01/03/2021 11:13 AM) [id number]
[2021-01-03] MEDS ORDERED: POTASSIUM CHLORIDE 20 MEQ TABLET.ER. PO ONE (11:30)
--- NOTE | 2021-01-03 12:06 | PDOC ---
[facility] PROGRESS NOTE Date of Service DOS: DATE: 01/03/21 TIME: 12:01 Chief Complaint Chief Complaint Assessment/Plan RLL pneumonia - likely gram negative given her comorbidities, underlying COPD. Zosyn and vancomycin Sepsis - due to pneumonia, fluids and antibiotics empirically Afib - not previously noted, metoprolol for rate control. Given frequent fall history may be relatively high risk for anticoagulation. will continue eliquis Acute encephalopathy - likely sepsis related, will hold sedating meds. monitor neuro status Acute on chronic hypoxic respiratory failure - likely related to pneumonia, will wean O2 as tolerated. Consult pulmonology Severe protein calorie malnutrition - with possible aspiration will given IV nutrition, consult structural steel fitter and BEVELING MACHINE OPERATOR Anxiety with depression - will cont home meds when taking PO COPD on 2L NCO2 - will give nebs. consult pulm DM2 - sliding scale, cut basal insulin in half for tonight given lack of PO intake Hypothyroidism - will check TSH, cont levothyroxine Parkinson's - on entacapone, will verify meds RLS - on requip Morbid obesity s/p ELECTRIC BATH ATTENDANT shunt GERD FEN - NPO pending BEVELING MACHINE OPERATOR eval PPX - eliquis FULL CODE Dispo - inpatient Brother is surrogate decision maker History of Present Illness History of Present Illness 70-year-old female with PMHx Anxiety with depression, COPD on 2L NCO2, DM2, hypothyroidism, Parkinson's, RLS, Morbid obesity, s/p ELECTRIC BATH ATTENDANT shunt, and GERD who c omes to the ED brought in by EMS from [facility] due to fever and altered mental status. History obtained from EMS and SNF. Patient is moaning, opens eyes to voice and stimuli. Requiring 5 L nasal cannula. Previously hospitalized for COVID 19 01/31/2020 and now s/p covid vaccine 02/14/20 Labs with WBC 33, Hb 10.7, platelets 254, INR 1.2, NA 143, K3.9, BUN 15, CR 1.2, glucose 181, albumin 2.5, NT proBNP 737, high-sensitivity troponin 7, lactate 3.1, UDS positive for benzos, UA bland. CT head with no acute findings referral ventricular catheter in place, shunt series with no occlusion ELECTRIC BATH ATTENDANT shunt. CT abdomen reveals right lower lobe consolidation consistent with pneumonia. EKG with afib aroudn 109bpm, No ST segment elevations or TWI Admitted for further care 12/28/2020 Patient seen and examined bedside. Pleasantly confused. Patient unable to tell me where she is coming from her where she lives. Patient is from [facility]. We will continue with Zosyn and vancomycin for empiric coverage for her pneumonia. Currently on Clinimix and pending speech evaluation. Patient's chart, labs, images were reviewed and discussed with RN. 12/29/2020 No acute events overnight. Patient seen and examined bedside. Patient did not pass swallow test with speech evaluation. Likely will need video swallow. We will continue with IV Clinimix. Patient is still unable to transition from n.p.o. to p.o., will likely discuss with DPOA PEG placement. Patient's chart, labs, images were reviewed and discussed with RN 12/30/2020 No acute events overnight. Patient seen and examined bedside. It appears that her status has improved. She does remember location and her birthday. Patient failed swallow study bedside again and will go down for video swallow today. Discussed in depth with Lalito patient's brother about patient's goals of care especially that she may need a PEG tube. At this point, the brother does not make decisions for because he says that patient is able to have capacity to make decisions on her own. I will attempt to have this discussion about her goals of care tomorrow morning. Patient's chart, labs, images were reviewed and discussed with RN In addition to my E/M visit, advance care planning done with A total time of 20 minutes was spent from 800 to 820 face to face in discussion regarding the patient's goals of care, CODE STATUS. 12/31/2020 No acute events overnight. Patient partially passed her video swallow study test and was placed on a dysphagia diet. Patient is tolerating roughly 50% of her breakfast this morning. Will attempt to see how she does with lunch before discontinuing TPN In addition to my E/M visit, advance care planning done with A total time of 20 minutes was spent from 930 to 950 face to face in discussion regarding the patient's goals of care, CODE STATUS. As of now patient wishes to be full code and she wants to discuss with her brother more before deciding how aggressive she wants her care to be if she had ever needed any procedures. 01/01/2021 No acute events overnight. Patient seen and examined bedside. Afebrile the last 24 hours. Patient tolerating about 25 to 50% of her meals. Speech therapist reported to me that she was coughing with her meals. Pending chest x- ray to rule out worsening of aspiration pneumonia. Will finish off last bag of TPN and see how she does. Pending SNF placement back to [place]. Patient's chart, labs, images were reviewed and discussed with RN 01/02/2021 No acute events overnight. Afebrile. Patient seen and examined bedside. Patient continues to do well with meals and able to eat 50% of her dinner. Unfortunately, she continues to have cough with her meals even with fetuses. Chest x-ray done yesterday showing increasing consolidation but her labs and clinically she looks well. We will continue with IV antibiotics and aspiration precautions for now. We will repeat chest x-ray tomorrow morning if there is resolution or improvement I will consider discharge to [place] tomorrow. Patient's chart, labs, images were reviewed and discussed with RN 01/03/21 Afebrile. Pt seen and examined bedside. No clinical changes. Worsening CXR and patient continues to have coughing spells after meals even with feed assist. Will continue rehab modalities and anticipate for DC tomorrow in the am. Vitals/I&O Vitals/I&O: Vital Signs Date Time Temp Pulse Resp B/P (MAP) Pulse Ox O2 Delivery O2 Flow Rate FiO2 01/03/21 10:48 98.1 76 19 170/82 (111) 97 Nasal Cannula 1.0 98.1 I & O 01/02/21 01/02/21 01/03/21 15:00 23:00 07:00 Intake Total 150 ml Output Total 1100 ml 950 ml 1800 ml Balance -950 ml -950 ml -1800 ml Physical Exam General: Alert, Cooperative, No acute distress Heart: Other (IRRR; tele AFIB ) Lungs: Clear, Crackles Abdomen: Soft Extremities: No edema, Other Skin: No significant lesion Labs Labs: Laboratory Tests Test 01/02/21 16:39 01/02/21 20:26 01/03/21 07:02 01/03/21 09:10 Glucose (Fingerstick) 175 mg/dL (70-99) 188 mg/dL (70-99) 209 mg/dL (70-99) White Blood Count 12.2 x10^3/uL (4.0-11.0) Red Blood Count 4.83 x10^6/uL (3.50-5.40) Hemoglobin 10.9 g/dL (12.0-15.5) Hematocrit 35.2 % (36.0-47.0) Mean Corpuscular Volume 73 fL (79-100) Mean Corpuscular Hemoglobin 23 pg (25-35) Mean Corpuscular Hemoglobin Concent 31 g/dL (31-37) Red Cell Distribution Width 17.4 % (11.5-14.5) Platelet Count 292 x10^3/uL (140-400) Neutrophils (%) (Auto) 85 % (31-73) Lymphocytes (%) (Auto) 9 % (24-48) Monocytes (%) (Auto) 5 % (0-9) Eosinophils (%) (Auto) 0 % (0-3) Basophils (%) (Auto) 1 % (0-3) Neutrophils # (Auto) 10.4 x10^3/uL (1.8-7.7) Lymphocytes # (Auto) 1.2 x10^3/uL (1.0-4.8) Monocytes # (Auto) 0.6 x10^3/uL (0.0-1.1) Eosinophils # (Auto) 0.0 x10^3/uL (0.0-0.7) Basophils # (Auto) 0.1 x10^3/uL (0.0-0.2) Sodium Level 141 mmol/L (136-145) Potassium Level 3.3 mmol/L (3.5-5.1) Chloride Level 103 mmol/L (98-107) Carbon Dioxide Level 29 mmol/L (21-32) Anion Gap 9 (6-14) Blood Urea Nitrogen 13 mg/dL (7-20) Creatinine 1.0 mg/dL (0.6-1.0) Estimated GFR (Cockcroft-Gault) 54.5 Glucose Level 316 mg/dL (70-99) Calcium Level 8.3 mg/dL (8.5-10.1) Magnesium Level 2.1 mg/dL (1.8-2.4) Test 01/03/21 11:17 Glucose (Fingerstick) 324 mg/dL (70-99) Assessment and Plan Assessmemt and Plan Problems Medical Problems: (1) Altered mental status Status: Acute (2) Hypoxia Status: Acute (3) Pneumonia Status: Acute (4) Sepsis Status: Acute Comment Review of Relevant I have reviewed the following items black (where applicable) has been applied. Medications: Current Medications Medications (Trade) Dose Ordered Sig/Laureen Route PRN Reason Start Time Stop Time Status Last Admin Dose Admin Metoprolol Tartrate (Lopressor) 50 mg BID PO 01/02/21 21:00 01/03/21 08:39 Potassium Chloride (Klor-Con) 40 meq 1X ONCE PO 01/03/21 11:30 01/03/21 11:31 DC 01/03/21 11:36 Justifications for Admission Other Justification Trimalleolar fracture MELODY SHIRLEY MD Jan 03, 2021 12:06
[2021-01-03 14:04] VITALS: BP 154/84
[2021-01-03] MEDS ORDERED: INSULIN LISPRO 300 UNITS/3 ML VIAL. SQ SCH (17:00)
[2021-01-03 19:15] VITALS: BP 134/75
[2021-01-03] MEDS: ATORVASTATIN CALCIUM 10 MG TABLET. PO SCH (20:32)
[2021-01-03] MEDS: PSYLLIUM HUSK (SUGAR FREE) 1 PKT PACKET PO SCH (20:32)
[2021-01-03 22:35] VITALS: BP 136/83
[2021-01-04] MEDS: PIPERACILLIN/TAZOBACTAM 3.375 GM in IV NORMAL SALINE 50ML 50 ML IV SCH ×4 (00:08→17:26)
[2021-01-04 02:50] VITALS: BP 131/82
[2021-01-04] MEDS: LEVOTHYROXINE 125 MCG TABLET PO SCH (06:13)
[2021-01-04 07:00] VITALS: BP 160/92
[2021-01-04] MEDS: INSULIN LISPRO 300 UNITS/3 ML VIAL. SQ SCH ×3 (07:45→17:26)
--- NOTE | 2021-01-04 08:26 | PDOC ---
PULMONARY PROGRESS NOTES DATE: 01/04/21 TIME: 08:25 Subjective denies soa Vitals Vital Signs Date Time Temp Pulse Resp B/P (MAP) Pulse Ox O2 Delivery O2 Flow Rate FiO2 01/04/21 02:50 97.8 81 20 131/82 (98) 98 Nasal Cannula 1.0 97.8 ROS: No Nausea, No Chest Pain, No Abdominal Pain, No Increase Cough General: Alert Lungs: Clear Cardiovascular: S1, S2 Abdomen: Soft Neuro Exam: Alert Extremities: No Edema Skin: Warm Labs Laboratory Tests Test 01/02/21 09:50 01/02/21 11:39 01/02/21 16:39 01/02/21 20:26 White Blood Count 12.3 x10^3/uL (4.0-11.0) Red Blood Count 4.66 x10^6/uL (3.50-5.40) Hemoglobin 10.2 g/dL (12.0-15.5) Hematocrit 34.1 % (36.0-47.0) Mean Corpuscular Volume 73 fL (79-100) Mean Corpuscular Hemoglobin 22 pg (25-35) Mean Corpuscular Hemoglobin Concent 30 g/dL (31-37) Red Cell Distribution Width 17.8 % (11.5-14.5) Platelet Count 270 x10^3/uL (140-400) Neutrophils (%) (Auto) 86 % (31-73) Lymphocytes (%) (Auto) 9 % (24-48) Monocytes (%) (Auto) 4 % (0-9) Eosinophils (%) (Auto) 1 % (0-3) Basophils (%) (Auto) 0 % (0-3) Neutrophils # (Auto) 10.6 x10^3/uL (1.8-7.7) Lymphocytes # (Auto) 1.1 x10^3/uL (1.0-4.8) Monocytes # (Auto) 0.5 x10^3/uL (0.0-1.1) Eosinophils # (Auto) 0.1 x10^3/uL (0.0-0.7) Basophils # (Auto) 0.0 x10^3/uL (0.0-0.2) Segmented Neutrophils % 85 % (35-66) Band Neutrophils % 1 % (0-9) Lymphocytes % 8 % (24-48) Monocytes % 5 % (0-10) Eosinophils % 1 % (0-5) Platelet Estimate Adequate (ADEQUATE) Large Platelets Few Hypochromasia Mod Anisocytosis Present Microcytosis Present Sodium Level 142 mmol/L (136-145) Potassium Level 3.3 mmol/L (3.5-5.1) Chloride Level 104 mmol/L (98-107) Carbon Dioxide Level 30 mmol/L (21-32) Anion Gap 8 (6-14) Blood Urea Nitrogen 14 mg/dL (7-20) Creatinine 1.0 mg/dL (0.6-1.0) Estimated GFR (Cockcroft-Gault) 54.5 Glucose Level 252 mg/dL (70-99) Calcium Level 8.6 mg/dL (8.5-10.1) Magnesium Level 2.1 mg/dL (1.8-2.4) Glucose (Fingerstick) 222 mg/dL (70-99) 175 mg/dL (70-99) 188 mg/dL (70-99) Test 01/03/21 07:02 01/03/21 09:10 01/03/21 11:17 01/03/21 16:18 Glucose (Fingerstick) 209 mg/dL (70-99) 324 mg/dL (70-99) 171 mg/dL (70-99) White Blood Count 12.2 x10^3/uL (4.0-11.0) Red Blood Count 4.83 x10^6/uL (3.50-5.40) Hemoglobin 10.9 g/dL (12.0-15.5) Hematocrit 35.2 % (36.0-47.0) Mean Corpuscular Volume 73 fL (79-100) Mean Corpuscular Hemoglobin 23 pg (25-35) Mean Corpuscular Hemoglobin Concent 31 g/dL (31-37) Red Cell Distribution Width 17.4 % (11.5-14.5) Platelet Count 292 x10^3/uL (140-400) Neutrophils (%) (Auto) 85 % (31-73) Lymphocytes (%) (Auto) 9 % (24-48) Monocytes (%) (Auto) 5 % (0-9) Eosinophils (%) (Auto) 0 % (0-3) Basophils (%) (Auto) 1 % (0-3) Neutrophils # (Auto) 10.4 x10^3/uL (1.8-7.7) Lymphocytes # (Auto) 1.2 x10^3/uL (1.0-4.8) Monocytes # (Auto) 0.6 x10^3/uL (0.0-1.1) Eosinophils # (Auto) 0.0 x10^3/uL (0.0-0.7) Basophils # (Auto) 0.1 x10^3/uL (0.0-0.2) Sodium Level 141 mmol/L (136-145) Potassium Level 3.3 mmol/L (3.5-5.1) Chloride Level 103 mmol/L (98-107) Carbon Dioxide Level 29 mmol/L (21-32) Anion Gap 9 (6-14) Blood Urea Nitrogen 13 mg/dL (7-20) Creatinine 1.0 mg/dL (0.6-1.0) Estimated GFR (Cockcroft-Gault) 54.5 Glucose Level 316 mg/dL (70-99) Calcium Level 8.3 mg/dL (8.5-10.1) Magnesium Level 2.1 mg/dL (1.8-2.4) Test 01/03/21 20:40 01/04/21 07:24 Glucose (Fingerstick) 197 mg/dL (70-99) 220 mg/dL (70-99) Laboratory Tests Test 01/03/21 09:10 01/03/21 11:17 01/03/21 16:18 01/03/21 20:40 White Blood Count 12.2 x10^3/uL (4.0-11.0) Red Blood Count 4.83 x10^6/uL (3.50-5.40) Hemoglobin 10.9 g/dL (12.0-15.5) Hematocrit 35.2 % (36.0-47.0) Mean Corpuscular Volume 73 fL (79-100) Mean Corpuscular Hemoglobin 23 pg (25-35) Mean Corpuscular Hemoglobin Concent 31 g/dL (31-37) Red Cell Distribution Width 17.4 % (11.5-14.5) Platelet Count 292 x10^3/uL (140-400) Neutrophils (%) (Auto) 85 % (31-73) Lymphocytes (%) (Auto) 9 % (24-48) Monocytes (%) (Auto) 5 % (0-9) Eosinophils (%) (Auto) 0 % (0-3) Basophils (%) (Auto) 1 % (0-3) Neutrophils # (Auto) 10.4 x10^3/uL (1.8-7.7) Lymphocytes # (Auto) 1.2 x10^3/uL (1.0-4.8) Monocytes # (Auto) 0.6 x10^3/uL (0.0-1.1) Eosinophils # (Auto) 0.0 x10^3/uL (0.0-0.7) Basophils # (Auto) 0.1 x10^3/uL (0.0-0.2) Sodium Level 141 mmol/L (136-145) Potassium Level 3.3 mmol/L (3.5-5.1) Chloride Level 103 mmol/L (98-107) Carbon Dioxide Level 29 mmol/L (21-32) Anion Gap 9 (6-14) Blood Urea Nitrogen 13 mg/dL (7-20) Creatinine 1.0 mg/dL (0.6-1.0) Estimated GFR (Cockcroft-Gault) 54.5 Glucose Level 316 mg/dL (70-99) Calcium Level 8.3 mg/dL (8.5-10.1) Magnesium Level 2.1 mg/dL (1.8-2.4) Glucose (Fingerstick) 324 mg/dL (70-99) 171 mg/dL (70-99) 197 mg/dL (70-99) Test 01/04/21 07:24 Glucose (Fingerstick) 220 mg/dL (70-99) Medications Active Scripts Medications Dose Route/Sig Max Daily Dose Days Date Category Zinc 50 Mg Tablet 1 Tab PO DAILY 30 12/27/20 Reported Wellbutrin Xl (Bupropion Hcl) 150 Mg Tab.er.24h 1 Tab PO DAILYWBKFT 12/27/20 Reported Robitussin Cough-Chest Dm Liq (Guaifenesin/Dextromethorphan) 237 Ml Liquid 237 Ml PO PRN Q6HRS PRN 12/27/20 Reported Potassium Chloride (Potassium Chloride) 10 Meq Tab.sr.24h 10 Meq PO DAILY 12/27/20 Reported Nystatin 1 Each Powder.ea. 1 Each MC BID 12/27/20 Reported Meloxicam 15 Mg Tablet 15 Mg PO DAILY 12/27/20 Reported Hydrocodone-Apap 5-325 (Hydrocodone Bit/Acetaminophen) 1 Tab Tablet 2 Tab PO PRN Q6HRS PRN 12/27/20 Reported Loratadine 10 Mg Tablet 10 Mg PO DAILY 12/27/20 Reported Furosemide 20 Mg Tablet 60 Mg PO DAILY 12/27/20 Reported Biofreeze (Menthol) 118 Ml Gel..ml. 1 Blayne TP PRN PRN 7 12/27/20 Reported Baclofen 10 Mg Tablet 10 Mg PO BID 12/27/20 Reported Artificial Tears Drops (Peg 400/Hypromellose/Glycerin) 15 Ml Drops 1 Drop OD BID 30 12/27/20 Reported Acetaminophen 500 Mg Tablet 500 Mg PO PRN Q4HRS PRN 12/27/20 Reported Abilify (Aripiprazole) 2 Mg Tablet 2 Mg PO DAILY 12/27/20 Reported Ventolin Hfa Inhaler (Albuterol Sulfate) 18 Gm Hfa.aer.ad 2 Puff INH Q4HRS 02/01/20 Reported Ropinirole Hcl 0.5 Mg Tablet 0.5 Mg PO TID 02/01/20 Reported Lyrica (Pregabalin) 50 Mg Capsule 50 Mg PO TID 02/01/20 Reported Ondansetron Hcl 4 Mg Tablet 1 Tab PO PRN Q8HRS PRN 02/01/20 Reported Novolog (Insulin Aspart) 100 Unit/1 Ml Vial 18 Unit SQ TIDAC 02/01/20 Reported Multiple Vitamin (Multivitamin With Minerals) 1 Each Tablet 1 Each PO BID 02/01/20 Reported Mucinex Fast-Max Dm Max Liquid (Guaifenesin/Dextromethorphan) 180 Ml Liquid 10 Ml PO PRN Q4HRS PRN 02/01/20 Reported Miralax (Polyethylene Glycol 3350) 17 Gm Powd.pack 1 Pkt PO PRN Q24HRS PRN 02/01/20 Reported Mag-Al Hydrox-Simeth Max Susp (Mag Hydrox/Aluminum Hyd/Simeth) 30 Ml Oral.susp 15 Ml PO PRN Q4HRS PRN 02/01/20 Reported Levothyroxine Sodium 125 Mcg Tablet 250 Mcg PO DAILYAC 02/01/20 Reported Levemir Flextouch (Insulin Detemir) 100 Unit/1 Ml Insuln.pen 35 Unit SQ BID 02/01/20 Reported Januvia (Sitagliptin Phosphate) 100 Mg Tablet 1 Tab PO DAILY 02/01/20 Reported Hydrocortisone Plus 1% Cream (Hydrocortisone/Aloe Vera) 28.4 Gm Cream..g. 28.4 Gm TP PRN Q8HRS PRN 02/01/20 Reported Famotidine 20 Mg Tablet 20 Mg PO HS 02/01/20 Reported Entacapone 200 Mg Tablet 200 Mg PO DAILY 02/01/20 Reported Eliquis (Apixaban) 2.5 Mg Tablet 2.5 Mg PO BID 02/01/20 Reported Cymbalta (Duloxetine Hcl) 30 Mg Capsule.dr 60 Mg PO BID 02/01/20 Reported Biofreeze (Menthol) 118 Ml Gel..ml. 1 Blayne TP PRN Q6HRS PRN 7 02/01/20 Reported Atorvastatin Calcium 10 Mg Tablet 10 Mg PO HS 02/01/20 Reported Polyvinyl Alcohol 15 Ml Drops 1 Drop EACHEYE PRN Q4HRS PRN 30 02/01/20 Reported Alprazolam 0.5 Mg Tablet 1 Tab PO HS 02/01/20 Reported Impression . IMPRESSION: 1. Gppaq-ad-hheaywf hypoxemic respiratory failure, multifactorial. 2. Right lower lobe pneumonia, suspect gram-negative, possibly gram-positive. 3. Sepsis secondary to above. 4. Atrial fibrillation. 5. Bbnev-qv-lfluvly encephalopathy related to sepsis. 6. Severe protein malnutrition. 7. Dysphagia. 8. Parkinsonism. Plan . clinically stable discharge today Continue antibiotics at ct po Dysphagia diet Nasal PCR MRSA negative MARIO ALBERTO GROVES MD Jan 04, 2021 08:26
[2021-01-04] MEDS: LACTOBACILLUS RHAMNOSUS GG 1 CAPSULE. PO SCH (08:28)
[2021-01-04] MEDS: LINAGLIPTIN 5 MG TABLET PO SCH (08:28)
[2021-01-04] MEDS: METOPROLOL TART IMMED RELEASE 25 MG TABLET. PO SCH (08:28)
[2021-01-04] MEDS: APIXABAN 2.5 MG TABLET. PO SCH (08:29)
--- NOTE | 2021-01-04 09:13 | SNU/HH DC ---
DISCHARGE ORDERS DISCHARGE INFORMATION: DISCHARGE DATE: Jan 04, 2021 FINAL DIAGNOSIS 1. Hefsu-wv-chizmtl hypoxemic respiratory failure, multifactorial. 2. Right lower lobe pneumonia, suspect gram-negative, possibly gram-positive. 3. Sepsis secondary to above. 4. Atrial fibrillation. 5. Nzpzh-et-dlwpqxc encephalopathy related to sepsis. 6. Severe protein malnutrition. 7. Dysphagia. 8. Parkinsonism. clinically stable discharge today Continue antibiotics at dc po Dysphagia diet Nasal PCR MRSA negative Problems Medical Problems: (1) Altered mental status Status: Acute (2) Hypoxia Status: Acute (3) Pneumonia Status: Acute (4) Sepsis Status: Acute CONDITION ON DISCHARGE: Guarded CODE STATUS: Code Status: Full JAIL: SNF STAY <30 DAYS: Yes POST DISCHARGE ORDERS: ACTIVITY ORDERS: Activity as tolerated WEIGHT BEARING STATUS: As tolerated, Non weight bearing DIET AFTER DISCHARGE: Dysphagia diet WOUND/INCISION CARE: No wound care needed CHECKS AFTER DISCHARGE: CHECKS AFTER DISCHARGE: Check blood press - daily, Check blood sugar, ac/hs FOLLOW-UP: PHYSICIAN FOLLOW-UP: PCP within 2 weeks of discharge ADDITIONAL FOLLOW-UP: Neurology and cardiology as needed LAB ORDERS FOR FOLLOW-UP: CBC, CMP ANTICOAGULATION F/U NEEDED: Patient is on Eliquis TREATMENT/EQUIPMENT ORDERS: ADAPTIVE EQUIPMENT NEEDED: None Physical Therapy For: Evalulation/Treatment Occupational Therapy For: Evaluation/Treatment Speech Language Pathology For: Evaluation/Treatment DISCHARGE MEDICATIONS: Home Meds Active Scripts Amoxicillin/Potassium Clav (AUGMENTIN 500-125 TABLET) 1 Each Tablet, 1 TAB PO BID for pneumonia for 3 Days, #6 TAB 0 Refills Prov:MELODY SHIRLEY MD 01/01/21 Amlodipine Besylate (AMLODIPINE BESYLATE) 10 Mg Tablet, 10 MG PO DAILY for blood pressure for 30 Days, #30 TAB 2 Refills Prov:MELODY SHIRLEY MD 01/01/21 Metoprolol Tartrate (METOPROLOL TARTRATE) 25 Mg Tablet, 25 MG PO BID for blood pressure for 30 Days, #60 TAB 2 Refills Prov:MELODY SHIRLEY MD 01/01/21 Reported Medications Zinc (ZINC) 50 Mg Tablet, 1 TAB PO DAILY for vitamin deficiency for 30 Days, #30 TAB 0 Refills 12/27/20 Bupropion Hcl (WELLBUTRIN XL) 150 Mg Tab.er.24h, 1 TAB PO DAILYWBKFT for mdd, #30 TAB 2 Refills 12/27/20 Guaifenesin/Dextromethorphan (Robitussin Cough-Chest Dm Liq) 237 Ml Liquid, 237 ML PO PRN Q6HRS PRN for COUGH, LIQUID 12/27/20 Potassium Chloride (POTASSIUM CHLORIDE ) 10 Meq Tab.sr.24h, 10 MEQ PO DAILY for SUPPLEMENT, TAB.SR 12/27/20 Nystatin (NYSTATIN) 1 Each Powder.ea., 1 EACH MC BID for skin care , EACH 12/27/20 Meloxicam (MELOXICAM) 15 Mg Tablet, 15 MG PO DAILY for chronic pain , TAB 12/27/20 Hydrocodone Bit/Acetaminophen (HYDROCODONE-APAP 5-325 ) 1 Tab Tablet, 2 TAB PO PRN Q6HRS PRN for PAIN, TAB 0 Refills 12/27/20 Menthol (BIOFREEZE) 118 Ml Gel..ml., 1 SHIRLEY TP PRN PRN for PAIN for 7 Days, #118 ML 0 Refills 12/27/20 Baclofen (BACLOFEN) 10 Mg Tablet, 10 MG PO BID for MUSCLE RELAXER, #30 TAB 0 Refills 12/27/20 Peg 400/Hypromellose/Glycerin (ARTIFICIAL TEARS DROPS) 15 Ml Drops, 1 DROP OD BID for dry eyes for 30 Days, #15 ML 0 Refills 12/27/20 Acetaminophen (ACETAMINOPHEN) 500 Mg Tablet, 500 MG PO PRN Q4HRS PRN for PAIN, TAB 12/27/20 Aripiprazole (ABILIFY) 2 Mg Tablet, 2 MG PO DAILY for MDD, TAB 12/27/20 Albuterol Sulfate (VENTOLIN HFA INHALER) 18 Gm Hfa.aer.ad, 2 PUFF INH Q4HRS for FOR ASTHMA, INHALER 0 Refills 02/01/20 Ropinirole Hcl (ROPINIROLE HCL) 0.5 Mg Tablet, 0.5 MG PO TID for restless legs, TAB 02/01/20 Pregabalin (LYRICA) 50 Mg Capsule, 50 MG PO TID for gammaherpes viral mononucleosi, CAP 02/01/20 Ondansetron Hcl (ONDANSETRON HCL) 4 Mg Tablet, 1 TAB PO PRN Q8HRS PRN for NAUSEA, #10 TAB 1 Refill 02/01/20 Insulin Aspart (NOVOLOG) 100 Unit/1 Ml Vial, 18 UNIT SQ TIDAC for diabetes, VIAL 02/01/20 Multivitamin With Minerals (MULTIPLE VITAMIN) 1 Each Tablet, 1 EACH PO BID for dyspepsia, TAB 02/01/20 Guaifenesin/Dextromethorphan (Mucinex Fast-Max Dm Max Liquid) 180 Ml Liquid, 10 ML PO PRN Q4HRS PRN for nasal congestion, ML 0 Refills 02/01/20 Polyethylene Glycol 3350 (MIRALAX) 17 Gm Powd.pack, 1 PKT PO PRN Q24HRS PRN for CONSTIPATION, PKT 02/01/20 Mag Hydrox/Aluminum Hyd/Simeth (Mag-Al Hydrox-Simeth Max Susp) 30 Ml Oral.susp, 15 ML PO PRN Q4HRS PRN for DYSPEPSIA, MISC 02/01/20 Levothyroxine Sodium (LEVOTHYROXINE SODIUM) 125 Mcg Tablet, 250 MCG PO DAILYAC for THYROID SUPPLEMENT, #30 TAB 0 Refills 02/01/20 Insulin Detemir (Levemir Flextouch) 100 Unit/1 Ml Insuln.pen, 35 UNIT SQ BID for diabetes, SYR 02/01/20 Sitagliptin Phosphate (JANUVIA) 100 Mg Tablet, 1 TAB PO DAILY for diabetes, #30 TAB 5 Refills 02/01/20 Hydrocortisone/Aloe Vera (HYDROCORTISONE PLUS 1% CREAM) 28.4 Gm Cream..g., 28.4 GM TP PRN Q8HRS PRN for ITCHING, EACH 02/01/20 Famotidine (FAMOTIDINE) 20 Mg Tablet, 20 MG PO HS for GERD, TAB 02/01/20 Entacapone (ENTACAPONE) 200 Mg Tablet, 200 MG PO DAILY for parkinsons, TAB 02/01/20 Apixaban (ELIQUIS) 2.5 Mg Tablet, 2.5 MG PO BID for heart disease, TAB 02/01/20 Duloxetine Hcl (CYMBALTA) 30 Mg Capsule.dr, 60 MG PO BID for major depressive disorder, CAP 02/01/20 Menthol (BIOFREEZE) 118 Ml Gel..ml., 1 SHIRLEY TP PRN Q6HRS PRN for PAIN for 7 Days, #118 ML 0 Refills 02/01/20 Atorvastatin Calcium (ATORVASTATIN CALCIUM) 10 Mg Tablet, 10 MG PO HS for FOR CHOLESTEROL, #30 TAB 0 Refills 02/01/20 Polyvinyl Alcohol (POLYVINYL ALCOHOL) 15 Ml Drops, 1 DROP EACHEYE PRN Q4HRS PRN for DRY EYE for 30 Days, #15 ML 0 Refills 02/01/20 Discontinued Reported Medications Loratadine (LORATADINE) 10 Mg Tablet, 10 MG PO DAILY for allergies, TAB 12/27/20 Furosemide (FUROSEMIDE) 20 Mg Tablet, 60 MG PO DAILY for chf, TAB 12/27/20 Alprazolam (ALPRAZOLAM) 0.5 Mg Tablet, 1 TAB PO HS for anxiety, #30 TAB 02/01/20 JACQUELINE MCMANUS MD Jan 04, 2021 09:13
--- NOTE | 2021-01-04 09:55 | NUR ---
Assumed pt care at this time. Pt in bed requesting to be changed. Call light within reach.
[2021-01-04 11:00] VITALS: BP 158/87
--- NOTE | 2021-01-04 13:01 | PDOC ---
MARIKA CURRAN APRN 01/04/21 1301: CARDIO Progress Notes Date and Time Date of Service 01/04/21 Time of Evaluation 1300 Subjective Subjective: No Chest Pain, No shortness of breath, No Palpitations Vitals Vitals Vital Signs Date Time Temp Pulse Resp B/P (MAP) Pulse Ox O2 Delivery O2 Flow Rate FiO2 01/04/21 11:00 98.2 77 18 158/87 (110) 98 Nasal Cannula 1.0 98.2 Weight Weight [ ] Input and Output Intake and Output Intake and Output 01/04/21 07:00 Intake Total 620 ml Output Total 1150 ml Balance -530 ml Intake Oral 620 ml Output Urine Total 1150 ml # Voids 3 Laboratory Labs Laboratory Tests Test 01/03/21 16:18 01/03/21 20:40 01/04/21 07:24 01/04/21 11:35 Glucose (Fingerstick) 171 mg/dL (70-99) 197 mg/dL (70-99) 220 mg/dL (70-99) 258 mg/dL (70-99) Microbiology Micro Microbiology 12/27/20 Blood Culture - Final, Complete NO GROWTH AFTER 5 DAYS Physical Exam HEENT: Neck Supple W Full Motion Chest: Symmetric LUNGS: Other (diminished baes) Heart: RRR (SR) Abdomen: Soft N/T Extremities: No Calf Tenderness Neurology: alert, oriented, follow commands Assessment Assessment 1. Acute on chronic respiratory failure secondary to PNA, possible aspiration 2. PAFIB; s/p remote ablation. Presently SR 3. Leukocytosis, lactic acidosis, fevers, sepsis 4. Hypertension; blood pressure elevated 5. Hyperlipidemia; statin 6. Diabetes, II 7. Hypothyroidism: TSH on goal 8. Parkinson's 9. S/p STAKING PRESS OPERATOR shunt Recommendations Metoprolol for rate control. Eliquis for stroke prevention. Outpatient echo to assess LV systolic function Ongoing lung optimization supportive care Follow up in clinic with Dr. Mccallum as scheduled. Justicifation of Admission Dx: Justifications for Admission: Justification of Admission Dx: Yes PHOENIX MCCALLUM MD 01/05/21 1256: CARDIO Progress Notes Plan Plan Late entry for 01/04/2021 Patient seen and examined. Agree with above nurse practitioner note. Case discussed with nursing service. Okay to discharge from a cardiovascular perspective with outpatient follow-up. MARIKA CURRAN APRN Jan 04, 2021 13:01 PHOENIX MCCALLUM MD Jan 05, 2021 12:56
[2021-01-04 15:00] VITALS: BP 146/85
--- NOTE | 2021-01-04 15:25 | NUR ---
Called and gave report to Diamond at [facility].
--- NOTE | 2021-01-04 19:08 | NUR ---
Pt discharged to [facility]. PICC removed without complications. Pt belongings were packed. Pt assisted to stretcher and was taken by transportation.
--- NOTE | 2021-01-18 09:32 | PDOC3 ---
Discharge Summary Visit Information Date of Admission: Dec 27, 2020 Date of Discharge: Jan 04, 2021 Final Diagnosis 1. Pvsnf-po-ejhundj hypoxemic respiratory failure, multifactorial. 2. Right lower lobe pneumonia, suspect gram-negative, possibly gram-positive. Aspiration pneumonia 3. Sepsis secondary to above. 4. Atrial fibrillation. 5. Lbrvu-si-sgaeyin encephalopathy related to sepsis. 6. Severe protein malnutrition. 7. Dysphagia. 8. Parkinsonism. Problems Medical Problems: (1) Altered mental status Status: Acute (2) Hypoxia Status: Acute (3) Pneumonia Status: Acute (4) Sepsis Status: Acute Brief Hospital Course Allergies Allergies Coded Allergies Type Severity Reaction Last Updated Verified Influenza Virus Vaccines Allergy Intermediate 03/31/20 Yes bacitracin Allergy Intermediate Rash 01/31/20 Yes Brief Hospital Course Ms. Velazquez is a 70-year-old with parkinsonism. She was admitted from her assisted living, nursing facility with fever and altered mental status. She had dyspnea and cough and new right lower lobe infiltrate on CXR. There is cardiomegaly. She was treated for pneumonia and had signs of sepsis Dysphagia diet startd Discharge Information Condition at Discharge: Improved Disposition/Orders: D/C to Another Facility (skilled) Scheduled Albuterol Sulfate (Ventolin Hfa Inhaler) 18 Gm Hfa.aer.ad, 2 PUFF INH Q4HRS for FOR ASTHMA, Ref 0 (Reported) Entered as Reported by: SANTA LUGO on 02/01/2021 Last Action: Converted on 12/27/202317 by SIMON HYATT MD Amlodipine Besylate (Amlodipine Besylate) 10 Mg Tablet, 10 MG PO DAILY for blood pressure for 30 Days, #30 Ref 2 Prescribed by: MELODY SHIRLEY MD on 01/01/21 1212 Amoxicillin/Potassium Clav (Augmentin 500-125 Tablet) 1 Each Tablet, 1 TAB PO BID for pneumonia for 3 Days, #6 Ref 0 Prescribed by: MELODY SHIRLEY MD on 01/01/21 1212 Apixaban (Eliquis) 2.5 Mg Tablet, 2.5 MG PO BID for heart disease, (Reported) Entered as Reported by: SANTA LUGO on 02/01/20 0751 Last Action: Continued on 12/27/202317 by SIMON HYATT MD Aripiprazole (Abilify) 2 Mg Tablet, 2 MG PO DAILY for MDD, (Reported) Entered as Reported by: Juan J Cano on 12/27/202143 Last Taken: UNKNOWN on Unknown Date & Time Last Action: New Order on 12/27/202143 by Juan J Cano Atorvastatin Calcium (Atorvastatin Calcium) 10 Mg Tablet, 10 MG PO HS for FOR CHOLESTEROL, #30 Ref 0 (Reported) Entered as Reported by: SANTA LUGO on 02/01/20744 Last Action: Continued on 12/27/202317 by SIMON HYATT MD Baclofen (Baclofen) 10 Mg Tablet, 10 MG PO BID for MUSCLE RELAXER, #30 Ref 0 (Reported) Entered as Reported by: Juan J Cnao on 12/27/202143 Last Taken: UNKNOWN on Unknown Date & Time Last Action: New Order on 12/27/202143 by Juan J Cano Bupropion Hcl (Wellbutrin Xl) 150 Mg Tab.er.24h, 1 TAB PO DAILYWBKFT for mdd, #30 Ref 2 (Reported) Entered as Reported by: Juan J Cano on 12/27/202143 Last Taken: UNKNOWN on Unknown Date & Time Last Action: New Order on 12/27/202143 by Juan J Cano Duloxetine Hcl (Cymbalta) 30 Mg Capsule.dr, 60 MG PO BID for major depressive disorder, (Reported) Entered as Reported by: SANTA LUGO on 02/01/20744 Last Action: Edited on 12/27/202143 by Juan J Cano Entacapone (Entacapone) 200 Mg Tablet, 200 MG PO DAILY for parkinsons, (Reported) Entered as Reported by: SANTA LUGO on 02/01/20750 Last Action: Continued on 12/27/202326 by SIMON HYATT MD Famotidine (Famotidine) 20 Mg Tablet, 20 MG PO HS for GERD, (Reported) Entered as Reported by: SANTA LUGO on 02/01/20750 Last Action: Reviewed on 12/27/202143 by Juan J Cano Insulin Aspart (Novolog) 100 Unit/1 Ml Vial, 18 UNIT SQ TIDAC for diabetes, (Reported) Entered as Reported by: SANTA LUGO on 02/01/20817 Last Action: Reviewed on 12/27/202143 by Juan J Cano Insulin Detemir (Levemir Flextouch) 100 Unit/1 Ml Insuln.pen, 35 UNIT SQ BID for diabetes, (Reported) Entered as Reported by: SANTA LUGO on 02/01/20806 Last Action: Reviewed on 12/27/202143 by Juan J Cano Levothyroxine Sodium (Levothyroxine Sodium) 125 Mcg Tablet, 250 MCG PO DAILYAC for THYROID SUPPLEMENT, #30 Ref 0 (Reported) Entered as Reported by: SANTA LUGO on 02/01/20806 Last Action: Continued on 12/27/202326 by SIMON HYATT MD Meloxicam (Meloxicam) 15 Mg Tablet, 15 MG PO DAILY for chronic pain , (Reported) Entered as Reported by: Juan J Cano on 12/27/202143 Last Taken: UNKNOWN on Unknown Date & Time Last Action: New Order on 12/27/202143 by Juan J Cano Metoprolol Tartrate (Metoprolol Tartrate) 25 Mg Tablet, 25 MG PO BID for blood pressure for 30 Days, #60 Ref 2 Prescribed by: MELODY SHIRLEY MD on 01/01/211211 Multivitamin With Minerals (Multiple Vitamin) 1 Each Tablet, 1 EACH PO BID for dyspepsia, (Reported) Entered as Reported by: SANTA LUGO on 02/01/20806 Last Action: Reviewed on 12/27/202143 by Juan J Cano Nystatin (Nystatin) 1 Each Powder.ea., 1 EACH MC BID for skin care , (Reported) Entered as Reported by: Juan J Cano on 12/27/202143 Last Taken: UNKNOWN on Unknown Date & Time Last Action: New Order on 12/27/202143 by Juan J Cano Peg 400/Hypromellose/Glycerin (Artificial Tears Drops) 15 Ml Drops, 1 DROP OD BID for dry eyes for 30 Days, #15 Ref 0 (Reported) Entered as Reported by: Juan J Cano on 12/27/202143 Last Taken: UNKNOWN on Unknown Date & Time Last Action: New Order on 12/27/202143 by Juan J Cano Potassium Chloride (Potassium Chloride ) 10 Meq Tab.sr.24h, 10 MEQ PO DAILY for SUPPLEMENT, (Reported) Entered as Reported by: Juan J Cano on 12/27/202143 Last Taken: UNKNOWN on Unknown Date & Time Last Action: New Order on 12/27/202143 by Juan J Cano Pregabalin (Lyrica) 50 Mg Capsule, 50 MG PO TID for gammaherpes viral mononucleosi, (Reported) Entered as Reported by: SANTA LUGO on 02/01/20817 Last Action: Reviewed on 12/27/202143 by Juan J Cano Ropinirole Hcl (Ropinirole Hcl) 0.5 Mg Tablet, 0.5 MG PO TID for restless legs, (Reported) Entered as Reported by: SANTA LUGO on 02/01/20817 Last Action: Reviewed on 12/27/202143 by Juan J Cano Sitagliptin Phosphate (Januvia) 100 Mg Tablet, 1 TAB PO DAILY for diabetes, #30 Ref 5 (Reported) Entered as Reported by: SANTA LUGO on 02/01/20806 Last Action: Converted on 12/27/202317 by SIMON HYATT MD Zinc (Zinc) 50 Mg Tablet, 1 TAB PO DAILY for vitamin deficiency for 30 Days, #30 Ref 0 (Reported) Entered as Reported by: Juan J Cano on 12/27/202143 Last Taken: UNKNOWN on Unknown Date & Time Last Action: New Order on 12/27/202143 by Juan J Cano Scheduled PRN Acetaminophen (Acetaminophen) 500 Mg Tablet, 500 MG PO PRN Q4HRS PRN for PAIN, (Reported) Entered as Reported by: Juan J Cano on 12/27/202143 Last Taken: UNKNOWN on Unknown Date & Time Last Action: New Order on 12/27/202143 by Juan J Cano Guaifenesin/Dextromethorphan (Mucinex Fast-Max Dm Max Liquid) 180 Ml Liquid, 10 ML PO PRN Q4HRS PRN for nasal congestion, Ref 0 (Reported) Entered as Reported by: SANTA LUGO on 02/01/20806 Last Action: Reviewed on 12/27/202143 by Juan J Cano Guaifenesin/Dextromethorphan (Robitussin Cough-Chest Dm Liq) 237 Ml Liquid, 237 ML PO PRN Q6HRS PRN for COUGH, (Reported) Entered as Reported by: Juan J Cano on 12/27/202143 Last Taken: UNKNOWN on Unknown Date & Time Last Action: New Order on 12/27/202143 by Juan J Cano Hydrocodone Bit/Acetaminophen (Hydrocodone-Apap 5-325 ) 1 Tab Tablet, 2 TAB PO PRN Q6HRS PRN for PAIN, Ref 0 (Reported) Entered as Reported by: Juan J Cano on 12/27/202143 Last Taken: UNKNOWN on Unknown Date & Time Last Action: New Order on 12/27/202143 by Juan J Cano Hydrocortisone/Aloe Vera (Hydrocortisone Plus 1% Cream) 28.4 Gm Cream..g., 28.4 GM TP PRN Q8HRS PRN for ITCHING, (Reported) Entered as Reported by: SANTA LUGO on 02/01/20806 Last Action: Reviewed on 12/27/202143 by Juan J Cano Mag Hydrox/Aluminum Hyd/Simeth (Mag-Al Hydrox-Simeth Max Susp) 30 Ml Oral.susp, 15 ML PO PRN Q4HRS PRN for DYSPEPSIA, (Reported) Entered as Reported by: SANTA LUGO on 02/01/20806 Last Action: Reviewed on 12/27/202143 by Juan J Cano Menthol (Biofreeze) 118 Ml Gel..ml., 1 SHIRLEY TP PRN Q6HRS PRN for PAIN for 7 Days, #118 Ref 0 (Reported) Entered as Reported by: SANTA LUGO on 02/01/20744 Last Action: Reviewed on 12/27/202143 by Juan J Cano Menthol (Biofreeze) 118 Ml Gel..ml., 1 SHIRLEY TP PRN PRN for PAIN for 7 Days, #118 Ref 0 (Reported) Entered as Reported by: Juan J Cano on 12/27/202143 Last Taken: UNKNOWN on Unknown Date & Time Last Action: New Order on 12/27/202143 by Juan J Cano Ondansetron Hcl (Ondansetron Hcl) 4 Mg Tablet, 1 TAB PO PRN Q8HRS PRN for NAUSEA, #10 Ref 1 (Reported) Entered as Reported by: SANTA LUGO on 02/01/20817 Last Action: Reviewed on 12/27/202143 by Juan J Cano Polyethylene Glycol 3350 (Miralax) 17 Gm Powd.pack, 1 PKT PO PRN Q24HRS PRN for CONSTIPATION, (Reported) Entered as Reported by: SANTA LUGO on 02/01/20806 Last Action: Continued on 12/27/202317 by SIMON HYATT MD Polyvinyl Alcohol (Polyvinyl Alcohol) 15 Ml Drops, 1 DROP EACHEYE PRN Q4HRS PRN for DRY EYE for 30 Days, #15 Ref 0 (Reported) Entered as Reported by: SANTA LUGO on 02/01/20737 Last Action: Reviewed on 12/27/202143 by Juan J Cano Patient Instructions Patient Instructions Face to face done at DC 38 minutes total coordination Continue antibiotics at dc po Dysphagia diet Nasal PCR MRSA negative Justicifation of Admission Dx: Justifications for Admission: Justification of Admission Dx: Yes JACQUELINE MCMANUS MD Jan 18, 2021 09:31
== END 2021-01-04 19:09 | DRG 871 ==
LOC: ER 12:08 → ED HOLD 15:10 → 6 SOUTH 18:09
PROVIDERS: ADMIT Internal Medicine; ATTEND Internal Medicine
PROC: 02HV33Z Insertion of Infusion Device into Superior Vena Cava, Percutaneous Approach (ICD-10-PCS; principal; 2020-12-31)
PROC: B5181ZA Fluoroscopy of Superior Vena Cava using Low Osmolar Contrast, Guidance (ICD-10-PCS; 2020-12-31)
PROC: B548ZZA Ultrasonography of Superior Vena Cava, Guidance (ICD-10-PCS; 2020-12-31)
DX: A41.9 Sepsis, unspecified organism (principal); E43 Unspecified severe protein-calorie malnutrition; J96.21 Acute and chronic respiratory failure with hypoxia; G93.41 Metabolic encephalopathy; J69.0 Pneumonitis due to inhalation of food and vomit; J44.0 Chronic obstructive pulmonary disease with (acute) lower respiratory infection; J98.11 Atelectasis; R65.20 Severe sepsis without septic shock; E03.9 Hypothyroidism, unspecified; E11.9 Type 2 diabetes mellitus without complications; E66.01 Morbid (severe) obesity due to excess calories; E78.5 Hyperlipidemia, unspecified; F02.80 Dementia in other diseases classified elsewhere, unspecified severity, without behavioral disturbance, psychotic disturbance, mood disturbance, and anxiety; F41.8 Other specified anxiety disorders; G20 Parkinson's disease; G25.81 Restless legs syndrome; I11.9 Hypertensive heart disease without heart failure; I48.0 Paroxysmal atrial fibrillation; K21.9 Gastro-esophageal reflux disease without esophagitis; R13.10 Dysphagia, unspecified; R29.6 Repeated falls; Z79.01 Long term (current) use of anticoagulants; Z86.16 Personal history of COVID-19; Z98.2 Presence of cerebrospinal fluid drainage device; F32.A Depression, unspecified; F41.9 Anxiety disorder, unspecified; M19.90 Unspecified osteoarthritis, unspecified site; Z88.8 Allergy status to other drugs, medicaments and biological substances; Z68.38 Body mass index [BMI] 38.0-38.9, adult
CPT/HCPCS: 36415; 36573; 70250; 70450; 71045; 74018; 74177; 74230; 77001; 80048; 80053; 80202; 80307; 81001; 82550; 82962; 83605; 83735; 83880; 84145; 84443; 84484; 85007; 85025; 85610; 85730; 87040; 87426; 87641; 93005; 94760; C1751; C1892; J1650; J1815; J2543; J3370; J3490; J7030; J7040; P9612; Q9967; U0003; U0005; 92526-GN; 92610-GN; 92611-GN; 97530-GO; 97530-GP; 97535-GO; 99285-25; G0378

== ENCOUNTER → 2021-02-01 | Outpatient (CLI) | payer MEDICARE, OTHER ==
[2021-01-04 15:00] VITALS: BP 146/85
[~2021-02-01] MED LIST changes: +AMLO-187 PO; +AMOX1TAB58 PO; +ARIP2TAB3 PO; +BUPR150T15 PO; +GUAI237L83 PO; +HYDR-2761 PO; +LORA10TA3 PO; +METO25TA4 PO; +NYST1POW5 MC; +PEG15DRO6 OD; +POTA10TA12 PO; +ZINC50TA39 PO
--- NOTE | 2021-02-01 14:15 | CARD ---
MR#: [id number] Date of Study: 02/01/2021 Ordering Physician: CAR MCCALLUM, Referring Physician: CAR MCCALLUM, Tech: Sarah Fernandez, [facility] APPROVED REPORT EXAM: Two-dimensional and M-mode echocardiogram with Doppler and color Doppler. Other Information Quality : FairHR: 88bpm Technically limited study due to Patient sitting in wheel chair INDICATION Atrial Fibrillation 2D DIMENSIONS IVSd1.1 (0.7-1.1cm)Aortic Root(2D)3.0 (2.0-3.7cm) LVDd4.9 (3.9-5.9cm)LVOT Diameter2.1 (1.8-2.4cm) PWd1.1 (0.7-1.1cm)LVDs2.4 (2.5-4.0cm) FS (%) 50.6 %SV91.5 ml LVEF(%)81.7 (>50%) Aortic Valve AoV Peak [place].128.2cm/sAoV VTI19.2cm AO Peak GR.6.6mmHgLVOT Peak [place].94.2cm/s AO Mean GR.4mmHgAVA (VMAX)2.49cm2 Mitral Valve MV E Mtpebmct60.0cm/sMV E Peak Gr.2mmHg MV DECEL [id number] A Cifphykg77.2cm/s MV E Mean Gr.2mmHgE/A Ratio1.1 Pulmonary Valve PV Peak Bghixnhk32.1cm/s Tricuspid Valve TR P. Incttkqh962ha/sRAP [id number] TR Peak Gr.66hfGcRNSY05scZv LEFT VENTRICLE The left ventricle is normal size. There is borderline to mild concentric left ventricular hypertroph y. The left ventricular systolic function is normal and the ejection fraction is within normal range. The Ejection Fraction is 50-55%. There is grossly normal LV systolic function. Severely limited imag es due to patient's body habitus Transmitral Doppler flow pattern is Grade II-pseudonormal filling dy namics. RIGHT VENTRICLE The right ventricle is not well visualized. The right ventricle is mildly hypertrophied. The right ve ntricular systolic function is normal. ATRIA The left atrium is not well visualized. The right atrium is not well visualized. Interatrial septum i s not well visualized. AORTIC VALVE The aortic valve is not well visualized. Doppler and Color Flow revealed no significant aortic regurg itation. There is no significant aortic valvular stenosis. Calculated aortic valve area is 2.5 cm2 wi th maximum pressure gradient of 7 mmHg and mean pressure gradient of 4 mmHg. MITRAL VALVE Not well-visualized There is no evidence of mitral valve prolapse. There is no mitral valve stenosis. Doppler and Color-flow revealed trace mitral regurgitation. TRICUSPID VALVE Not well visualized Doppler and Color Flow revealed trace tricuspid regurgitation with an estimated P AP of 21 mmHg. There is no tricuspid valve stenosis. PULMONIC VALVE The pulmonic valve is not well visualized. Doppler and Color Flow revealed trace pulmonic valvular re gurgitation. GREAT VESSELS The aortic root is normal in size. Ascending aorta and arch were not well visualized. The IVC was not visualized. PERICARDIAL EFFUSION There is no evidence of significant pericardial effusion. Critical Notification Critical Value: No <Conclusion> The left ventricular systolic function is normal and the ejection fraction is within normal range. Th e Ejection Fraction is 50-55%. There is grossly normal LV systolic function. Severely limited images due to patient's body habitus Technically very limited study. Signed by : Car Mccallum, Electronically Approved : 02/01/2021 14:15:07
== END ==
LOC: ECHO 11:13
PROVIDERS: ATTEND Internal Medicine Cardiovascular Disease
DX: I48.91 Unspecified atrial fibrillation (principal)
CPT/HCPCS: 93306

== ENCOUNTER 2021-07-10 22:07 | Emergency (ER) | payer MEDICARE, OTHER ==
[~2021-07-10] VITALS: Ht 167.6 cm; Wt 95.5 kg
[~2021-07-10 22:07] MED LIST changes: +PEG15DRO14 OD; -PEG15DRO6 OD
[2021-07-10] MEDS ORDERED: IPRATRPIUM/ALBUTEROL 0.5/2.5MG 3 ML NEBU. NEB ONE (22:45)
[2021-07-10] MEDS ORDERED: predniSONE 10 MG TABLET PO ONE (22:45)
[2021-07-10] MEDS ORDERED: AZITHROMYCIN 250 MG TABLET. PO ONE (23:30)
[2021-07-10] MEDS ORDERED: PRED20TA PO (23:30)
[2021-07-10] MEDS ORDERED: AZIT250T6 PO (23:30)
--- NOTE | 2021-07-10 23:31 | PHYS DOC ---
Past Medical History Past Medical History: Anxiety, COPD, Depression, Diabetes-Type II, GERD, Other Additional Past Medical Histor: Parkinsons Past Surgical History: Tonsillectomy Additional Past Surgical Histo: SHUNT IN BRAIN Smoking Status: Unknown if ever smoked Alcohol Use: None General Adult EDM: Chief Complaint: SHORTNESS OF BREATH HPI: HPI: Patient is a 71 year old f who presents with cough and shortness of breath. Patient lives full-time at a psychiatric facility and was noted to be hypoxic into the low 90s this evening. As per the patient and information given by the facility the patient has a history of COPD and is on 2 L of oxygen by nasal cannula as needed. Patient does not appear to have been on oxygen when they took the saturation. Patient was given a DuoNeb in route by EMS and arrives with an oxygen saturation in the high 90s on room air. Patient says she is feeling much better and does not have any obvious respiratory distress. Patient denies any recent illness but does not appear to be a good historian, unclear if this is secondary to dementia or psychiatric illness. Review of Systems: Review of Systems: Constitutional: Denies fever or chills. [] Eyes: Denies change in visual acuity. [] HENT: Denies nasal congestion or sore throat. [] Respiratory: cough and shortness of breath. [] Cardiovascular: Denies chest pain or edema. [] GI: Denies abdominal pain, nausea, vomiting, bloody stools or diarrhea. [] : Denies dysuria. [] Musculoskeletal: Denies back pain or joint pain. [] Integument: Denies rash. [] Neurologic: Denies headache, focal weakness or sensory changes. [] Endocrine: Denies polyuria or polydipsia. [] Lymphatic: Denies swollen glands. [] Psychiatric: Denies depression or anxiety. [] Heart Score: C/O Chest Pain: No Risk Factors: Risk Factors: DM, Current or recent (<one month) smoker, HTN, HLP, family history of CAD, obesity. Risk Scores: Score 0 - 3: 2.5% MACE over next 6 weeks - Discharge Home Score 4 - 6: 20.3% MACE over next 6 weeks - Admit for Clinical Observation Score 7 - 10: 72.7% MACE over next 6 weeks - Early Invasive Strategies Current Medications: Current Medications Medications (Trade) Dose Ordered Sig/Laureen Start Time Stop Time Status Last Admin Dose Admin Albuterol/ Ipratropium (Duoneb) 3 ml 1X ONCE 07/10/21 22:45 07/10/21 22:46 DC 07/10/21 22:57 3 ML Prednisone (Prednisone) 60 mg 1X ONCE 07/10/21 22:45 07/10/21 22:46 DC 07/10/21 23:05 60 MG Allergies: Allergies: Allergies Coded Allergies Type Severity Reaction Last Updated Verified Influenza Virus Vaccines Allergy Intermediate 07/10/21 Yes bacitracin Allergy Intermediate Rash 07/10/21 Yes Physical Exam: PE: Constitutional: Well developed, well nourished, no acute distress, non-toxic appearance. [] HENT: Normocephalic, atraumatic, bilateral external ears normal, oropharynx moist, no oral exudates, nose normal. [] Eyes: PERRLA, EOMI, conjunctiva normal, no discharge. [] Neck: Normal range of motion, no tenderness, supple, no stridor. [] Cardiovascular:Heart rate regular rhythm, no murmur [] Lungs & Thorax: Bilateral breath sounds clear to auscultation [] Abdomen: Bowel sounds normal, soft, no tenderness, no masses, no pulsatile masses. [] Skin: Warm, dry, no erythema, no rash. [] Back: No tenderness, no CVA tenderness. [] Extremities: No tenderness, no cyanosis, no clubbing, ROM intact, no edema. [] Neurologic: Alert and oriented X 3, normal motor function, normal sensory fun ction, no focal deficits noted. [] Psychologic: Affect normal, judgement normal, mood normal. [] Current Patient Data: Vital Signs: Vital Signs Date Time Temp Pulse Resp B/P (MAP) Pulse Ox O2 Delivery O2 Flow Rate FiO2 07/10/21 22:57 99 Room Air 07/10/21 22:10 98.2 83 20 115/64 (81) 98.2 EKG: EKG: [] Radiology/Procedures: Radiology/Procedures: CXR Impression: Possible opacity in the left lower lobe, concerning for pneumonia, no other large focal opacity or effusion, no pneumothorax Course & Med Decision Making: Course & Med Decision Making Patient arrives with no acute distress, maintaining oxygen saturation in the high 90s on room air. However given the patient's advanced age and her past medical history as well as the fact that she was hypoxic before the DuoNeb we will continue to give breathing treatments and steroids do a chest x-ray to look for possible pneumonia or other acute finding that would explain hypoxia. Patient's chest x-ray has a possible opacity in her left lower lobe, difficult to ascertain whether this is true opacity or related to her cardiac silhouette but given the symptoms the patient exhibited will start antibiotics here in the emergency department as well as recommending to take prednisone for the next 3 days for possible COPD exacerbation. Dragon Disclaimer: Dragon Disclaimer: This electronic medical record was generated, in whole or in part, using a voice recognition dictation system. Departure Departure Impression: Primary Impression: COPD exacerbation Disposition: 03 SNF FACILITY Condition: STABLE Referrals: XAVI ATKINSON MD (PCP) Patient Instructions: Shortness of Breath, Ztck-ta-Plql Scripts Prednisone (PREDNISONE) 20 Mg Tablet 40 MG PO DAILY for 3 Days, #6 TAB Prov: KATARINA MCNAIR MD 07/10/21 Azithromycin (AZITHROMYCIN TABLET) 250 Mg Tablet 250 MG PO DAILY for ANTI-BIOTIC for 4 Days, #4 TAB 0 Refills Prov: KATARINA MCNAIR MD 07/10/21 KATARINA MCNAIR MD July 10, 2021 23:31
--- NOTE | 2021-07-10 23:57 | RAD ---
XR CHEST 1V 07/10/2021 10:58 PM INDICATION: Hypoxia, shortness of breath COMPARISON: 01/03/2021 TECHNIQUE: Portable frontal view of the chest is provided. FINDINGS: The cardiomediastinal silhouette is within normal limits. Patchy opacity within the lingula may repre sent atelectasis and/or infiltrate. There are no significant pleural effusions. There is no pulmonary vascular congestion. No pneumothora x. No suspicious osseous abnormality. Ventricular peritoneal shunt catheter identified along the right n malachi and chest without disruption. IMPRESSION: There is patchy opacity identified within the lingula which may represent atelectasis and centrilobul ar infiltrates. Short-term follow-up two-view chest radiograph could be of benefit. Ventricular peritoneal shunt catheter identified along the right neck and chest without disruption. Electronically signed by: Rebeca Emerson MD (07/10/2021 11:55 PM) KARISSA
[2021-07-11 00:45] VITALS: BP 134/66
== END 2021-07-11 01:05 ==
LOC: ER 22:07
DX: J44.1 Chronic obstructive pulmonary disease with (acute) exacerbation (principal); K21.9 Gastro-esophageal reflux disease without esophagitis; Z88.1 Allergy status to other antibiotic agents; Z88.7 Allergy status to serum and vaccine
CPT/HCPCS: 71045; 94640; 99285; J7512